=== PATIENT | female | born 2005 | race Caucasian/White ===

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

== ENCOUNTER 2025-04-20 17:15 | Emergency (ER) | payer BC, OTHER, SELFPAY ==
[2025-04-20 17:21] VITALS: BP 111/71; PULSE 74; TEMP 37.4; O2SAT 97; BMI 18.9
--- NOTE | 2025-04-20 17:28 | XR_ITS ---
[place] [id number] Patient Name: NAILA TOBIAS MRN: [id number] date: 2005 Sex: F Assigned Patient Location: ED.MAIN Current Patient Location: ED.MAIN Accession/Order Number: [id number] Exam Date: 04/20/2025 17:56 Report Date: 04/20/2025 17:57 At the request of: SARA TORRES Procedure: XR hand RT min 3V 3 views right hand plain film COMPARISON: None HISTORY: Right hand injury ACUTE FINDINGS: None DEGENERATIVE CHANGE: Unremarkable SOFT TISSUE FINDINGS: Unremarkable JOINT EFFUSION: None POSTOP CHANGES: None BONY MINERALIZATION: Adequate XR/XR hand RT min 3V IMPRESSION: No acute findings Impression dictated by: Fly Somers M.D. 04/20/2025 5:57 PM Dictation Location: [place] [address] Electronically authenticated by: [id number] Y Date: 04/20/2025 17:57
--- NOTE | 2025-04-20 17:28 | ED.UPPEXIN1 ---
HPI HPI - Extremity Injury (Upper) General Chief Complaint: Extremity Injury, Upper Stated Complaint: upper extremity problem Time Seen by Provider: 04/20/25 17:21 Source: patient Mode of arrival: walk-in Limitations: no limitations History of Present Illness HPI narrative: 19 year old female presents to the ED for pain to her right distal hand s/p injury 2 days ago. Reports punching a wall 04/18/25. Denies weakness, N/T. Denies pain to the wrist. Related Data Home Medications ?Medication ?Instructions ?Recorded ?Confirmed norgestimate 0.25 mg-ethinyl 1 tab PO QDAY 08/06/23 04/20/25 estradiol 0.035 mg tablet (Sprintec (28)) Allergies Allergy/AdvReac Type Severity Reaction Status Date / Time No Known Drug Allergies Allergy Verified 04/20/25 17:21 Opioid HPI Opioid Management Most Recent Pain and Opioid Data: Last Pain Scale 4 Today, 17:38 Review of Systems ROS Constitutional Denies: fever or chills Cardiovascular Denies: chest pain Respiratory Denies: shortness of breath Musculoskeletal Reports: extremity pain Integumentary/Breast Reports: sores Neurological Denies: numbness in extremities or weakness in extremities PFSH PFSH Social History Little interest or pleasure in doing things: not at all Feeling down, depressed, or hopeless: not at all Exam Constitutional Vital Signs, click to edit/add: Last Vital Signs Temp 99.3 F 04/20/25 17:21 Pulse 74 04/20/25 17:21 Resp 16 04/20/25 17:21 BP 111/71 04/20/25 17:21 Pulse Ox 97 04/20/25 17:21 O2 Del Method Room Air 04/20/25 17:21 Common normals: no apparent distress and oriented x3 General appearance: cooperative Eye Common normals: conjunctivae normal and no scleral icterus Neck & C-Spine Common normals: supple Respiratory Common normals: normal respiratory effort Effort & inspection: able to speak in complete sentences and symmetric chest movement Cardio Common normals: regular rate Peripheral pulses: radial pulses present and ulnar pulses present Extremity Other: Tenderness to 3rd MCP of right hand. Abrasions to distal hand at 2nd and 3rd MCP areas. Denies tenderness to the right wrist. Full ROM to right hand and wrist. Distal sensation intact. Neuro Common normals: oriented x3 and moves all extremities Sensorium/orientation: awake and alert Speech: speech normal Gait (neuro): normal gait Course Vital Signs Vital signs: Vital Signs Temperature 99.3 F 04/20/25 17:21 Pulse Rate 74 04/20/25 17:21 Respiratory Rate 16 04/20/25 17:21 Blood Pressure 111/71 04/20/25 17:21 Pulse Oximetry 97 04/20/25 17:21 Oxygen Delivery Method Room Air 04/20/25 17:21 Temperature 99.3 F 04/20/25 17:21 Pulse Rate 74 04/20/25 17:21 Respiratory Rate 16 04/20/25 17:21 Blood Pressure 111/71 04/20/25 17:21 Pulse Oximetry 97 04/20/25 17:21 Oxygen Delivery Method Room Air 04/20/25 17:21 MDM - Extremity Injury (Upper) MDM Narrative Medical decision making narrative: Pt declined Motrin, Tylenol, and an ice pack here. X-ray showed no acute findings. Findings were discussed. Follow up with pcp for a recheck as needed. Medical Records Attestation: I reviewed the patient's medical records. Imaging Data XR hand: Attestation: I have reviewed the pertinent imaging results. Radiologist's impression: ITS Impressions Hand X-Ray 04/20/25 17:28 IMPRESSION: No acute findings Impression dictated by: Fly Somers M.D. 04/20/2025 5:57 PM Dictation Location: [place] [address] Electronically authenticated by: [id number] Y Date: 04/20/2025 17:57 Discharge Plan Discharge Chief Complaint: Extremity Injury, Upper Clinical Impression: Contusion of hand, Abrasion hand Patient Disposition: Home, Self-Care Time of Disposition Decision: 18:05 Condition: Good Mode of Transportation: Private Vehicle Prescriptions / Home Meds: No Action norgestimate-ethinyl estradiol [Sprintec (28)] 0.25-35 mg-mcg tablet 1 tab PO QDAY Print Language: Prydeinig Instructions: Contusion in Adults (ED), Abrasion (ED) Additional Instructions: Return to the ER for worsening symptoms. Referrals: Physician,Non-Staff, MD [Primary Care Provider] - 1 week
--- OUTSIDE RECORDS SUMMARY | 2025-04-20 17:40 | XMS_ITS | CCD ---
Author Organization [facility] Care Team Providers Care Doctor Chiropractic Name Role Phone Dwayne Cisneros Primary Care Physician PROVIDER, UNKNOWN Attending Unavailable PROVIDER, UNKNOWN Admitting Unavailable Unavailable Primary Care Provider Unavailquang e Pcp, No Primary Care Provider [phone] PCP, NO Primary Care Unavailable DWAYNE CISNEROS Referring Unavailable RACQUEL FERRERA Attending Unavailable Emily Chan MD Primary Care Provider Fransico Brown DO Unavailable DR EMILY CHAN Primary Care Unavailable NNEAK RAI Attending Unavailable NNEKA RAI Admitting Unavailable BLAYNE, DR DUBOIS Primary Care Unavailable PAY ., DR MORALES Attending Unavailable PAY ., DR MORALES Admitting Unavailable HOUSE, DR DUBOIS Primary Care Unavailable PAY ., DR MORALES Admitting Unavailable PAY ., DR MORALES Attending Unavailable ZIEBER, DR RENE Mauricio Consulting Unavailable PAY ., DR MORALES Consulting Unavailable BLAYNE, DR DUBOIS Primary Care Unavailable MARKER ., DR ROJAS Consulting Unavailable MARKER ., DR ROJAS Attending Unavailable MARKER ., DR ROJAS Admitting Unavailable GRECHNY ., ALDO SEGOVIA Consulting Unavailquang MAYS ., DR FAYE Attending Unavailable HAY ., DR FAYE Admitting Unavailable HOUSE, DR DUBOIS Primary Care Unavailable KATIANA MA Consulting Unavailable DIAB ., YUN Consulting Unavailable DIAB ., YUN Attending Unavailable DUSTIN, DR DIAZ Primary Care Unavailable DIAB ., YUN Admitting Unavailable DIAB ., YUN Admitting Unavailable DIAB ., YUN Attending Unavailable KEVIN ., JAQUELINE Consulting Unavailable BLAYNE, DR DUBOIS Primary Care Unavailable DUSTIN, DR DIAZ Primary Care Unavailable MISC, DR HUSSEIN Consulting Unavailable MISC, DR HUSSEIN Attending Unavailable MISC, DR HUSSEIN Admitting Unavailable DUSTIN, DR DIAZ Primary Care Unavailable NNEKA RAI Consulting Unavailable NNEKA RAI Attending Unavailable NNEKA RAI Admitting Unavailable HOUSE, DR DUBOIS Consulting Unavailable HOUSE, DR DUBOIS Attending Unavailable HOUSE, DR DUBOIS Admitting Unavailable HOUSE, DR DUBOIS Primary Care Unavailable CHAN, DR DIAZ Primary Care Unavailable NNEKA RAI Attending Unavailable NNEKA RAI Admitting Unavailable HOUSE, DWAYNE Referring Unavailable HOUSE, DWAYNE Primary Care Unavailable KEVIN, FRANSICO Attending Unavailable HOUSE, DWAYNE Primary Care Unavailable NANCY ZURITA Attending Unavailable REFERRED, SELF Referring Unavailable TYLER MATHEW Attending Unavailabl e HOUSE, DWAYNE Referring Unavailable HOUSE, DWAYNE Primary Care Unavailable HOUSE, DWAYNE Primary Care Unavailable BROWN, FRANSICO Attending Unavailable YANA DAVIS Referring Unavailable HOUSE, DWAYNE Referring Unavailable HOUSE, DWAYNE Primary Care Unavailable BROWN, FRANSICO Attending Unavailable KEVIN, FRANSICO Attending Unavailable REFERRED, SELF Referring Unavailable HOUSE, DWAYNE Primary Care Unavailable TYLER MATHEW Attending Unavailabl e KEANE, NAIF E Referring Unavailable HOUSE, DWAYNE Primary Care Unavailable HOUSE, DWAYNE Referring Unavailable HOUSE, DWAYNE Primary Care Unavailable KEVIN, FRANSICO Attending Unavailable Dustin SALCEDO, Emily Mauricio Primary Care Provider [phone] Kevin DOFransico Unavailable Guanako, Amira J Admitting Unavailable Guanako, Amira J Attending Unavailable Guanako, Amira J Admitting Unavailable Guanako, Amira J Attending Unavailable Guanako, Amira J Admitting Unavailable Guanako, Amira J Attending Unavailable GamalielMickey D Admitting Unavailable GamalielMickey Attending Unavailable GamalielMickey edwards Referring Unavailable KASSINGERDENITA Attending Unavailable CHAN, EMILY Primary Care Unavailable KASSINGERDENITA Attending Unavailable CHAN, EMILY Primary Care Unavailable CHAN, EMILY Primary Care Unavailable KASSINGER, DENITA Attending Unavailable CHAN, EMILY Primary Care Unavailable KASSINGER, DENITA Attending Unavailable CHAN, EMILY Primary Care Unavailable KASSINGER, DENITA Attending Unavailable MARIESINGER, DENITA Attending Unavailable CHAN, EMILY Primary Care Unavailable CHAN, EMILY Primary Care Unavailable CARMINEGER, DENITA Attending Unavailable SPENSER CISNEROS Attending Unavailable HOUSE, DWAYNE Primary Care Unavailable CHAN, EMILY Primary Care Unavailable KASSINGER, DENITA Attending Unavailable DUSTIN, EMILY Primary Care Unavailable DENITA SOSA Attending Unavailable DUSTIN, EMILY Primary Care Unavailable KASSINGER, DENITA Attending Unavailable CHAN, EMILY Primary Care Unavailable SHEILA, DENITA Attending Unavailable EMILY CHAN Primary Care Unavailable KAS, DENITA Attending Unavailable EMILY CHAN Primary Care Unavailable KAS, DENITA Attending Unavailable EMILY CHAN Primary Care Unavailable KASSINKASSIDY, DENITA Attending Unavailable EMILY CHAN Primary Care Unavailable KASSINGER, DENITA Attending Unavailable EMILY CHAN Primary Care Unavailable KASSINGER, DENITA Attending Unavailable EMILY CHAN Primary Care Unavailable KASSINGER, DENITA Attending Unavailable EMILY CHAN Primary Care Unavailable KASSINGER, DENITA Attending Unavailable KASSINGER, DENITA Attending Unavailable EMILY CHAN Primary Care Unavailable KASSINGER, DENITA Attending Unavailable DWAYNE CISNEROS Primary Care Unavailable KASSINKASSIDY, DENITA Attending Unavailable DWAYNE CISNEROS Primary Care Unavailable CHANEMILY MARTINO Primary Care Unavailable KASSINGER, DENITA Attending Unavailable EMILY CHAN Primary Care Unavailable KASSINGER, DENITA Attending Unavailable SHEILA, DENITA Attending Unavailable EMILY CHAN Primary Care Unavailable EMILY CHAN Primary Care Unavailable KASSINGER, DENITA Attending Unavailable KASSINKASSIDY, DENITA Attending Unavailable EMILY CHAN Primary Care Unavailable Tom SALCEDO, Sasha Wesley Primary Care Provider BENITO SUN Attending Unavailable AAKASH LOZANO Attending Unavailable Dwayne Cisneros Primary Care Provider [phone] Medications Current Medications Medication Drug Class(es) Dates Sig (Normalized) Sig (Original) calcium carbonate 1250 mg / cholecalciferol 200 unt oral tablet (15 sources) Vitamin D take 1 tablet by mouth once in the morning calcium carbonate-vitamin D (Oscal-500) 500-200 MG-UNIT tablet Take 1 tablet by mouth in the morning. 0 Active dextromethorphan hydrobromide 15 mg / guaiFENesin 400 mg / pseudoephedrine hydrochloride 60 mg oral tablet (1 source) alpha-Adrenergic Agonist, Uncompetitive O-sbikwo-B-aspartat e Receptor Antagonist, Sigma-1 Agonist Start: 09-05-2024 take 4 tablets by mouth every twenty-four hours Pseudoephedrine-D m-Guaifenesin (Capmist Dm) 60-15-400 mg tablet Active 1 TAB PO EVERY 4-6 HOURS September 05, 2024 12:00am do not exceed 4 doses per 24 hrs ethinyl estradiol 0.035 mg / norgestimate 0.25 mg oral tablet (4 sources) Progestin, Estrogen Start: 08-21-2023 End: 09-09-2024 take 1 tablet by mouth in the morning Jyo 0.25-35 MG-MCG tablet Take 1 tablet by mouth in the morning. 08/21/2023 09/09/2024 Discontinued (Therapy completed) Ethinyl Estradiol / Norgestrel (13 sources) Estrogen Start: 12-22-2022 norgestrel-ethiny l estradiol (Low-Ogestrel) 0.3-30 MG-MCG tablet Start: 12-22-2022 Low-Ogestrel ( 28) 0.3 mg-30 mcg tablet etonogestrel 68 mg drug implant (2 sources) Progestin etonogestrel-elu ting (Nexplanon) 68 mg contraceptive implant 1 each by Implant route 1 (one) time Active Etonogestrel (Nexplanon) 68 mg implant (1 source) Start: Etonogestrel (Nexplanon) 68 mg implant Active SUBDERMAL September 05, 2024 12:00am implanted 08/2024 Dr. Alston prazosin 1 mg oral capsule (15 sources) alpha-Adrenergic Edgard take 1 capsule by mouth once daily prazosin (Minipress) 1 MG capsule Take 1 mg by mouth Nightly. 0 Active sertraline 100 mg oral tablet (20 sources) Serotonin Reuptake Inhibitor Start: take 150 mg by mouth once daily Sertraline Active 150 MG PO Daily September 05, 2024 12:00am Start: 07-10-2024 sertraline (Zo loft) 100 MG tablet Indications: PTSD (post-traumatic stress disorder) (CMS/HCC) , Depression with anxiety TAKE 1 AND 1/2 TABLETS BY MOUTH ONCE A DAY AT THE SAME TIME 135 tablet 2 07/10/2024 Active Start: 06-17-2024 End: 07-10-2024 sertraline (Zoloft) 100 MG t ablet Indications: PTSD (post-traumatic stress disorder) (CMS/HCC) , Depression with anxiety TAKE 1 AND 1/2 TABLETS BY MOUTH ONCE A DAY AT THE SAME TIME 135 tablet 2 07/10/2024 Active Start: 12-09-2022 take 2 tablets by mo uth once daily at bedtime sertraline 100 mg tablet (Zoloft) TAKE 2 TABLETS BY MOUTH NIGHTLY AT BEDTIME 0 12/09/2022 Active sertraline (Zolo ft) 100 MG tablet Take 150 mg by mouth Nightly. 0 Active Completed/Discontinued Medications Medication Drug Class(es) Dates Sig (Normalized) Sig (Original) amoxicillin 500 mg oral tablet (1 source) Penicillin-class Antibacterial Start: 06-27-2018 End: 09-05-2024 take 500 mg by mouth three times daily Amoxicillin Discontinued 500 MG PO Three times daily 30 June 27, 2018 12:00am September 05, 2024 2:21pm ondansetron 4 mg disintegrating oral tablet (1 source) Serotonin-3 Receptor Antagonist Start: 06-27-2018 End: 09-05-2024 Ondansetron Discontinued June 27, 2018 12:00am September 05, 2024 2:21pm Problems Active Problems Problem Classification Problem Date Documented Da te Episodic/Chronic Abdominal pain (1 source) Unspecified abdominal pain; Translations: [UNSPECIFIED ABDOMINAL PAIN] Onset: 12-27-2022 Episodic Adjustment disorders (1 source) Reaction to severe stress, unspecified; Translations: [REACTION TO SEVERE STRESS UNS] Onset: 02-15-2023 Chronic Anxiety disorders (20 sources) Posttraumatic stress disorder; Translations: [Post-traumatic stress disorder, unspecified] Onset: 08-28-2022 Chronic Epilepsy; convulsions (1 source) Seizure disorder; Translations: [Epilepsy, unspecified, not intractable, without status epilepticus] 09-05-2024 Chronic Genitourinary symptoms and ill-defined conditions (11 sources) Microscopic hematuria; Translations: [Other microscopic hematuria] Onset: 11-27-2022 Episodic Immunizations and screening for infectious disease (2 sources) Vaccination needed; Translations: [Encounter for immunization] 09-09-2024 Episodic Miscellaneous mental health disorders (20 sources) Psychologic conversion disorder; Translations: [Conversion disorder with seizures or convulsions] Onset: 12-06-2021 Chronic Nutritional deficiencies (1 source) Vitamin D deficiency, unspecified; Translations: [VITAMIN D DEFICIENCY UNSPECIFIED] Onset: 12-27-2022 Chronic Other bone disease and musculoskeletal deformities (4 sources) Emmie Schlatter disease; 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] Onset: 12-02-2019 12-10-2023 Chronic Residual codes; unclassified (3 sources) Sleep apnea 01-29-2014 Chronic Spondylosis; intervertebral disc disorders; other back problems (1 source) Muscle spasm of back; Translations: [MUSCLE SPASM OF BACK] Onset: 01-28-2023 Episodic Unclassified (3 sources) LOW BACK PAIN, UNSPECIFIED; Translations: [LOW BACK PAIN, UNSPECIFIED] Onset: 01-28-2023 Unclassified (1 source) CONTACT W/AND (SUSP) EXPOS COVID-19; Translations: [CONTACT W/AND (SUSP) EXPOS COVID-19] Onset: 08-17-2022 Past or Other Problems Problem Classification Problem Date Documented Date Episodic/Chronic E Codes: Natural/environment (1 source) Exposure to other specified factors, initial encounter; Translations: [EXPOSURE OTHER SPEC FACTORS INITIAL] Onset: 05-03-2022 Episodic Epilepsy; convulsions (9 sources) Unspecified convulsions; Translations: [Neurological finding] Onset: 11-15-2021 Resolved: 09-09-2024 Episodic Fracture of upper limb (4 sources) Open fracture of shaft of radius and ulna; Translations: [Unspecified fracture of shaft of unspecified radius, initial encounter for open fracture type I or II] Onset: 07-17-2017 12-10-2023 Episodic Mood disorders (4 sources) Depressive disorder; Translations: [Depression] Onset: 08-28-2022 Resolved: 09-09-2024 12-10-2023 Chronic Other aftercare (1 source) Other mcc (current) drug therapy; Translations: [OTH FUNERAL DRIVER CURRENT DRUG THERAPY] Onset: 11-27-2022 Episodic Other injuries and conditions due to external causes (4 sources) Food in respiratory tract, part unspecified causing other injury, initial encounter; Translations: [FOOD RESP TRACT PRT UNS OTH INJ INT] Onset: 05-02-2022 Episodic Residual codes; unclassified (4 sources) Procedure and treatment not carried out due to patient leaving prior to being seen by health care provider; Translations: [PROC AND TX NOT CARRIED OUT PT LEAVE] Onset: 12-09-2022 Episodic Suicide and intentional self-inflicted injury (4 sources) Poisoning by other antipsychotics and neuroleptics, intentional self-harm, initial encounter; Translations: [PSN OTH ANTIPSYCH NLS SLF-HARM INIT] Onset: 08-15-2022 Episodic Unclassified (1 source) LOW BACK PAIN, UNSPECIFIED; Translations: [LOW BACK PAIN, UNSPECIFIED] Onset: 01-25-2023 Viral infection (4 sources) Disease caused by 2019-nCoV; Translations: [COVID-19] Onset: 11-15-2021 Resolved: 09-09-2024 12-10-2023 Episodic Results Test Name Value Interpretation Reference Range Facility US Pelvis Non-OB Completeon 08-07-2023 US Pelvis Non-OB Complete Exam Date/Time: 08/05/2023 18:40 EDT Reason for Exam: N92.0 Report IMPRESSION: NEGATIVE ULTRASOUND OF THE PELVIS. CLINICAL HISTORY: N92.0. Cramping. COMPARISON: Pelvis ultrasound 10/16/2021 COMMENT: Transabdominal images were obtained. The uterus measurements and an estimated volume are: Uterus Length: 7.6 cm Uterus Width: 3.5 cm Uterus Height: 2.6 cm Uterus Volume: 35.8 cm3 Endometrium Thickness: 0.3 cm Normal sonographic appearance of the uterus. The right ovary measurements and an estimated volume are: Right Ovary Length: 1.7 cm Right Ovary Width: 1.7 cm Right Ovary Height: 1.3 cm Right Ovary Volume: 1.9 cm3 The left ovary measurements and an estimated volume are: Left Ovary Length: 2.1 cm Left Ovary Width: 2.5 cm Left Ovary Height: 1.5 cm Left Ovary Volume: 3.8 cm3 Normal sonographic appearance of the ovaries. Blood flow is identified to both ovaries. Ordering Provider: Mickey Alston FINAL REPORT Dictated: 08/07/2023 2:24 pm Brandan Stevenson DO Signed (Electronic Signature): 08/07/2023 2:24 pm Signed by: Brandan Stevenson DO Transcribed by: MOISES Technologist: ANTONELLA Technical Comments Transabdominal Ultrasound Performed Normal [facility] Consent for Treatmenton 07-19 Consent for Treatment [id number]#[id number]:127 Normal [facility] Physician Orderon 07-31-2023 Physician Order [id number]#1.00CD:127 Normal [facility] 36on 07-12-2023 36 Called to confirm appointment. Patient did not answer. LVM telling them to call back if they need to reschedule. [facility] Chlamydia/Gonococcus, NAAon 04-26-2023 C. trachomatis rRNA UNA+probe Ql (Unsp spec) Negative Invalid Interpretation Code Negative [facility] Comment on above: Performed By: #### 1 [id number] #### [facility] [address] [place] [address] N. gonorrhoeae rRNA UNA+probe Ql (Unsp spec) Negative Invalid Interpretation Code Negative [facility] Comment on above: Result Comment: Perf ormed at: =G [facility] [address] [id number] MD Finn Sheth Performed By: #### 1 [id number] #### [facility] [address] [place] [address] Physician Orderon 04-24-2023 Physician Order [id number]#[id number]:127 [facility] Physician Orderon 04-22-2023 Physician Order [id number]#1.00CD:127 [facility] 36on 03-11-2023 36 I've entered a response to the patient's message below. Response to the message: I think you can now message me through my chart Denita Sosa [facility] Progress Noteon 03-06-2023 Progress Note Clients mom cancelled client having PNES seizure Normal [facility] Progress Noteon 02-21-2023 Progress Note Client cancelled [facility] PATINSon 02-15-2023 PATINS Please follow the seizure precautions below: Please do not engage in any high risk activities such as, but not limited to, bathing in tubs, swimming alone, climbing ladders, working at heights, near open flames or machinery with moving parts etc. Avoid scenarios in which sudden loss of awareness may result in serious injuries. Alcohol and sleep deprivation may provoke seizures. It is best to avoid alcohol and to get sufficient sleep each night. You should not be driving according to state law for at least 6 months from the time of last seizure, episode of altered consciousness, or any other unexplained symptom that could affect your ability to safely drive. You are encouraged to contact the gas or water meter installer/[place] [employer] Motor [employer] to apprise them of your medical condition. If you have any questions or further seizures, please call the Epilepsy clinic to schedule an appointment. Normal [facility] Progress Noteon 02-15-2023 Progress Note Department of Neurological Sciences Section of Epilepsy [facility] [address] [facility] [address] Dept: [phone] Dept Loc: [phone] . Visit type: follow-up Reason for Visit: Follow-up Objective Patient was seen today via Telehealth by agreement and consent in light of the current COVID-19 pandemic. I used the following Telehealth technology: Audio and video capabilities Patient location: Home. This patient encounter is appropriate and reasonable under the circumstances given the patient's particular presentation at this time. The patient has been advised of the potential risks and limitations of this mode of treatment (including but not limited to the absence of in-person examination) and has agreed to be treated in a remote fashion in spite of them. Any and all of the patient's/patient's family's questions on this issue have been answered and I have made no promises or guarantees to the patient. The patient has also been advised to contact this office for worsening conditions or problems, and seek emergency medical treatment and/or call 911 if the patient deems either necessary. The patient stated that they are currently in the state [facility]. If the patient is a minor, permission has been obtained by the parent or guardian for the patient to receive medical care at this visit. AL Bell is a 17 y.o. 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 She was last seen on 08/28/2022. Prior History: The patient was initially seen in epilepsy clinic on 08/28/2022, please refer to this note for a detailed seizure history (only available via [facility]). 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 She has been participating in focused CBT therapy through our clinic. The patient has been working with our epilepsy clinic psychiatric social worker (eDnita Sosa, last seen on 01/29/23) on focused CBT for PNES. Per this note: Client has continued periods anxiety and depression. Client however is doing so much better using her coping skills. She is using the control part of her impulsive thinking. She is doing self-care and taking things 1 day at a time. Client has continued to not have seizures, has auras and breaths through them. She had reached 100 days without a major seizure. Interval History: Today the patient and her mother provide the history. Her mother notes ongoing breakthrough seizures since 02/13/23. Her mother believes this was because she tried to make her go into work that day. On that morning the patient notably expressed a desire to not go into work. She then had breakthrough seizures off and on for ~40 minutes. She ultimately was taken to a local ED after she struck her head. Her mother is concerned that any activity (work, school or otherwise) that causes her stress/anxiety will result in seizures. She is worried that she will be unable to return to work or school. The patient has been experiencing notable anhedonia, reporting that she mostly lays around in bed during the day. She expresses no desire to go out and participate in daily activities. She has also reported a lot of self doubt - stating that she was failing at school, work, and life. Her sleep has also notably been poor due to recurrent nightmares. She stopped prazosin and is taking Zoloft 100mg at bedtime. She has been following with Dr. Fransico Brown ([facility]), last seen on 10/04/2022. Review of Systems No Known Allergies Current Outpatient Medications Medication Sig Dispense Refill norgestrel-ethinyl estradiol (Low-Ogestrel) 0.3-30 MG-MCG tablet sertraline (Zoloft) 100 MG tablet Take 150 mg by mouth Nightly. No current facility-administer ed medications for this visit. Past Medical History: Diagnosis Date Seizures (CMS/HCC) (HCC) Social History Tobacco Use Smoking status: Never Smokeless tobacco: Not on file Substance Use Topics Alcohol use: Never History reviewed. No pertinent surgical history. No family history on file. Ht 5' 4 (1.626 m) Wt 103 lb (46.7 kg) BMI 17.68 kg/m? Physical Exam NEUROLOGIC: (limited via video) Mental status: The patient was in no distress, alert, interactive and cooperative. Affect is appropriate. Cranial nerve II: Visual solares intact to the examiner. Cranial nerves III, IV, and : Pupils round and equal; no ptosis. EOMs intact. No nystagmus. Cranial Nerve V: Unable to assess. Cranial nerve VII: Normal and symmetric facial strength. Cranial nerve VIII: Hearing is intact bilaterally to voice. Cranial nerves IX and X: Palate elevates symmetrically. Cranial nerve XI: S (more content not included)... Normal [facility] CBC AUTO DIFFon 02-13-2023 BASO # 0.1 103/ul Normal 0.0-0.1 [facility] Comment on above: Performed By: #### D RUGRPD #### [facility] [address] [address] [address] Heather Salas Basophils/100 WBC (Bld) 0.6 % Normal 0.2-2.0 [facility] Comment on above: Performed By: #### D RUGRPD #### [facility] [address] [address] [address] Heather Salas EO # 0.2 103/ul Normal 0.0-0.7 [facility] Comment on above: Performed By: #### D RUGRPD #### [facility] [address] [address] [address] Heather Salas Eosinophils/100 WBC (Bld) 1.8 % Normal 0.9-7.0 [facility] Comment on above: Performed By: #### D RUGRPD #### [facility] [address] [address] [address] Heather Salas Erythrocyte distribution width (RBC) [Ratio] 12.9 % Normal 11.0-15.0 [facility] Comment on above: Performed By: #### D RUGRPD #### [facility] [address] [place] [address] Dr. Heather Salas Hematocrit (Bld) [Volume fraction] 38.1 % Normal 36.0-48.0 [facility] Comment on above: Performed By: #### D RUGRPD #### [facility] [address] [place] [address] Dr. Heather Salas Hemoglobin (Bld) [Mass/Vol] 12.6 g/dL Normal 12.0-16.0 [facility] Comment on above: Performed By: #### D RUGRPD #### [facility] [address] [place] [address] Dr. Heather Salas IG # 0.03 10e3/ul Normal 0.00-0.03 [facility] Comment on above: Performed By: #### D RUGRPD #### [facility] [address] [place] [address] Dr. Heather Salas IG % 0.4 % Normal 0.0-0.5 [facility] Comment on above: Performed By: #### D RUGRPD #### [facility] [address] [place] [address] Dr. Heather Salas LYMPH # 2.8 103/ul Normal 1.2-3.8 [facility] Comment on above: Performed By: #### D RUGRPD #### [facility] [address] [place] [address] Dr. Heather Salas Lymphocytes/100 WBC (Bld) 34.6 % Normal 20.5-60.0 [facility] Comment on above: Performed By: #### D RUGRPD #### [facility] [address] [place] [address] Dr. Heather Salas MANUAL DIFF REQ NO Normal [facility] Comment on above: Performed By: #### D RUGRPD #### [facility] [address] [place] [address] Dr. Heather Salas MCH (RBC) [Entitic mass] 30.1 pg Normal 26.7-34.0 [facility] Comment on above: Performed By: #### D RUGRPD #### [facility] [address] [place] [address] Dr. Heather Salas MCHC (RBC) [Mass/Vol] 33.1 g/dL Normal 29.9-35.2 [facility] Comment on above: Performed By: #### D RUGRPD #### [facility] [address] [place] [address] Dr. Heather Salas MCV (RBC) [Entitic vol] 90.9 fL Normal 79.1-95.6 [facility] Comment on above: Performed By: #### D RUGRPD #### [facility] [address] [place] [address] Dr. Heather Salas MONO # 0.4 103/ul Normal 0.3-0.8 [facility] Comment on above: Performed By: #### D RUGRPD #### [facility] [address] [place] [address] Dr. Heather Salas Monocytes/100 WBC (Bld) 4.9 % Normal 1.7-12.0 [facility] Comment on above: Performed By: #### D RUGRPD #### [facility] [address] [place] [address] Dr. Heather Salas NEUT # 4.7 103/ul Normal 1.4-6.5 [facility] Comment on above: Performed By: #### D RUGRPD #### [facility] [address] [place] [address] Dr. Heather Salas Neutrophils/100 WBC (Bld) 57.7 % Normal 43.0-75.0 [facility] Comment on above: Performed By: #### D RUGRPD #### [facility] [address] [place] [address] Dr. Heather Salas Platelet mean volume (Bld) [Entitic vol] 10.4 fL Normal 9.5-13.5 [facility] Comment on above: Performed By: #### D RUGRPD #### [facility] [address] [place] [address] Dr. Heather Salas PLT 244 103/ul Normal 150-450 [facility] Comment on above: Performed By: #### D RUGRPD #### [facility] [address] [place] [address] Dr. Heather Salas RBC 4.19 106/ul Normal 3.40-5.30 [facility] Comment on above: Performed By: #### D RUGRPD #### [facility] [address] [place] [address] Dr. Heather Salas WBC 8.1 103/ul Normal 4.0-11.0 [facility] Comment on above: Performed By: #### D RUGRPD #### [facility] [address] [place] [address] Dr. Heather Salas DRUG SCREEN RAPID (URINE)on 02-13-2023 AMP Negative Normal NEGATIVE [facility] Comment on above: Performed By: #### B MP #### [facility] [address] [place] [address] Dr. Heather Salas BAR Negative Normal NEGATIVE [facility] Comment on above: Performed By: #### B MP #### [facility] [address] [place] [address] Dr. Heather Salas BUP Negative Normal NEGATIVE [facility] Comment on above: Performed By: #### B MP #### [facility] [address] [place] [address] Dr. Heather Salas BZO Negative Normal NEGATIVE [facility] Comment on above: Performed By: #### B MP #### [facility] [address] [place] [address] Dr. Heather Salas LANG Negative Normal NEGATIVE [facility] Comment on above: Performed By: #### B MP #### [facility] [address] [place] [address] Dr. Heather Salas CUT-OFFS SEE BELOW Normal [facility] Comment on above: Result Comment: AMP (Amphetamine): 500ng/mL, BAR (Barbituates): 200 ng/mL, BZO (Benzodiazepines): 150 ng/mL, BUP (Buprenorphine): 10 ng/mL, LANG (Cocaine): 150 ng/mL, mAMP (Methamphetamine): 500 ng/mL, MTD (Methadone): 200 ng/mL, OPI (Opiates): 100 ng/mL, OXY (Oxycodone): 100 ng/mL, PCP (Phencyclidine): 25 ng/mL, PPX (Propoxyphene): 300 ng/mL, THC (Cannabinoids): 50 ng/mL, TCA (Trycyclic Antidepressants): 300 ng/mL Performed By: #### B MP #### [facility] [address] [place] [address] Dr. Heather Salas DRUG CUT HEADER DRUG CLASS TEST SYSTEM CUT-OFF CONCENTRATIONS ARE FOLLOWS: Normal [facility] Comment on above: Performed By: #### B MP #### [facility] [address] [place] [address] Dr. Heather Salas mAMP Negative Normal NEGATIVE [facility] Comment on above: Performed By: #### B MP #### [facility] [address] [place] [address] Dr. Heather Salas MTD Negative Normal NEGATIVE [facility] Comment on above: Performed By: #### B MP #### [facility] [address] [place] [address] Dr. Heather Salas OPI Negative Normal NEGATIVE [facility] Comment on above: Performed By: #### B MP #### [facility] [address] [place] [address] Dr. Heather Salas OXY Negative Normal NEGATIVE [facility] Comment on above: Performed By: #### B MP #### [facility] [address] [place] [address] Dr. Heather Salas PCP Negative Normal NEGATIVE [facility] Comment on above: Performed By: #### B MP #### [facility] [address] [place] [address] Dr. Heather Salas PPX Negative Normal NEGATIVE [facility] Comment on above: Performed By: #### B MP #### [facility] [address] [place] [address] Dr. Heather Salas TCA Negative Normal NEGATIVE [facility] Comment on above: Performed By: #### B MP #### [facility] [address] [address] [address] Heather Salas THC Negative Normal NEGATIVE [facility] Comment on above: Performed By: #### B MP #### [facility] [address] [place] [address] Dr. Heather KISER URINE PROFILEon 3 Bilirubin Ql (U) Negative Normal NEGATIVE [facility] Comment on above: Performed By: #### B MP #### [facility] [address] [place] [address] Dr. Heather Salas Clarity (U) CLEAR Normal CLEAR [facility] Comment on above: Performed By: #### B MP #### [facility] [address] [place] [address] Dr. Heather Salas Color (U) LT. YELLOW Normal YELLOW [facility] Comment on above: Performed By: #### B MP #### [facility] [address] [place] [address] Dr. Heather RADFORD A micrscopic examination will be performed if indicated. Normal [facility] Comment on above: Performed By: #### B MP #### [facility] [address] [place] [address] Dr. Heather Salas Glucose Ql (U) Negative Normal NEGATIVE [facility] Comment on above: Performed By: #### B MP #### [facility] [address] [place] [address] Dr. Heather Salas Hemoglobin Ql (U) TRACE-INTACT Abnormal NEGATIVE [facility] Comment on above: Performed By: #### B MP #### [facility] [address] [place] [address] Dr. Heather Salas Ketones Ql (U) Negative Normal NEGATIVE [facility] Comment on above: Performed By: #### B MP #### [facility] [address] [place] [address] Dr. Heather Salas LEUKOCYTES Negative Normal NEGATIVE [facility] Comment on above: Performed By: #### B MP #### [facility] [address] [place] [address] Dr. Heather Salas Nitrite Ql (U) Negative Normal NEGATIVE [facility] Comment on above: Performed By: #### B MP #### [facility] [address] [address] [address] Heather Salas pH (U) 7.5 [pH] Normal 5-9 [facility] Comment on above: Performed By: #### B MP #### [facility] [address] [place] [address] Dr. Heather Salas SPEC GRAVITY 1.015 Normal 1.005-<=1.025 [facility] Comment on above: Performed By: #### B MP #### [facility] [address] [place] [address] Dr. Heather Salas UA PROTEIN Negative Normal NEGATIVE/ TRACE [facility] Comment on above: Performed By: #### B MP #### [facility] [address] [place] [address] Dr. Heather Salas UR MICRO IND INDICATED Normal [facility] Comment on above: Performed By: #### B MP #### [facility] [address] [place] [address] Dr. Heather Salas Urobilinogen Qn (U) 0.2 {Varun'U}/dL Normal 0.2 - 1. 0 [facility] Comment on above: Performed By: #### B MP #### [facility] [address] [place] [address] Dr. Heather Salas PREG HCG QUALon 02-13-2023 , QUAL Negative Normal NEGATIVE [facility] Comment on above: Performed By: #### P REG #### [facility] [address] [place] [address] Dr. Heather Salas PROF 14(COMP METB)on 023 Albumin [Mass/Vol] 3.8 g/dL Normal 3.4-5.0 [facility] Comment on above: Performed By: #### B MP #### [facility] [address] [place] [address] Dr. Heather Salas Albumin/Globulin [Mass ratio] 1.1 {ratio} Normal [facility] Comment on above: Performed By: #### B MP #### [facility] [address] [address] [address] Heather Salas ALP [Catalytic activity/Vol] 93 U/L Normal 65-260 [facility] Comment on above: Performed By: #### B MP #### [facility] [address] [place] [address] Dr. Heather Salas ALT [Catalytic activity/Vol] 17 U/L Normal 14-59 [facility] Comment on above: Performed By: #### B MP #### [facility] [address] [address] [address] Heather Salas Anion gap [Moles/Vol] 13.6 mmol/L Normal [facility] Comment on above: Performed By: #### B MP #### [facility] [address] [place] [address] Dr. Heather Salas AST [Catalytic activity/Vol] 14 U/L Critically low 15-37 [facility] Comment on above: Performed By: #### B MP #### [facility] [address] [place] [address] Dr. Heather Salas Bilirubin [Mass/Vol] 0.2 mg/dL Normal 0.2-1.0 [facility] Comment on above: Performed By: #### B MP #### [facility] [address] [place] [address] Dr. Heather Salas Calcium [Mass/Vol] 9.0 mg/dL Normal 8.5-10.1 [facility] Comment on above: Performed By: #### B MP #### [facility] [address] [place] [address] Dr. Heather Salas Chloride [Moles/Vol] 107 mmol/L Normal 98-107 [facility] Comment on above: Performed By: #### B MP #### [facility] [address] [place] [address] Dr. Heather aSlas CO2 [Moles/Vol] 27.5 mmol/L Normal 21.0-32.0 [facility] Comment on above: Performed By: #### B MP #### [facility] [address] [place] [address] Dr. Heather Salas Creatinine [Mass/Vol] 0.73 mg/dL Normal 0.55-1.02 [facility] Comment on above: Performed By: #### B MP #### [facility] [address] [address] [address] Heather Salas Globulin (S) [Mass/Vol] 3.4 g/dL Normal [facility] Comment on above: Performed By: #### B MP #### [facility] [address] [address] [address] Heather Salas Glucose [Mass/Vol] 86 mg/dL Normal 74-106 [facility] Comment on above: Performed By: #### B MP #### [facility] [address] [place] [address] Dr. Heather Salas Potassium [Moles/Vol] 4.1 mmol/L Normal 3.5-5.1 [facility] Comment on above: Performed By: #### B MP #### [facility] [address] [place] [address] Dr. Heather Salas Protein [Mass/Vol] 7.2 g/dL Normal 6.4-8.2 [facility] Comment on above: Performed By: #### B MP #### [facility] [address] [place] [address] Dr. Heather Salas Sodium [Moles/Vol] 144 mmol/L Normal 136-145 [facility] Comment on above: Performed By: #### B MP #### [facility] [address] [address] [address] Heather Salas Urea nitrogen [Mass/Vol] 7.0 mg/dL Normal 6.4-19.3 [facility] Comment on above: Performed By: #### B MP #### [facility] [address] [place] [address] Dr. Heather Salas Urea nitrogen/Creatinine [Mass ratio] 9.6 mg/mg Normal [facility] Comment on above: Performed By: #### B MP #### [facility] [address] [place] [address] Dr. Heather Salas URINE MICROSCOPIC ONLYon BACTERIA NONE SEEN Normal NONE SEEN [facility] Comment on above: Performed By: #### B MP #### [facility] [address] [place] [address] Dr. Heather Salas Bacteria identified Cx Nom (U) NOT INDICATED Normal [facility] Comment on above: Performed By: #### B MP #### [facility] [address] [place] [address] Dr. Heather Salas CAST NONE SEEN Normal NONE SEEN [facility] Comment on above: Performed By: #### B MP #### [facility] [address] [place] [address] Dr. Heather Salas Crystals LM Nom (Urine sed) NONE SEEN Normal NONE SEEN [facility] Comment on above: Performed By: #### B MP #### [facility] [address] [place] [address] Dr. Heather Salas Epithelial cells LM Ql (Urine sed) FEW Abnormal NONE SEEN /RARE [facility] Comment on above: Performed By: #### B MP #### [facility] [address] [place] [address] Dr. Heather Salas MUCOUS NONE SEEN Normal NONE SEEN [facility] Comment on above: Performed By: #### B MP #### [facility] [address] [place] [address] Dr. Heather Salas RBC 0-2 Normal 0-2 [facility] Comment on above: Performed By: #### B MP #### [facility] [address] [place] [address] Dr. Heather Salas WBC 0-2 Abnormal NONE SEEN [facility] Comment on above: Performed By: #### B MP #### [facility] [address] [place] [address] Dr. Heather Salas Coding Summary.on 01-31-2023 Coding Summary. CD:[id number] NMTElOSywgQVBQTElOS bAedlGbTX0nkZEyHXEz IC8+EK9kCCCqLbeahOG im0X3dWA8H70ctm4yFX uybIB2BHGsPkKzylbvq 0zmzKe5XJpjGcjnNcEi HGBfgM56IMB2tB71Ex2 6jPRwlNQrv4crbVg9Eb AnEGQbBUN1xJlrRNjwi 9WtLHUnW68zvLXug8B7 IGNvbGxhcHNlOyBlbXB 0bW0tAUvscvkey1gnuk clQzc3eq93nSFwt8C4x NO1K6NtjzR8NWBioLYh OekytLQIxE8zkmobb5n lltemYfFuNZXdXSz6HB w3URYpiVqkCaAdPF23U PK9SUFlxnQxP6ObXVXs uUxqRoA7b7D7Vz5MB6N KOzddY2HXPQPNMDdfbT Q+YD89oj63A0MiTdykT ls9RIJkYST7dKC4aH2m FNGwSIcrs6R3eXX2L3F pmfCbyh3oh7oeBUPrZW wqD13yhEWbv8A5XWFlh JT9PXCsbNkmWaFavF38 Oyc+VIAggHfgr3SbRep ef3jaa0thdUv3YndmZL QuuvKggLzsIFO7p4ZaG y0wTRRgoCX1kYJ3pB4w NnBkCkO8BWyaS720WkC anBTkRrbnL70sD1OddO A+PETfEat9XCCojNlbP W2gP9QdFLVylcetxGVk cBaaHL8jEOXtpavdIJB hpK5zFMZcC5t6LcFwRx L4LVndZ7SkQDPqooweB d06tR2wMzSrFoS7FDvv A4BrjtF0CIJoaXFpOZy jUSI7V02uq4Y3OFCoCE RqJRH0dVA2uI2epJjyf jogbGVmdDsgdmVydGlj BWouXPjyD547OMRncXa nPkNvZGluZyBEYXRlOi AgMDMvMTYvMjAyMzwvd GQ+EFFhOSZ5rOghZTPh lQXpPPefHz0ofJofiWp lIO6oGTXcfifkDZVbhA 9eEEGlmOBkqJalSQ2lG LRgaviab772OkLeMBZ0 IOFskCEyQ7CrzQ4cFqP pJEXtDJHcU4WbtOYmYC ebT073JBwwYzI3AIPqu kYsR0RsLQVonZyuWfE2 t4T2Dn6Uy4EpgblyU1T lpTFnNzUnRndbXQi4E4 RkPjwvdHI+HW56PXYlE F02SJk5MHT0jEijHMxs GCDmC4PgoQ4sHmGvWLD kZGRkOyc+PHRhYmxlIH dpZHRoPScxMDAlJyBzd DxqNX2sWk6yHIYbOVYm eGkhrDRkMhNlo9afBZN rGHhoTZ2rnCrsK5WzjJ Z8OENyo0m3Pi05U02eJ 3JvdXA+GPPmaNL5pWH9 bK2yCuWzNwF6CRpgZ78 9OzGawOTmTfouy8kjl4 skuHy4NkV3FSFgvgSge LztLMO3n0ZxMr52L95s IHdpZHRoPSIxNSUiIHZ ujDcasv4kfC2uXv8+PG StvDR3kVW3lJ7cEmDoN iQ1ZSljT649SwZlvAYx Yzmei0myg5hqhTb7TlJ xJGCodgHxiKobGJY3g4 UxPd38P9BloRuwd2BtU ml4uh77dUWjw2F7nPA8 Y4BsXGLvfsfonSOxbIb wWS3xGCCfgsykWLGlxH 8tXGXtH2v0RaHkXsH1U DwwL0CsllV2UYFerLLb DESsnUUJuF4rjtmnx9w iemznQzGnNBDkFEh2MY m9NBJanPlrIpScRDR5H tC5DEK2qROqoU3ifHfm krdlmB9zPna+KVJ8rIB caJIQFT0iNytduKY+PH NwILN6vMnvJIwvZHJul Q4jHCRuE5o8UdZfUzT3 JBzzY9WjhgX2CRVwnEK nRIJwgNJEzO3gudlng3 ocigawAiMaMZOrPPt8M Cc8GOScdUduVaLjZKH9 JpD6KVB2qKCrwH5irTs mdbbjjP7sOha+QmlydG fnXWJ6PDb3V1AuXny6G GBnsVpjFY9jkLZzCGpl Hm8gpJozdNflBP2gKRF liiqch402OcWnb6huWH AyuLUpKVrvJKE9Y24ln 5S3PUTeFCRkWSZ3wFR2 oK8pxEklggqahHQrnBi gdmVydGljYWwtYWxpZ2 14YIHxzMprKjQmQWd2B 0BaInk3NVSofZplDP3z qARiOJlwIe8scUpcuGr cJD6iQHFddaujj087Jd Sbu2okOMPmeACkCUaoL PG5D80wv1T1CAWyGYOp TGZ0aME8vT4uwJmhted gbGVmdDsgdmVydGljYW eyYWggL994JCGqvTayK dOuoNw3D1KuQrc0IDDx kEcfHS7otWQgDKtfYd3 kqZcckGplUT5rJBNfep tdw260EsVul2hlKFLgo KPhADmyYVR6X96bn9Q1 CVTnJZRnTRZ8yNS8gD6 hbGlnbjogbGVmdDsgdm VaaMfaPHqtDOfkY730S HRvcDsnPlBhdGllbnQg WXzdLDz7F0TuNiovvNQ +MB99VUDsEI74vAPqjD Azr8kmmPn0OrYoRJXdS ON0jQegVBbam4DfLSZs I57daKVck2O1ZVGbsIu ueQJuUzEvsZR3oT7cWD duvodzq9upeoufCimrg 9dsqh66kM78J41iKOxn ZHRoPSIzMCUiIHZhbGl nqx3dgR6nPk3+PGNvbC T5gYQ4bM7yKZElMwZ9G DjkG904HxZdtPGgHokm t1ubn4yunEi4YqK4SZP yjbRreVajYOY5r3CwJz 39I99eEPbmMJOzWLZfL WNcLDGrwYjmqk7vgN0n Ii8+IDIxwSH8bXM4pR9 yCrZnEdI4QEmwF167Ap SybNQuGeyrR24cS3Kjd XA+CNObXya4HMSqnHvm ER9lrNIfECgmBn7zOPH 8ByFxZiDfMBrrV6DvKG RshzfhdrpgiJH6NXXrG DNldS43Ey8qvZqvJCCf lWMHyH2viprpu0ralvq fHoQgBOSvTXe2CUf3AR GlcUftKcXnXOS3BaN9Y GX1uXOlhN9isXneozth lU4xF2QySJJgjfljMz7 5mT1vRhFhMwU7GUkzGb c+D2xXIdMlAEFWRRQRQ GrZVQ0RNKq7S9RbMwt4 WXLhhQuwPY7bnCCpGUs nLu7duTqacCvzQH9pMA MskwywKCEdfS6rYLPsc MThmNfvCC3nWZUdhrpl z077QqTvKKC4GEEstWK tS5TyqD2wNiYeWVVmNI ErQ5RgaRQeMIuvH978C JzhQaM4UNEfpsCpG5Bi ZHVmzHrtPtC1h5H7Jy2 nAO4iYU9xCGE7OD43XH 64nYJrf2B7eJX3P3XmD AJbfdufzrsdnBH8CAOs YNYojJ71eXJrCDcgKx5 mk6T0z520OYHbJZQhkG 69Dr4vvGmpLPJchVMUp O7arwonj3pfqtpcWtJb KSKjERm9TVn2IVBdxGy xOgQjRZQ2HmO5EXX3eD KqyY3ceGboauymdM3nL yc+HHpgDYZpbsI0C6Oc Fxz7XQJofAveXB8rbSK zGJvbUy7amRxyfVdyVG 6kAQEnnqiyQCVvqI8xJ ZRjcYVbnNfzIC6oBWEq lanra473ZrDfQSL1WCP wjIDtB7EteN4xXdOiEH NoLPFvZ9JeoGJrXThrR 171GFwuIiZ5HULwdsQt I4FgSXHfmCnhDpB1t7K 7Ee3CMP4qrHA8Q9VdLq c1EHJdbCadLE9ufIGlU IgvJe7ehTwenYihLT0w BHSkkgqwQDCnyA4tUFE soNQqtVrpMS0bNHQmoe bnd249ZhIcWRC2DBPrb RQhL1UyqG1pHiJgAPGn AYMvM2YvfJFwHDgrD60 6LOnqCoT0BRHegyYmH5 PmFBBbxIrqOqS9r0E9N k6CSITpCCBakZEdOfF7 F8PvOwavtJQ+DI80KHN pWZ01aOXfaGEvf1gefY c7CaHmALLyDNL5pChjL Yjic9EwNEWaC77boXGn q8O3ASGonTwycFVtVcR erZU6nC3lUObwilokw5 zrwmouGhids2sldm33b K96R60vYQitQTCiYVNg GICqMDNjsFhudt0uuH2 wIi8+PWJlgQW7wPX5lM 4aCiFwEsV4ARqkU701X dRqjIDrSdytz7gbr1vn vIt3HrCsTYNchcBltXe bQVM9h5PeYw96R82gTY dpZHRoPSIyMCUiIHZhb Rkici3oiS1bNr1+PC9j v8phhe68xD71mEU+PHR rFLR3oSayRYrnMULctU 4bJVetBsG7YVMnZbKyu N99hXYjEJikQr7ivNme cDkvIT1pTXHgmqsnr52 1DrBqf7fuXMWvrZCjXR hsASO6O61xd6F7XPMsV SRePAB8bGD0vU4wkRbw bjogbGVmdDsgdmVydGl aSTsyJAcwY434BVPggZ mbWnXxuAZaE3wtgeUZP Z4tJbdctVH+PHRkIHN0 tBalLBrmKAVcdX4dSNC eI6x1YsGrOeP5WUmoO8 TwrfW6YRKvaEGjIDXfb XBZzP0ubnkmm4nrgfuy UiLhKFOqJDk6PKx1MEP rlTijJyMxQMJ7QnA5QP V6kQCspC9ahCltrwhel G9wOyc+RklOOjwvdGQ+ QCNnLDX8zOrlFLmdQCZ ksA1qTLTwW0o8GnRkPr T7YYxlI2XdcmH6FMXoe XFkKGIkuYPPgT2xdbao z9ukuumiZcWzZOPtMWm 5ZGw5WPEhiVgkAtBtJE H1EgK9GLZ6cMYzwF0zd VihzorgnW4kPny+TVJO OjwvdGQ+BTMwUOF0sKp nCOmbVMEzgJ0rFVVbM2 l9ZoByKcX6RHzdX4Jth iP4IJOxiWYpDXVwsYEN nO5mqiael2nawljgAvD cZBNpXRu6VMp8OFBijF mzKlJfIFR1CcD1XPQ0h SAwcR5mpAtylapvbU4t Oyc+JFQ9LCX5LV75TZ3 7F7KbXibzpHHofHI+PH RhYmxlIHdpZHRoPScxM DEhXkVuyBedUO5qLz4j ZGVy (more content not included)... Normal [facility] Vaginitis/Vaginosis, DNA Pro beon 01-27-2023 Tram sp rRNA Probe Ql (Vag fld) Negative Invalid Interpretation Code Negative [facility] Comment on above: Performed By: #### [id number] #### [facility] [address] [place] [address] G. vaginalis rRNA Probe Ql (Genital specimen) Negative Invalid Interpretation Code Negative [facility] Comment on above: Performed By: #### [id number] #### [facility] [address] [place] [address] T. vaginalis rRNA Probe Ql (Genital specimen) Negative Invalid Interpretation Code Negative [facility] Comment on above: Result Comment: Perf ormed at: [facility] [address] [id number] PhD Toshia Mandujano Performed By: #### [id number] #### [facility] [address] [place] [address] Physician Orderon 01-25-2023 Physician Order [id number] [id number]:[id number] Normal [facility] Progress Noteon 01-23-2023 Progress Note error Normal [facility] UA RANDOMon 01-02-2023 Bilirubin Ql (U) Negative Normal NEGATIVE [facility] Comment on above: Performed By: #### D RUGRPD #### [facility] [address] [place] [address] Dr. Heather Salas Clarity (U) CLEAR Normal CLEAR [facility] Comment on above: Performed By: #### D RUGRPD #### [facility] [address] [place] [address] Dr. Heather Salas Color (U) LT. YELLOW Normal YELLOW [facility] Comment on above: Performed By: #### D RUGRPD #### [facility] [address] [place] [address] Dr. Heather Salas Glucose Ql (U) Negative Normal NEGATIVE [facility] Comment on above: Performed By: #### D RUGRPD #### [facility] [address] [address] [address] Heather Salas Hemoglobin Ql (U) Negative Normal NEGATIVE [facility] Comment on above: Performed By: #### D RUGRPD #### [facility] [address] [address] [address] Heather Salas Ketones Ql (U) Negative Normal NEGATIVE [facility] Comment on above: Performed By: #### D RUGRPD #### [facility] [address] [address] [address] Heather Salas LEUKOCYTES Negative Normal NEGATIVE [facility] Comment on above: Performed By: #### D RUGRPD #### [facility] [address] [place] [address] Dr. Heather Salas Nitrite Ql (U) Negative Normal NEGATIVE [facility] Comment on above: Performed By: #### D RUGRPD #### [facility] [address] [place] [address] Dr. Heather Salas pH (U) 6.5 [pH] Normal 5-9 [facility] Comment on above: Performed By: #### D RUGRPD #### [facility] [address] [place] [address] Dr. Heather Salas SPEC GRAVITY 1.015 Normal 1.005-<=1.025 [facility] Comment on above: Performed By: #### D RUGRPD #### [facility] [address] [place] [address] Dr. Heather Salas UA PROTEIN Negative Normal NEGATIVE/ TRACE [facility] Comment on above: Performed By: #### D RUGRPD #### [facility] [address] [place] [address] Dr. Heather Salas Urobilinogen Qn (U) 0.2 {Varun'U}/dL Normal 0.2 - 1. 0 [facility] Comment on above: Performed By: #### D RUGRPD #### [facility] [address] [place] [address] Dr. Heather Salas POCT Urinalysis, Strip Onlyo n 12-31-2022 Appearance (U) Clear Normal [facility] Bilirubin, Urine Strip Negative Normal NEG [facility] Glucose, Urine Strip Negative Normal NEG [facility] Ketone, Urine Strip Negative Normal NEG [facility] Leukocyte esterase, Ur Strip Negative Normal NEG [facility] Nitrite, Urine Strip Negative Normal NEG [facility] Occult blood, Urine Strip Trace, Intact Abnormal NEG [facility] pH, Urine Strip 6.5 Normal 4.5-8.0 [facility] Protein (U) [Mass/Vol] 30 mg/dL Abnormal NEG [facility] Specific [place], Urine Strip 1.025 Normal 1.007-1.030 [facility] Specimen Color Yellow Normal [facility] Urobilinogen (U) [Mass/Vol] 0.2 mg/dL Normal <1.1 [facility] Urinalysis dipstick panel Au to test strip (U)on 12-31-2022 Appearance (U) Clear [facility] Bilirubin Ql (U) Negative Negative [facility] Color (U) Yellow [facility] Glucose Ql (U) Negative Negative mg/dL [facility] Interpretation and review of laboratory results Abnormal [facility] Ketones (U) [Mass/Vol] Negative Negative mg/dL [facility] Leukocyte esterase Auto test strip Ql (U) Negative Negative [facility] Nitrite Auto test strip Ql (U) Negative Negative [facility] pH (U) 6.5 [pH] 4.5 - 8.0 [facility] Protein (U) [Mass/Vol] 30 mg/dL Abnormal Negative [facility] RBC (U) [#/Vol] Trace, Intact Abnormal Negative [facility] Specific gravity (U) [Rel density] 1.025 1.007 - 1.030 [facility] Urobilinogen Qn (U) 0.2 mg/dL NINF - 1 .1 mg/dL [facility] CBC W MANUAL DIFFon 12-26-19 ATYPICAL LYMPH # Normal [facility] Comment on above: Performed By: #### C CODY #### [facility] [address] [place] [address] Dr. Heather Salas ATYPICAL LYMPH % Normal [facility] Comment on above: Performed By: #### C CODY #### [facility] [address] [place] [address] Dr. Heather Salas BAND # Normal 0.0-0.3 [facility] Comment on above: Performed By: #### C CODY #### [facility] [address] [place] [address] Dr. Heather Salas BAND % Normal 0-5 [facility] Comment on above: Performed By: #### C CODY #### [facility] [address] [place] [address] Dr. Heather Salas BASOM # 0.00 103/ul Normal 0.00-0.10 [facility] Comment on above: Performed By: #### C CODY #### [facility] [address] [place] [address] Dr. Heather Salas BASOM % 0.0 % Critically low 0.2-2.0 [facility] Comment on above: Performed By: #### C CODY #### [facility] [address] [place] [address] Dr. Heather Salas BLAST # Normal [facility] Comment on above: Performed By: #### C CODY #### [facility] [address] [place] [address] Dr. Heather Salas BLAST % Normal [facility] Comment on above: Performed By: #### C CODY #### [facility] [address] [place] [address] Dr. Heather Salas CORRECTED WBC Normal 4.0-11.0 [facility] Comment on above: Performed By: #### C CODY #### [facility] [address] [place] [address] Dr. Heather Salas EOS # 0.00 103/ul Normal 0.00-0.70 [facility] Comment on above: Performed By: #### C CODY #### [facility] [address] [place] [address] Dr. Heather Salas EOS% 0.0 % Critically low 0.9-7.0 [facility] Comment on above: Performed By: #### C CODY #### [facility] [address] [place] [address] Dr. Heather Salas HCT 40.4 % Normal 36.0-48.0 [facility] Comment on above: Performed By: #### C CODY #### [facility] [address] [place] [address] Dr. Heather Salas HGB 12.7 g/dl Normal 12.0-16.0 [facility] Comment on above: Performed By: #### C CODY #### [facility] [address] [place] [address] Dr. Heather Salas LYMPHM # 5.25 103/ul Critically high 1.20-3.80 [facility] Comment on above: Performed By: #### C CODY #### [facility] [address] [place] [address] Dr. Heather Salas LYMPHM% 42.0 % Normal 20.5-60.0 [facility] Comment on above: Performed By: #### C CODY #### [facility] [address] [place] [address] Dr. Heather Salas MCH 29.6 pg Normal 26.7-34.0 [facility] Comment on above: Performed By: #### C CODY #### [facility] [address] [place] [address] Dr. Heather Salas MCHC 31.4 g/dl Normal 29.9-35.2 [facility] Comment on above: Performed By: #### C CODY #### [facility] [address] [place] [address] Dr. Heather Salas MCV 94.2 fL Normal 79.1-95.6 [facility] Comment on above: Performed By: #### C CODY #### [facility] [address] [place] [address] Dr. Heather Salas METAMYELOCYTE # Normal [facility] Comment on above: Performed By: #### C CODY #### [facility] [address] [address] [address] Heather Salas METAMYELOCYTE % Normal [facility] Comment on above: Performed By: #### C CODY #### [facility] [address] [address] [address] Heather Salas MONOM# 0.63 103/ul Normal 0.30-0.80 [facility] Comment on above: Performed By: #### C SPMAN #### [facility] [address] [address] [address] Heather Salas MONOM% 5.0 % Normal 1.7-12.0 [facility] Comment on above: Performed By: #### C CODY #### [facility] [address] [place] [address] Dr. Heather Salas MPV 10.5 fL Normal 9.5-13.5 [facility] Comment on above: Performed By: #### C CODY #### [facility] [address] [place] [address] Dr. Heather Salas MYELOCYTE # Normal [facility] Comment on above: Performed By: #### C CODY #### [facility] [address] [place] [address] Dr. Heather Salas MYELOCYTE % Normal [facility] Comment on above: Performed By: #### C CODY #### [facility] [address] [place] [address] Dr. Heather Salas NRBC Normal [facility] Comment on above: Performed By: #### C CODY #### [facility] [address] [place] [address] Dr. Heather Salas PLT 354 103/ul Normal 150-450 [facility] Comment on above: Performed By: #### C CODY #### [facility] [address] [place] [address] Dr. Heather Salas RBC 4.29 106/ul Normal 3.40-5.30 [facility] Comment on above: Performed By: #### C BCMAN #### [facility] [address] [address] [address] Heather Salas RDW 13.6 % Normal 11.0-15.0 [facility] Comment on above: Performed By: #### C BCMAN #### [facility] [address] [address] [address] Heather Salas SEG # 6.63 103/ul Critically high 1.40-6.50 [facility] Comment on above: Performed By: #### C BCMAN #### [facility] [address] [place] [address] Dr. Heather Salas SEG % 53.0 % Normal 43.0-75.0 [facility] Comment on above: Performed By: #### C BCMAN #### [facility] [address] [place] [address] Dr. Heather Salas WBC 12.5 103/ul Critically high 4.0-11.0 [facility] Comment on above: Performed By: #### C SPMAN #### [facility] [address] [place] [address] Dr. Heather Salas CULTURE URINEon 12-26-2022 CULTURE URINE Culture Observations: LIGHT GROWTH OF MIXED GENITAL VALORIE. NO POTENTIAL PATHOGENS SEEN. Normal [facility] Comment on above: Performed By: #### C BC #### [facility] [address] [place] [address] Dr. Heather Salas FERRITINon 12-26-2022 Ferritin [Mass/Vol] 24.0 ng/mL Normal 6.2-137.0 [facility] Comment on above: Performed By: #### C BC #### [facility] [address] [place] [address] Dr. Heather Salas FREE T4on 12-26-2022 Free T4 [Mass/Vol] 0.96 ng/dL Normal 0.78-1.34 [facility] Comment on above: Performed By: #### C BC #### [facility] [address] [place] [address] Dr. Heather Salas GLYCOHEMOGLOBIN A1Con 2022 ADA RECOMMENDATION SEE BELOW Normal [facility] Comment on above: Result Comment: ADA RECOMMENDED LIMIT 4.0 - 6.0 ADA THERAPEUTIC TARGET < 7.0 ACTION SUGGESTED > 7.0 Performed By: #### A 1C #### [facility] [address] [place] [address] Dr. Heather Salas Glucose [Mass/Vol] 100 mg/dL Normal [facility] Comment on above: Performed By: #### A 1C #### [facility] [address] [place] [address] Dr. Heather Salas HbA1c (Bld) [Mass fraction] 5.1 % Normal 4.5-6.2 [facility] Comment on above: Performed By: #### A 1C #### [facility] [address] [place] [address] Dr. Heather Salas IRON AND TIBCon 12-26-2022 % SATURATION 8.0 % Normal [facility] Comment on above: Performed By: #### C BC #### [facility] [address] [place] [address] Dr. Heather Salas Iron [Mass/Vol] 39.0 ug/dL Critically low 50.0-170.0 [facility] Comment on above: Performed By: #### C BC #### [facility] [address] [place] [address] Dr. Heather Salas TIBC DIRECT 485.0 ug/dL Critically high 250.0-450.0 [facility] Comment on above: Performed By: #### C BC #### [facility] [address] [place] [address] Dr. Heather Salas LIPID PROFILEon 12-26-2022 CHOL-HDL RATIO NORM SEE BELOW Normal [facility] Comment on above: Result Comment: 3.3 - 4.4 LOW RISK 4.4 - 7.1 AVERAGE RISK 7.1 - 11.0 MODERATE RISK >11.0 HIGH RISK Performed By: #### C BC #### [facility] [address] [place] [address] Dr. Heather Salas Cholesterol [Mass/Vol] 144 mg/dL Normal 104-227 [facility] Comment on above: Performed By: #### C BC #### [facility] [address] [address] [address] Heather Salas Cholesterol in HDL [Mass/Vol] 35 mg/dL Normal 29-69 [facility] Comment on above: Performed By: #### C BC #### [facility] [id number] [address] Heather Salas Cholesterol in LDL [Mass/Vol] 77.8 mg/dL Normal 46.0-140.0 [facility] Comment on above: Performed By: #### C BC #### [facility] [address] [place] [address] Dr. Heather Salas Cholesterol.total/Ch olesterol in HDL [Mass ratio] 4.1 {ratio} Normal [facility] Comment on above: Performed By: #### C BC #### [facility] [address] [place] [address] Dr. Heather Salas HDL NORMAL > or = 60 mg/dl - LOW CARDIOVASCULAR RISK <40 mg/dl - HIGH CARDIOVASCULAR RISK Normal [facility] Comment on above: Performed By: #### C BC #### [facility] [address] [place] [address] Dr. Heather Salas LDL CALC NORMAL SEE BELOW Normal [facility] Comment on above: Result Comment: <100 mg/dl OPTIMAL 100 - 129 mg/dl NEAR OR ABOVE OPTIMAL 130 - 159 mg/dl BORDERLINE HIGH 160 - 189 mg/dl HIGH >190 mg/dl VERY HIGH Performed By: #### C BC #### [facility] [address] [place] [address] Dr. Heather Salas Triglyceride [Mass/Vol] 156 mg/dL Normal 53-208 [facility] Comment on above: Performed By: #### C BC #### [facility] [address] [address] [address] Heather Salas VLDL CALC 31.2 mg/dL Normal [facility] Comment on above: Performed By: #### C BC #### [facility] [address] [place] [address] Dr. Heather Salas PROF 14(COMP METB)on 023 Albumin [Mass/Vol] 3.9 g/dL Normal 3.4-5.0 [facility] Comment on above: Performed By: #### C BC #### [facility] [address] [place] [address] Dr. Heather Salas Albumin/Globulin [Mass ratio] 1.0 {ratio} Normal [facility] Comment on above: Performed By: #### C BC #### [facility] [address] [address] [address] Heather Salas ALP [Catalytic activity/Vol] 74 U/L Normal 65-260 [facility] Comment on above: Performed By: #### C BC #### [facility] [address] [place] [address] Dr. Heather Salas ALT [Catalytic activity/Vol] 27 U/L Normal 14-59 [facility] Comment on above: Performed By: #### C BC #### [facility] [address] [place] [address] Dr. Heather Salas Anion gap [Moles/Vol] 12.6 mmol/L Normal [facility] Comment on above: Performed By: #### C BC #### [facility] [address] [place] [address] Dr. Heather Salas AST [Catalytic activity/Vol] 9 U/L Critically low 15-37 [facility] Comment on above: Performed By: #### C BC #### [facility] [address] [place] [address] Dr. Heather Salas Bilirubin [Mass/Vol] 0.3 mg/dL Normal 0.2-1.0 [facility] Comment on above: Performed By: #### C BC #### [facility] [address] [place] [address] Dr. Heather Salas Calcium [Mass/Vol] 9.3 mg/dL Normal 8.5-10.1 [facility] Comment on above: Performed By: #### C BC #### [facility] [address] [place] [address] Dr. Heather Salas Chloride [Moles/Vol] 103 mmol/L Normal 98-107 [facility] Comment on above: Performed By: #### C BC #### [facility] [address] [address] [address] Heather Salas CO2 [Moles/Vol] 26.8 mmol/L Normal 21.0-32.0 [facility] Comment on above: Performed By: #### C BC #### [facility] [address] [address] [address] Heather Salas Creatinine [Mass/Vol] 0.78 mg/dL Normal 0.55-1.02 [facility] Comment on above: Performed By: #### C BC #### [facility] [address] [address] [address] Heather Salas Globulin (S) [Mass/Vol] 3.8 g/dL Normal [facility] Comment on above: Performed By: #### C BC #### [facility] [address] [place] [address] Dr. Heather Salas Glucose [Mass/Vol] 91 mg/dL Normal 74-106 [facility] Comment on above: Performed By: #### C BC #### [facility] [address] [address] [address] Heather Salas Potassium [Moles/Vol] 3.4 mmol/L Critically low 3.5-5.1 [facility] Comment on above: Performed By: #### C BC #### [facility] [address] [address] [address] Heather Salas Protein [Mass/Vol] 7.7 g/dL Normal 6.4-8.2 [facility] Comment on above: Performed By: #### C BC #### [facility] [address] [address] [address] Heather Salas Sodium [Moles/Vol] 139 mmol/L Normal 136-145 [facility] Comment on above: Performed By: #### C BC #### [facility] [address] [address] [address] Heather Salas Urea nitrogen [Mass/Vol] 7.0 mg/dL Normal 6.4-19.3 [facility] Comment on above: Performed By: #### C BC #### [facility] [address] [place] [address] Dr. Heather Salas Urea nitrogen/Creatinine [Mass ratio] 9.0 mg/mg Normal [facility] Comment on above: Performed By: #### C BC #### [facility] [address] [place] [address] Dr. Heather Salas TSHon 12-26-2022 TSH 1.232 uIU/mL Normal 0.516-4.130 [facility] Comment on above: Performed By: #### C BC #### [facility] [address] [place] [address] Dr. Heather Salas UA RANDOMon 12-26-2022 Bilirubin Ql (U) Negative Normal NEGATIVE [facility] Comment on above: Performed By: #### B MP #### [facility] [address] [place] [address] Dr. Heather Salas Clarity (U) CLEAR Normal CLEAR [facility] Comment on above: Performed By: #### B MP #### [facility] [address] [place] [address] Dr. Heather Salas Color (U) YELLOW Normal YELLOW [facility] Comment on above: Performed By: #### B MP #### [facility] [address] [place] [address] Dr. Heather Salas Glucose Ql (U) Negative Normal NEGATIVE [facility] Comment on above: Performed By: #### B MP #### [facility] [address] [place] [address] Dr. Heather Salas Hemoglobin Ql (U) Negative Normal NEGATIVE [facility] Comment on above: Performed By: #### B MP #### [facility] [address] [place] [address] Dr. Heather Salas Ketones Ql (U) Negative Normal NEGATIVE [facility] Comment on above: Performed By: #### B MP #### [facility] [address] [place] [address] Dr. Heather Salas LEUKOCYTES Negative Normal NEGATIVE [facility] Comment on above: Performed By: #### B MP #### [facility] [address] [place] [address] Dr. Heather Salas Nitrite Ql (U) Negative Normal NEGATIVE [facility] Comment on above: Performed By: #### B MP #### [facility] [address] [place] [address] Dr. Heather Salas pH (U) 7.0 [pH] Normal 5-9 [facility] Comment on above: Performed By: #### B MP #### [facility] [address] [place] [address] Dr. Heather Salas SPEC GRAVITY 1.020 Normal 1.005-<=1.025 [facility] Comment on above: Performed By: #### B MP #### [facility] [address] [place] [address] Dr. Heather Salas UA PROTEIN TRACE Normal NEGATIVE/ TRACE [facility] Comment on above: Performed By: #### B MP #### [facility] [address] [place] [address] Dr. Heather Salas Urobilinogen Qn (U) 0.2 {Varun'U}/dL Normal 0.2 - 1. 0 [facility] Comment on above: Performed By: #### B MP #### [facility] [address] [place] [address] Dr. Heather Salas VITAMIN D 25 OHon 12-26-2022 VIT D 25-OH 45.0 ng/mL Normal [facility] Comment on above: Performed By: #### B MP #### [facility] [address] [place] [address] Dr. Heather Salas VIT D RANGES SEE BELOW Normal [facility] Comment on above: Result Comment: <20 ng/mL Vit D deficient 20 - <30 ng/mL Vit D insufficient 30 - 100 ng/mL Vit D sufficient >100 ng/mL Potential Toxicity Performed By: #### B MP #### [facility] [address] [place] [address] Dr. Heather Salas CULTURE URINEon 12-06-2022 CULTURE URINE Culture Observations: NO GROWTH. Normal [facility] Comment on above: Performed By: #### C BC #### [facility] [address] [place] [address] Dr. Heather Salas UA (CLEAN/CATCH) MICROSCOPIC IF INDICATEon 12-06-2022 Bilirubin Ql (U) Negative Normal NEGATIVE [facility] Comment on above: Performed By: #### D RUGRPD #### [facility] [address] [place] [address] Dr. Heather Salas Clarity (U) CLEAR Normal CLEAR [facility] Comment on above: Performed By: #### D RUGRPD #### [facility] [address] [place] [address] Dr. Heather Salas Color (U) YELLOW Normal YELLOW [facility] Comment on above: Performed By: #### D RUGRPD #### [facility] [address] [place] [address] Dr. Heather Salas Glucose Ql (U) Negative Normal NEGATIVE [facility] Comment on above: Performed By: #### D RUGRPD #### [facility] [address] [place] [address] Dr. Heather Salas Hemoglobin Ql (U) Negative Normal NEGATIVE [facility] Comment on above: Performed By: #### D RUGRPD #### [facility] [address] [place] [address] Dr. Heather Salas Ketones Ql (U) Negative Normal NEGATIVE [facility] Comment on above: Performed By: #### D RUGRPD #### [facility] [address] [place] [address] Dr. Heather Salas LEUKOCYTES TRACE Abnormal NEGATIVE [facility] Comment on above: Performed By: #### D RUGRPD #### [facility] [address] [place] [address] Dr. Heather Salas Nitrite Ql (U) Negative Normal NEGATIVE [facility] Comment on above: Performed By: #### D RUGRPD #### [facility] [address] [place] [address] Dr. Heather Salas pH (U) 7.0 [pH] Normal 5-9 [facility] Comment on above: Performed By: #### D RUGRPD #### [facility] [address] [address] [address] Heather Salas SPEC GRAVITY >=1.030 Abnormal 1.005-<=1.025 [facility] Comment on above: Performed By: #### D RUGRPD #### [facility] [address] [place] [address] Dr. Heather Salas UA PROTEIN 30 mg/dl Abnormal NEGATIVE/ TRACE [facility] Comment on above: Performed By: #### D RUGRPD #### [facility] [address] [address] [address] Heather Salas UR MICRO IND INDICATED Normal [facility] Comment on above: Performed By: #### D RUGRPD #### [facility] [address] [place] [address] Dr. Heather Salas Urobilinogen Qn (U) 2.0 {Varun'U}/dL Abnormal 0.2 - 1. 0 [facility] Comment on above: Performed By: #### D RUGRPD #### [facility] [address] [place] [address] Dr. Heather Salas URINE MICROSCOPIC ONLYon BACTERIA TRACE Abnormal NONE SEEN [facility] Comment on above: Performed By: #### D RUGRPD #### [facility] [address] [place] [address] Dr. Heather Salas Bacteria identified Cx Nom (U) CX ALREADY ORDERED Normal [facility] Comment on above: Performed By: #### D RUGRPD #### [facility] [address] [address] [address] Heather Salas CAST NONE SEEN Normal NONE SEEN [facility] Comment on above: Performed By: #### D RUGRPD #### [facility] [address] [place] [address] Dr. Heather Salas Crystals LM Nom (Urine sed) NONE SEEN Normal NONE SEEN [facility] Comment on above: Performed By: #### D RUGRPD #### [facility] [address] [place] [address] Dr. Heather Salas Epithelial cells LM Ql (Urine sed) MODERATE Abnormal NONE SEEN /RARE [facility] Comment on above: Performed By: #### D RUGRPD #### [facility] [address] [place] [address] Dr. Heather Salas MUCOUS NONE SEEN Normal NONE SEEN [facility] Comment on above: Performed By: #### D RUGRPD #### [facility] [address] [place] [address] Dr. Heather Salas RBC NONE SEEN Abnormal 0-2 [facility] Comment on above: Performed By: #### D RUGRPD #### [facility] [address] [place] [address] Dr. Heather Salas WBC 2-5 Abnormal NONE SEEN [facility] Comment on above: Performed By: #### D RUGRPD #### [facility] [address] [place] [address] Dr. Heather Salas CBC AUTO DIFFon 11-23-2022 BASO # 0.1 103/ul Normal 0.0-0.1 [facility] Comment on above: Performed By: #### C BC #### [facility] [address] [place] [address] Dr. Heather Salas Basophils/100 WBC (Bld) 0.5 % Normal 0.2-2.0 [facility] Comment on above: Performed By: #### C BC #### [facility] [address] [place] [address] Dr. Heather Salas EO # 0.1 103/ul Normal 0.0-0.7 [facility] Comment on above: Performed By: #### C BC #### [facility] [address] [place] [address] Dr. Heather Salas Eosinophils/100 WBC (Bld) 0.5 % Critically low 0.9-7.0 [facility] Comment on above: Performed By: #### C BC #### [facility] [address] [place] [address] Dr. Heather Salas Erythrocyte distribution width (RBC) [Ratio] 13.2 % Normal 11.0-15.0 [facility] Comment on above: Performed By: #### C BC #### [facility] [address] [place] [address] Dr. Heather Salas Hematocrit (Bld) [Volume fraction] 35.5 % Critically low 36.0-48.0 [facility] Comment on above: Performed By: #### C BC #### [facility] [address] [place] [address] Dr. Heather Salas Hemoglobin (Bld) [Mass/Vol] 11.9 g/dL Critically low 12.0-16.0 [facility] Comment on above: Performed By: #### C BC #### [facility] [address] [place] [address] Dr. Heather Salas IG # 0.01 10e3/ul Normal 0.00-0.03 [facility] Comment on above: Performed By: #### C BC #### [facility] [address] [place] [address] Dr. Heather Salas IG % 0.1 % Normal 0.0-0.5 [facility] Comment on above: Performed By: #### C BC #### [facility] [address] [place] [address] Dr. Heather Salas LYMPH # 5.1 103/ul Critically high 1.2-3.8 [facility] Comment on above: Performed By: #### C BC #### [facility] [address] [place] [address] Dr. Heather Salas Lymphocytes/100 WBC (Bld) 46.4 % Normal 20.5-60.0 [facility] Comment on above: Performed By: #### C BC #### [facility] [address] [place] [address] Dr. Heather Salas MANUAL DIFF REQ NO Normal [facility] Comment on above: Performed By: #### C BC #### [facility] [address] [place] [address] Dr. Heather Salas MCH (RBC) [Entitic mass] 29.2 pg Normal 26.7-34.0 [facility] Comment on above: Performed By: #### C BC #### [facility] [address] [place] [address] Dr. Heather Salas MCHC (RBC) [Mass/Vol] 33.5 g/dL Normal 29.9-35.2 [facility] Comment on above: Performed By: #### C BC #### [facility] [address] [place] [address] Dr. Heather Salas MCV (RBC) [Entitic vol] 87.2 fL Normal 79.1-95.6 [facility] Comment on above: Performed By: #### C BC #### [facility] [address] [place] [address] Dr. Heather Salas MONO # 0.5 103/ul Normal 0.3-0.8 [facility] Comment on above: Performed By: #### C BC #### [facility] [address] [place] [address] Dr. Heather Salas Monocytes/100 WBC (Bld) 4.7 % Normal 1.7-12.0 [facility] Comment on above: Performed By: #### C BC #### [facility] [address] [place] [address] Dr. Heather Salas NEUT # 5.3 103/ul Normal 1.4-6.5 [facility] Comment on above: Performed By: #### C BC #### [facility] [address] [place] [address] Dr. Heather Salas Neutrophils/100 WBC (Bld) 47.8 % Normal 43.0-75.0 [facility] Comment on above: Performed By: #### C BC #### [facility] [address] [place] [address] Dr. Heather Salas Platelet mean volume (Bld) [Entitic vol] 10.5 fL Normal 9.5-13.5 [facility] Comment on above: Performed By: #### C BC #### [facility] [address] [place] [address] Dr. Heather Salas PLT 294 103/ul Normal 150-450 [facility] Comment on above: Performed By: #### C BC #### [facility] [address] [place] [address] Dr. Heather Salas RBC 4.07 106/ul Normal 3.40-5.30 [facility] Comment on above: Performed By: #### C BC #### [facility] [address], [place] [address] Dr. Heather Salas WBC 11.0 103/ul Normal 4.0-11.0 [facility] Comment on above: Performed By: #### C BC #### [facility] [address], [place] [address] ABD/PELV W CONon 11-23-[address] ABD/PELV W CON EXAMINATION: CT ABD/PELV W CON HISTORY: UNSPECIFIED ABDOMINAL PAIN ; microscopic hematuria, low back pain COMPARISON: No relevant comparison available. TECHNIQUE: Axial, Coronal, and Sagittal images were obtained without and/or with IV contrast as indicated by examination type. Dose reduction techniques were achieved by using automated exposure control and/or adjustment of mA and/or kV according to patient size and/or use of iterative reconstruction technique. FINDINGS: LUNG BASES: No visible pulmonary or pleural disease. LIVER: No enlargement, atrophy, suspicious density, or significant focal lesion. BILIARY: No dilatation or calcification. PANCREAS: No lesion, fluid collection, or abnormal duct dilatation. SPLEEN: No enlargement or focal lesion. ADRENALS: No mass or enlargement. KIDNEYS: No mass, obstruction, or calcification. BOWEL/MESENTERY: No visible mass, obstruction, or bowel wall thickening. AORTA/VASCULAR: No aneurysm or dissection. RETROPERITONEUM: No mass or adenopathy. LYMPH NODES: No adenopathy. URINARY BLADDER: No visible focal wall thickening, lesion, or calculus. PELVIC ORGANS: No visible mass. Pelvic organs appropriate for patient age. ABDOMINAL WALL: No mass or hernia. BONES: No bony lesion or fracture. OTHER: Negative. IMPRESSION: 1. No urinary tract calculi or obstructive uropathy. 2. No appreciable bowel abnormality. 3. Unremarkable uterus and ovaries. No specific findings to account for patient's symptoms. Electronically authenticated by: RENE ZAMORANO Date: 2022-11-23 13:31 Normal [facility] ER URINE PROFILEon 3 Bilirubin Ql (U) Negative Normal NEGATIVE [facility] Comment on above: Performed By: #### B MP #### [facility] [address] [address] [address] Heather Salas Clarity (U) CLEAR Normal CLEAR [facility] Comment on above: Performed By: #### B MP #### [facility] [address] [place] [address] Dr. Heather Salas Color (U) YELLOW Normal YELLOW [facility] Comment on above: Performed By: #### B MP #### [facility] [address] [place] [address] Dr. Heather Salas ERUAHTed A micrscopic examination will be performed if indicated. Normal [facility] Comment on above: Performed By: #### B MP #### [facility] [address] [place] [address] Dr. Heather Salas Glucose Ql (U) Negative Normal NEGATIVE [facility] Comment on above: Performed By: #### B MP #### [facility] [address] [place] [address] Dr. Heather Salas Hemoglobin Ql (U) LARGE Abnormal NEGATIVE [facility] Comment on above: Performed By: #### B MP #### [facility] [address] [place] [address] Dr. Heather Salas Ketones Ql (U) Negative Normal NEGATIVE [facility] Comment on above: Performed By: #### B MP #### [facility] [address] [place] [address] Dr. Heather Salas LEUKOCYTES Negative Normal NEGATIVE [facility] Comment on above: Performed By: #### B MP #### [facility] [address] [place] [address] Dr. Heather Salas Nitrite Ql (U) Negative Normal NEGATIVE [facility] Comment on above: Performed By: #### B MP #### [facility] [address] [place] [address] Dr. Heather Salas pH (U) 7.0 [pH] Normal 5-9 [facility] Comment on above: Performed By: #### B MP #### [facility] [address] [place] [address] Dr. Heather Salas Protein (U) [Mass/Vol] 100 mg/dL Abnormal NEGATIVE/ TRACE [facility] Comment on above: Performed By: #### B MP #### [facility] [address] [address] [address] Heather Salas SPEC GRAVITY 1.020 Normal 1.005-<=1.025 [facility] Comment on above: Performed By: #### B MP #### [facility] [address] [address] [address] Heather Salas UR MICRO IND INDICATED Normal [facility] Comment on above: Performed By: #### B MP #### [facility] [address] [address] [address] Heather Salas Urobilinogen Qn (U) 1.0 {Varun'U}/dL Normal 0.2 - 1. 0 [facility] Comment on above: Performed By: #### B MP #### [facility] [address] [place] [address] Dr. Heather Salas URon 11-23-2022 , QUAL Negative Normal NEGATIVE [facility] Comment on above: Performed By: #### P REGU #### [facility] [address] [address] [address] Heather Salas PROF CHEM 8 (BAS METB)on Anion gap [Moles/Vol] 12.0 mmol/L Normal [facility] Comment on above: Performed By: #### B MP #### [facility] [address] [address] [address] Heather Salas Calcium [Mass/Vol] 8.7 mg/dL Normal 8.5-10.1 [facility] Comment on above: Performed By: #### B MP #### [facility] [address] [address] [address] Heather Salas Chloride [Moles/Vol] 103 mmol/L Normal 98-107 [facility] Comment on above: Performed By: #### B MP #### [facility] [address] [place] [address] Dr. Heather Salas CO2 [Moles/Vol] 26.6 mmol/L Normal 21.0-32.0 [facility] Comment on above: Performed By: #### B MP #### [facility] [address] [address] [address] Heather Salas Creatinine [Mass/Vol] 0.71 mg/dL Normal 0.55-1.02 [facility] Comment on above: Performed By: #### B MP #### [facility] [address] [address] [address] Heather Salas Glucose [Mass/Vol] 86 mg/dL Normal 74-106 [facility] Comment on above: Performed By: #### B MP #### [facility] [address] [address] [address] Heather Salas Potassium [Moles/Vol] 3.5 mmol/L Normal 3.5-5.1 [facility] Comment on above: Performed By: #### B MP #### [facility] [address] [address] [address] Heather Salas Sodium [Moles/Vol] 139 mmol/L Normal 136-145 [facility] Comment on above: Performed By: #### B MP #### [facility] [address] [address] [address] Heather Salas Urea nitrogen [Mass/Vol] 6.0 mg/dL Critically low 6.4-19.3 [facility] Comment on above: Performed By: #### B MP #### [facility] [address] [address] [address] Heather Salas Urea nitrogen/Creatinine [Mass ratio] 8.5 mg/mg Normal [facility] Comment on above: Performed By: #### B MP #### [facility] [address] [address] [address] Heather Salas URINE MICROSCOPIC ONLYon BACTERIA TRACE Abnormal NONE SEEN [facility] Comment on above: Performed By: #### D RUGRPD #### [facility] [address] [address] [address] Heather Salas Bacteria identified Cx Nom (U) NOT INDICATED Normal [facility] Comment on above: Performed By: #### D RUGRPD #### [facility] [address] [place] [address] Dr. Heather Salas CAST NONE SEEN Normal NONE SEEN [facility] Comment on above: Performed By: #### D RUGRPD #### [facility] [address] [place] [address] Dr. Heather Salas Crystals LM Nom (Urine sed) NONE SEEN Normal NONE SEEN [facility] Comment on above: Performed By: #### D RUGRPD #### [facility] [address] [place] [address] Dr. Heather Salas Epithelial cells LM Ql (Urine sed) MODERATE Abnormal NONE SEEN /RARE [facility] Comment on above: Performed By: #### D RUGRPD #### [facility] [address] [place] [address] Dr. Heather Salas MUCOUS NONE SEEN Normal NONE SEEN [facility] Comment on above: Performed By: #### D RUGRPD #### [facility] [address] [place] [address] Dr. Heather Salas RBC 20-50 Abnormal 0-2 [facility] Comment on above: Performed By: #### D RUGRPD #### [facility] [address] [place] [address] Dr. Heather Salas WBC 2-5 Abnormal NONE SEEN [facility] Comment on above: Performed By: #### D RUGRPD #### [facility] [address] [place] [address] Dr. Heather Salas ACETAMINOPHENon 08-15-2022 Acetaminophen [Mass/Vol] ug/mL Normal 10.0-30.0 [facility] Comment on above: Performed By: #### D RUGRPD #### [facility] [address] [place] [address] Dr. Heather Salas CBC AUTO DIFFon 08-15-2022 BASO # 0.0 103/ul Normal 0.0-0.1 [facility] Comment on above: Performed By: #### C BC #### [facility] [address] [place] [address] Dr. Heather Salas Basophils/100 WBC (Bld) 0.4 % Normal 0.2-2.0 [facility] Comment on above: Performed By: #### C BC #### [facility] [address] [place] [address] Dr. Heather Salas EO # 0.1 103/ul Normal 0.0-0.7 [facility] Comment on above: Performed By: #### C BC #### [facility] [address] [place] [address] Dr. Heather Salas Eosinophils/100 WBC (Bld) 0.6 % Critically low 0.9-7.0 [facility] Comment on above: Performed By: #### C BC #### [facility] [address] [place] [address] Dr. Heather Salas Erythrocyte distribution width (RBC) [Ratio] 12.7 % Normal 11.0-15.0 [facility] Comment on above: Performed By: #### C BC #### [facility] [address] [place] [address] Dr. Heather Salas Hematocrit (Bld) [Volume fraction] 38.4 % Normal 36.0-48.0 [facility] Comment on above: Performed By: #### C BC #### [facility] [address] [place] [address] Dr. Heather Salas Hemoglobin (Bld) [Mass/Vol] 12.5 g/dL Normal 12.0-16.0 [facility] Comment on above: Performed By: #### C BC #### [facility] [address] [place] [address] Dr. Heather Salas IG # 0.03 10e3/ul Normal 0.00-0.03 [facility] Comment on above: Performed By: #### C BC #### [facility] [address] [place] [address] Dr. Heather Salas IG % 0.3 % Normal 0.0-0.5 [facility] Comment on above: Performed By: #### C BC #### [facility] [address] [place] [address] Dr. Heather Salas LYMPH # 2.3 103/ul Normal 1.2-3.8 [facility] Comment on above: Performed By: #### C BC #### [facility] [address] [place] [address] Dr. Heather Salas Lymphocytes/100 WBC (Bld) 22.8 % Normal 20.5-60.0 [facility] Comment on above: Performed By: #### C BC #### [facility] [address] [place] [address] Dr. Heather Salas MANUAL DIFF REQ NO Normal [facility] Comment on above: Performed By: #### C BC #### [facility] [address] [place] [address] Dr. Heather Salas MCH (RBC) [Entitic mass] 30.2 pg Normal 26.7-34.0 [facility] Comment on above: Performed By: #### C BC #### [facility] [address] [place] [address] Dr. Heather Salas MCHC (RBC) [Mass/Vol] 32.6 g/dL Normal 29.9-35.2 [facility] Comment on above: Performed By: #### C BC #### [facility] [address] [place] [address] Dr. Heather Salas MCV (RBC) [Entitic vol] 92.8 fL Normal 79.1-95.6 [facility] Comment on above: Performed By: #### C BC #### [facility] [address] [place] [address] Dr. Heather Salas MONO # 0.5 103/ul Normal 0.3-0.8 [facility] Comment on above: Performed By: #### C BC #### [facility] [address] [place] [address] Dr. Heather Salas Monocytes/100 WBC (Bld) 4.7 % Normal 1.7-12.0 [facility] Comment on above: Performed By: #### C BC #### [facility] [address] [place] [address] Dr. Heather Salas NEUT # 7.3 103/ul Critically high 1.4-6.5 [facility] Comment on above: Performed By: #### C BC #### [facility] [address] [place] [address] Dr. Heather Salas Neutrophils/100 WBC (Bld) 71.2 % Normal 43.0-75.0 [facility] Comment on above: Performed By: #### C BC #### [facility] [address] [place] [address] Dr. Heather Salas Platelet mean volume (Bld) [Entitic vol] 10.4 fL Normal 9.5-13.5 [facility] Comment on above: Performed By: #### C BC #### [facility] [address] [place] [address] Dr. Heather Salas PLT 272 103/ul Normal 150-450 [facility] Comment on above: Performed By: #### C BC #### [facility] [address] [place] [address] Dr. Heather Salas RBC 4.14 106/ul Normal 3.40-5.30 [facility] Comment on above: Performed By: #### C BC #### [facility] [address] [place] [address] Dr. Heather Salas WBC 10.2 103/ul Normal 4.0-11.0 [facility] Comment on above: Performed By: #### C BC #### [facility] [address] [place] [address] Dr. Heather Salas CULTURE URINEon 08-15-2022 CULTURE URINE Culture Observations: MODERATE GROWTH OF MIXED GENITAL VALORIE. NO POTENTIAL PATHOGENS SEEN. Normal [facility] Comment on above: Performed By: #### U RCX #### [facility] [address] [place] [address] Dr. Heather Salas Covid-19 PCR (CVDTB)on 07-20 SARS-CoV-2 (COVID-19) RNA UNA+probe Ql (Unsp spec) Not detected Normal NOT DETECTED [facility] Comment on above: Result Comment: When diagnostic testing is negative, the possibility of a false negative should be considered in the context of a patient's recent exposures and the presence of clinical signs and symptoms consistent with SARS-CoV-2. This test is not yet approved or cleared by the [place] FDA. When there are no FDA-approved or cleared tests available, and other criteria are met, FDA can make tests available under an emergency access mechanism called an Emergency Use Authorization (EUA). The EUA for this test is supported by the [employer] of Health and Human Service's declaration that circumstances exist to justify the emergency use of in vitro diagnostics for the detection and/or diagnosis of the virus that causes COVID-19. This EUA will remain in effect for the duration of the COVID-19 declaration justifying emergency of IVDs, unless it is terminated or revoked by the FDA (after which the test may no longer be used). Performed By: #### C VDTBH #### [facility] [address] [place] [address] Dr. Heather Salas DRUG SCREEN RAPID (URINE)on 08-15-2022 AMP Negative Normal NEGATIVE [facility] Comment on above: Performed By: #### D RUGRPD #### [facility] [address] [place] [address] Dr. Heather Salas BAR Negative Normal NEGATIVE [facility] Comment on above: Performed By: #### D RUGRPD #### [facility] [address] [place] [address] Dr. Heather Salas BUP Negative Normal NEGATIVE [facility] Comment on above: Performed By: #### D RUGRPD #### [facility] [address] [place] [address] Dr. Heather Salas BZO Negative Normal NEGATIVE [facility] Comment on above: Performed By: #### D RUGRPD #### [facility] [address] [place] [address] Dr. Heather Salas LANG Negative Normal NEGATIVE [facility] Comment on above: Performed By: #### D RUGRPD #### [facility] [address] [place] [address] Dr. Heather Salas CUT-OFFS SEE BELOW Normal [facility] Comment on above: Result Comment: AMP (Amphetamine): 500ng/mL, BAR (Barbituates): 200 ng/mL, BZO (Benzodiazepines): 150 ng/mL, BUP (Buprenorphine): 10 ng/mL, LANG (Cocaine): 150 ng/mL, mAMP (Methamphetamine): 500 ng/mL, MTD (Methadone): 200 ng/mL, OPI (Opiates): 100 ng/mL, OXY (Oxycodone): 100 ng/mL, PCP (Phencyclidine): 25 ng/mL, PPX (Propoxyphene): 300 ng/mL, THC (Cannabinoids): 50 ng/mL, TCA (Trycyclic Antidepressants): 300 ng/mL Performed By: #### D RUGRPD #### [facility] [address] [place] [address] Dr. Heather Salas DRUG CUT HEADER DRUG CLASS TEST SYSTEM CUT-OFF CONCENTRATIONS ARE FOLLOWS: Normal [facility] Comment on above: Performed By: #### D RUGRPD #### [facility] [address] [place] [address] Dr. Heather Salas mAMP Negative Normal NEGATIVE [facility] Comment on above: Performed By: #### D RUGRPD #### [facility] [address] [place] [address] Dr. Heather Salas MTD Negative Normal NEGATIVE [facility] Comment on above: Performed By: #### D RUGRPD #### [facility] [address] [place] [address] Dr. Heather Salas OPI Negative Normal NEGATIVE [facility] Comment on above: Performed By: #### D RUGRPD #### [facility] [address] [place] [address] Dr. Heather Salas OXY Negative Normal NEGATIVE [facility] Comment on above: Performed By: #### D RUGRPD #### [facility] [address] [place] [address] Dr. Heather Salas PCP Negative Normal NEGATIVE [facility] Comment on above: Performed By: #### D RUGRPD #### [facility] [address] [place] [address] Dr. Heather Salas PPX Negative Normal NEGATIVE [facility] Comment on above: Performed By: #### D RUGRPD #### [facility] [address] [place] [address] Dr. Heather Salas TCA Negative Normal NEGATIVE [facility] Comment on above: Performed By: #### D RUGRPD #### [facility] [address] [place] [address] Dr. Heather Salas THC Negative Normal NEGATIVE [facility] Comment on above: Performed By: #### D RUGRPD #### [facility] [address] [place] [address] Dr. Heather Salas ER URINE PROFILEon 2 Bilirubin Ql (U) Negative Normal NEGATIVE [facility] Comment on above: Performed By: #### B MP #### [facility] [address] [place] [address] Dr. Heather Salas Clarity (U) CLEAR Normal CLEAR [facility] Comment on above: Performed By: #### B MP #### [facility] [address] [place] [address] Dr. Heather Salas Color (U) LT. YELLOW Normal YELLOW [facility] Comment on above: Performed By: #### B MP #### [facility] [address] [place] [address] Dr. Heather BARRERATed A micrscopic examination will be performed if indicated. Normal [facility] Comment on above: Performed By: #### B MP #### [facility] [address] [place] [address] Dr. Heather Salas Glucose Ql (U) Negative Normal NEGATIVE [facility] Comment on above: Performed By: #### B MP #### [facility] [address] [place] [address] Dr. Heather Salas Hemoglobin Ql (U) TRACE-INTACT Abnormal NEGATIVE [facility] Comment on above: Performed By: #### B MP #### [facility] [address] [place] [address] Dr. Heather Salas Ketones Ql (U) Negative Normal NEGATIVE [facility] Comment on above: Performed By: #### B MP #### [facility] [address] [place] [address] Dr. Heather Salas LEUKOCYTES MODERATE Abnormal NEGATIVE [facility] Comment on above: Performed By: #### B MP #### [facility] [address] [address] [address] Heather Salas Nitrite Ql (U) Negative Normal NEGATIVE [facility] Comment on above: Performed By: #### B MP #### [facility] [address] [place] [address] Dr. Heather Salas pH (U) 7.0 [pH] Normal 5-9 [facility] Comment on above: Performed By: #### B MP #### [facility] [address] [place] [address] Dr. Heather Salas SPEC GRAVITY 1.015 Normal 1.005-<=1.025 [facility] Comment on above: Performed By: #### B MP #### [facility] [address] [place] [address] Dr. Haether Salas UA PROTEIN TRACE Normal NEGATIVE/ TRACE [facility] Comment on above: Performed By: #### B MP #### [facility] [address] [place] [address] Dr. Heather Salas UR MICRO IND INDICATED Normal [facility] Comment on above: Performed By: #### B MP #### [facility] [address] [place] [address] Dr. Heather Salas Urobilinogen Qn (U) 2.0 {Varun'U}/dL Abnormal 0.2 - 1. 0 [facility] Comment on above: Performed By: #### B MP #### [facility] [address] [place] [address] Dr. Heather Salas ETHANOL (BLD ALC)on 08-15-20 ALC NOTE NOTE: 80 mg/dl is the legal limit for a blood alcohol level Normal [facility] Comment on above: Performed By: #### D RUGRPD #### [facility] [address] [place] [address] Dr. Heather Salas Ethanol [Mass/Vol] mg/dL Normal [facility] Comment on above: Performed By: #### D RUGRPD #### [facility] [address] [place] [address] Dr. Heather Salas URon 08-15-2022 , QUAL Negative Normal NEGATIVE [facility] Comment on above: Performed By: #### B MP #### [facility] [address] [place] [address] Dr. Heather Salas PROF 14(COMP METB)on 022 Albumin [Mass/Vol] 4.0 g/dL Normal 3.4-5.0 [facility] Comment on above: Performed By: #### D RUGRPD #### [facility] [address] [place] [address] Dr. Heather Salas Albumin/Globulin [Mass ratio] 1.1 {ratio} Normal [facility] Comment on above: Performed By: #### D RUGRPD #### [facility] [address] [place] [address] Dr. Heather Salas ALP [Catalytic activity/Vol] 92 U/L Normal 65-260 [facility] Comment on above: Performed By: #### D RUGRPD #### [facility] [address] [place] [address] Dr. Heather Salas ALT [Catalytic activity/Vol] 13 U/L Critically low 14-59 [facility] Comment on above: Performed By: #### D RUGRPD #### [facility] [address] [place] [address] Dr. Heather Salas Anion gap [Moles/Vol] 13.0 mmol/L Normal [facility] Comment on above: Performed By: #### D RUGRPD #### [facility] [address] [place] [address] Dr. Heather Salas AST [Catalytic activity/Vol] 9 U/L Critically low 15-37 [facility] Comment on above: Performed By: #### D RUGRPD #### [facility] [address] [place] [address] Dr. Heather Salas Bilirubin [Mass/Vol] 0.2 mg/dL Normal 0.2-1.0 [facility] Comment on above: Performed By: #### D RUGRPD #### [facility] [address] [place] [address] Dr. Heather Salas Calcium [Mass/Vol] 8.8 mg/dL Normal 8.5-10.1 [facility] Comment on above: Performed By: #### D RUGRPD #### [facility] [address] [address] [address] Heather Salas Chloride [Moles/Vol] 104 mmol/L Normal 98-107 [facility] Comment on above: Performed By: #### D RUGRPD #### [facility] [address] [address] [address] Heather Salas CO2 [Moles/Vol] 24.7 mmol/L Normal 21.0-32.0 [facility] Comment on above: Performed By: #### D RUGRPD #### [facility] [address] [place] [address] Dr. Heather Salas Creatinine [Mass/Vol] 0.79 mg/dL Normal 0.55-1.02 [facility] Comment on above: Performed By: #### D RUGRPD #### [facility] [address] [place] [address] Dr. Heather Salas Globulin (S) [Mass/Vol] 3.6 g/dL Normal [facility] Comment on above: Performed By: #### D RUGRPD #### [facility] [address] [place] [address] Dr. Heahter Salas Glucose [Mass/Vol] 124 mg/dL Critically high 74-106 [facility] Comment on above: Performed By: #### D RUGRPD #### [facility] [address] [address] [address] Heather Salas Potassium [Moles/Vol] 3.7 mmol/L Normal 3.5-5.1 [facility] Comment on above: Performed By: #### D RUGRPD #### [facility] [address] [address] [address] Heather Salas Protein [Mass/Vol] 7.6 g/dL Normal 6.4-8.2 [facility] Comment on above: Performed By: #### D RUGRPD #### [facility] [address] [address] [address] Heather Salas Sodium [Moles/Vol] 138 mmol/L Normal 136-145 [facility] Comment on above: Performed By: #### D RUGRPD #### [facility] [address] [place] [address] Dr. Heather Salas Urea nitrogen [Mass/Vol] 7.0 mg/dL Normal 6.4-19.3 [facility] Comment on above: Performed By: #### D RUGRPD #### [facility] [address] [place] [address] Dr. Heather Salas Urea nitrogen/Creatinine [Mass ratio] 8.9 mg/mg Normal [facility] Comment on above: Performed By: #### D RUGRPD #### [facility] [address] [place] [address] Dr. Heather Salas SALICYLATEon 08-15-2022 SALICYLATE 1.3 mg/dL Normal <=19.9 [facility] Comment on above: Performed By: #### D RUGRPD #### [facility] [address] [place] [address] Dr. Heather Salas URINE MICROSCOPIC ONLYon BACTERIA MODERATE Abnormal NONE SEEN [facility] Comment on above: Performed By: #### B MP #### [facility] [address] [place] [address] Dr. Heather Salas Bacteria identified Cx Nom (U) INDICATED Normal [facility] Comment on above: Performed By: #### B MP #### [facility] [address] [place] [address] Dr. Heather Salas CAST NONE SEEN Normal NONE SEEN [facility] Comment on above: Performed By: #### B MP #### [facility] [address] [place] [address] Dr. Heather Salas Crystals LM Nom (Urine sed) NONE SEEN Normal NONE SEEN [facility] Comment on above: Performed By: #### B MP #### [facility] [address] [place] [address] Dr. Heather Salas Epithelial cells LM Ql (Urine sed) MANY Abnormal NONE SEEN /RARE [facility] Comment on above: Performed By: #### B MP #### [facility] [address] [address] [address] Heather Salas MUCOUS NONE SEEN Normal NONE SEEN [facility] Comment on above: Performed By: #### B MP #### [facility] [id number] [address] Heather Salas RBC 0-2 Normal 0-2 [facility] Comment on above: Performed By: #### B MP #### [facility] [id number] Heather Salas WBC 5-10 Abnormal NONE SEEN [facility] Comment on above: Performed By: #### B MP #### [facility] [address] [address] [address] Heather Salas Progress Noteon 06-08-2022 [employer] Superintendent Authentication Interface Message Text Grandparents had technical difficulties with video chat and patient was unable to be seen. Office staff alerted to reschedule appointment. This encounter was created in error - please disregard. Normal [facility] XR CHEST 2 Von 05-02-2022 XR CHEST 2 V EXAM: XR CHEST 2 V HISTORY: Choking and seizure COMPARISON: 03/05/2022 TECHNIQUE: Upright PA and lateral chest x-ray FINDINGS: The heart is not enlarged and the vasculature is not distended. No acute infiltrate, effusion or pneumothorax is identified. The osseous structures are intact. No radiopaque foreign body is identified IMPRESSION: No acute infiltrate or evidence of cardiac decompensation. No radiopaque foreign body is identified. The overall appearance of the chest is unchanged. Electronically authenticated by: KATIANA MA Date: 2022-05-02 16:43 Normal [facility] COMP METABOLIC PANELon 01-31 Albumin [Mass/Vol] 4.6 g/dL Normal 3.5-5.7 [facility] Comment on above: Order Comment: No: D o not add to previous draw Performed By: #### 3 1522, 25271, 75860, 71400, 86854, 60367 #### [facility] [address] [facility] [place] [address], [facility] ALKALINE PHOSPH 89 IU/L Normal 40-460 [facility] Comment on above: Order Comment: No: D o not add to previous draw Performed By: #### 3 1522, 01922, 30905, 73798, 35477, 22319 #### [facility] [address] [place] [address], [place] ALT [Catalytic activity/Vol] 7 U/L Normal 7-52 [facility] Comment on above: Order Comment: No: D o not add to previous draw Performed By: #### 3 1522, 74284, 00724, 13076, 12947, 47496 #### [facility] [address] [place] [address], [facility] AST [Catalytic activity/Vol] 10 U/L Low 13-39 [facility] Comment on above: Order Comment: No: D o not add to previous draw Performed By: #### 3 1522, 50873, 97837, 11634, 56925, 25852 #### [facility] [address] [place] [address], [place] Bilirubin [Mass/Vol] 0.7 mg/dL Normal 0.3-1.0 [facility] Comment on above: Order Comment: No: D o not add to previous draw Performed By: #### 3 1522, 79564, 48612, 72227, 17584, 65302 #### [facility] [address] [place] [address], [place] Calcium [Mass/Vol] 10.0 mg/dL Normal 8.6-10.3 [facility] Comment on above: Order Comment: No: D o not add to previous draw Performed By: #### 3 1522, 25143, 28969, 27686, 65829, 53702 #### [facility] [address] [place] [address], [place] Chloride [Moles/Vol] 104 mmol/L Normal 98-107 [facility] Comment on above: Order Comment: No: D o not add to previous draw Performed By: #### 3 1522, 90479, 44389, 86830, 02045, 09273 #### [facility] [address] [place] [address], [place] CO2 [Moles/Vol] 27 mmol/L Normal 21-31 [facility] Comment on above: Order Comment: No: D o not add to previous draw Performed By: #### 3 1522, 18535, 77831, 78238, 99917, 53043 #### [facility] [address] [place] [address], [facility] Creatinine [Mass/Vol] 0.85 mg/dL Normal 0.60-1.20 [facility] Comment on above: Order Comment: No: D o not add to previous draw Performed By: #### 3 1522, 27017, 23845, 10153, 92793, 82243 #### [facility] [address] [place] [address], [facility] eGFR- Calculation not validated for patients under 18 years Abnormal >60 [facility] Comment on above: Order Comment: No: D o not add to previous draw Performed By: #### 3 1522, 33084, 80284, 03407, 40066, 02292 #### [facility] [address] [place] [address], [place] eGFR- non- Calculation not validated for patients under 18 years Abnormal >60 [facility] Comment on above: Order Comment: No: D o not add to previous draw Performed By: #### 3 1522, 97946, 12569, 16458, 36740, 87691 #### [facility] [address] [place] [address], [place] Glucose [Mass/Vol] 106 mg/dL High 70-100 [facility] Comment on above: Order Comment: No: D o not add to previous draw Performed By: #### 3 1522, 00806, 80300, 62108, 53007, 34230 #### [facility] [address] [place] [address], [place] Potassium [Moles/Vol] 3.7 mmol/L Normal 3.5-5.1 [facility] Comment on above: Order Comment: No: D o not add to previous draw Performed By: #### 3 1522, 26679, 73060, 83712, 01301, 96819 #### [facility] [address] [place] [address], [place] Protein [Mass/Vol] 7.3 g/dL Normal 6.0-8.3 [facility] Comment on above: Order Comment: No: D o not add to previous draw Performed By: #### 3 1522, 80572, 98875, 49666, 93167, 68305 #### [facility] [address] [place] [address], [place] Sodium [Moles/Vol] 140 mmol/L Normal 136-145 [facility] Comment on above: Order Comment: No: D o not add to previous draw Performed By: #### 3 1522, 47543, 37665, 33351, 77688, 43297 #### [facility] [address] [place] [address], [place] Urea nitrogen [Mass/Vol] 10 mg/dL Normal 7-25 [facility] Comment on above: Order Comment: No: D o not add to previous draw Performed By: #### 3 1522, 04676, 33910, 63308, 73328, 34060 #### [facility] [address] [place] [address], [place] FREE T3on 01-31-2021 Free T3 [Mass/Vol] 3.3 pg/mL Normal 2.5-3.9 [facility] Comment on above: Order Comment: No: D o not add to previous draw Performed By: #### 3 1522, 01169, 19829, 27179, 14555, 99008 #### [facility] [address] [place] [address], [facility] FREE T4on 01-31-2021 Free T4 [Mass/Vol] 0.88 ng/dL Normal 0.71-1.85 [facility] Comment on above: Order Comment: No: D o not add to previous draw Performed By: #### 3 1522, 75845, 76766, 48057, 64055, 44405 #### [facility] [address] [place] [address], [facility] LIPID PROFILEon 01-31-2021 Cholesterol [Mass/Vol] 137 mg/dL Normal 120-170 [facility] Comment on above: Order Comment: No: D o not add to previous draw Result Comment: CHOL ESTEROL REFERENCE RANGE: 20 YEARS AND OLDER CARDIOVASCULAR RISK Less than 200 mg/dl Low Risk 200 to 239 mg/dl Borderline Risk 240 mg/dl and greater High Risk Performed By: #### 3 1522, 79346, 08247, 39452, 30104, 31262 #### [facility] [address] [place] [address], [facility] Cholesterol in HDL [Mass/Vol] 48 mg/dL Normal 23-92 [facility] Comment on above: Order Comment: No: D o not add to previous draw Result Comment: Slig ht variation in normal range could be due to gender and/or age. HDL CHOLESTEROL REFERENCE RANGE: 20 years and older Cardiovascular Risk > or =60 mg/dL Desirable 40 TO 59 mg/dL Low Risk <40 mg/dL High Risk Performed By: #### 3 1522, 58577, 05928, 75324, 24317, 25128 #### [facility] [address] [place] [address], [facility] Cholesterol in LDL [Mass/Vol] 62 mg/dL Normal 0-130 [facility] Comment on above: Order Comment: No: D o not add to previous draw Result Comment: LDL IS A CALCULATION LDL IS ONLY VALID IF THE TRIG IS LESS THAN 400. Performed By: #### 3 1522, 32550, 79692, 07144, 80130, 64691 #### [facility] [address] [place] [address], [facility] Cholesterol.total/Ch olesterol in HDL [Mass ratio] 2.9 {ratio} Normal 0.0-4.5 [facility] Comment on above: Order Comment: No: D o not add to previous draw Performed By: #### 3 1522, 21786, 42837, 63574, 95176, 64532 #### [facility] [address] NON-HDL CHOLESTEROL 89 mg/dL Normal [facility] Comment on above: Order Comment: No: D o not add to previous draw Performed By: #### 3 1522, 69739, 01813, 43930, 80818, 21667 #### [facility] [address] Triglyceride [Mass/Vol] 133 mg/dL Normal 37-148 [facility] Comment on above: Order Comment: No: D o not add to previous draw Result Comment: TRIG LYCERIDE REFERENCE RANGE: 20 YEARS AND OLDER CARDIOVASCULAR RISK LESS THAN 150 mg/dl LOW RISK 150 TO 199 mg/dl BORDERLINE RISK 200 mg/dl AND GREATER HIGH RISK Performed By: #### 3 1522, 36683, 68586, 26199, 70093, 30445 #### [facility] [address] [place] [address], [facility] VLDL CHOL 27 mg/dL Normal 0-40 [facility] Comment on above: Order Comment: No: D o not add to previous draw Performed By: #### 3 1522, 98108, 52550, 63523, 63518, 43339 #### [facility] [address] [place] [address], [facility] TSH3on 01-31-2021 TSH 3RD GENERATION 1.14 uIU/mL Normal 0.34-5.60 [facility] Comment on above: Order Comment: No: D o not add to previous draw Performed By: #### 3 1522, 25945, 90168, 12287, 89629, 43452 #### [facility] [address] [place] [address], [facility] VITAMIN D 25-HYDROXYon 01-31 VITAMIN D 25-OH 15.6 ng/mL Low 30.0-80.0 [facility] Comment on above: Result Comment: >80. 0 Toxicity possible Performed By: #### 3 1522, 23836, 53412, 47629, 71635, 77212 #### [facility] [address] [facility] [facility] [place] [address] [place] [address] Vital Signs Date Time Vital Sign Value Performing Clinician Facility 09-09-2024 11:04-0400 Body height 162.6 cm Aakash Loznao MD, IBCLC Work Phone: [facility] 09-09-2024 11:04-0400 Body mass index (BMI) [Ratio] 17.06 kg/m2 Aakash Lozano MD, IBCLC Work Phone: [facility] 09-09-2024 11:04-0400 Body temperature 96.21 [degF] Aakash Lozano MD, IBCLC Work Phone: [facility] 09-09-2024 11:04-0400 Body weight 45.09 kg Aakash Lozano MD, IBCLC Work Phone: [facility] 09-09-2024 11:04-0400 Diastolic blood pressure 66 mm[Hg] Aakash Lozano MD, IBCLC Work Phone: [facility] 09-09-2024 11:04-0400 Heart rate 120 /min Aakash Lozano MD, IBCLC Work Phone: [facility] 09-09-2024 11:04-0400 SaO2% (BldA) [Mass fraction] 99 % Aakash Lozano MD, IBCLC Work Phone: [facility] 09-09-2024 11:04-0400 Systolic blood pressure 102 mm[Hg] Aakash Lozano MD, IBCLC Work Phone: [facility] 12-31-2022 14:23-0500 Diastolic blood pressure 72 mm[Hg] Racquel Shlomo [employer] Work Phone: [facility] 12-31-2022 14:23-0500 Systolic blood pressure 114 mm[Hg] Racquel Shlomo [employer] Work Phone: [facility] 12-31-2022 13:48-0500 Body height 164 cm Racquel Shlomo [employer] Work Phone: [facility] 12-31-2022 13:48-0500 Body mass index (BMI) [Percentile] Per age and sex 9.93 % Racquel Shlomo [employer] Work Phone: [facility] 12-31-2022 13:48-0500 Body mass index (BMI) [Ratio] 17.96 kg/m2 Racquel Shlomo [employer] Work Phone: [facility] 12-31-2022 13:48-0500 Body weight 48.3 kg Racquel Shlomo [employer] Work Phone: [facility] Encounters Encounter Date Encounter Type Care Provider Facility Start: 09-09-2024 End: 09-09-2024 Bamboo flowsjackeline Lozano MD, IBCLC Work Phone: [facility] Start: 09-09-2024 End: 09-09-2024 Bamboo flowsjackeline Lozano MD, IBCLC Work Phone: [facility] Start: 09-09-2024 End: 09-09-2024 ambulatory AAKASH LOZANO Not Available Start: 09-09-2024 End: 09-09-2024 Office outpatient visit 15 minutes Aakash Lozano MD, IBCLC Work Phone: [facility] Comment on above: Psychogenic nonepile ptic seizure (CMS/HCC) (Primary Dx); Anxiety and depression (CMS/HCC); PTSD (post-traumatic stress disorder) (CMS/HCC); Need for vaccination Start: 09-05-2024 End: 09-05-2024 ambulatory [facility] Work Phone: Start: 09-05-2024 End: 09-05-2024 Patient encounter procedure [facility] [facility] Work Phone: Start: 07-10-2024 End: 07-10-2024 Refill Benito Sun HUMAN SERVICES CARE SPECIALIST Work Phone: [facility] Comment on above: PTSD (post-traumatic stress disorder) (CMS/HCC); Depression with anxiety Start: 01-14-2024 End: 01-14-2024 ambulatory [facility] Start: 12-19-2023 End: 12-19-2023 ambulatory [facility] Start: 12-11-2023 End: 12-11-2023 ambulatory BENITO SUN Not Available Start: 11-28-2023 End: 11-28-2023 ambulatory [facility] Start: 11-14-2023 End: 11-14-2023 ambulatory [facility] Start: 10-29-2023 End: 10-29-2023 ambulatory [facility] Start: 10-22-2023 End: 10-22-2023 ambulatory EMILY [facility] Start: 10-11-2023 End: 10-11-2023 ambulatory EMILY [facility] Start: 09-17-2023 End: 09-17-2023 ambulatory EMILY [facility] Start: 09-10-2023 End: 09-10-2023 ambulatory EMILY [facility] Start: 08-20-2023 End: 08-20-2023 ambulatory [facility] Start: 08-14-2023 End: 08-14-2023 ambulatory [facility] Start: 08-05-2023 End: 08-06-2023 ambulatory Mickey Alston Facility:[facility] Start: 07-29-2023 End: 07-29-2023 ambulatory EMILY [facility] Start: 07-15-2023 End: 07-15-2023 ambulatory EMILY CHAN [facility] Start: 06-25-2023 End: 06-25-2023 ambulatory EMILY CHAN [facility] Start: 06-18-2023 End: 06-18-2023 ambulatory EMILY CHAN [facility] Start: 06-03-2023 End: 06-03-2023 ambulatory EMILY [facility] Start: 05-20-2023 End: 05-20-2023 [facility] Start: 05-14-2023 End: 05-14-2023 [facility] Start: 05-07-2023 End: 05-07-2023 ambulatory DENITA [facility] Start: 04-30-2023 End: 04-30-2023 [facility] Start: 04-22-2023 End: 04-23-2023 ambulatory Amira Mujica Facility:[facility] Start: 04-22-2023 End: 04-22-2023 Lab Drop off Amira Mujica [facility] Start: 04-18-2023 End: 04-18-2023 ambulatory [facility] Start: 04-02-2023 End: 04-02-2023 ambulatory [facility] Start: 03-26-2023 End: 03-26-2023 ambulatory EMILY [facility] Start: 03-21-2023 End: 03-21-2023 ambulatory EMILY [facility] Start: 03-13-2023 End: 03-13-2023 [facility]ulatory [facility] Start: 02-15-2023 End: 02-15-2023 ambulatory SPENSER CISNEROS [facility] Start: 02-13-2023 End: 02-13-2023 ambulatory [facility] . Facility: Start: 01-29-2023 End: 01-29-2023 ambulatory [facility] Start: 01-25-2023 End: 01-26-[address] EMILY CHAN Facility:[facility] Start: 01-25-2023 End: 01-25-2023 Lab Drop off Amira Mujica [facility] Start: 01-23-2023 End: 01-23-2023 ambulatory [facility] Start: 01-04-[address] EMILY CHAN Facil ity:[facility] Start: 01-04-2023 Telephone encounter Yarelis Fletcher [facility] Comment on above: Records Request; Res ults Start: 01-02-2023 End: 01-02-[address] EMILY CHAN Facility:[facility] Start: 12-31-2022 End: 01-01-2023 ambulatory NO PCP [facility] Start: 12-31-2022 End: 12-31-2022 Office consultation new/estab patient 40 min Racquel Ferrera [employer] Work Phone: [facility] Comment on above: Microscopic hematuri a (Primary Dx); Proteinuria, unspecified type Start: 12-27-2022 Encounter for genera l adult medical examination without abnormal findings NNEKA RAI [facility] Start: 12-26-2022 End: 12-27-[address] EMILY CHAN Facility:[facility] Start: 12-26-2022 End: 12-27-2022 Encounter for general adult medical examination without abnormal findings DR EMILY CHAN Facility:[facility] Start: 12-24-2022 Documentation procedure Wendy Gee Work Phone: [facility] [place] Comment on above: CS called to [place] since referral was sent to clinic staff to review. Start: 12-09-2022 End: 12-09-2022 ambulatory [facility] . 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)] Start: 10-04-2022 End: 10-04-2022 ambulatory [facility] Start: 08-24-2022 End: 08-24-2022 ambulatory [facility] Start: 08-15-2022 End: 08-15-[address] DWAYNE CISNEROS Facility:[facility] Start: 07-31-2022 End: 07-31-2022 ambulatory [facility] Start: 07-19-2022 End: 07-19-2022 ambulatory [facility] Start: 07-07-2022 End: 07-09-2022 ambulatory UNKNOWN PROVIDER Facility:[facility] Start: 07-02-2022 End: 07-02-2022 Lab Drop off Amira Mujica [facility] Start: 06-08-2022 End: 06-08-2022 ambulatory [facility] Start: 05-29-2022 End: 05-29-2022 ambulatory [facility] Start: 05-10-2022 End: 05-10-2022 ambulatory [facility] Start: 05-02-2022 End: 05-02-2022 ambulatory ALDO CISSE . 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)] Start: 11-14-2023 End: 11-14-2023 Psychotherapy w/patient 45 minutes PTSD (post-traumatic stress disorder) [F43.10 (ICD-10-CM)] Denita HUFFMAN Comment on above: PTSD (post-traumatic stress disorder) [F43.10 (ICD-10-CM)]; 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)] Start: 08-14-2023 End: 08-14-2023 Psychotherapy w/patient 45 minutes PTSD (post-traumatic stress disorder) [F43.10 (ICD-10-CM)] Denita HUFFMAN Comment on above: PTSD (post-traumatic stress disorder) [F43.10 (ICD-10-CM)]; 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)] Start: 07-29-2023 End: 07-29-2023 Psychotherapy w/patient 45 minutes PTSD (post-traumatic stress disorder) [F43.10 (ICD-10-CM)] Denita HUFFMAN Comment on above: PTSD (post-traumatic stress disorder) [F43.10 (ICD-10-CM)]; 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)] Start: 07-15-2023 End: 07-15-2023 Psychotherapy w/patient 30 minutes PTSD (post-traumatic stress disorder) [F43.10 (ICD-10-CM)] Denita HUFFMAN Comment on above: PTSD (post-traumatic stress disorder) [F43.10 (ICD-10-CM)]; 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)] Start: 05-20-2023 End: 05-20-2023 Psychotherapy w/patient 30 minutes PTSD (post-traumatic stress disorder) [F43.10 (ICD-10-CM)] Denita HUFFMAN Comment on above: PTSD (post-traumatic stress disorder) [F43.10 (ICD-10-CM)]; 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)] Start: 03-21-2023 End: 03-21-2023 Psytx, off, 45-50 min PTSD (post-traumatic stress disorder) [F43.10 (ICD-10-CM)] Denita HUFFMAN Comment on above: PTSD (post-traumatic stress disorder) [F43.10 (ICD-10-CM)]; 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)] Start: 03-13-2023 End: 03-13-2023 Psytx, office, 20-30 min PTSD (post-traumatic stress disorder) [F43.10 (ICD-10-CM)] Denita HUFFMAN Comment on above: PTSD (post-traumatic stress disorder) [F43.10 (ICD-10-CM)]; 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)] Start: 02-15-2023 Follow-up visit Follow-up SPENSER PALM Start: 01-29-2023 End: 01-29-2023 Psytx, off, 45-50 min PTSD (post-traumatic stress disorder) [F43.10 (ICD-10-CM)] Denita HUFFMAN Comment on above: PTSD (post-traumatic stress disorder) [F43.10 (ICD-10-CM)]; 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)] Start: 01-23-2023 End: 01-23-2023 Psytx, off, 45-50 min PTSD (post-traumatic stress disorder) [F43.10 (ICD-10-CM)] Denita HUFFMAN Comment on above: PTSD (post-traumatic stress disorder) [F43.10 (ICD-10-CM)]; 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)] Start: 01-16-2023 End: 01-16-2023 Psytx, off, 45-50 min PTSD (post-traumatic stress disorder) [F43.10 (ICD-10-CM)] Denita HUFFMAN Comment on above: PTSD (post-traumatic stress disorder) [F43.10 (ICD-10-CM)]; 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)] Start: 01-03-2023 End: 01-03-2023 Psytx, off, 45-50 min PTSD (post-traumatic stress disorder) [F43.10 (ICD-10-CM)] Denita HUFFMAN Comment on above: PTSD (post-traumatic stress disorder) [F43.10 (ICD-10-CM)]; 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)] Start: 12-31-2022 Urinalysis dipstick panel - Urine by Automated test strip Racquel Ferrera [facility] Work Phone: Start: 12-24-2022 End: 12-24-2022 Psytx, off, 45-50 min PTSD (post-traumatic stress disorder) [F43.10 (ICD-10-CM)] Denita HUFFMAN Comment on above: PTSD (post-traumatic stress disorder) [F43.10 (ICD-10-CM)]; 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)] Start: 12-17-2022 End: 12-17-2022 Psytx, off, 45-50 min PTSD (post-traumatic stress disorder) [F43.10 (ICD-10-CM)] Denita HUFFMAN Comment on above: PTSD (post-traumatic stress disorder) [F43.10 (ICD-10-CM)]; 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)] Start: 12-03-2022 End: 12-03-2022 Psytx, off, 45-50 min PTSD (post-traumatic stress disorder) [F43.10 (ICD-10-CM)] Denita HUFFMAN Comment on above: PTSD (post-traumatic stress disorder) [F43.10 (ICD-10-CM)]; 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)] Start: 11-26-2022 End: 11-26-2022 Psytx, off, 45-50 min PTSD (post-traumatic stress disorder) [F43.10 (ICD-10-CM)] Denita HUFFMAN Comment on above: PTSD (post-traumatic stress disorder) [F43.10 (ICD-10-CM)]; 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)] Start: 11-20-2022 End: 11-20-2022 Psytx, off, 45-50 min PTSD (post-traumatic stress disorder) [F43.10 (ICD-10-CM)] Denita HUFFMAN Comment on above: PTSD (post-traumatic stress disorder) [F43.10 (ICD-10-CM)]; 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)] oral Amira Mujica Plan of Treatment Date Care Activity Detail Author Start: 2065 RSV Immunization age d 60 or older (1 - 1-dose 60+ series) RSV Immunization aged 60 or older (1 - 1-dose 60+ series) [facility] Start: 2055 Zoster Vaccines (1 o f 2) Zoster Vaccines (1 of 2) [facility] Start: 07-22-2028 DTaP/Tdap/Td Vaccine s (6 - Td or Tdap) DTaP/Tdap/Td Vaccines (6 - Td or Tdap) [facility] Start: 07-19-2024 Influenza vaccination Influenza Vacc ine (#1) [facility] Start: 04-30-2024 Adolescent Depressio n Screening Adolescent Depression Screening [facility] Start: 01-02-2024 End: 01-02-2024 Telemedicine consultation with patient 01/02/2024 3:00 PM EST Telemedicine [facility] [address] [place] [address] [address] [place] [address] Denita Sosa LISW-S [facility] Start: 12-12-2023 End: 12-12-2023 Telemedicine consultation with patient 12/12/2023 3:00 PM EST Telemedicine [facility] [address] [facility] [place] [address] Denita Sosa LISW-S [facility] Start: 11-28-2023 End: 11-28-2023 Telemedicine consultation with patient 11/28/2023 3:00 PM EST Telemedicine [facility] [address] [facility] [place] [address] Denita Sosa LISW-S [facility] Start: 11-09-2023 End: 11-09-2023 Telemedicine consultation with patient 11/09/2023 Telemedicine Denita Sosa LISW-S [facility] Start: 10-30-2023 [facility] Start: 2023 Hepatitis C screening Hepatitis C [facility] Start: 08-05-2023 End: 08-05-2023 Telemedicine consultation with patient 08/05/2023 3:00 PM EDT Telemedicine [facility] [address] [place] [address] Denita Sosa LISW-S [facility] Start: 07-29-2023 End: 07-29-2023 Telemedicine consultation with patient 07/29/2023 3:00 PM EDT Telemedicine [facility] [address] [place] [address] Denita Sosa LISW-S [facility] Start: 07-19-2023 Influenza vaccination [facility] Start: 06-03-2023 End: 06-03-2023 Telemedicine consultation with patient 06/03/2023 4:00 PM EDT Telemedicine [facility] [address] [place] [id number] Denita Sosa LISW-S [facility] Start: 03-21-2023 End: 03-21-2023 Telemedicine consultation with patient 03/21/2023 Telemedicine Denita Sosa LISW-S [facility] Start: 02-13-2023 End: 02-13-2023 Telemedicine consultation with patient [facility] Start: 02-06-2023 End: 02-06-2023 Telemedicine consultation with patient 02/06/2023 Telemedicine Denita Sosa LISW-[facility] Start: 01-30-2023 End: 01-30-2023 Telemedicine consultation with patient 01/30/2023 Telemedicine Denita Sosa LISW-S [facility] Start: 01-23-2023 End: 01-23-2023 Telemedicine consultation with patient 01/23/2023 Telemedicine Denita Sosa LISW[facility] Start: 01-14-2023 End: 01-14-2023 Telemedicine consultation with patient 01/14/2023 Telemedicine Denita Sosa LISW-S [facility] Start: 01-09-2023 End: 01-09-2023 Telemedicine consultation with patient 01/09/2023 Telemedicine Denita Sosa LISW-S [facility] Start: 12-31-2022 End: 12-31-2022 Patient encounter procedure 12/31/2022 Appointment Urology Racquel Ferrera, [employer] [address] [place] [address] [facility] Start: 12-31-2022 End: 12-31-2023 Urinalysis URINALYSIS Lab Routine Microscopic hematuria Expected: 12/31/2022 (Approximate), Expires: 12/31/2023 [facility] Work Phone: Comment on above: Expected: 12/31/2022 (Approximate), Expires: 12/31/2023 Start: 12-31-2022 End: 12-31-2022 Telemedicine consultation with patient 12/31/2022 Telemedicine Denita Sosa LISWMo [facility] Start: 12-03-2022 End: 12-03-2022 Telemedicine consultation with patient 12/03/2022 [facility] Start: 11-26-2022 End: 11-26-2022 Telemedicine consultation with patient 11/26/2022 Telemedicine Denita Sosa L[facility] Start: 07-19-2022 Influenza vaccination INFLUENZA VACC INE (#1) [facility] Start: 2021 MENINGOCOCCAL VACCIN E (1 - 2-dose series) MENINGOCOCCAL VACCINE (1 - 2-dose series) [facility] Start: 2017 Adolescent Depressio n Screening Adolescent Depression Screening [facility] Start: 2017 Depresssion Monitoring Depresssion M onitoring [facility] Start: 2016 HPV Vaccines (1 - 2-dose series) HPV Vaccines (1 - 2-dose series) [facility] Start: 2015 MENB (1 of 2 - Risk Bexsero 2-dose series) MENB (1 of 2 - Risk Bexsero 2-dose series) [facility] Start: 2014 HPV VACCINES (1 - 2-dose series) HPV VACCINES (1 - 2-dose series) [facility] Start: 2012 DTaP/Tdap/Td VACCINE S (1 - Tdap) DTaP/Tdap/Td VACCINES (1 - Tdap) [facility] Start: 2006 HEPATITIS A VACCINES (1 of 2 - 2-dose series) HEPATITIS A VACCINES (1 of 2 - 2-dose series) [facility] Start: 2006 MMR VACCINES (1 of 2 - Standard series) MMR VACCINES (1 of 2 - Standard series) [facility] Start: 2006 VARICELLA VACCINES ( 1 of 2 - 2-dose childhood series) VARICELLA VACCINES (1 of 2 - 2-dose childhood series) [facility] Start: 04-22-2006 Application of denta l fluoride varnish Fluoride Varnish [facility] Start: 02-20-2006 COVID-19 Vaccine (#1) COVID-19 Vacci ne (#1) [facility] Start: 2005 IPV VACCINES (1 of 3 - 4-dose series) IPV VACCINES (1 of 3 - 4-dose series) [facility] Start: 2005 HEPATITIS B VACCINES (1 of 3 - 3-dose series) HEPATITIS B VACCINES (1 of 3 - 3-dose series) [facility] Start: 2005 HIV screening HIV Screening [facility] Immunizations Immunization Date Immunization Notes Care Provider Fa [facility] 09-09-2024 influenza, seasonal, injectable, preservative free Aakash Loazno MD, IBCLC Work Phone: [facility] 10-07-2023 Influenza, injectabl e, Madin Courtney Canine Kidney, preservative free, quadrivalent Benito Sun HUMAN SERVICES CARE SPECIALIST Work Phone: [facility] 10-07-2023 influenza virus vacc ine, unspecified formulation Benito Sun HUMAN SERVICES CARE SPECIALIST Work Phone: [facility] 07-30-2023 meningococcal oligosaccharide (groups A, C, Y and W-135) diphtheria toxoid conjugate vaccine (MCV4O) Benito Sun HUMAN SERVICES CARE SPECIALIST Work Phone: [facility] 07-22-2018 meningococcal polysaccharide (groups A, C, Y and W-135) diphtheria toxoid conjugate vaccine (MCV4P) Benito Sun HUMAN SERVICES CARE SPECIALIST Work Phone: [facility] 07-22-2018 tetanus toxoid, redu kami diphtheria toxoid, and acellular pertussis vaccine, adsorbed Benito Sun HUMAN SERVICES CARE SPECIALIST Work Phone: [facility] 09-05-2011 diphtheria, tetanus toxoids and acellular pertussis vaccine, unspecified formulation Benito Sun HUMAN SERVICES CARE SPECIALIST Work Phone: [facility] 09-05-2011 influenza, seasonal, injectable Benito Sun HUMAN SERVICES CARE SPECIALIST Work Phone: [facility] 09-05-2011 influenza virus vacc ine, unspecified formulation Denita ORANTESMo [facility] 09-08-2010 diphtheria, tetanus toxoids and acellular pertussis vaccine, unspecified formulation Benito Sun HUMAN SERVICES CARE SPECIALIST Work Phone: [facility] 09-08-2010 hepatitis A vaccine, pediatric/adolescent dosage, 2 dose schedule Benito Sun HUMAN SERVICES CARE SPECIALIST Work Phone: [facility] 09-08-2010 influenza, seasonal, injectable Benito Sun HUMAN SERVICES CARE SPECIALIST Work Phone: [facility] 09-08-2010 measles, mumps, rube lla, and varicella virus vaccine Benito Sun HUMAN SERVICES CARE SPECIALIST Work Phone: [facility] 09-08-2010 poliovirus vaccine, unspecified formulation Benito Sun HUMAN SERVICES CARE SPECIALIST Work Phone: [facility] 08-18-2009 diphtheria, tetanus toxoids and acellular pertussis vaccine, Haemophilus influenzae type b conjugate, and poliovirus vaccine, inactivated ([id number]) Benito Sun HUMAN SERVICES CARE SPECIALIST Work Phone: [facility] 08-18-2009 hepatitis A vaccine, pediatric/adolescent dosage, 2 dose schedule Benito Sun HUMAN SERVICES CARE SPECIALIST Work Phone: [facility] 08-18-2009 hepatitis B vaccine, pediatric or pediatric/adolescent dosage Benito Sun HUMAN SERVICES CARE SPECIALIST Work Phone: [facility] 08-18-2009 influenza, seasonal, injectable Benito Sun HUMAN SERVICES CARE SPECIALIST Work Phone: [facility] 08-18-2009 measles, mumps and r ubella virus vaccine Benito Sun HUMAN SERVICES CARE SPECIALIST Work Phone: [facility] 08-18-2009 pneumococcal conjuga te vaccine, 7 valent Benito Sun HUMAN SERVICES CARE SPECIALIST Work Phone: [facility] 08-18-2009 varicella virus vaccine Nat Sun HUMAN SERVICES CARE SPECIALIST Work Phone: [facility] 08-07-2006 diphtheria, tetanus toxoids and acellular pertussis vaccine, unspecified formulation Benito Sun HUMAN SERVICES CARE SPECIALIST Work Phone: [facility] 08-07-2006 haemophilus influenz ae type b conjugate and Hepatitis B vaccine Benito Sun HUMAN SERVICES CARE SPECIALIST Work Phone: [facility] 08-07-2006 pneumococcal conjuga te vaccine, 7 valent Benito Sun HUMAN SERVICES CARE SPECIALIST Work Phone: [facility] 08-07-2006 poliovirus vaccine, inactivated Benito Sun HUMAN SERVICES CARE SPECIALIST Work Phone: [facility] 2005 hepatitis B vaccine, pediatric or pediatric/adolescent dosage Benito Sun HUMAN SERVICES CARE SPECIALIST Work Phone: [facility] Healthcare Payers Date Payer Category Payer Private Health Insurance [facility] [id number] 2022 Medicaid [id number] 2021 [facility] [id number] [id number] 2021 Unknown [id number]. 1.13.161. 2.7.3.725576.315 2005 Unknown [id number] 2.16.840.1.155081.3.579. 2.1259 2005 Unknown [id number] 2.16.840.1.339506.3.579. 2.1259 1981 Unknown [id number] 2.16.840.1.257116.3.579. 2.430 1981 Unknown [id number] 2.16.840.1.536432.3.579. 2.593 1981 Unknown [id number] 2.16.840.1.442162.3.579. 2.593 1981 Unknown [id number] 2.16.840.1.460496.3.579. 2.593 1981 Unknown [id number] 2.16.840.1.578411.3.579. 2.593 1981 Unknown [id number] 2.16.840.1.259703.3.579. 2.593 1981 Unknown [id number] 2.16.840.1.121573.3.579. 2.593 1981 Unknown [id number] 2.16.840.1.712105.3.579. 2.593 1981 Unknown [id number] 2.16.840.1.585309.3.579. 2.593 1981 Unknown [id number] 2.16.840.1.822294.3.579. 2.593 1981 Unknown [id number] 2.16.840.1.402575.3.579. 2.593 1981 Unknown [id number] 2.16.840.1.342976.3.579. 2.593 1981 Unknown [id number] 2.16.840.1.806864.3.579. 2.479 1981 Unknown [id number] 2.16.840.1.735754.3.579. 2.479 1981 Unknown [id number] 2.16.840.1.126122.3.579. 2.479 1981 Unknown [id number] 2.16.840.1.650677.3.579. 2.479 1981 Unknown [id number] 2.16.840.1.855256.3.579. 2.479 1981 Unknown [id number] 2.16.840.1.411549.3.579. 2.479 1981 Unknown [id number] 2.16.840.1.900156.3.579. 2.479 1981 Unknown [id number] 2.16.840.1.854678.3.579. 2.479 1981 Unknown [id number] 2.16.840.1.732123.3.579. 2.727 1981 Unknown [id number] 2.16.840.1.369679.3.579. 2.727 1981 Unknown [id number] 2.16.840.1.501899.3.579. 2.727 1981 Unknown [id number] 2.16.840.1.620074.3.579. 2.727 1959 Medicaid [id number] 1959 Unknown [id number] 1959 Unknown [id number] 1959 Unknown [id number] Unknown [id number] 2.16.840.1.954062.3.579. 2.732 Self-pay Self Pay [id number] Social History Date Type Detail Facility Tobacco Household tobacc o concerns: Yes. [facility] Start: 02-15-2023 End: 12-11-2023 Sex Assigned At Female [facility] Tobacco smoking status MSIS Tobacco smoking consumption unknown [facility] Work Phone: Start: 2005 Sex Assigned At Not on file [facility] Start: 12-31-2022 End: 09-05-2024 Tobacco smoking status MSIS Never smoked tobacco [facility] Start: 12-31-2022 End: 2023 Tobacco use and exposure Smokeless tobacco non-user [facility] Start: 12-31-2022 Alcohol intake [facility] Start: 12-31-2022 History SDOH Financial 3 [facility] Start: 12-31-2022 History SDOH Food Worry 1 [facility] Start: 12-31-2022 History SDOH Transport Med 2 [facility] Tobacco smoking status No Smoking Status Entered [facility] Start: 02-15-2023 Alcohol intake Lifetime non-d tamar (finding) [facility] Start: 02-15-2023 End: 12-11-2023 History of Social function [facility] Start: 2005 Sex Assigned At Female [facility] Start: 2023 Tobacco smoking status MSIS Ex-smoker [facility] History of tobacco use Current smoker [facility] History of tobacco use Cigarette Smoker [facility] Start: 12-11-2023 End: 09-09-2024 Alcoholic beverage intake Ex-drinker (finding) [facility] Start: 11-23-2022 End: 12-03-2022 Exposure to SARS-CoV-2 (event) Not sure [facility] NEGATED: Highlighted rowStart: NINF History of tobacco use Passive smoker [facility] Clinical Notes 02-09-2021 to 09-09-2024 Aakash Lozano MD, IBCLC - 09/09/2024 11:00 AM NATHANAEL Benítez - 12/19/2023 3:00 PM NATHANAEL Mathur - 12/19/2023 3:00 PM Racquel Motta FNP - 12/31/2022 2:00 PM EST Note Date & Type Note Facility 09-09-2024 History of Presen t illness Narrative Images from the original note were not included. Pt is here to get a letter for an emotional support animal SUBJECTIVE: History Provided by: patient History of Present Illness The patient presents for evaluation of multiple medical concerns. She is currently on sertraline 100 mg for the management of her PTSD, anxiety, and depression, which she reports as effective. She has not attempted to discontinue this medication. She also mentions that her pets, a dog and a cat, provide her with emotional support, particularly during panic attacks. She does not require a refill of her sertraline at this time. She has expressed interest in receiving an influenza vaccine today. She has a Nexplanon implant for control, which was inserted approximately [address] Alston. She has successfully quit vaping, with her last use being on 01/18/2024. She experienced nonepileptic seizures for about 1.5 years, which began in 10/2022, but has been seizure-free for over a year now. She believes that seizure therapy was beneficial, but attributes the cessation of seizures primarily to the stress and trauma caused by COVID-19. Past medical history, allergies, surgical history, family history, and social history were reviewed. Current Outpatient Medications Medication Instructions etonogestrel-eluting (Nexplanon) 68 mg contraceptive implant 1 each, Implant, Once sertraline (Zoloft) 100 MG tablet TAKE 1 AND 1/2 TABLETS BY MOUTH ONCE A DAY AT THE SAME TIME I have reviewed and reconciled the history and medication list with the patient today. OBJECTIVE: BP 102/66 Pulse (!) 120 Temp 96.2 F Ht 5' 4 Wt 99 lb 6.4 oz SpO2 99% BMI 17.06 kg/m Physical Exam Constitutional: General: She is not in acute distress. Appearance: Normal appearance. She is not ill-appearing. Eyes: General: No scleral icterus. Conjunctiva/sclera: Conjunctivae normal. Pulmonary: Effort: Pulmonary effort is normal. No respiratory distress. Musculoskeletal: General: No deformity. Normal range of motion. Skin: General: Skin is warm and dry. Neurological: General: No focal deficit present. Mental Status: She is alert. Motor: Motor function is intact. Gait: Gait is intact. Psychiatric: Attention and Perception: Attention and perception normal. Mood and Affect: Mood normal. Affect is blunt. Speech: Speech normal. Behavior: Behavior normal. Thought Content: Thought content normal. Cognition and Memory: Cognition normal. Physical Exam Results ASSESSMENT AND PLAN: Problem List Items Addressed This Visit Anxiety and depression (CMS/HCC) PTSD (post-traumatic stress disorder) (CMS/HCC) Psychogenic nonepileptic seizure (CMS/HCC) - Primary Other Visit Diagnoses Need for vaccination Relevant Orders Flu vaccine greater than or equal to 3 years old, PF IM (IMM19) (Completed) Assessment & Plan 1. Posttraumatic Stress Disorder (PTSD). A prescription for emotional support animals was provided to help manage symptoms of PTSD, anxiety, and depression. The patient reports that the animals help alleviate anxiety and panic attacks. The possibility of discontinuing sertraline was discussed, but it was deemed not the appropriate time for such a change due to recent life changes. If life settles down and the patient wishes to try discontinuing the medication, this option will be revisited. 2. Anxiety. The patient reports that emotional support animals help manage anxiety and panic attacks. She is currently on sertraline 100 mg and feels it is working well. The possibility of discontinuing sertraline was discussed but deferred due to recent life changes. 3. Depression. The patient is currently on sertraline 100 mg for depression and feels it is effective. The possibility of discontinuing the medication was discussed but deferred due to recent life changes. 4. Contraceptive Management. The patient recently had a Nexplanon implant placed approximately 3 weeks ago. This was documented in her chart. She was informed that the implant can be managed here when it needs to be replaced in 3 years, if desired 5. Tobacco Cessation. The patient has successfully stopped vaping since January 17 and has not had any seizures for over a year. This progress was acknowledged and commended. 6. Health Maintenance. An influenza vaccine will be administered today. An activation code for MyChart will be sent to facilitate communication and medication refills. 7. Psychogenic Seizures Seizure free for 1 year. No antiepileptics. Continue sertraline for anxiety/depression/ptsd. Aakash Lozano MD, IBCLC [facility] documented in this encounter [facility] 01-14-2024 Note Individual Therapy v ia Audio and Video Progress Note Patient was seen today via Telehealth by agreement and consent. I used the following Telehealth technology: Audio and Video. Patient location: [place] Patient Location: home. This patient encounter is appropriate and reasonable under the circumstances: transportation issues and behavioral health . The patient has been advised of the potential risks and limitations of this mode of treatment (including but not limited to the absence of in-person examination) and has agreed to be treated in a remote fashion in spite of them. Any and all of the patient's/patient's family's questions on this issue have been answered and I have made no promises or guarantees to the patient. The patient has also been advised to contact this office for worsening conditions or problems, and seek emergency medical treatment and/or call 911 if the patient deems either necessary. The patient stated that they are currently in the [facility]. If the patient is a minor, permission has been obtained by the parent or guardian for the patient to receive medical care at this visit. Date of service: 01/14/2024 Patient Name: Lona Bell Present at Session: Lona Session #: 32 Session start/stop times: 3:00pm to 3:40pm Treatment Intervention/Progress (A): Individual therapy session via telehealth with Lona Ray. Client was very excited to see therapist. Client just talked about feeling Blah. She talked about being back on Wellbutrin to try and quit vaping. Client thinks this is adding to her mood but wants to continue to stay on it in order to try and stop vaping. Client talked about being finished with school but she does not graduate until March of this year she talked about having a graduation republican but really does not want to do it. Client did discuss that looking forward to money that she is doing it for her graduation. Client wants to get a car. She talked about applying for another place for a job but is not sure if she is going to get it. Client talked about compliant to most of the places in [place]. Client continues to report that she has seizures on her application. Discussed with her how it has been 8 months since she has had a seizure and that she should not put this on a job application. Client talked about wanting to drive and will talk with Dr. Aldridge more about this. Client is very excited that she has not had any seizures in 8 months. Client talked about going over the occasions after she was done with therapy. Therapist asked her if they were back together and she is that she did not overall client is continuing to utilize her coping skills. Is doing meditation and trying to think positive. She talked about listening to music and her art work she wants to get back to. Will see client again in 3 weeks. Treatment Goals: Coping with Auras and mindfulness exercises and breathing. 2. Grief letter and processing her fathers and trauma. 3. Abandonment issues and coping. 4 .Support and communication styles. 5. Taking control of her seizures through breathing thought changing. 6. Using Yoga and meditation 7 Dealing with anxiety from brief therapy handouts. 8. Working on ability to cope with Trauma 9. Safety plan and continue to reassess 10) Channeling negative emotions into productive outlets. 11) Reframing what is better now 12) Coping with the trauma and Change Treatment Intervention/Progress (A): Client has not had any nonepileptic seizures since school has been out. Client has now gone 6 months with no nonepileptic seizures. She is looking forward to driving in the future. Client has really done very well with therapy. Client continues to not have any nonepileptic events. Client's mood seems much more stable. She has been very active and doing a lot of things which client admits helps her mood. She is not participating in any other counseling. Client talked about not having any nonepileptic events since school has been out. She is thinking about moving in with her boyfriend after she turns 18. Since her therapist the left she states she does not want another counselor at an outside agency. Client's mood has improved significantly. Client has had some difficulty with psychiatric meds she went on Wellbutrin to try and stop vaping and then she got really agitated on Wellbutrin. Client is working with her psychiatrist and is still currently on Zoloft but client is talking about trying it without any medication. Client is taking Wellbutrin again to try and get off vaping but it has made her mood more blah. Client is doing meditation and looking at positive things. Client mood is much more stable. 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 [facility] 12-19-2023 Note Individual Therapy v ia Audio and Video Progress Note Patient was seen today via Telehealth by agreement and consent. I used the following Telehealth technology: Audio and Video. Therapist had to sign off and sign back on due to no volume Patient location: Patient Location: home. This patient encounter is appropriate and reasonable under the circumstances: transportation issues and behavioral health . The patient has been advised of the potential risks and limitations of this mode of treatment (including but not limited to the absence of in-person examination) and has agreed to be treated in a remote fashion in spite of them. Any and all of the patient's/patient's family's questions on this issue have been answered and I have made no promises or guarantees to the patient. The patient has also been advised to contact this office for worsening conditions or problems, and seek emergency medical treatment and/or call 911 if the patient deems either necessary. The patient stated that they are currently in the [facility]. If the patient is a minor, permission has been obtained by the parent or guardian for the patient to receive medical care at this visit. Date of service: 12/19/2023 Patient Name: Lona Bell Present at Session: Lona Session #: 32 Session start/stop times: 3:00pm to 3:38pm Treatment Intervention/Progress (A): Individual therapy session via telehealth with Lona Bell. Client signed on and therapist was able to hear and see her. Client then got a call and was no longer able to hear therapist so therapist had to sign off and signed back on. Client talked about her medication being switched she is now on Wellbutrin and only 75 mg of Zoloft. Client was having some difficulty with the Wellbutrin. She talked about storming out of the house and leaving in the cold for 4 hours. Client states she will contact psychiatrist regarding the Wellbutrin but she is no longer taking it. Client wonders what it would be like to be off medication. Therapist talked and affirmed with her that she definitely needs to talk with psychiatry before doing anything. Discussed with her the need to taper off medications and worries about her bottoming out. Client talked about staying at home a lot she still has not had any nonepileptic seizures. Client talked about finishing high school and being done. She talked about a graduation republican where her stepsiblings will be there and she really does not want them there. Client talked about wanting hugs drinks and sloppy Arie's for her graduation republican so she can be a child. Client talked about her aunt dying of cancer and she is not sure she is going to go to the unless her brother goes. Client is excited about finishing high school. She talked about applying at the [employer] but her friend is no longer working there. Client talked about wanting to save for car. She talked about the difficulty of getting a job in her town and how she really needs a car. Client has been able to save up about thousand dollars. She is hoping with her graduation money she can get a car. Client has been trying to do more positive things with her anxiety she talked about working on her breathing and doing 10 seconds 5 seconds 10 seconds. Talked about getting reinvolved in yoga. She talked about rubbing her neck and just trying to focus more on positive things. Therapist gave her a lot of positive feedback will see client again in 2 weeks. Treatment Goals: Coping with Auras and mindfulness exercises and breathing. 2. Grief letter and processing her fathers and trauma. 3. Abandonment issues and coping. 4 .Support and communication styles. 5. Taking control of her seizures through breathing thought changing. 6. Using Yoga and meditation 7 Dealing with anxiety from brief therapy handouts. 8. Working on ability to cope with Trauma 9. Safety plan and continue to reassess 10) Channeling negative emotions into productive outlets. 11) Reframing what is better now 12) Coping with the trauma and Change Treatment Intervention/Progress (A): Client has not had any nonepileptic seizures since school has been out. Client has now gone 6 months with no nonepileptic seizures. She is looking forward to driving in the future. Client has really done very well with therapy. Client continues to not have any nonepileptic events. Client's mood seems much more stable. She has been very active and doing a lot of things which client admits helps her mood. She is not participating in any other counseling. Client talked about not having any nonepileptic events since school has been out. She is thinking about moving in with her boyfriend after she turns 18. Since her therapist the left she states she does not want another counselor at an outside agency. Client's mood has improved significantly. Client has had some difficulty with psychiatr (more content not included)... [facility] 12-19-2023 History of Presen t illness Narrative Individual Therapy via Audio and Video Progress Note Patient was seen today via Telehealth by agreement and consent. I used the following Telehealth technology: Audio and Video. Therapist had to sign off and sign back on due to no volume Patient location: Patient Location: home. This patient encounter is appropriate and reasonable under the circumstances: transportation issues and behavioral health . The patient has been advised of the potential risks and limitations of this mode of treatment (including but not limited to the absence of in-person examination) and has agreed to be treated in a remote fashion in spite of them. Any and all of the patient's/patient's family's questions on this issue have been answered and I have made no promises or guarantees to the patient. The patient has also been advised to contact this office for worsening conditions or problems, and seek emergency medical treatment and/or call 911 if the patient deems either necessary. The patient stated that they are currently in the [facility]. If the patient is a minor, permission has been obtained by the parent or guardian for the patient to receive medical care at this visit. Date of service: 12/20/2023 Patient Name: Lona Bell Present at Session: Lona Session #: 32 Session start/stop times: 3:00pm to 3:38pm Treatment Intervention/Progress (A): Individual therapy session via telehealth with Lona Bell. Client signed on and therapist was able to hear and see her. Client then got a call and was no longer able to hear therapist so therapist had to sign off and signed back on. Client talked about her medication being switched she is now on Wellbutrin and only 75 mg of Zoloft. Client was having some difficulty with the Wellbutrin. She talked about storming out of the house and leaving in the cold for 4 hours. Client states she will contact psychiatrist regarding the Wellbutrin but she is no longer taking it. Client wonders what it would be like to be off medication. Therapist talked and affirmed with her that she definitely needs to talk with psychiatry before doing anything. Discussed with her the need to taper off medications and worries about her bottoming out. Client talked about staying at home a lot she still has not had any nonepileptic seizures. Client talked about finishing high school and being done. She talked about a graduation republican where her stepsiblings will be there and she really does not want them there. Client talked about wanting hugs drinks and sloppy Arie's for her graduation republican so she can be a child. Client talked about her aunt dying of cancer and she is not sure she is going to go to the unless her brother goes. Client is excited about finishing high school. She talked about applying at the [employer] but her friend is no longer working there. Client talked about wanting to save for car. She talked about the difficulty of getting a job in her town and how she really needs a car. Client has been able to save up about thousand dollars. She is hoping with her graduation money she can get a car. Client has been trying to do more positive things with her anxiety she talked about working on her breathing and doing 10 seconds 5 seconds 10 seconds. Talked about getting reinvolved in yoga. She talked about rubbing her neck and just trying to focus more on positive things. Therapist gave her a lot of positive feedback will see client again in 2 weeks. Treatment Goals: Coping with Auras and mindfulness exercises and breathing. 2. Grief letter and processing her fathers and trauma. 3. Abandonment issues and coping. 4 .Support and communication styles. 5. Taking control of her seizures through breathing thought changing. 6. Using Yoga and meditation 7 Dealing with anxiety from brief therapy handouts. 8. Working on ability to cope with Trauma 9. Safety plan and continue to reassess 10) Channeling negative emotions into productive outlets. 11) Reframing what is better now 12) Coping with the trauma and Change Treatment Intervention/Progress (A): Client has not had any nonepileptic seizures since school has been out. Client has now gone 6 months with no nonepileptic seizures. She is looking forward to driving in the future. Client has really done very well with therapy. Client continues to not have any nonepileptic events. Client's mood seems much more stable. She has been very active and doing a lot of things which client admits helps her mood. She is not participating in any other counseling. Client talked about not having any nonepileptic events since school has been out. She is thinking about moving in with her boyfriend after she turns 18. Since her therapist the left she states she does not want another counselor at an outside agency. Client's mood has improved significantly. Client has had some difficulty with psychiatric meds she went on Wellbutrin to try and stop vaping and then she got really agitated on Wellbutrin. Client is working with her psychiatrist and is still currently on Zoloft but client is talking about trying it without any medication. Client realizes the importance of contacting her psychiatrist regarding. Client is doing meditation and looking at positive things. Client mood is much more stable. 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 Appearance / Personal Hygiene : Client is appropriately groomed and dressed. Has makeup on colored her hair. Eye Contact: good Psychosis: no Psychosis Homicidal Ideation/Intentions: no Duty to Protect process completed N A Insight: Good Judgement: Good Intelligence: Average Memory/Cognition: intact Mood/Affect: Client's mood is more stable. She still has some mild anxiety and depression. Client had some agitation on Wellbutrin. Thought Process: Goal-Directed Nightmares Suicidal Ideation/Intentions: Client denies any current ideation Agrees to safety plan. Treatment and Follow-up Plan (P): Continue with current treatment plan and Client to participate in PNES specific Cognitive behavioral treatment and work on processing PTSD .The primary aim of Taking Control of Your Seizures: Workbook is to improve the lives of patients with seizures. Both epileptic seizures and nonepileptic seizures (CEDRICK) are prevalent and potentially disabling. The Workbook is designed to be used by a patient with seizures in conjunction with his or her counselor. The Workbook contains [id number] guidelines that enable patients to take control of their seizures and their lives. The licensed sales assistant Treating Nonepileptic Seizures: Therapist Guide enhances effectiveness by providing [id number] instructions for counselors who use the Workbook with patients with CEDRICK. The authors developed this treatment approach based on extensive clinical experience and research with epilepsy and CEDRICK. Many patients who have completed the Taking Control process experience fewer seizures, reduced symptoms, and a greater sense of well-being. Work on thought changing and CBT, building supports, feelings about her seizures and taking control. Using journaling and mindfulness, mediation and yoga and grounding techniques as well as thought changing to deal with stressors. NATHANAEL Stallworth documented in this encounter [facility] 12-19-2023 History of Presen t illness Narrative Individual Therapy via Audio and Video Progress Note Patient was seen today via Telehealth by agreement and consent. I used the following Telehealth technology: Audio and Video. Therapist had to sign off and sign back on due to no volume Patient location: Patient Location: home. This patient encounter is appropriate and reasonable under the circumstances: transportation issues and behavioral health . The patient has been advised of the potential risks and limitations of this mode of treatment (including but not limited to the absence of in-person examination) and has agreed to be treated in a remote fashion in spite of them. Any and all of the patient's/patient's family's questions on this issue have been answered and I have made no promises or guarantees to the patient. The patient has also been advised to contact this office for worsening conditions or problems, and seek emergency medical treatment and/or call 911 if the patient deems either necessary. The patient stated that they are currently in the [facility]. If the patient is a minor, permission has been obtained by the parent or guardian for the patient to receive medical care at this visit. Date of service: 12/19/2023 Patient Name: Lona Bell Present at Session: Lona Session #: 32 Session start/stop times: 3:00pm to 3:38pm Treatment Intervention/Progress (A): Individual therapy session via telehealth with Lona Ray. Client signed on and therapist was able to hear and see her. Client then got a call and was no longer able to hear therapist so therapist had to sign off and signed back on. Client talked about her medication being switched she is now on Wellbutrin and only 75 mg of Zoloft. Client was having some difficulty with the Wellbutrin. She talked about storming out of the house and leaving in the cold for 4 hours. Client states she will contact psychiatrist regarding the Wellbutrin but she is no longer taking it. Client wonders what it would be like to be off medication. Therapist talked and affirmed with her that she definitely needs to talk with psychiatry before doing anything. Discussed with her the need to taper off medications and worries about her bottoming out. Client talked about staying at home a lot she still has not had any nonepileptic seizures. Client talked about finishing high school and being done. She talked about a graduation republican where her stepsiblings will be there and she really does not want them there. Client talked about wanting hugs drinks and sloppy Arie's for her graduation republican so she can be a child. Client talked about her aunt dying of cancer and she is not sure she is going to go to the unless her brother goes. Client is excited about finishing high school. She talked about applying at the [employer] but her friend is no longer working there. Client talked about wanting to save for car. She talked about the difficulty of getting a job in her town and how she really needs a car. Client has been able to save up about thousand dollars. She is hoping with her graduation money she can get a car. Client has been trying to do more positive things with her anxiety she talked about working on her breathing and doing 10 seconds 5 seconds 10 seconds. Talked about getting reinvolved in yoga. She talked about rubbing her neck and just trying to focus more on positive things. Therapist gave her a lot of positive feedback will see client again in 2 weeks. Treatment Goals: Coping with Auras and mindfulness exercises and breathing. 2. Grief letter and processing her fathers and trauma. 3. Abandonment issues and coping. 4 .Support and communication styles. 5. Taking control of her seizures through breathing thought changing. 6. Using Yoga and meditation 7 Dealing with anxiety from brief therapy handouts. 8. Working on ability to cope with Trauma 9. Safety plan and continue to reassess 10) Channeling negative emotions into productive outlets. 11) Reframing what is better now 12) Coping with the trauma and Change Treatment Intervention/Progress (A): Client has not had any nonepileptic seizures since school has been out. Client has now gone 6 months with no nonepileptic seizures. She is looking forward to driving in the future. Client has really done very well with therapy. Client continues to not have any nonepileptic events. Client's mood seems much more stable. She has been very active and doing a lot of things which client admits helps her mood. She is not participating in any other counseling. Client talked about not having any nonepileptic events since school has been out. She is thinking about moving in with her boyfriend after she turns 18. Since her therapist the left she states she does not want another counselor at an outside agency. Client's mood has improved significantly. Client has had some difficulty with psychiatric meds she went on Wellbutrin to try and stop vaping and then she got really agitated on Wellbutrin. Client is working with her psychiatrist and is still currently on Zoloft but client is talking about trying it without any medication. Client realizes the importance of contacting her psychiatrist regarding. Client is doing meditation and looking at positive things. Client mood is much more stable. 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 Appearance / Personal Hygiene : Client is appropriately groomed and dressed. Has makeup on colored her hair. Eye Contact: good Psychosis: no Psychosis Homicidal Ideation/Intentions: no Duty to Protect process completed N A Insight: Good Judgement: Good Intelligence: Average Memory/Cognition: intact Mood/Affect: Client's mood is more stable. She still has some mild anxiety and depression. Client had some agitation on Wellbutrin. Thought Process: Goal-Directed Nightmares Suicidal Ideation/Intentions: Client denies any current ideation Agrees to safety plan. Treatment and Follow-up Plan (P): Continue with current treatment plan and Client to participate in PNES specific Cognitive behavioral treatment and work on processing PTSD .The primary aim of Taking Control of Your Seizures: Workbook is to improve the lives of patients with seizures. Both epileptic seizures and nonepileptic seizures (CEDRICK) are prevalent and potentially disabling. The Workbook is designed to be used by a patient with seizures in conjunction with his or her counselor. The Workbook contains [id number] guidelines that enable patients to take control of their seizures and their lives. The licensed sales assistant Treating Nonepileptic Seizures: Therapist Guide enhances effectiveness by providing casbuzw-ed-sgsvnek instructions for counselors who use the Workbook with patients with CEDRICK. The authors developed this treatment approach based on extensive clinical experience and research with epilepsy and CEDRICK. Many patients who have completed the Taking Control process experience fewer seizures, reduced symptoms, and a greater sense of well-being. Work on thought changing and CBT, building supports, feelings about her seizures and taking control. Using journaling and mindfulness, mediation and yoga and grounding techniques as well as thought changing to deal with stressors. NATHANAEL Stallworth documented in this encounter [facility] 11-28-2023 Note Individual Therapy v ia Audio and Video Progress Note Patient was seen today via Telehealth by agreement and consent. I used the following Telehealth technology: Audio and Video. 41 minutes Patient location: Patient Location: home. This patient encounter is appropriate and reasonable under the circumstances: transportation issues and behavioral health . The patient has been advised of the potential risks and limitations of this mode of treatment (including but not limited to the absence of in-person examination) and has agreed to be treated in a remote fashion in spite of them. Any and all of the patient's/patient's family's questions on this issue have been answered and I have made no promises or guarantees to the patient. The patient has also been advised to contact this office for worsening conditions or problems, and seek emergency medical treatment and/or call 911 if the patient deems either necessary. The patient stated that they are currently in the [facility]. If the patient is a minor, permission has been obtained by the parent or guardian for the patient to receive medical care at this visit. Date of service: Patient Name: Lona Bell Present at Session: Lona Session #: 31 Session start/stop times: 3:00pm to 3:41pm Treatment Intervention/Progress (A): Individual therapy session via telehealth with Lona Bell. Client was able to get on audio and video. Client talked about going to get her nose pierced today. Client talked about some.'s of anxiety but realizing that she had not taken her Zoloft client will try and do better at taking it. Client talked about doing a lot of running around with her mom today. She talked about having only 1 class left before she graduates. Client talked a lot about looking forward to seeing her dad's sister. She is going to spend the night there this weekend. Client had just good memories of her eating and because she lives next door and how her kids are like her brothers and sisters her cousins. She talked about how they were there for her when her father . Client wants to save up for car. She talked about how they give her 300 bucks for [employer]. Client talked about going to the human relations professor and getting new wires put on her braces. Client continues to not have any nonepileptic seizures. It is actually been 7 months since client had a nonepileptic event. Client talked about wanting to find his job at the [employer] and how she applied there. She discussed some of her friends already working there. Overall client is doing much better she is not focusing on her relationship with her ex-boyfriend. Client is really just focusing on herself and spending time with her friends. Will see client again in 2 weeks. Treatment Goals: Coping with Auras and mindfulness exercises and breathing. 2. Grief letter and processing her fathers and trauma. 3. Abandonment issues and coping. 4 .Support and communication styles. 5. Taking control of her seizures through breathing thought changing. 6. Using Yoga and meditation 7 Dealing with anxiety from brief therapy handouts. 8. Working on ability to cope with Trauma 9. Safety plan and continue to reassess 10) Channeling negative emotions into productive outlets. 11) Reframing what is better now 12) Coping with the trauma and Change Treatment Intervention/Progress (A): Client has not had any nonepileptic seizures since school has been out. Client has now gone 6 months with no nonepileptic seizures. She is looking forward to driving in the future. Client has really done very well with therapy. Client continues to not have any nonepileptic events. Client's mood seems much more stable. She has been very active and doing a lot of things which client admits helps her mood. She is not participating in any other counseling. Client talked about not having any nonepileptic events since school has been out. She is thinking about moving in with her boyfriend after she turns 18. Since her therapist the left she states she does not want another counselor at an outside agency. Client's mood has improved significantly. She is now taking 150 mg of Zoloft which seems to be helping although client is tired. Client has been very upset the past week because she thinks boyfriend may be cheating on her. Client hanging out more with friends and the best friend and really enjoys this. Client is still going to school. Client is got acceptances to colleges. Client is doing meditation and looking at positive things. Client mood is much more stable. 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 Appearance / Personal Hygien (more content not included)... [facility] 11-28-2023 History of Presen t illness Narrative Individual Therapy via Audio and Video Progress Note Patient was seen today via Telehealth by agreement and consent. I used the following Telehealth technology: Audio and Video. 41 minutes Patient location: Patient Location: home. This patient encounter is appropriate and reasonable under the circumstances: transportation issues and behavioral health . The patient has been advised of the potential risks and limitations of this mode of treatment (including but not limited to the absence of in-person examination) and has agreed to be treated in a remote fashion in spite of them. Any and all of the patient's/patient's family's questions on this issue have been answered and I have made no promises or guarantees to the patient. The patient has also been advised to contact this office for worsening conditions or problems, and seek emergency medical treatment and/or call 911 if the patient deems either necessary. The patient stated that they are currently in the [facility]. If the patient is a minor, permission has been obtained by the parent or guardian for the patient to receive medical care at this visit. Date of service: Patient Name: Lona Bell Present at Session: Lona Session #: 31 Session start/stop times: 3:00pm to 3:41pm Treatment Intervention/Progress (A): Individual therapy session via telehealth with Lona Bell. Client was able to get on audio and video. Client talked about going to get her nose pierced today. Client talked about some.'s of anxiety but realizing that she had not taken her Zoloft client will try and do better at taking it. Client talked about doing a lot of running around with her mom today. She talked about having only 1 class left before she graduates. Client talked a lot about looking forward to seeing her dad's sister. She is going to spend the night there this weekend. Client had just good memories of her eating and because she lives next door and how her kids are like her brothers and sisters her cousins. She talked about how they were there for her when her father . Client wants to save up for car. She talked about how they give her 300 bucks for [employer]. Client talked about going to the human relations professor and getting new wires put on her braces. Client continues to not have any nonepileptic seizures. It is actually been 7 months since client had a nonepileptic event. Client talked about wanting to find his job at the [employer] and how she applied there. She discussed some of her friends already working there. Overall client is doing much better she is not focusing on her relationship with her ex-boyfriend. Client is really just focusing on herself and spending time with her friends. Will see client again in 2 weeks. Treatment Goals: Coping with Auras and mindfulness exercises and breathing. 2. Grief letter and processing her fathers and trauma. 3. Abandonment issues and coping. 4 .Support and communication styles. 5. Taking control of her seizures through breathing thought changing. 6. Using Yoga and meditation 7 Dealing with anxiety from brief therapy handouts. 8. Working on ability to cope with Trauma 9. Safety plan and continue to reassess 10) Channeling negative emotions into productive outlets. 11) Reframing what is better now 12) Coping with the trauma and Change Treatment Intervention/Progress (A): Client has not had any nonepileptic seizures since school has been out. Client has now gone 6 months with no nonepileptic seizures. She is looking forward to driving in the future. Client has really done very well with therapy. Client continues to not have any nonepileptic events. Client's mood seems much more stable. She has been very active and doing a lot of things which client admits helps her mood. She is not participating in any other counseling. Client talked about not having any nonepileptic events since school has been out. She is thinking about moving in with her boyfriend after she turns 18. Since her therapist the left she states she does not want another counselor at an outside agency. Client's mood has improved significantly. She is now taking 150 mg of Zoloft which seems to be helping although client is tired. Client has been very upset the past week because she thinks boyfriend may be cheating on her. Client hanging out more with friends and the best friend and really enjoys this. Client is still going to school. Client is got acceptances to colleges. Client is doing meditation and looking at positive things. Client mood is much more stable. 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 Appearance / Personal Hygiene : Client is appropriately groomed and dressed. Has makeup on colored her hair. Eye Contact: good Psychosis: no Psychosis Homicidal Ideation/Intentions: no Duty to Protect process completed N A Insight: Good Judgement: Good Intelligence: Average Memory/Cognition: intact Mood/Affect: Client's mood is more stable. She still has some mild anxiety and depression. Thought Process: Goal-Directed Nightmares Suicidal Ideation/Intentions: Client denies any current ideation Agrees to safety plan. Treatment and Follow-up Plan (P): Continue with current treatment plan and Client to participate in PNES specific Cognitive behavioral treatment and work on processing PTSD .The primary aim of Taking Control of Your Seizures: Workbook is to improve the lives of patients with seizures. Both epileptic seizures and nonepileptic seizures (CEDRICK) are prevalent and potentially disabling. The Workbook is designed to be used by a patient with seizures in conjunction with his or her counselor. The Workbook contains [id number]-[id number] guidelines that enable patients to take control of their seizures and their lives. The licensed sales assistant Treating Nonepileptic Seizures: Therapist Guide enhances effectiveness by providing eudgryi-od-[id number] instructions for counselors who use the Workbook with patients with CEDRICK. The authors developed this treatment approach based on extensive clinical experience and research with epilepsy and CEDRICK. Many patients who have completed the Taking Control process experience fewer seizures, reduced symptoms, and a greater sense of well-being. Work on thought changing and CBT, building supports, feelings about her seizures and taking control. Using journaling and mindfulness, mediation and yoga and grounding techniques as well as thought changing to deal with stressors. NATHANAEL Stallworth documented in this encounter [facility] 11-14-2023 Note Individual Therapy v ia Audio and Video Progress Note Patient was seen today via Telehealth by agreement and consent. I used the following Telehealth technology: Audio and Video. 43 minutes Patient location: Patient Location: home. This patient encounter is appropriate and reasonable under the circumstances: transportation issues and behavioral health . The patient has been advised of the potential risks and limitations of this mode of treatment (including but not limited to the absence of in-person examination) and has agreed to be treated in a remote fashion in spite of them. Any and all of the patient's/patient's family's questions on this issue have been answered and I have made no promises or guarantees to the patient. The patient has also been advised to contact this office for worsening conditions or problems, and seek emergency medical treatment and/or call 911 if the patient deems either necessary. The patient stated that they are currently in the [facility]. If the patient is a minor, permission has been obtained by the parent or guardian for the patient to receive medical care at this visit. Date of service: Patient Name: Lona Bell Present at Session: Lona Session #: 31 Session start/stop times: 2:55pm to 3:38pm Treatment Intervention/Progress (A): Individual therapy session via telehealth with Lona Bell. Client was able to get on audio and video. Client talked about her Campus. She is said parts of it were good and parts of that were not so good. She talked about being at her stepfather's families and how she feels like there to snooze before her. She did talk about getting to see her boyfriend on [employer] melquiades and how that went well. Client talked about her family still not letting him over at the house and this frustrates her. She talked about his mom does not want her at her house either but they were able to see each other because his mom was not home. Client talked about her mom thinking the relationship is toxic for her and that they are toxic for each other. She talked about her mom going along well with her and her . Client talked about having some trouble sleeping. Feels like she has been more anxious. Client has not had any nonepileptic seizures. Talk to client about ways she could monitor and help her anxiety and sleep recommended relaxation techniques again and other ways to cope. Client denies having any nonepileptic seizures. Client also talked about having an anxiety med that she forgets to take. Will see client again in one week . Treatment Goals: Coping with Auras and mindfulness exercises and breathing. 2. Grief letter and processing her fathers and trauma. 3. Abandonment issues and coping. 4 .Support and communication styles. 5. Taking control of her seizures through breathing thought changing. 6. Using Yoga and meditation 7 Dealing with anxiety from brief therapy handouts. 8. Working on ability to cope with Trauma 9. Safety plan and continue to reassess 10) Channeling negative emotions into productive outlets. 11) Reframing what is better now 12) Coping with the trauma and Change Treatment Intervention/Progress (A): Client has not had any nonepileptic seizures since school has been out. Client has now gone 6 months with no nonepileptic seizures. She is looking forward to driving in the future. Client has really done very well with therapy. Client continues to not have any nonepileptic events. Client's mood seems much more stable. She has been very active and doing a lot of things which client admits helps her mood. She is not participating in any other counseling. Client talked about not having any nonepileptic events since school has been out. She is thinking about moving in with her boyfriend after she turns 18. Since her therapist the left she states she does not want another counselor at an outside agency. Client's mood has improved significantly. She is now taking 150 mg of Zoloft which seems to be helping although client is tired. Client has been very upset the past week because she thinks boyfriend may be cheating on her. Client hanging out more with friends and the best friend and really enjoys this. Client is still going to school. Client is got acceptances to colleges. Client is doing meditation and looking at positive things. Client mood is much more stable. 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 Appearance / Personal Hygiene : Client is appropriately groomed and dressed. Has makeup on colored her hair. Eye Contact: good Psychosis: no Psychosis Homicidal Ideation/Intentions: no Duty to Protect pro (more content not included)... [facility] 11-14-2023 History of Presen t illness Narrative Individual Therapy via Audio and Video Progress Note Patient was seen today via Telehealth by agreement and consent. I used the following Telehealth technology: Audio and Video. 43 minutes Patient location: Patient Location: home. This patient encounter is appropriate and reasonable under the circumstances: transportation issues and behavioral health . The patient has been advised of the potential risks and limitations of this mode of treatment (including but not limited to the absence of in-person examination) and has agreed to be treated in a remote fashion in spite of them. Any and all of the patient's/patient's family's questions on this issue have been answered and I have made no promises or guarantees to the patient. The patient has also been advised to contact this office for worsening conditions or problems, and seek emergency medical treatment and/or call 911 if the patient deems either necessary. The patient stated that they are currently in the [facility]. If the patient is a minor, permission has been obtained by the parent or guardian for the patient to receive medical care at this visit. Date of service: Patient Name: Lona Bell Present at Session: Lona Session #: 31 Session start/stop times: 2:55pm to 3:38pm Treatment Intervention/Progress (A): Individual therapy session via telehealth with Lona Bell. Client was able to get on audio and video. Client talked about her Campus. She is said parts of it were good and parts of that were not so good. She talked about being at her stepfather's families and how she feels like there to snooze before her. She did talk about getting to see her boyfriend on [employer] and how that went well. Client talked about her family still not letting him over at the house and this frustrates her. She talked about his mom does not want her at her house either but they were able to see each other because his mom was not home. Client talked about her mom thinking the relationship is toxic for her and that they are toxic for each other. She talked about her mom going along well with her and her . Client talked about having some trouble sleeping. Feels like she has been more anxious. Client has not had any nonepileptic seizures. Talk to client about ways she could monitor and help her anxiety and sleep recommended relaxation techniques again and other ways to cope. Client denies having any nonepileptic seizures. Client also talked about having an anxiety med that she forgets to take. Will see client again in one week . Treatment Goals: Coping with Auras and mindfulness exercises and breathing. 2. Grief letter and processing her fathers and trauma. 3. Abandonment issues and coping. 4 .Support and communication styles. 5. Taking control of her seizures through breathing thought changing. 6. Using Yoga and meditation 7 Dealing with anxiety from brief therapy handouts. 8. Working on ability to cope with Trauma 9. Safety plan and continue to reassess 10) Channeling negative emotions into productive outlets. 11) Reframing what is better now 12) Coping with the trauma and Change Treatment Intervention/Progress (A): Client has not had any nonepileptic seizures since school has been out. Client has now gone 6 months with no nonepileptic seizures. She is looking forward to driving in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 to Protect process completed N A Insight: Good Judgement: Good Intelligence: Average Memory/Cognition: intact Mood/Affect: Client's mood is more liable some irritability mild depression. Affect blunted. Thought Process: Goal-Directed Nightmares Suicidal Ideation/Intentions: No current ideation Agrees to safety plan. Treatment and Follow-up Plan (P): Continue with current treatment plan and Client to participate in PNES specific Cognitive behavioral treatment and work on processing PTSD .The primary aim of Taking Control of Your Seizures: Workbook is to improve the lives of patients with seizures. Both epileptic seizures and nonepileptic seizures (CEDRICK) are prevalent and potentially disabling. The Workbook is designed to be used by a patient with seizures in conjunction with his or her counselor. The Workbook contains [id number] guidelines that enable patients to take control of their seizures and their lives. The licensed sales assistant Treating Nonepileptic Seizures: Therapist Guide enhances effectiveness by providing [id number] instructions for counselors who use the Workbook with patients with CEDRICK. The authors developed this treatment approach based on extensive clinical experience and research with epilepsy and CEDRICK. Many patients who have completed the Taking Control process experience fewer seizures, reduced symptoms, and a greater sense of well-being. Work on thought changing and CBT, building supports, feelings about her seizures and taking control. Using journaling and mindfulness, mediation and yoga and grounding techniques as well as thought changing to deal with stressors. NATHANAEL Stallworth 07/15/2023 documented in this encounter [facility] 06-25-2023 Note Individual Therapy v ia Phone only Progress Note Patient was seen today via Telehealth by agreement and consent. I used the following Telehealth technology: Phone only. Patient location: [place] Patient Location: Boyfriends home. This patient encounter is appropriate and reasonable under the circumstances: transportation issues and behavioral health . The patient has been advised of the potential risks and limitations of this mode of treatment (including but not limited to the absence of in-person examination) and has agreed to be treated in a remote fashion in spite of them. Any and all of the patient's/patient's family's questions on this issue have been answered and I have made no promises or guarantees to the patient. The patient has also been advised to contact this office for worsening conditions or problems, and seek emergency medical treatment and/or call 911 if the patient deems either necessary. The patient stated that they are currently in the [facility]. If the patient is a minor, permission has been obtained by the parent or guardian for the patient to receive medical care at this visit. Date of service: 06/25/23 Patient Name: Lona Bell Present at Session: Lona Session #: 21 Session start/stop times: 2:00pm to 2:22pm Treatment Intervention/Progress (A): Individual therapy session via telehealth with Lona Bell. Client and mother both agreed to telehealth. Client talked a lot about her teeth and her new braces. Client is having a lot of pain. States she still cannot eat anything. Talked with her about different things that she can eat in order to get some nutrients. Client talked about making smoothies. Client denies any nonepileptic events. We talked about school starting and client has some fears that they will start again. Client talked about starting school on the . Client talked about having to walk to school and its 15 minutes. Client talked about interviewing for a job at [employer] that is close to her house. Client is excited about this. Client is doing okay managing her stresses. She is talking about going to see Jb this weekend and some of the continued issues with him having an apartment that was his sisters. Client talked about sister having a lot of control issues. Client is coping with her anxiety right now. Talked about her new shayla that she is very happy with. Overall client's mood is much more stable client wanted to leave her early for her interview. Will see client again in 1 week. Treatment Goals: Continued work on Chapter six session five. 2. Grief letter and processing her fathers and trauma. 3. Abandonment issues and coping. 4 .Support and communication styles. 5. Taking control of her seizures through breathing thought changing. 6. Using Yoga and meditation 7 Dealing with anxiety from brief therapy handouts. 8. Working on ability to cope with Trauma 9. Safety plan and continue to reassess 10) Channeling negative emotions into productive outlets. 11) Reframing what is better now Treatment Intervention/Progress (A): Client has not had any nonepileptic seizures since school has been out. Client's mood seems much more stable. She has been very active and doing a lot of things which client admits helps her mood. She is not participating in any other counseling. Client talked about not having any nonepileptic events since school has been out. She is thinking about moving in with her boyfriend after she turns 18. Since her therapist the left she states she does not want another counselor at an outside agency. Client's mood has improved significantly. She is now taking 150 mg of Zoloft which seems to be helping although client is tired. Client talked a lot about positive things that are going on in her life. She talked about being able to graduate in August from school. Client's boyfriend just got an apartment so she is looking forward to being able to spend time alone with him. Client talked about utilizing coping skills. Client is doing meditation and looking atpositive things. Client mood is much more stable. There are some concerns that her nonepileptic events will return once school starts in the stress. Client is applying for a job at [employer]. 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 Appearance / Personal Hygiene : Client is appropriately groomed and dressed. Eye Contact: good Psychosis: no Psychosis Homicidal Ideation/Intentions: no Duty to Protect process completed N A Insight: Good Judgement: Good Intelligence: Average Memory/Cognition: intact Mood/Affect: Client's mood is more liable some irritability mild depression (more content not included)... [facility] 06-18-2023 Note Individual Therapy v ia Phone only Progress Note Patient was seen today via Telehealth by agreement and consent. I used the following Telehealth technology: Phone only. Patient location: Patient Location: Boyfriends home. This patient encounter is appropriate and reasonable under the circumstances: transportation issues and behavioral health . The patient has been advised of the potential risks and limitations of this mode of treatment (including but not limited to the absence of in-person examination) and has agreed to be treated in a remote fashion in spite of them. Any and all of the patient's/patient's family's questions on this issue have been answered and I have made no promises or guarantees to the patient. The patient has also been advised to contact this office for worsening conditions or problems, and seek emergency medical treatment and/or call 911 if the patient deems either necessary. The patient stated that they are currently in the [facility]. If the patient is a minor, permission has been obtained by the parent or guardian for the patient to receive medical care at this visit. Date of service: 06/18/23 Patient Name: Lona Bell Present at Session: Lona Session #: 20 Session start/stop times: 2:00pm to 2:42pm Treatment Intervention/Progress (A): Individual therapy session via telehealth with Lona Bell. Client and mother both agreed to telehealth. Client talked about having a lot of anxiety right now. She talked about some of her fears about boyfriend loosing his apartment. She talked about one of his roommates leaving. She also talking about how he got the apartment. Talked about cosigners. Corine is turning 18 in August and talked abut wanting to move in with her boyfriend. She states her mom will be okay with this. Client denies having any non-epileptic seizures. Client discussed her uncle Hernan getting out of his coma. She talked about how his aunt quit her job to take care of him. They started a go fund me. Client talked about his history of drug abuse and how her aunt will not be able to take care of him. Client is going to get braces on tomorrow. Client is happy she got a new kitten. She is cuddling with her and this helps her a lot. Client was able to talk more about her PTSD feels like she is doing better coping. Will see client again in one week. Treatment Goals: Continued work on Chapter six session five. 2. Grief letter and processing her fathers and trauma. 3. Abandonment issues and coping. 4 .Support and communication styles. 5. Taking control of her seizures through breathing thought changing. 6. Using Yoga and meditation 7 Dealing with anxiety from brief therapy handouts. 8. Working on ability to cope with Trauma 9. Safety plan and continue to reassess 10) Channeling negative emotions into productive outlets. 11) Reframing what is better now Treatment Intervention/Progress (A): Client has not had any nonepileptic seizures since school has been out. Client's mood seems much more stable. She has been very active and doing a lot of things which client admits helps her mood. She is not participating in any other counseling. Client talked about not having any nonepileptic events since school has been out. She is thinking about moving in with her boyfriend after she turns 18. Since her therapist the left she states she does not want another counselor at an outside agency. Client's mood has improved significantly. She is now taking 150 mg of Zoloft which seems to be helping although client is tired. Client talked a lot about positive things that are going on in her life. She talked about being able to graduate in August from school. Client's boyfriend just got an apartment so she is looking forward to being able to spend time alone with him. Client talked about utilizing coping skills. Client is doing meditation and looking atpositive things. Client has had some irritability but her anxiety and depression has stabilized. 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 Appearance / Personal Hygiene : Client is appropriately groomed and dressed. Eye Contact: good Psychosis: no Psychosis Homicidal Ideation/Intentions: no Duty to Protect process completed N A Insight: Good Judgement: Good Intelligence: Average Memory/Cognition: intact Mood/Affect: Client's mood is more liable some irritability mild depression. Affect blunted. Thought Process: Goal-Directed Nightmares Suicidal Ideation/Intentions: No current ideation Agrees to safety plan. Treatment and Follow-up Plan (P): Continue with current treatment plan and Client to participate i (more content not included)... [facility] 06-03-2023 Note Individual Therapy v ia Phone only Progress Note Patient was seen today via Telehealth by agreement and consent. I used the following Telehealth technology: Phone only. Patient location: Patient Location: Boyfriends home. This patient encounter is appropriate and reasonable under the circumstances: transportation issues and behavioral health . The patient has been advised of the potential risks and limitations of this mode of treatment (including but not limited to the absence of in-person examination) and has agreed to be treated in a remote fashion in spite of them. Any and all of the patient's/patient's family's questions on this issue have been answered and I have made no promises or guarantees to the patient. The patient has also been advised to contact this office for worsening conditions or problems, and seek emergency medical treatment and/or call 911 if the patient deems either necessary. The patient stated that they are currently in the [facility]. If the patient is a minor, permission has been obtained by the parent or guardian for the patient to receive medical care at this visit. Date of service: 06/03/23 Patient Name: Lona Bell Present at Session: Lona Session #: 19 Session start/stop times: 1:00pm to 1:37pm Treatment Intervention/Progress (A): Individual therapy session via telehealth with Lona Bell. Client and mother both agreed to telehealth. Client was calling therapist from vito's new apartment. She talked about him getting an apartment with his brothers. Client is excited and feels like it will be a good thing because she can now spend some time alone with her boyfriend. Because he is splitting the rent he will only have to pay to 250 a month. Client talked about having some anger and irritability over getting grounded. Client states she was grounded for a week because she had forgotten to take her medication when she was at her boyfriend [place]ites[place]. Therapist discussed with her getting something for her keys extra medication on in case she forgets that and this might help with the problem. Client talked about being happy that she is ungrounded. Client talked about her boyfriend getting a new job at [employer]. She feels like this will be so much better than [employer] where he was working. Client talked about looking for a job herself at [employer]. She has some cousins and family member that works there. Client talked about going to see human relations professor and is getting braces on June 19. She is worried about this. Client talked about her brother Didier moving back from [place]. She talked about it not working out for him like he had thought with his girlfriend brother. Client's mother will have to go pick him up. Client talked about her other brother being very negative with her when she ended up blocking him. Discussed with her normal sibling relationship and that it will get better when she is older. Client talked about finding out that she can graduate in August. She is happy about this really does not like school. Client states her mood hasbeen much better although she has been tired on 150 mg of Zoloft. Client talked about it being increased and therapist talked to her about giving it some more time. Client has not had any nonepileptic seizures since school has been out. Therapist talked about how positive this was in her mood. Continue to address coping skills client talked about watching meditations that therapist recommended. Will meet with client again in 2 weeks continue to discuss positive progress on client's part. Treatment Goals: Continued work on Chapter six session five. 2. Grief letter and processing her fathers and trauma. 3. Abandonment issues and coping. 4 .Support and communication styles. 5. Taking control of her seizures through breathing thought changing. 6. Using Yoga and meditation 7 Dealing with anxiety from brief therapy handouts. 8. Working on ability to cope with Trauma 9. Safety plan and continue to reassess 10) Channeling negative emotions into productive outlets. 11) Reframing what is better now Treatment Intervention/Progress (A): Client has not had any nonepileptic seizures since school has been out. Client's mood seems much more stable. She has been very active and doing a lot of things which client admits helps her mood. Client has been spending a lot of time with her boyfriend and watching his sisters children. She is not participating in any other counseling. Since her therapist the left she states she does not want another counselor at an outside agency. Client's mood has improved significantly. She is now taking 150 mg of Zoloft which seems to be helping although client is tired. Client talked a lot about positive things that are going on in her life. She talked about being able to graduate in August from school. Client's boyfriend just got an apartme (more content not included)... [facility] 05-20-2023 Note Individual Therapy v ia Phone only Progress Note Patient was seen today via Telehealth by agreement and consent. I used the following Telehealth technology: Phone only. Patient location: Patient Location: Boyfriends sisters home Home. This patient encounter is appropriate and reasonable under the circumstances: transportation issues and behavioral health . The patient has been advised of the potential risks and limitations of this mode of treatment (including but not limited to the absence of in-person examination) and has agreed to be treated in a remote fashion in spite of them. Any and all of the patient's/patient's family's questions on this issue have been answered and I have made no promises or guarantees to the patient. The patient has also been advised to contact this office for worsening conditions or problems, and seek emergency medical treatment and/or call 911 if the patient deems either necessary. The patient stated that they are currently in the [facility]. If the patient is a minor, permission has been obtained by the parent or guardian for the patient to receive medical care at this visit. Date of service: 05/20/23 Patient Name: Lona Bell Present at Session: Lona Session #: 18 Session start/stop times: 10:05am to 10:35am Treatment Intervention/Progress (A): Individual therapy session via telehealth with Lona Tidwell. Client and mother both agreed to telehealth. Client had forgotten about session and thought it was good to be on the fourth due to therapist error in scheduling. Therapist talked to her about at least checking in with her today because she was not given have any time later this week and therapist will be on vacation. Client's mood seems to be. Client has had some.'s of depression but not severe. Client talked about doing a lot of things this week on May 21 they are going to [employer] and is also her anniversary with her boyfriend Jb. On the that she goes to the human relations professor. On the she is going to be staying overnight engages mom sister's house. Client talked about coping and feels like she is doing a lot better. Client also talked about getting a kitten and she is excited about this to. Client has not had any nonepileptic events. She talked about continuing to try and find them and has been doing well with this. Talked with client about some meditation that she can do. Discussed with her some new meditations on [employer]. Client will try these. Continue to process feelings and coping will see client again in 2 weeks due to therapist vacation. Treatment Goals: Continued work on Chapter six session five. 2. Grief letter and processing her fathers and trauma. 3. Abandonment issues and coping. 4 .Support and communication styles. 5. Taking control of her seizures through breathing thought changing. 6. Using Yoga and meditation 7 Dealing with anxiety from brief therapy handouts. 8. Working on ability to cope with Trauma 9. Safety plan and continue to reassess 10) Channeling negative emotions into productive outlets. 11) Reframing what is better now Treatment Intervention/Progress (A): Client has not had any nonepileptic seizures since school has been out. Client's mood seems much more stable. She has been very active and doing a lot of things which client admits helps her mood. Client has been spending a lot of time with her boyfriend and watching his sisters children. She is not participating in any other counseling. Since her therapist the left she states she does not want another counselor at an outside agency. Client's depression and anxiety is pretty bad right now. She completed some assessments after the visit and her PHQ-9 was 17 and the ALEXANDER showed a lot of anxiety symptoms. Therapist contacted her and her mother and we will step her up to weekly counseling at least through the summer. Client is going to see psychiatrist 18 May discussed possible genetic testing if that something that they offer for antidepressants. 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 Appearance / Personal Hygiene : Client is appropriately groomed and dressed. Eye Contact: good Psychosis: no Psychosis Homicidal Ideation/Intentions: no Duty to Protect process completed N A Insight: Good Judgement: Good Intelligence: Average Memory/Cognition: intact Mood/Affect: Client's mood is anxious and depressed. Affect blunted. Thought Process: Goal-Directed Nightmares Suicidal Ideation/Intentions: No current ideation Agrees to safety plan. Treatment and Follow-up Plan (P): Continue with current treatment plan and Client to participate in PNES specific Cognitive (more content not included)... [facility] 05-20-2023 History of Presen t illness Narrative Individual Therapy via Phone only Progress Note Patient was seen today via Telehealth by agreement and consent. I used the following Telehealth technology: Phone only. Patient location: Patient Location: Boyfriends sisters home Home. This patient encounter is appropriate and reasonable under the circumstances: transportation issues and behavioral health . The patient has been advised of the potential risks and limitations of this mode of treatment (including but not limited to the absence of in-person examination) and has agreed to be treated in a remote fashion in spite of them. Any and all of the patient's/patient's family's questions on this issue have been answered and I have made no promises or guarantees to the patient. The patient has also been advised to contact this office for worsening conditions or problems, and seek emergency medical treatment and/or call 911 if the patient deems either necessary. The patient stated that they are currently in the [facility]. If the patient is a minor, permission has been obtained by the parent or guardian for the patient to receive medical care at this visit. Date of service: 05/20/23 Patient Name: Lona Bell Present at Session: Lona Session #: 18 Session start/stop times: 10:05am to 10:35am Treatment Intervention/Progress (A): Individual therapy session via telehealth with Lona Tidwell. Client and mother both agreed to telehealth. Client had forgotten about session and thought it was good to be on the fourth due to therapist error in scheduling. Therapist talked to her about at least checking in with her today because she was not given have any time later this week and therapist will be on vacation. Client's mood seems to be. Client has had some.'s of depression but not severe. Client talked about doing a lot of things this week on May 21 they are going to [employer] and is also her anniversary with her boyfriend Jb. On the that she goes to the human relations professor. On the she is going to be staying overnight engages mom sister's house. Client talked about coping and feels like she is doing a lot better. Client also talked about getting a kitten and she is excited about this to. Client has not had any nonepileptic events. She talked about continuing to try and find them and has been doing well with this. Talked with client about some meditation that she can do. Discussed with her some new meditations on [email or web address]. Client will try these. Continue to process feelings and coping will see client again in 2 weeks due to therapist vacation. Treatment Goals: Continued work on Chapter six session five. 2. Grief letter and processing her fathers and trauma. 3. Abandonment issues and coping. 4 .Support and communication styles. 5. Taking control of her seizures through breathing thought changing. 6. Using Yoga and meditation 7 Dealing with anxiety from brief therapy handouts. 8. Working on ability to cope with Trauma 9. Safety plan and continue to reassess 10) Channeling negative emotions into productive outlets. 11) Reframing what is better now Treatment Intervention/Progress (A): Client has not had any nonepileptic seizures since school has been out. Client's mood seems much more stable. She has been very active and doing a lot of things which client admits helps her mood. Client has been spending a lot of time with her boyfriend and watching his sisters children. She is not participating in any other counseling. Since her therapist the left she states she does not want another counselor at an outside agency. Client's depression and anxiety is pretty bad right now. She completed some assessments after the visit and her PHQ-9 was 17 and the ALEXANDER showed a lot of anxiety symptoms. Therapist contacted her and her mother and we will step her up to weekly counseling at least through the summer. Client is going to see psychiatrist 18 May discussed possible genetic testing if that something that they offer for antidepressants. 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 Appearance / Personal Hygiene : Client is appropriately groomed and dressed. Eye Contact: good Psychosis: no Psychosis Homicidal Ideation/Intentions: no Duty to Protect process completed N A Insight: Good Judgement: Good Intelligence: Average Memory/Cognition: intact Mood/Affect: Client's mood is anxious and depressed. Affect blunted. Thought Process: Goal-Directed Nightmares Suicidal Ideation/Intentions: No current ideation Agrees to safety plan. Treatment and Follow-up Plan (P): Continue with current treatment plan and Client to participate in PNES specific Cognitive behavioral treatment and work on processing PTSD .The primary aim of Taking Control of Your Seizures: Workbook is to improve the lives of patients with seizures. Both epileptic seizures and nonepileptic seizures (CEDRICK) are prevalent and potentially disabling. The Workbook is designed to be used by a patient with seizures in conjunction with his or her counselor. The Workbook contains [id number] guidelines that enable patients to take control of their seizures and their lives. The licensed sales assistant Treating Nonepileptic Seizures: Therapist Guide enhances effectiveness by providing [id number] instructions for counselors who use the Workbook with patients with CEDRICK. The authors developed this treatment approach based on extensive clinical experience and research with epilepsy and CEDRICK. Many patients who have completed the Taking Control process experience fewer seizures, reduced symptoms, and a greater sense of well-being. Work on thought changing and CBT, building supports, feelings about her seizures and taking control. Using journaling and mindfulness, mediation and yoga and grounding techniques as well as thought changing to deal with stressors. NATHANAEL Stallworth 05/20/23 documented in this encounter [facility] 05-14-2023 Note Individual Therapy v ia Computer Progress Note Patient was seen today via Telehealth by agreement and consent. I used the following Telehealth technology: Audio and video capabilities. Client tried to get online but then therapist had to send her a direct link to phone. Patient location: Patient Location: Home. This patient encounter is appropriate and reasonable under the circumstances: transportation issues and behavioral health . The patient has been advised of the potential risks and limitations of this mode of treatment (including but not limited to the absence of in-person examination) and has agreed to be treated in a remote fashion in spite of them. Any and all of the patient's/patient's family's questions on this issue have been answered and I have made no promises or guarantees to the patient. The patient has also been advised to contact this office for worsening conditions or problems, and seek emergency medical treatment and/or call 911 if the patient deems either necessary. The patient stated that they are currently in the [facility]. If the patient is a minor, permission has been obtained by the parent or guardian for the patient to receive medical care at this visit. Date of service: 05/14/23 Patient Name: Lona Bell Present at Session: Lona Session #: 17 Session start/stop times: 1:00pm to 1:34pm Treatment Intervention/Progress (A): Individual therapy session via telehealth with Lona Bell. Client and mother both agreed to telehealth. Client talked about getting through the last weekend with it being the anniversary of her father's . Client talked about the fact that she did go get to see her boyfriend Jb. He also had an anniversary of his parents at the same time. Client talked about her engaged being able to watch his niece who was 5 or 6 and her friend. Client looked at it is a very good distraction and really likes kids. Client also talked about playing with the kidney had. Client talked about her uncle who is an ICU that he woke up and he was talking and stable. Client talked about thinking that this was a very good thing. Client talked about doing the best that she can do to cope and has not had any nonepileptic seizures since school has been out. Talked with client about maybe wanting to do something with children when she gets older. Client talked about not really wanting to go to college but talked about some trade schools. Client talked about being sick this past week with the flu. Client talked about continuing to try and cope with her anxiety and depression. She talked about wanting to clean the house today and then going to see her boyfriend again. Client's mood and spirits seem much better today. Will see client again in 1 week due to concerns about her depression. Client talked about cleaning the house for her mom because her mom will take her to see her boyfriend who is an hour away. T Treatment Goals: Continued work on Chapter six session five. 2. Grief letter and processing her fathers and trauma. 3. Abandonment issues and coping. 4 .Support and communication styles. 5. Taking control of her seizures through breathing thought changing. 6. Using Yoga and meditation 7 Dealing with anxiety from brief therapy handouts. 8. Working on ability to cope with Trauma 9. Safety plan and continue to reassess 10) Channeling negative emotions into productive outlets. 11) Reframing what is better now Treatment Intervention/Progress (A): Client has not had any nonepileptic seizures since school has been out. Therapist has not seen her since 04/02. She is not participating in any other counseling. Since her therapist the left she states she does not want another counselor at an outside agency. Client's depression and anxiety is pretty bad right now. She completed some assessments after the visit and her PHQ-9 was 17 and the ALEXANDER showed a lot of anxiety symptoms. Therapist contacted her and her mother and we will step her up to weekly counseling at least through the summer. Client is going to see psychiatrist 18 May discussed possible genetic testing if that something that they offer for antidepressants. 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 Appearance / Personal Hygiene : Client is appropriately groomed and dressed. Eye Contact: good Psychosis: no Psychosis Homicidal Ideation/Intentions: no Duty to Protect process completed N A Insight: Good Judgement: Good Intelligence: Average Memory/Cognition: intact Mood/Affect: Client's mood is anxious and depressed. Affect blunted. Thought Process: Goal-Directed Nightmares Suicidal Ideation/Inten (more content not included)... [facility] 05-07-2023 Note Individual Therapy v ia Computer Progress Note Patient was seen today via Telehealth by agreement and consent. I used the following Telehealth technology: Audio and video capabilities. Client tried to get online but then therapist had to send her a direct link to phone. Patient location: Patient Location: Home. This patient encounter is appropriate and reasonable under the circumstances: transportation issues and behavioral health . The patient has been advised of the potential risks and limitations of this mode of treatment (including but not limited to the absence of in-person examination) and has agreed to be treated in a remote fashion in spite of them. Any and all of the patient's/patient's family's questions on this issue have been answered and I have made no promises or guarantees to the patient. The patient has also been advised to contact this office for worsening conditions or problems, and seek emergency medical treatment and/or call 911 if the patient deems either necessary. The patient stated that they are currently in the [facility]. If the patient is a minor, permission has been obtained by the parent or guardian for the patient to receive medical care at this visit. Date of service: 05/07/23 Patient Name: Lona Bell Present at Session: Lona Session #: 16 Session start/stop times: 1:00pm to 1:45pm Treatment Intervention/Progress (A): Individual therapy session via telehealth with Lona Yaw. Client and mother both agreed to telehealth. Therapist tried to begin with her through [employer] but then had to send a direct link to her phone. Therapist talked with her about concerns about her depression. Client states that she feels like medication is not working. Client is very tired during the day and last time she saw psychiatrist her Zoloft was raised from 100 to 150 mg[address] Client [address] psychiatrist [address] Fransico BROWN. Client follows up with him 18 May. Spoke with client about what medication she has been on before. Client could not remember a lot of them. Client talked about being improved on Prozac in the past and attempting to kill herself. She talked about BuSpar giving her lightheadedness and passing out. Client could not remember what other pills she was on. Client talked about the Zoloft being the only medication that she is taking currently. Client talked about talking with the psychiatrist about being on too many medications she was taking 5 pills at night. Client talked more about her depression and why it is so bad this time of year. Client processed her PTSD in April was the month that her dad . Client talked about this and how she can believe its been 7 years. Client talked about an old picture of herself when she was singing and her dad said something in the background and a video. Discussed with client for recognizing how little she was. Client is coming to terms with this and talking about feelings regarding her father's . Client is worried about her uncle Hernan her dad's brother who is on a ventilator. She talked about her worrying about him dying. Client talked about him missing his son terribly who it of an accidental overdose. Client talked about realizing that if he does he will be at peace with her dad and his son. Discussed and reframed for client what is different now since her father's came up with a list of coping skills. Made a list of what is better client was able to come up with 20 things. Some of the things client talked about was her boyfriend, learning more coping skills, no seizures since April, talking to me, talking to her mom, feeling like her dad's not feeling any more pain, talked about the video of her making weird faces, good team around her, not being another , that it was 7 years ago, client is no longer any back pain, client is not living in a disgusting house, client was able to change her room around, becomes high, being able to stay with her boyfriend, playing fortnight, many sleepovers, she can paint, doing her nails, her mom and stepdad. Client talked about all this and just trying to cope right now knowing that Jb's father has around the same time. Discussed the fact that client has been on a lot of different antidepressant and she may want to ask psychiatrist about genetic testing. Spoke with client's mother about this to during session. Mom popped in for second before she went to work. Will see client again in 1 week. Treatment Goals: Continued work on Chapter six session five. 2. Grief letter and processing her fathers and trauma. 3. Abandonment issues and coping. 4 .Support and communication styles. 5. Taking control of her seizures through breathing thought changing. 6. Using Yoga and meditation 7 Dealing with anxiety from brief therapy handouts. 8. Working on ability to cope with Trauma 9. Safety plan and continue to reassess (more content not included)... [facility] 04-30-2023 Note Individual Therapy v ia Computer Progress Note Patient was seen today via Telehealth by agreement and consent. I used the following Telehealth technology: Audio and video capabilities. Patient location: Patient Location: Home. This patient encounter is appropriate and reasonable under the circumstances: transportation issues and behavioral health . The patient has been advised of the potential risks and limitations of this mode of treatment (including but not limited to the absence of in-person examination) and has agreed to be treated in a remote fashion in spite of them. Any and all of the patient's/patient's family's questions on this issue have been answered and I have made no promises or guarantees to the patient. The patient has also been advised to contact this office for worsening conditions or problems, and seek emergency medical treatment and/or call 911 if the patient deems either necessary. The patient stated that they are currently in the [facility]. If the patient is a minor, permission has been obtained by the parent or guardian for the patient to receive medical care at this visit. Date of service: 04/30/23 Patient Name: Lona Bell Present at Session: Lona Session #: 15 Session start/stop times: 1:00pm to 1:40pm Treatment Intervention/Progress (A): Client was on time to see therapist. Client discussed not seeing therapist since 04/02. Client states she has been done with school and since this time has not had any non-epileptic events. Client talked about how stressful school was. She will be graduating early and client is happy but is not sure when. Client talked about just being tired a lot. Still depressed. She talked about an increase in her Zoloft and is not sure if this is causing her tiredness. Discussed giving it some time but if it continues to contact her doctor. Client processed doing things to try to cope. Client talked about her mom still being upset since her brother Didier left. She discussed her mom and stepfather doing things without her. Client talked about having anxiety before going to a graduation republican. She talked about breathing through symptoms of nonepileptic seizures. Client discussed Niesha the kid who was living with them going into the army and he wants to be stationed in [facility]. Client discussed some issues with sleep. Client reminded therapist that all her meds are locked up and she takes them at night. Not sure if one of them is causing sleep issues. Client wakes up after two hours. Is startled by noise. Has been listening to [employer]vidIQ song instrumental. Client denies any Suicidal ideation . She is trying to use coping skills helping mom at home during the day. Client talked about spending the night with boyfriend jb at his sisters. They are going to play video games. They just celebrated their two year anniversary. Treatment Modality/Intervention(s): Corine Ingram present for session. Client is making the cognitive connection between behaviors thoughts and feelings. Client has had more depression recently. Client is also experiencing problems with tiredness and with motivation. Thinks the Zoloft may be causing this. Client is looking forward to seeing her boyfriend Jb. They just celebrated their two year anniversary. Discussed meeting more frequently every one to two weeks due to her continued depression. Client has not had any non-epileptic events since school has been out. Treatment Goals: Continued work on Chapter six session five. 2. Grief letter and processing her fathers and trauma. 3. Abandonment issues and coping. 4 .Support and communication styles. 5. Taking control of her seizures through breathing thought changing. 6. Using Yoga and meditation 7 Dealing with anxiety from brief therapy handouts. 8. Working on ability to cope with Trauma 9. Safety plan and continue to reassess 10) Channeling negative emotions into productive outlets. Treatment Intervention/Progress (A): Client has not had any nonepileptic seizures since school has been out. Therapist has not seen her since 04/02. She is not participating in any other counseling. Since her therapist the left she states she does not want another counselor at an outside agency. Client's depression and anxiety is pretty bad right now. She completed some assessments after the visit and her PHQ-9 was 17 and the ALEXANDER showed a lot of anxiety symptoms. Therapist contacted her and her mother and we will step her up to weekly counseling at least through the summer. 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 Appearance / Personal Hygiene : Client is appropriately groomed and dressed. Ey (more content not included)... [facility] 04-18-2023 Note CHILD PSYCHIATRY OUT PATIENT PROGRESS NOTE This is a telemedicine video visit requested by the patient/guardian that was performed with the patient's location at home and the provider's location at office. DATE OF SERVICE: 04/18/2023 AGE: 17 y.o. GRADE: 11th grade Here with mother REASON FOR VISIT: med check SUBJECTIVE: Spoke to patient and mother to discuss patient's symptoms since our last appointment. 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 She reports that mainly the job and jumping into it too fast was the primary precipitant for the recurrence of non-epileptic seizures. Specifically, she reports that not really knowing everything was particularly stressful for her. She reports that she stopped working at the job roughly a week after she started but continues to have seizures, although they have decreased in frequency from every day when they initially started in January to being free of them for around the past 6 days. Mother and patient report that a biggest contributor to this is getting more sleep since school ended. She reports that she does continue to get nightmares frequently throughout the night. She does report that her mood has been relatively dysphoric for the past 1-2 weeks because April is the month that her father but denies feelings of hopelessness, anhedonia or safety concerns. Mother and patient also acknowledge decreasing Zoloft in December to 100 mg daily and discontinuing Prazosin due to believing it could have an impact on her kidneys (which were being worked up for potential dysfunction around that time). Both mother and patient would like to increase Zoloft to help address anxiety symptoms which are currently significant (ALEXANDER-7 = 20). No current significant reported side effects or other concerns noted at this time. Sleep: Stable Appetite: Stable RISK ASSESSMENT: CSSRS (since last visit with therapist on 03/21/23) SUICIDAL IDEATION - SINCE LAST VISIT 1. Wish to be ? No If yes, describe: 2. Non-Specific Active Suicidal Thoughts: No If yes, describe: 3. Active Suicidal Ideation with Any Methods (Not Plan) without Intent to Act: If yes, describe: 4. Active Suicidal Ideation with Some Intent to Act, without Specific Plan: If yes, describe: 5. Active Suicidal Ideation with Specific Plan and Intent: If yes, describe: INTENSITY OF IDEATION - SINCE LAST VISIT Most Severe Ideation: Description of Ideation: Frequency: Duration: Controllability: Deterrents: Reasons for Ideation: SUICIDAL BEHAVIOR - SINCE LAST VISIT (Check all that apply, so long as these are separate events; must ask about all types) Actual Attempt: No Total # of Attempts: If yes, describe: Has subject engaged in Non-Suicidal Self-Injurious Behavior? No Interrupted Attempt: No Total # of interrupted: If yes, describe: Aborted or Self-Interrupted Attempt: No Total # of aborted or self-interrupted: If yes, describe: Preparatory Acts or Behavior: No Total # of preparatory acts: If yes, describe: ACTUAL/POTENTIAL LETHALITY - SINCE LAST VISIT Most Lethal Attempt Date: Actual Lethality/Medical Damage: Potential Lethality: [email or web address] Risk Stratification Level Low Acute Risk: History of past [id number] or suicidal thoughts;Protective factors outweigh risk factors Access to Weapons: education on access to lethal means provided Patient able to plan for safety: yes Safety education provided to guardian: yes OBJECTIVE: There were no vitals filed for this visit. MENTAL STATUS EXAMINATION: Appearance: Patient is a 17 y.o. female. Well groomed , Dressed in casual attire, and Appears stated age. Behavior: Cooperative. Normal psychomotor activity. The patient does appear anxious. Eye Contact: Appropriate Speech : Normal rate, rhythm, and prosody Language:Appropriate to age Thought Form / Associations: Organized, linear, goal directed Mood: good Affect: euthymic Thought Content: Patient did not endorse any active self harm/ suicidal or homicidal ideations Fund of Knowledge: Appropriate for age and development Perceptions: Patient did not endorse experiencing any hallucinatory phenomena (auditory, visual, olfactory, tactile) or appear internally stimulated Estimated intelligence: appears average Concentration: age appropriate, intact Memory (Recent and Remote): grossly intact Orientation: fully alert and grossly oriented to person, place, and situation Insight/Judgment: fair Medications: Current Outpatient Medications on File Prior to Visit Medication Sig Dispense Refill sertraline (ZOLOFT) 100 MG tablet TAKE 2 TABLETS BY MOUTH NIGHTLY AT BEDTIME prazosin (MINIPRESS) 1 MG capsule Take 1 Capsule (1 mg) by mouth nightly at bedtime for 90 days For nightmares. 90 Capsule 0 LO (more content not included)... [facility] 04-02-2023 Note Individual Therapy v ia Computer Progress Note Patient was seen today via I-Phone by agreement and consent in light of the current COVID-19 pandemic. We used Audio and Video capabilities. Patient location: Home. This patient encounter is appropriate and reasonable under the circumstances given the patient's particular presentation at this time. The patient has been advised of the potential risks and limitations of this mode of treatment (including but not limited to the absence of in-person examination) and has agreed to be treated in a remote fashion in spite of them. Any and all of the patient's/patient's family's questions on this issue have been answered and I have made no promises or guarantees to the patient. The patient has also been advised to contact this office for worsening conditions or problems, and seek emergency medical treatment and/or call 911 if the patient deems either necessary. The patient stated that they are currently in the [facility]. If the patient is a minor, permission has been obtained by the parent or guardian for the patient to receive medical care at this visit. Patient identification was verified at the start of the visit: Yes Date of service: 04/02/23 Patient Name: Lona Bell Present at Session: Lona Session #: 14 Session start/stop times: 1:00pm to 1:50pm Treatment Modality/Intervention(s): Corine Ingram present for session. Client is making the cognitive connection between behaviors thoughts and feelings. Client is thinking much more positively and using productive outlets for channeling negative emotions. Client to do ten active ways of coping with negative emotions. Treatment Goals: Continued work on Chapter six session five. 2. Grief letter and processing her fathers and trauma. 3. Abandonment issues and coping. 4 .Support and communication styles. 5. Taking control of her seizures through breathing thought changing. 6. Using Yoga and meditation 7 Dealing with anxiety from brief therapy handouts. 8. Working on ability to cope with Trauma 9. Safety plan and continue to reassess 10) Channeling negative emotions into productive outlets. Treatment Intervention/Progress (A): Client was on time to see therapist. She talked about having some events nonepileptic seizures when she fell down the stairs. Client states she did not need to go to the hospital. Client talked about the stairs being dark and this may be a trigger. Suggested using a flashlight. Client states she can not turn the light on because mother's bedroom is at the bottom of the stairs. Client talked about having nightmares. Talked about the nightmares being of her Dad killing himself. Discussed ways that client could cope with her nightmares. Client continued to state she has tried everything. Therapist suggested meditation, journaling, releasing feelings, mindfulness, reading. Client continues to deny anything will work. Discussed thevisualizations she was doing last time. Client also talked about reading murder mysteries and she likes them because they always have a happy ending. Discussed changing the ending with her father and how it turned out for the best. Worked on chapter in PNES workbook on channeling negative emotions into productive outlets. Discussed client having homework and putting this into action. Give therapist ten ways she does this over the next week. Client in agreement with this and doing this. Client discussed some good things about Jb getting his license. He will now be able to see her more. Client only has nine days of school left. 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 Appearance / Personal Hygiene : Client is appropriately groomed and dressed. Eye Contact: good Psychosis: no Psychosis Homicidal Ideation/Intentions: no Duty to Protect process completed N A Insight: Good Judgement: Good Intelligence: Average Memory/Cognition: intact Mood/Affect: Client's mood is anxious and depressed. Affect blunted. Thought Process: Goal-Directed Nightmares Suicidal Ideation/Intentions: No current ideation Agrees to safety plan. Treatment and Follow-up Plan (P): Continue with current treatment plan and Client to participate in PNES specific Cognitive behavioral treatment and work on processing PTSD .The primary aim of Taking Control of Your Seizures: Workbook is to improve the lives of patients with seizures. Both epileptic seizures and nonepileptic seizures (CEDRICK) are prevalent and potentially disabling. The Workbook is designed to be used by a patient with seizures in conjunction with his or her counselor. The Workbook contains basl-ye-qake guidelines that enab (more content not included)... [facility] 03-26-2023 Note Individual Therapy v ia Computer Progress Note Patient was seen today via I-Phone by agreement and consent in light of the current COVID-19 pandemic. We used Audio and Video capabilities. Patient location: Home. This patient encounter is appropriate and reasonable under the circumstances given the patient's particular presentation at this time. The patient has been advised of the potential risks and limitations of this mode of treatment (including but not limited to the absence of in-person examination) and has agreed to be treated in a remote fashion in spite of them. Any and all of the patient's/patient's family's questions on this issue have been answered and I have made no promises or guarantees to the patient. The patient has also been advised to contact this office for worsening conditions or problems, and seek emergency medical treatment and/or call 911 if the patient deems either necessary. The patient stated that they are currently in the state [facility]. If the patient is a minor, permission has been obtained by the parent or guardian for the patient to receive medical care at this visit. Patient identification was verified at the start of the visit: Yes Date of service: 03/26/23 Patient Name: Lona Bell Present at Session: Lona Session #: 13 Session start/stop times: 4:50pm to 5:30pm Treatment and subjective response: Individual therapy with Lona Zamorano talked about someone she knew at school shooting himself and his girlfriend. Client states his name was Master and he ended up killing himself but the girlfriend is still alive in stable condition. Client talked about this happening after her prom. Client talked about her boyfriend being more friends with him and her. Processed this and some other deaths in friends suicide that she had to deal with. Client talked about her friend Deysi killing herself. She talked about kids being bullied and how difficult this is because she feels like the school does not do anything. Client talked about going to prom with her boyfriend Jb. She talked about the pictures turned out amazing. She talked about walking back to her sister's house and leaving a little bit early with her cousin. Client talked about her in gauge spending the night and having a lot offun laughing. Processed further suicidal ideation and client's past suicide attempt. Talked to her about learning from all these deaths and how much it affects the people that are left. Client denies any suicidal ideation and knows that she needs to think about this if she has suicidal ideation again. Client talked a lot about her dad. She talked about her dad killing himself. She talked about a lot of the memories of her father and thinking they were good and then recognizing as an adult that he was using drugs. Client did a lot of processing of this. Client talked about her nightmares. She talked about trying a different type of meditation technique where she listens to music and just goes to a place in like the beach in her mind. Therapist continued to talk to her about this. Continue to encourage her to take control of her seizures. Continue to process all the good work that she has done. Client is encouraged with her schoolwork because she is working on getting her credits done online. She was able to talk about some positive teachers that she had. Will see client again in 1 week. Treatment Modality/Intervention(s): Corine Ingram present for session. Client is making the cognitive connection between behaviors thoughts and feelings. Client is thinking much more positively and using productive outlets for channeling negative emotions. Treatment Goals: Continued work on Chapter six session five. 2. Grief letter and processing her fathers and trauma. 3. Abandonment issues and coping. 4 .Support and communication styles. 5. Taking control of her seizures through breathing thought changing. 6. Using Yoga and meditation 7 Dealing with anxiety from brief therapy handouts. 8. Working on ability to cope with Trauma 9. Safety plan and continue to reassess 10) Channeling negative emotions into productive outlets. Treatment Response/Progress (A): Client has had about a period of a month that she had not seen therapist. Client started having nonepileptic seizures again and then would have these before therapy starts because of the stress. Therapist reported a message for her when she was supposed to do last session on how important it is to look at the progress she has made and how therapist is still very proud of her for her progress. Also sent her meditations and mindfulness to do. Client talked about watching videos where this lady talks about her troubles and how she jennifer and helps other people. Client is working on chapter and PNES workbook being more proactive with negative emotion. Client did not see therapist during this ti (more content not included)... [facility] 03-21-2023 Note Individual Therapy v ia Computer Progress Note Patient was seen today via I-Phone by agreement and consent in light of the current COVID-19 pandemic. We used Audio and Video capabilities. Patient location: Home. This patient encounter is appropriate and reasonable under the circumstances given the patient's particular presentation at this time. The patient has been advised of the potential risks and limitations of this mode of treatment (including but not limited to the absence of in-person examination) and has agreed to be treated in a remote fashion in spite of them. Any and all of the patient's/patient's family's questions on this issue have been answered and I have made no promises or guarantees to the patient. The patient has also been advised to contact this office for worsening conditions or problems, and seek emergency medical treatment and/or call 911 if the patient deems either necessary. The patient stated that they are currently in the state [facility]. If the patient is a minor, permission has been obtained by the parent or guardian for the patient to receive medical care at this visit. Patient identification was verified at the start of the visit: Yes Date of service: 03/21/23 Patient Name: Lona Bell Present at Session: Lona Session #: 12 Session start/stop times: 4:50pm to 5:30pm Treatment and subjective response: Individual counseling with Lona Ingram. Lona had called therapist and she was at the grocery store first getting stuff for her cold. Therapist told her to call her when she got home because of confidentiality. Client called a bit late because she was having a nonepileptic event. Did some assessments with Ora and she scored high on the Mide and the ALEXANDER. Spoke with her about videos that therapist sent her and meditation. Client was very happy and said that this helped a lot as far as seeing therapist again. Therapist has not seen her in over a month. Talked about her nonepileptic events what is triggering them. Client said a lot with stress in school. She talked about going to [place] to drop off her brother. Client talked about being sad at first but then being more accepting about this. Talked about what a good time she had. Went to the [place]. Client states she just does not know if it hit her yet. Talked with her about her being more happy for him because she knows he is going to be happy. Client agreed with this statement. Client talked about having him hold and going to the mom tomorrow. Client showed therapist to address her she is excited because she is going to be able to spend the night with her boyfriend at her sisters her mom is aware she is going to be doing. Client talked about just trying to get through the school year. Continue to talk with her about her coping skills. Client talked about doing art listening to music. Worked on thought changing along with client and will send her a log to work on cognitive restructuring PNES will get back to work next session .Will see again in 1 week. Treatment Modality/Intervention(s): Corine Ingram present for session. Client is making the cognitive connection between behaviors thoughts and feelings. Client is thinking much more positively and using productive outlets for channeling negative emotions. Treatment Goals: Continued work on Chapter six session five. 2. Grief letter and processing her fathers and trauma. 3. Abandonment issues and coping. 4 .Support and communication styles. 5. Taking control of her seizures through breathing thought changing. 6. Using Yoga and meditation 7 Dealing with anxiety from brief therapy handouts. 8. Working on ability to cope with Trauma 9. Safety plan and continue to reassess 10) Channeling negative emotions into productive outlets. Treatment Response/Progress (A): Client has had about a period of a month that she has been seeing therapist. Client started having nonepileptic seizures again and then would have these before therapy starts because of the stress. Therapist reported a message for her when she was supposed to do last session on how important it is to look at the progress she has made and how therapist is still very proud of her for her progress. Also sent her meditations and mindfulness to do. Client talked about watching videos where this lady talks about her troubles and how she jennifer and helps other people. Client is going to prom this weekend and is hoping to go even though she has a cold. Will see again in 1 week and get back to ES workbook. Continue to talk about coping and feelings and things client does to cope. 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 [facility] 03-21-2023 History of Presen t illness Narrative Individual Therapy via Computer Progress Note Patient was seen today via I-Phone by agreement and consent in light of the current COVID-19 pandemic. We used Audio and Video capabilities. Patient location: Home. This patient encounter is appropriate and reasonable under the circumstances given the patient's particular presentation at this time. The patient has been advised of the potential risks and limitations of this mode of treatment (including but not limited to the absence of in-person examination) and has agreed to be treated in a remote fashion in spite of them. Any and all of the patient's/patient's family's questions on this issue have been answered and I have made no promises or guarantees to the patient. The patient has also been advised to contact this office for worsening conditions or problems, and seek emergency medical treatment and/or call 911 if the patient deems either necessary. The patient stated that they are currently in the state [facility]. If the patient is a minor, permission has been obtained by the parent or guardian for the patient to receive medical care at this visit. Patient identification was verified at the start of the visit: Yes Date of service: 03/21/23 Patient Name: Lona Bell Present at Session: Lona Session #: 12 Session start/stop times: 4:50pm to 5:30pm Treatment and subjective response: Individual counseling with Lona Ingram. Lona had called therapist and she was at the grocery store first getting stuff for her cold. Therapist told her to call her when she got home because of confidentiality. Client called a bit late because she was having a nonepileptic event. Did some assessments with Ora and she scored high on the Mide and the ALEXANDER. Spoke with her about videos that therapist sent her and meditation. Client was very happy and said that this helped a lot as far as seeing therapist again. Therapist has not seen her in over a month. Talked about her nonepileptic events what is triggering them. Client said a lot with stress in school. She talked about going to [place] to drop off her brother. Client talked about being sad at first but then being more accepting about this. Talked about what a good time she had. Went to the [employer]. Client states she just does not know if it hit her yet. Talked with her about her being more happy for him because she knows he is going to be happy. Client agreed with this statement. Client talked about having him hold and going to the mom tomorrow. Client showed therapist to address her she is excited because she is going to be able to spend the night with her boyfriend at her sisters her mom is aware she is going to be doing. Client talked about just trying to get through the school year. Continue to talk with her about her coping skills. Client talked about doing art listening to music. Worked on thought changing along with client and will send her a log to work on cognitive restructuring PNES will get back to work next session .Will see again in 1 week. Treatment Modality/Intervention(s): Corine Ingram present for session. Client is making the cognitive connection between behaviors thoughts and feelings. Client is thinking much more positively and using productive outlets for channeling negative emotions. Treatment Goals: Continued work on Chapter six session five. 2. Grief letter and processing her fathers and trauma. 3. Abandonment issues and coping. 4 .Support and communication styles. 5. Taking control of her seizures through breathing thought changing. 6. Using Yoga and meditation 7 Dealing with anxiety from brief therapy handouts. 8. Working on ability to cope with Trauma 9. Safety plan and continue to reassess 10) Channeling negative emotions into productive outlets. Treatment Response/Progress (A): Client has had about a period of a month that she has been seeing therapist. Client started having nonepileptic seizures again and then would have these before therapy starts because of the stress. Therapist reported a message for her when she was supposed to do last session on how important it is to look at the progress she has made and how therapist is still very proud of her for her progress. Also sent her meditations and mindfulness to do. Client talked about watching videos where this lady talks about her troubles and how she jennifer and helps other people. Client is going to prom this weekend and is hoping to go even though she has a cold. Will see again in 1 week and get back to PNES workbook. Continue to talk about coping and feelings and things client does to cope. 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 Appearance / Personal Hygiene : appears disheveled and tired. Client's nose is red sneezing and coughing a lot because she has a cold. Eye Contact: good Psychosis: no Psychosis Homicidal Ideation/Intentions: no Duty to Protect process completed N A Insight: Good Judgement: Good Intelligence: Average Memory/Cognition: intact Mood/Affect: Client's mood is anxious and depressed. Affect blunted. Thought Process: Goal-Directed Nightmares Suicidal Ideation/Intentions: No current ideation Agrees to safety plan. Treatment and Follow-up Plan (P): Continue with current treatment plan and Client to participate in PNES specific Cognitive behavioral treatment and work on processing PTSD .The primary aim of Taking Control of Your Seizures: Workbook is to improve the lives of patients with seizures. Both epileptic seizures and nonepileptic seizures (CEDRICK) are prevalent and potentially disabling. The Workbook is designed to be used by a patient with seizures in conjunction with his or her counselor. The Workbook contains lgys-ec-setl guidelines that enable patients to take control of their seizures and their lives. The licensed sales assistant Treating Nonepileptic Seizures: Therapist Guide enhances effectiveness by providing cukxqyy-oc-zvingct instructions for counselors who use the Workbook with patients with CEDRICK. The authors developed this treatment approach based on extensive clinical experience and research with epilepsy and CEDRICK. Many patients who have completed the Taking Control process experience fewer seizures, reduced symptoms, and a greater sense of well-being. Work on thought changing and CBT, building supports, feelings about her seizures and taking control. Using mindfulness, mediation and yoga and grounding techniques as well as thought changing to deal with stressors. NATHANAEL Stallworth [birth year] documented in this encounter [facility] 03-13-2023 Note Normal on Individual Therapy via Computer then telephone Progress Note Patient was seen today via I-Phone by agreement and consent in light of the current COVID-19 pandemic. We used Audio and Video capabilities and then switched to phone. Patient location: Home. This patient encounter is appropriate and reasonable under the circumstances given the patient's particular presentation at this time. The patient has been advised of the potential risks and limitations of this mode of treatment (including but not limited to the absence of in-person examination) and has agreed to be treated in a remote fashion in spite of them. Any and all of the patient's/patient's family's questions on this issue have been answered and I have made no promises or guarantees to the patient. The patient has also been advised to contact this office for worsening conditions or problems, and seek emergency medical treatment and/or call 911 if the patient deems either necessary. The patient stated that they are currently in the [facility]. If the patient is a minor, permission has been obtained by the parent or guardian for the patient to receive medical care at this visit. Patient identification was verified at the start of the visit: Yes Date of service: 03/13/23 Patient Name: Lona Bell Present at Session: Lona Session #: 12 Session start/stop times: 4:00 to 4:30 Treatment and subjective response: Individual counseling with Lona Ingram. Mother present for session today. Lona was there but having nonepileptic events. This was the third time that therapist tried to schedule with her and she continues to have nonepileptic events during appointments. Therapist spoke with mother about this. 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 Discussed with mother if she was able to let Lona know that I was not upset with her regarding these events and it does not take away from all the positive things she has done. Continue to process things with mother. Discussed therapist not giving up and other things therapist can do for her. Processed is client using any type of mindfulness or meditation. Mother states client cannot do this because she cannot slow down enough. Mother also discussed her possibly being upset about her brother moving to [place] this coming weekend with girlfriend. Brother lives with her currently and she is not getting into see him. Client and mother are supposed to go with to help them move. Discussed with mother therapist sending her some messages did a video for client letting her know that therapist was not upset with her. Also did mindfulness meditation on safe place from PTSD workbook and sent it to client. Sent her other meditations EMDR paper boats and Jennifer Reilly mindfulness meditation in nature. These are specifically targeted on coping with stress. Let mother know that therapist was not going to give up will see client Normalized setbacks. Will see again in 1 week. Treatment Modality/Intervention(s): Lona was having nonepileptic events during session. Therapist talked with mother so Lona could possibly hear and send her a recording of therapist letting her know it does not take away from all the good work that she is done as well as setting her mindfulness meditations and therapist doing a recording of the meditation for her. This has been the fourth session that Lona has been having these nonepileptic events. Therapist let mother know she was not going to give up. Treatment Goals: Continued work on Chapter six session five. 2. Grief letter and processing her fathers and trauma. 3. Abandonment issues and coping. 4 .Support and communication styles. 5. Taking control of her seizures through breathing thought changing. 6. Using Yoga and meditation 7 Dealing with anxiety from brief therapy handouts. 8. Working on ability to cope with Trauma 9. Safety plan and continue to reassess 10) Channeling negative emotions into productive outlets. Treatment Response/Progress (A): Client began having nonepileptic events a month ago. She has missed several sessions due to these nonepileptic events. Therapist met with her mother today and brainstormed some solutions. Client is also upset about brother met moving to [place]. 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 Appearance / Personal Hygiene : unknown Eye Contact: na Psychosis: no Psychosis Homicidal Ideation/Intentions: no Duty to Protect process completed N A Insight: Good Judgement: Good Intelligence: Average Memory/Cognition: intact Mood/Affect: Client's mother reports her mood has been anxious and depressed at (more content not included)... [facility] 03-13-2023 History of Presen t illness Narrative Normal on Individual Therapy via Computer then telephone Progress Note Patient was seen today via I-Phone by agreement and consent in light of the current COVID-19 pandemic. We used Audio and Video capabilities and then switched to phone. Patient location: Home. This patient encounter is appropriate and reasonable under the circumstances given the patient's particular presentation at this time. The patient has been advised of the potential risks and limitations of this mode of treatment (including but not limited to the absence of in-person examination) and has agreed to be treated in a remote fashion in spite of them. Any and all of the patient's/patient's family's questions on this issue have been answered and I have made no promises or guarantees to the patient. The patient has also been advised to contact this office for worsening conditions or problems, and seek emergency medical treatment and/or call 911 if the patient deems either necessary. The patient stated that they are currently in the state [facility]. If the patient is a minor, permission has been obtained by the parent or guardian for the patient to receive medical care at this visit. Patient identification was verified at the start of the visit: Yes Date of service: 03/13/23 Patient Name: Lona Bell Present at Session: Lona Session #: 12 Session start/stop times: 4:00 to 4:30 Treatment and subjective response: Individual counseling with Lona Ingram. Mother present for session today. Lona was there but having nonepileptic events. This was the third time that therapist tried to schedule with her and she continues to have nonepileptic events during appointments. Therapist spoke with mother about this. 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 Discussed with mother if she was able to let Lona know that I was not upset with her regarding these events and it does not take away from all the positive things she has done. Continue to process things with mother. Discussed therapist not giving up and other things therapist can do for her. Processed is client using any type of mindfulness or meditation. Mother states client cannot do this because she cannot slow down enough. Mother also discussed her possibly being upset about her brother moving to [place] this coming weekend with girlfriend. Brother lives with her currently and she is not getting into see him. Client and mother are supposed to go with to help them move. Discussed with mother therapist sending her some messages did a video for client letting her know that therapist was not upset with her. Also did mindfulness meditation on safe place from PTSD workbook and sent it to client. Sent her other meditations EMDR paper boats and Jennifer Reilly mindfulness meditation in nature. These are specifically targeted on coping with stress. Let mother know that therapist was not going to give up will see client Normalized setbacks. Will see again in 1 week. Treatment Modality/Intervention(s): Lona was having nonepileptic events during session. Therapist talked with mother so Lona could possibly hear and send her a recording of therapist letting her know it does not take away from all the good work that she is done as well as setting her mindfulness meditations and therapist doing a recording of the meditation for her. This has been the fourth session that Lona has been having these nonepileptic events. Therapist let mother know she was not going to give up. Treatment Goals: Continued work on Chapter six session five. 2. Grief letter and processing her fathers and trauma. 3. Abandonment issues and coping. 4 .Support and communication styles. 5. Taking control of her seizures through breathing thought changing. 6. Using Yoga and meditation 7 Dealing with anxiety from brief therapy handouts. 8. Working on ability to cope with Trauma 9. Safety plan and continue to reassess 10) Channeling negative emotions into productive outlets. Treatment Response/Progress (A): Client began having nonepileptic events a month ago. She has missed several sessions due to these nonepileptic events. Therapist met with her mother today and brainstormed some solutions. Client is also upset about brother met moving to [place]. 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 Appearance / Personal Hygiene : unknown Eye Contact: na Psychosis: no Psychosis Homicidal Ideation/Intentions: no Duty to Protect process completed N A Insight: Good Judgement: Good Intelligence: Average Memory/Cognition: intact Mood/Affect: Client's mother reports her mood has been anxious and depressed at times. Thought Process: n/a Nightmares Suicidal Ideation/Intentions: Mother reports no current suicidal ideation. Treatment and Follow-up Plan (P): Continue with current treatment plan and Client to participate in PNES specific Cognitive behavioral treatment and work on processing PTSD .The primary aim of Taking Control of Your Seizures: Workbook is to improve the lives of patients with seizures. Both epileptic seizures and nonepileptic seizures (CEDRICK) are prevalent and potentially disabling. The Workbook is designed to be used by a patient with seizures in conjunction with his or her counselor. The Workbook contains rqpy-ry-foyf guidelines that enable patients to take control of their seizures and their lives. The licensed sales assistant Treating Nonepileptic Seizures: Therapist Guide enhances effectiveness by providing wzqftqp-dc-glxbuha instructions for counselors who use the Workbook with patients with CEDRICK. The authors developed this treatment approach based on extensive clinical experience and research with epilepsy and CEDRICK. Many patients who have completed the Taking Control process experience fewer seizures, reduced symptoms, and a greater sense of well-being. Work on thought changing and CBT, building supports, feelings about her seizures and taking control. Using mindfulness, mediation and yoga and grounding techniques as well as thought changing to deal with stressors. NATHANAEL Stallworth 03-13-23 documented in this encounter [facility] 01-29-2023 Note Individual Therapy v ia Computer Progress Note Patient was seen today via I-Phone by agreement and consent in light of the current COVID-19 pandemic. We used Audio and Video capabilities. Patient location: Home. This patient encounter is appropriate and reasonable under the circumstances given the patient's particular presentation at this time. The patient has been advised of the potential risks and limitations of this mode of treatment (including but not limited to the absence of in-person examination) and has agreed to be treated in a remote fashion in spite of them. Any and all of the patient's/patient's family's questions on this issue have been answered and I have made no promises or guarantees to the patient. The patient has also been advised to contact this office for worsening conditions or problems, and seek emergency medical treatment and/or call 911 if the patient deems either necessary. The patient stated that they are currently in the state [facility]. If the patient is a minor, permission has been obtained by the parent or guardian for the patient to receive medical care at this visit. Patient identification was verified at the start of the visit: Yes Date of service: 01/29/23 Patient Name: Lona Bell Present at Session: Lona Session #: 12 Session start/stop times: 12:00 to 12:42 Treatment and subjective response: Individual counseling with Lona Ingram. Client continues to feel better about the way she is handling things. Client still has some mild depression and anxiety but is coping. Client talked about still not getting to see boyfriend. She talked about being upset about it. Client talked about having some auras but being able to breathe through them. Client has still not had any seizures. It has been 87 days. Therapist talked about finding her a gold chip for her hunger today of no seizures. We will send this to her in the mail and the nonepileptic seizure pamphlet. Client talked about going to physical therapy. She talked about going once a week and it is good she still has pain in her back but she has exercises to do. Client was able to process thought changing and looking at the glass half full as she calls it. Talked about this with boyfriend and went through a cognitive log with her. Client was able to come up with coping statements such as I will see him soon and I still get to talk to him he is not sick to me at they have been going out for 8 months. Client overall just feels very positive about the way she is looking at things in her life. Therapist talked about being very proud of her. Continue to work with client on chapter 6 session 5 channeling negative emotions into productive outlets. Talked about her coloring book, talked about doing art and journaling. Discussed that client is already doing a lot of these things. Therapist also spoke with client's mother. Client is wanting a letter for work that they are needing before she can go back to their. Therapist did not feel comfortable doing this so made an appointment with Dr. Aldridge which therapist will attend with client on the . Mother also talked about how proud she was of her and how well she is doing. Will see client again in 1 week. Treatment Modality/Intervention(s): Corine Ingram present for session. Client is making the cognitive connection between behaviors thoughts and feelings. Client is thinking much more positively and using productive outlets for channeling negative emotions. Treatment Goals: Continued work on Chapter six session five. 2. Grief letter and processing her fathers and trauma. 3. Abandonment issues and coping. 4 .Support and communication styles. 5. Taking control of her seizures through breathing thought changing. 6. Using Yoga and meditation 7 Dealing with anxiety from brief therapy handouts. 8. Working on ability to cope with Trauma 9. Safety plan and continue to reassess 10) Channeling negative emotions into productive outlets. Treatment Response/Progress (A): Client has continued periods anxiety and depression. Client however is doing so much better using her coping skills. She is using the control part of her impulsive thinking. She is doing self-care and taking things 1 day at a time. Client has continued to not have seizures has Auras and breaths through them. 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 Appearance / Personal Hygiene : appears disheveled and tired. Eye Contact: good Psychosis: no Psychosis Homicidal Ideation/Intentions: no Duty to Protect process completed N A Insight: Good Judgement: Good Intelligence: Average Memory/Cognition: intact Mood/Affe (more content not included)... [facility] 01-29-2023 History of Presen t illness Narrative Individual Therapy via Computer Progress Note Patient was seen today via I-Phone by agreement and consent in light of the current COVID-19 pandemic. We used Audio and Video capabilities. Patient location: Home. This patient encounter is appropriate and reasonable under the circumstances given the patient's particular presentation at this time. The patient has been advised of the potential risks and limitations of this mode of treatment (including but not limited to the absence of in-person examination) and has agreed to be treated in a remote fashion in spite of them. Any and all of the patient's/patient's family's questions on this issue have been answered and I have made no promises or guarantees to the patient. The patient has also been advised to contact this office for worsening conditions or problems, and seek emergency medical treatment and/or call 911 if the patient deems either necessary. The patient stated that they are currently in the [facility]. If the patient is a minor, permission has been obtained by the parent or guardian for the patient to receive medical care at this visit. Patient identification was verified at the start of the visit: Yes Date of service: 01/29/23 Patient Name: Lona Bell Present at Session: Lona Session #: 12 Session start/stop times: 12:00 to 12:42 Treatment and subjective response: Individual counseling with Lona Ingram. Client continues to feel better about the way she is handling things. Client still has some mild depression and anxiety but is coping. Client talked about still not getting to see boyfriend. She talked about being upset about it. Client talked about having some auras but being able to breathe through them. Client has still not had any seizures. It has been 87 days. Therapist talked about finding her a gold chip for her hunger today of no seizures. We will send this to her in the mail and the nonepileptic seizure pamphlet. Client talked about going to physical therapy. She talked about going once a week and it is good she still has pain in her back but she has exercises to do. Client was able to process thought changing and looking at the glass half full as she calls it. Talked about this with boyfriend and went through a cognitive log with her. Client was able to come up with coping statements such as I will see him soon and I still get to talk to him he is not sick to me at they have been going out for 8 months. Client overall just feels very positive about the way she is looking at things in her life. Therapist talked about being very proud of her. Continue to work with client on chapter 6 session 5 channeling negative emotions into productive outlets. Talked about her coloring book, talked about doing art and journaling. Discussed that client is already doing a lot of these things. Therapist also spoke with client's mother. Client is wanting a letter for work that they are needing before she can go back to their. Therapist did not feel comfortable doing this so made an appointment with Dr. Aldridge which therapist will attend with client on the . Mother also talked about how proud she was of her and how well she is doing. Will see client again in 1 week. Treatment Modality/Intervention(s): Corine Ingram present for session. Client is making the cognitive connection between behaviors thoughts and feelings. Client is thinking much more positively and using productive outlets for channeling negative emotions. Treatment Goals: Continued work on Chapter six session five. 2. Grief letter and processing her fathers and trauma. 3. Abandonment issues and coping. 4 .Support and communication styles. 5. Taking control of her seizures through breathing thought changing. 6. Using Yoga and meditation 7 Dealing with anxiety from brief therapy handouts. 8. Working on ability to cope with Trauma 9. Safety plan and continue to reassess 10) Channeling negative emotions into productive outlets. Treatment Response/Progress (A): Client has continued periods anxiety and depression. Client however is doing so much better using her coping skills. She is using the control part of her impulsive thinking. She is doing self-care and taking things 1 day at a time. Client has continued to not have seizures has Auras and breaths through them. 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 Appearance / Personal Hygiene : appears disheveled and tired. Eye Contact: good Psychosis: no Psychosis Homicidal Ideation/Intentions: no Duty to Protect process completed N A Insight: Good Judgement: Good Intelligence: Average Memory/Cognition: intact Mood/Affect: mood blunted Thought Process: Goal-Directed Nightmares Suicidal Ideation/Intentions: No current ideation Agrees to safety plan. Treatment and Follow-up Plan (P): Continue with current treatment plan and Client to participate in PNES specific Cognitive behavioral treatment and work on processing PTSD .The primary aim of Taking Control of Your Seizures: Workbook is to improve the lives of patients with seizures. Both epileptic seizures and nonepileptic seizures (CEDRICK) are prevalent and potentially disabling. The Workbook is designed to be used by a patient with seizures in conjunction with his or her counselor. The Workbook contains xzcc-fv-leal guidelines that enable patients to take control of their seizures and their lives. The licensed sales assistant Treating Nonepileptic Seizures: Therapist Guide enhances effectiveness by providing vqypdnr-ur-[id number] instructions for counselors who use the Workbook with patients with CEDRICK. The authors developed this treatment approach based on extensive clinical experience and research with epilepsy and CEDRICK. Many patients who have completed the Taking Control process experience fewer seizures, reduced symptoms, and a greater sense of well-being. Work on thought changing and CBT, building supports, feelings about her seizures and taking control. Using mindfulness, mediation and yoga and grounding techniques as well as thought changing to deal with stressors. NATHANAEL Stallworth 01-29-23 documented in this encounter [facility] 01-25-2023 Evaluation + Plan note Diagnostic Tests PendingVaginitis/Vaginosis, DNA Probe 01/25/23 [facility] 01-23-2023 Note Individual Therapy v ia Computer Progress Note Patient was seen today via I-Phone by agreement and consent in light of the current COVID-19 pandemic. We used Audio and Video capabilities. Patient location: Home. This patient encounter is appropriate and reasonable under the circumstances given the patient's particular presentation at this time. The patient has been advised of the potential risks and limitations of this mode of treatment (including but not limited to the absence of in-person examination) and has agreed to be treated in a remote fashion in spite of them. Any and all of the patient's/patient's family's questions on this issue have been answered and I have made no promises or guarantees to the patient. The patient has also been advised to contact this office for worsening conditions or problems, and seek emergency medical treatment and/or call 911 if the patient deems either necessary. The patient stated that they are currently in the [facility]. If the patient is a minor, permission has been obtained by the parent or guardian for the patient to receive medical care at this visit. Patient identification was verified at the start of the visit: Yes Date of service: 01/23/23 Patient Name: Lona Bell Present at Session: Lona Session #: 11 Session start/stop times: 12:00 to 12:47 Treatment and subjective response: Individual counseling with Lona Ingram. Client talked about feeling better this week. Client still has some mild depression and anxiety but is coping. She talked about still throwing up this morning but she is not feeling sick. Client about talked with client about her throwing up. Client still has some mild depression and anxiety but is coping. Discussed with her if this happens all the time. Client just states when she gets a little bit nervous or anxious she throws up. Talked with her about her weight and client says she is eating this dates her weight is good. Client talked about breaking a record with her seizures. Client talked about going 83 days with no seizures. Therapist talked to her about this and congratulated her. Talked with her about how she has been able to breathe through the warnings about them client talked about seeing her boyfriend and states it went really well but they had to sit outside. She talked about Eulogio her stepdad not liking her boyfriend. Client talked about wanting to see him inside but he lives in a house with a lot of people and needs to get permission. Client talked about getting through her algebra class and she only has 12 more classes to get through before she can start on next year. Talked a lot with client about thought changing. Client talked about changing her thoughts to more positive ones. She talked about looking at the glass half full instead of half empty. Client talked about her thought changing and the positives of this. Client talked about taking action for negative thoughts. Client talked about doing coloring in a meditation book going to yoga and doing art work. Client talked about wanting to celebrate when she has not 100 days with no seizures. Continue to focus on cognitive behavioral treatment and coping. Client was able to talk about her father and having an upside down pineapple cake for her 100-day no seizures. Client appears to be doing a lot better. Will see client again in 1 week. Client did not want to get out workbook today but therapist was able to talk with her about channeling negative events into productive outlets. Treatment Modality/Intervention(s): Corine Soiff present for session. Client is making the cognitive connection between behaviors thoughts and feelings. Client is using control card for impulsive thinking. Client is recognizing her treatment triggers for seizures. She is using her coping skills. Treatment Goals: Continued work on Chapter three in CBT workbook. 2. Grief letter and processing her fathers and trauma. 3. Abandonment issues and coping. 4 .Support and communication styles. 5. Taking control of her seizures through breathing thought changing. 6. Using Yoga and meditation 7 Dealing with anxiety from brief therapy handouts. 8. Working on ability to cope with Trauma 9. Safety plan and continue to reassess Treatment Response/Progress (A): Client has continued periods anxiety and depression. Client however is doing so much better using her coping skills. She is using the control part of her impulsive thinking. She is doing self-care and taking things 1 day at a time. Client has continued to not have seizures has Auras and breaths through them. 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 [facility] 01-23-2023 History of Presen t illness Narrative error Individual Therapy via Computer Progress Note Patient was seen today via I-Phone by agreement and consent in light of the current COVID-19 pandemic. We used Audio and Video capabilities. Patient location: Home. This patient encounter is appropriate and reasonable under the circumstances given the patient's particular presentation at this time. The patient has been advised of the potential risks and limitations of this mode of treatment (including but not limited to the absence of in-person examination) and has agreed to be treated in a remote fashion in spite of them. Any and all of the patient's/patient's family's questions on this issue have been answered and I have made no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 urine. Her blood pressure today was WNL. I do not think her back pain is urologic in origin. Plan Drop first morning urine at local lab - I will notify family of results. If hematuria and proteinuria persist would recommend referral to Nephrology. COLT Smith was present as a medical professor of floriculture during a sensitive medical examination with provider JOSHUA Donnelly. This professor of floriculture was present during exam and witness to examiner/patient interactions. documented in this encounter [facility] 12-31-2022 Instructions Racquel Ferrera FNP - 12/31/2022 2:00 PM EST Please drop a first morning urine off a the lab and notify our office when complete. Thank you, Racquel documented in this encounter [facility] 12-24-2022 History of Presen t illness Narrative CS called to schedule since referral was sent to clinic staff to review. Checked with clinic nurse, and said it was fine to schedule with dx: hematuria, so referral was switched to ready to schedule and approved CS to schedule. documented in this encounter [facility] 12-24-2022 History of Presen t illness Narrative 12/24 MyChart Video Visit Chief Complaint Complaint Comment Mental Health Problem Progress Notes NATHANAEL Stallworth (Licensed Independent Enterprise Solutions Architect) Social Work Encounter Date: 12/24/2022 Signed Individual Therapy via Computer Progress Note Patient was seen today via I-Phone by agreement and consent in light of the current COVID-19 pandemic. We used Audio and Video capabilities. Patient location: Home. This patient encounter is appropriate and reasonable under the circumstances given the patient's particular presentation at this time. The patient has been advised of the potential risks and limitations of this mode of treatment (including but not limited to the absence of in-person examination) and has agreed to be treated in a remote fashion in spite of them. Any and all of the patient's/patient's family's questions on this issue have been answered and I have made no promises or guarantees to the patient. The patient has also been advised to contact this office for worsening conditions or problems, and seek emergency medical treatment and/or call 911 if the patient deems either necessary. The patient stated that they are currently in the state [facility]. If the patient is a minor, permission has been obtained by the parent or guardian for the patient to receive medical care at this visit. Patient identification was verified at the start of the visit: Yes Date of service: 12/24/22 Patient Name: Lona Bell Present at Session: Lona Session #: 7 Session start/stop times: 12:OO to 12:47 Treatment and subjective response: Individual counseling with Lona Ingram. Lona talked about having a lot of difficulty. Client has been having a lot of anxiety and depression. Client talked about having a lot of difficulty with visits however work she has been having trouble with her kidneys. They are supposed to go to a doctor at [facility]. They are waiting to hear back. She discussed also having trouble with the girls at school. Client states that she has gotten a new medical doctor. She states that this doctor new doctor was wonderful and did more than 1 visit that her doctor did the whole time. Client states that the doctor thinks that it is her scoliosis in her back. She felt her back and found that the muscles on the side of her spine are causing her pain. Client is still going to go to the hospital and get blood work again for her kidneys. . Client was also placed on a muscle relaxer and is scheduled to go to physical therapy. Client is feeling so much better about this. She feels like she has some answers. Client talked about what happened with the girls at school. She talked about a girl named mildly having a conversation with her on [employer] that she is seeing a video. Client states that there was a video going around of her having a seizure and the girls were making fun of her. Mother is talked with the school and they are going to be having a meeting on Saturday. The resource officer will also be talking to them. Therapist let client and mother know will get involved with the school if needed. She talked about not wanting to press charges but wanting to have the resource officer talk to them. Client talked about feeling good about her classes she finished 3 of her classes. She only has 10 classes to go. Client has gone 51 days with no seizures. Client talked about going shopping with her mom and her grandmother. Client does not want to work on chapter today. ( Will do next session) Therapist discussed all she has been through and using her coping skills. Client talked about taking things 1 day at a time and not reacting to what the girls had done. She talked about feeling so much better about this because she would have normally gotten into a fight with them. She then would have been expelled from school so client is really thinking through and using her control card. Treatment Modality/Intervention(s): Corine Ingram present for session. Client is making the cognitive connection between behaviors thoughts and feelings. Client is using control card for impulsive thinking. She talked about not getting into a fight with girls like she normally would. Client has gone 51 days no seizures. Treatment Goals: Continued work on Chapter three in CBT workbook. 2. Grief letter and processing her fathers and trauma. 3. Abandonment issues and coping. 4 .Support and communication styles. 5. Taking control of her seizures through breathing thought changing. 6. Using Yoga and meditation 7 Dealing with anxiety from brief therapy handouts. 8. Working on ability to cope with Trauma 9. Safety plan and continue to reassess Treatment Response/Progress (A): Client has continued periods anxiety and depression. Client however is doing so much better using her coping skills. She is using the control part of her impulsive thinking. She is doing self-care and taking things 1 day at a time. Client has gone 51 days with no seizures. 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 Appearance / Personal Hygiene : appropriately and casually dressed, appropriately groomed, good hygiene, healthy looking Eye Contact: good Psychosis: no Psychosis Homicidal Ideation/Intentions: no Duty to Protect process completed N A Insight: Good Judgement: Good Intelligence: Average Memory/Cognition: intact Mood/Affect: anxious having panic attacks more depressed Thought Process: Goal-Directed Nightmares Suicidal Ideation/Intentions: No current ideation Agrees to safety plan. Treatment and Follow-up Plan (P): Continue with current treatment plan and Client to participate in PNES specific Cognitive behavioral treatment and work on processing PTSD .The primary aim of Taking Control of Your Seizures: Workbook is to improve the lives of patients with seizures. Both epileptic seizures and nonepileptic seizures (CEDRICK) are prevalent and potentially disabling. The Workbook is designed to be used by a patient with seizures in conjunction with his or her counselor. The Workbook contains awcy-cq-vhfl guidelines that enable patients to take control of their seizures and their lives. The licensed sales assistant Treating Nonepileptic Seizures: Therapist Guide enhances effectiveness by providing [id number] instructions for counselors who use the Workbook with patients with CEDRICK. The authors developed this treatment approach based on extensive clinical experience and research with epilepsy and CEDRICK. Many patients who have completed the Taking Control process experience fewer seizures, reduced symptoms, and a greater sense of well-being. Work on thought changing and CBT, building supports, feelings about her seizures and taking control. Using mindfulness, mediation and yoga to deal with stressors. NATHANAEL Stallworth 12-24-22 Individual Therapy via Computer Progress Note Patient was seen today via I-Phone by agreement and consent in light of the current COVID-19 pandemic. We used Audio and Video capabilities. Patient location: Home. This patient encounter is appropriate and reasonable under the circumstances given the patient's particular presentation at this time. The patient has been advised of the potential risks and limitations of this mode of treatment (including but not limited to the absence of in-person examination) and has agreed to be treated in a remote fashion in spite of them. Any and all of the patient's/patient's family's questions on this issue have been answered and I have made no promises or guarantees to the patient. The patient has also been advised to contact this office for worsening conditions or problems, and seek emergency medical treatment and/or call 911 if the patient deems either necessary. The patient stated that they are currently in the [facility]. If the patient is a minor, permission has been obtained by the parent or guardian for the patient to receive medical care at this visit. Patient identification was verified at the start of the visit: Yes Date of service: 12/24/22 Patient Name: Lona Bell Present at Session: Lona Session #: 7 Session start/stop times: 12:OO to 12:47 Treatment and subjective response: Individual counseling with Lona Soiff. Lona talked about having a lot of difficulty. Client has been having a lot of anxiety and depression. Client talked about having a lot of difficulty with visits however work she has been having trouble with her kidneys. They are supposed to go to a doctor at [facility]. They are waiting to hear back. She discussed also having trouble with the girls at school. Client states that she has gotten a new medical doctor. She states that this doctor new doctor was wonderful and did more than 1 visit that her doctor did the whole time. Client states that the doctor thinks that it is her scoliosis in her back. She felt her back and found that the muscles on the side of her spine are causing her pain. Client is still going to go to the hospital and get blood work again for her kidneys. . Client was also placed on a muscle relaxer and is scheduled to go to physical therapy. Client is feeling so much better about this. She feels like she has some answers. Client talked about what happened with the girls at school. She talked about a girl named mildly having a conversation with her on [employer] that she is seeing a video. Client states that there was a video going around of her having a seizure and the girls were making fun of her. Mother is talked with the school and they are going to be having a meeting on Saturday. The resource officer will also be talking to them. Therapist let client and mother know will get involved with the school if needed. She talked about not wanting to press charges but wanting to have the resource officer talk to them. Client talked about feeling good about her classes she finished 3 of her classes. She only has 10 classes to go. Client has gone 51 days with no seizures. Client talked about going shopping with her mom and her grandmother. Client does not want to work on chapter today. ( Will do next session) Therapist discussed all she has been through and using her coping skills. Client talked about taking things 1 day at a time and not reacting to what the girls had done. She talked about feeling so much better about this because she would have normally gotten into a fight with them. She then would have been expelled from school so client is really thinking through and using her control card. Treatment Modality/Intervention(s): Corine Ingram present for session. Client is making the cognitive connection between behaviors thoughts and feelings. Client is using control card for impulsive thinking. She talked about not getting into a fight with girls like she normally would. Client has gone 51 days no seizures. Treatment Goals: Continued work on Chapter three in CBT workbook. 2. Grief letter and processing her fathers and trauma. 3. Abandonment issues and coping. 4 .Support and communication styles. 5. Taking control of her seizures through breathing thought changing. 6. Using Yoga and meditation 7 Dealing with anxiety from brief therapy handouts. 8. Working on ability to cope with Trauma 9. Safety plan and continue to reassess Treatment Response/Progress (A): Client has continued periods anxiety and depression. Client however is doing so much better using her coping skills. She is using the control part of her impulsive thinking. She is doing self-care and taking things 1 day at a time. Client has gone 51 days with no seizures. 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 Appearance / Personal Hygiene : appropriately and casually dressed, appropriately groomed, good hygiene, healthy looking Eye Contact: good Psychosis: no Psychosis Homicidal Ideation/Intentions: no Duty to Protect process completed N A Insight: Good Judgement: Good Intelligence: Average Memory/Cognition: intact Mood/Affect: anxious having panic attacks more depressed Thought Process: Goal-Directed Nightmares Suicidal Ideation/Intentions: No current ideation Agrees to safety plan. Treatment and Follow-up Plan (P): Continue with current treatment plan and Client to participate in PNES specific Cognitive behavioral treatment and work on processing PTSD .The primary aim of Taking Control of Your Seizures: Workbook is to improve the lives of patients with seizures. Both epileptic seizures and nonepileptic seizures (CERDICK) are prevalent and potentially disabling. The Workbook is designed to be used by a patient with seizures in conjunction with his or her counselor. The Workbook contains wedc-vo-bchf guidelines that enable patients to take control of their seizures and their lives. The licensed sales assistant Treating Nonepileptic Seizures: Therapist Guide enhances effectiveness by providing fugxyaf-hf-mkptxiy instructions for counselors who use the Workbook with patients with CEDRICK. The authors developed this treatment approach based on extensive clinical experience and research with epilepsy and CEDRICK. Many patients who have completed the Taking Control process experience fewer seizures, reduced symptoms, and a greater sense of well-being. Work on thought changing and CBT, building supports, feelings about her seizures and taking control. Using mindfulness, mediation and yoga to deal with stressors. NATHANAEL Stallworth 12-24-22 documented in this encounter [facility] 12-17-2022 History of Presen t illness Narrative Individual Therapy via Computer Progress Note Patient was seen today via Phone by agreement and consent in light of the current COVID-19 pandemic. We used Audio and Video capabilities. Patient location: Home. This patient encounter is appropriate and reasonable under the circumstances given the patient's particular presentation at this time. The patient has been advised of the potential risks and limitations of this mode of treatment (including but not limited to the absence of in-person examination) and has agreed to be treated in a remote fashion in spite of them. Any and all of the patient's/patient's family's questions on this issue have been answered and I have made no promises or guarantees to the patient. The patient has also been advised to contact this office for worsening conditions or problems, and seek emergency medical treatment and/or call 911 if the patient deems either necessary. The patient stated that they are currently in the [facility]. If the patient is a minor, permission has been obtained by the parent or guardian for the patient to receive medical care at this visit. Patient identification was verified at the start of the visit: Yes Date of service: 12/17/22 Patient Name: Lona Bell Present at Session: Lona Session #: 7 Session start/stop times: 12:03 to 12:50 Treatment and subjective response: Individual counseling with Lona Juan Jose. Lona talked about having a lot of difficulty. She has been having trouble with her kidneys. They are supposed to go to a doctor at [facility]. They are waiting to hear back. Client has been having a lot of back pain. She also stated they no longer saw blood in her urine but something else. Client is just tired all the time. She is having nightmares where she is screaming at night and having panic attacks. Client feels depressed feels like one thing has gotten better and then something else happens. She had gone 53 days with no seizures. Client talked more about her nightmares. Talked about her PTSD and everyone dying. She talked about having dreams about a blue truck. She stated that when she was little they where worried about a blue truck trying to pickler helper kids. She also talked about not watching horror movies. Discussed ways to deal with Panic. Processed different ways to cope with stress. Reviewed mindfulness and meditation, progressive muscle relaxation and other cognitive behavioral techniques. Continued to process the trauma. Worked on and reviewed Chapter 4 deciding about drug therapy. Client is not on any seizure medication but did talk about being on Zoloft. Client is not sure it is helping. Client agreed to safety denies SI. Will see client in one week and work on triggers. Treatment Modality/Intervention(s): Corine Ingram present for session. Client is making the cognitive connection between behaviors thoughts and feelings. Processed coping Finished working on Chapter three in workbook on communication styles and seeking support. Client has not had a seizure. Treatment Goals: Continued work on Chapter three in CBT workbook. 2. Grief letter and processing her fathers and trauma. 3. Abandonment issues and coping. 4 .Support and communication styles. 5. Taking control of her seizures through breathing thought changing. 6. Using Yoga and meditation 7 Dealing with anxiety from brief therapy handouts. 8. Working on ability to cope with Trauma 9. Safety plan and continue to reassess Treatment Response/Progress (A): Client has not been feeling well which is increasing her depression and anxiety. She has something wrong with her kidneys and will follow up at [facility]. Client was able to put together ways to change her thinking with her anxiety and stressor levels. Discussed this in detail. Client using meditation and cognitive behavioral techniques to cope with panic. Worked on chapter 4 deciding on drug therapy. 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 Appearance / Personal Hygiene : appropriately and casually dressed, appropriately groomed, good hygiene, healthy looking Eye Contact: good Psychosis: no Psychosis Homicidal Ideation/Intentions: no Duty to Protect process completed N A Insight: Good Judgement: Good Intelligence: Average Memory/Cognition: intact Mood/Affect: anxious having panic attacks more depressed Thought Process: Goal-Directed Nightmares Suicidal Ideation/Intentions: No current ideation Agrees to safety plan. Treatment and Follow-up Plan (P): Continue with current treatment plan and Client to participate in PNES specific Cognitive behavioral treatment and work on processing PTSD .The primary aim of Taking Control of Your Seizures: Workbook is to improve the lives of patients with seizures. Both epileptic seizures and nonepileptic seizures (CEDRICK) are prevalent and potentially disabling. The Workbook is designed to be used by a patient with seizures in conjunction with his or her counselor. The Workbook contains bqcz-hl-vehp guidelines that enable patients to take control of their seizures and their lives. The licensed sales assistant Treating Nonepileptic Seizures: Therapist Guide enhances effectiveness by providing mqlbnvq-fv-[id number] instructions for counselors who use the Workbook with patients with CEDRICK. The authors developed this treatment approach based on extensive clinical experience and research with epilepsy and CEDRICK. Many patients who have completed the Taking Control process experience fewer seizures, reduced symptoms, and a greater sense of well-being. Work on thought changing and CBT, building supports, feelings about her seizures and taking control. Using mindfulness, mediation and yoga to deal with stressors. NATHANAEL Stallworth 12-17-22 documented in this encounter [facility] 12-03-2022 History of Presen t illness Narrative Individual Therapy via Phone Progress Note Patient was seen today via Phone by agreement and consent in light of the current COVID-19 pandemic. We had to use phone due to client not being able to sign on her computer. Patient location: Home. This patient encounter is appropriate and reasonable under the circumstances given the patient's particular presentation at this time. The patient has been advised of the potential risks and limitations of this mode of treatment (including but not limited to the absence of in-person examination) and has agreed to be treated in a remote fashion in spite of them. Any and all of the patient's/patient's family's questions on this issue have been answered and I have made no promises or guarantees to the patient. The patient has also been advised to contact this office for worsening conditions or problems, and seek emergency medical treatment and/or call 911 if the patient deems either necessary. The patient stated that they are currently in the state [facility]. If the patient is a minor, permission has been obtained by the parent or guardian for the patient to receive medical care at this visit. Patient identification was verified at the start of the visit: Yes Date of service: 12/03/22 Patient Name: Lona Bell Present at Session: Lona Session #: 6 Session start/stop times: 12:15 to 1:00 Treatment and subjective response: Individual counseling with Lona Ingram. Client discussed having difficulty getting on her computer. She is off school today because of . Client was excited to tell therapist she has gone 30 days without seizures. She did have another spell where she could not move though. She had listened to Sergey Cisneros letting go of your worries and liked her. Client worked a lot in her workbook. We started at page 43 and finished at 49. Client talked about improving her relationship goal. She addressed each of these. Called an aunt and told her she has not had any seizures in 30 days. Talked to her brother about being appreciative for him. She also addressed feelings with her mom and boyfriend. She talked about improving communication skills. Discussed obstacles to getting support. Client also began talking about her triggers including PTSD and her Dad. She is off grounding and really working on taking control. Client is being more assertive in relationship. Reviewed and came up with a List of Positives and ability to cope with trauma. Client talked about doing yoga this week with her mom. Treatment Modality/Intervention(s): Corine Ingram present for session. Client is making the cognitive connection between behaviors thoughts and feelings. Processed coping Finished working on Chapter three in workbook on communication styles and seeking support. Client has not had a seizure. Treatment Goals: Continued work on Chapter three in CBT workbook. 2. Grief letter and processing her fathers and trauma. 3. Abandonment issues and coping. 4 .Support and communication styles. 5. Taking control of her seizures through breathing thought changing. 6. Using Yoga and meditation 7 .Using I statements. 8. Working on ability to cope with Trauma 9. Safety plan and continue to reassess Treatment Response/Progress (A): Client was able to put together ways to change her thinking with her anxiety and stressor levels. Discussed this in detail. Processed communication styles further and ways to be assertive in communication. Continued to work on building supports. 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 Appearance / Personal Hygiene : appropriately and casually dressed, appropriately groomed, good hygiene, healthy looking Eye Contact: good Psychosis: no Psychosis Homicidal Ideation/Intentions: no Duty to Protect process completed N A Insight: Good Judgement: Good Intelligence: Average Memory/Cognition: intact Mood/Affect: anxious Thought Process: Goal-Directed Nightmares Suicidal Ideation/Intentions: No current ideation Agrees to safety plan. Treatment and Follow-up Plan (P): Continue with current treatment plan and Client to participate in PNES specific Cognitive behavioral treatment and work on processing PTSD .The primary aim of Taking Control of Your Seizures: Workbook is to improve the lives of patients with seizures. Both epileptic seizures and nonepileptic seizures (CEDRICK) are prevalent and potentially disabling. The Workbook is designed to be used by a patient with seizures in conjunction with his or her counselor. The Workbook contains guct-kl-buvb guidelines that enable patients to take control of their seizures and their lives. The licensed sales assistant Treating Nonepileptic Seizures: Therapist Guide enhances effectiveness by providing nigscqc-bg-abbutve instructions for counselors who use the Workbook with patients with CEDRICK. The authors developed this treatment approach based on extensive clinical experience and research with epilepsy and CEDRICK. Many patients who have completed the Taking Control process experience fewer seizures, reduced symptoms, and a greater sense of well-being. Work on thought changing and CBT, building supports, feelings about her seizures and taking control. Using mindfulness, mediation and yoga to deal with stressors. NATHANAEL Stallworth 12-03-22 documented in this encounter [facility] 11-26-2022 History of Presen t illness Narrative Individual Therapy via Telehealth Progress Note Patient was seen today via Telehealth by agreement and consent in light of the current COVID-19 pandemic. I used the following Telehealth technology: computer Patient location: Home. This patient encounter is appropriate and reasonable under the circumstances given the patient's particular presentation at this time. The patient has been advised of the potential risks and limitations of this mode of treatment (including but not limited to the absence of in-person examination) and has agreed to be treated in a remote fashion in spite of them. Any and all of the patient's/patient's family's questions on this issue have been answered and I have made no promises or guarantees to the patient. The patient has also been advised to contact this office for worsening conditions or problems, and seek emergency medical treatment and/or call 911 if the patient deems either necessary. The patient stated that they are currently in the [facility]. If the patient is a minor, permission has been obtained by the parent or guardian for the patient to receive medical care at this visit. Patient identification was verified at the start of the visit: Yes Date of service: 11/26/22 Patient Name: Lona Bell Present at Session: Lona Session #: 4 Session start/stop times: 12:00 to 12:50 Treatment and subjective response: Individual counseling with Lona Juan Jose. Client talked about what it was like for her on Saturday. She had come back from school and could not move. She talked about having extreme pain in her back and having to be taken by squad to the hospital. She was able to come around later. Client talked about them finding blood in her urine. She discussed them doing all sorts of blood work and referring her to a doctor. Client talked about her back being bad. Client was bale to talk about her stressors and looking at things differently. She was able to talk about her thinking and working on changing it. Client used the example of when she thinks people at school are making fun of her. She talked about instead of thinking that she could just think they are curious or think she is pretty. Client beginning to understand the cognitive connection between her thoughts and feelings. Worked on Chapter in PNES workbook on communication styles and increasing support. Client finished activity. She talked about getting off grounding on the 15 and looking forward to seeing her boyfriend. Discussed using a meditation on social anxiety. Treatment Modality/Intervention(s): Corine Ingram present for session. Client is making the cognitive connection between behaviors thoughts and feelings. Processed coping Finished working on Chapter three in workbook on communication styles and seeking support. Client has not had a seizure. Treatment Goals: 1. Establishing Rapport and trust building with client and mother 2. Grief letter and processing her fathers and trauma. 3. Abandonment issues and coping. 4.Worked on Chapter three of CBT workbook taking control of your seizures. 5.Support and communication styles. 6.Control card for impulsive behavior. 7.Using I statements. 8. Making sense of trauma what it has taught her. 9. Safety plan and continue to reassess Treatment Response/Progress (A): Client was able to put together ways to change her thinking with her anxiety and stressor levels. Discussed this in detail. Processed communication styles further and ways to be assertive in communication. Continued to work on building supports. 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 Appearance / Personal Hygiene : appropriately and casually dressed, appropriately groomed, good hygiene, healthy looking Eye Contact: good Psychosis: no Psychosis Homicidal Ideation/Intentions: no Duty to Protect process completed N A Insight: Good Judgement: Good Intelligence: Average Memory/Cognition: intact Mood/Affect: anxious Thought Process: Goal-Directed Nightmares Suicidal Ideation/Intentions: No current ideation Agrees to safety plan. Treatment and Follow-up Plan (P): Continue with current treatment plan and Client to participate in PNES specific Cognitive behavioral treatment and work on processing PTSD .The primary aim of Taking Control of Your Seizures: Workbook is to improve the lives of patients with seizures. Both epileptic seizures and nonepileptic seizures (CEDRICK) are prevalent and potentially disabling. The Workbook is designed to be used by a patient with seizures in conjunction with his or her counselor. The Workbook contains jddk-dv-hlrq guidelines that enable patients to take control of their seizures and their lives. The licensed sales assistant Treating Nonepileptic Seizures: Therapist Guide enhances effectiveness by providing opznmwh-xs-zznbqtm instructions for counselors who use the Workbook with patients with CEDRICK. The authors developed this treatment approach based on extensive clinical experience and research with epilepsy and CEDRICK. Many patients who have completed the Taking Control process experience fewer seizures, reduced symptoms, and a greater sense of well-being. Work on DBT skill of Dear marii next session. Check in with her about Tanner's survival guide book. NATHANAEL Stallworth 11-26-22 documented in this encounter [facility] 11-20-2022 History of Presen t illness Narrative Individual Therapy via Telehealth Progress Note Patient was seen today via Telehealth by agreement and consent in light of the current COVID-19 pandemic. I used the following Telehealth technology: computer Patient location: Home. This patient encounter is appropriate and reasonable under the circumstances given the patient's particular presentation at this time. The patient has been advised of the potential risks and limitations of this mode of treatment (including but not limited to the absence of in-person examination) and has agreed to be treated in a remote fashion in spite of them. Any and all of the patient's/patient's family's questions on this issue have been answered and I have made no promises or guarantees to the patient. The patient has also been advised to contact this office for worsening conditions or problems, and seek emergency medical treatment and/or call 911 if the patient deems either necessary. The patient stated that they are currently in the [facility]. If the patient is a minor, permission has been obtained by the parent or guardian for the patient to receive medical care at this visit. Patient identification was verified at the start of the visit: Yes Date of service: 11/20/22 Patient Name: Lona Bell Present at Session: Lona Session #: 4 Session start/stop times: 12:00 to 12:50 Types of treatment provided: Individual counseling with Lona Ingram. Worked with client on grief letter and expressing feelings about grief. Processing her PTSD. Specific CBT treatment for non-epileptic seizures. Worked on chapter three regarding supports and communication styles. Discussed assertive communication and using I feel statements. Also discussed using control card and thinking through behaviors and reading Empath's survival guide. Response to session Subjective: Client read her grief letter. She talked about her father who killed himself. Client talked about memories and not really understanding at the time. She was [age] years old. She talked about the things they did together. She also talked about wishing she would have seen the signs. She discussed feelings of abandonment and worries about other people leaving her. She discussed her mom their relationship is very close. Client also talked about her best friend hanging herself and Qi her cousin overdosed. Client talked about what she thinks her father would say to her if he was here. Client also discussed what it has taught her. To not take people for granted. She talked about also how radha time is. Client talked about getting angry at her friends when the bullies where crying. Client talked about her social supports. She talked about her brother her mom and stepfather and her boyfriend. She talked about having a lot of anxiety in social situations. Being afraid people will not like her. Client talked about other therapist she sees also being a major support. We talked about her going on Maternity leave. Discussed her obstacles for social supports and processed different communication styles. Client did I feel card and control card for impulses. Discussed using Dear man for assertive communication. Will give next time. Discussed client being an empath and needing to set boundaries and limits with others. Client will do worksheet on page [id number] before next session. Client was able to understand difference between passive, aggressive and assertive communication. Treatment Modality/Intervention(s): Corine Ingram present for session. Grief letter and processing her fathers and trauma. Abandonment issues and coping. Worked on Chapter three of CBT workbook taking control of your seizures. Support and communication styles. Control card for impulsive behavior. Using I statements. Making sense of trauma what it has taught her. Recommended Empath's survival guide recognizing her sensitive personality style and coping setting limits and boundaries. Treatment Goals: 1. Establishing Rapport and trust building with client and mother 2. Grief letter and processing her fathers and trauma. 3. Abandonment issues and coping. 4.Worked on Chapter three of CBT workbook taking control of your seizures. 5.Support and communication styles. 6.Control card for impulsive behavior. 7.Using I statements. 8. Making sense of trauma what it has taught her. 9.Recommended Tanner's survival guide recognizing her sensitive personality style and coping setting limits and boundaries. 10. Evaluate Safety plan and continue to reassess Treatment Response/Progress (A): Client was able to read her grief letter and process her PTSD when her father killed himself. Client has gone 18 days without a seizure. Client also processed some of her other losses. Client response was good also worked on chapter three in workbook will continue next session. Client to write another letter to her father. 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 Appearance / Personal Hygiene : appropriately and casually dressed, appropriately groomed, good hygiene, healthy looking Eye Contact: good Psychosis: no Psychosis Homicidal Ideation/Intentions: no Duty to Protect process completed N A Insight: Good Judgement: Good Intelligence: Average Memory/Cognition: intact Mood/Affect: anxious Thought Process: Goal-Directed Nightmares Suicidal Ideation/Intentions: No current ideation Agrees to safety plan. Treatment and Follow-up Plan (P): Continue with current treatment plan and Client to participate in PNES specific Cognitive behavioral treatment and work on processing PTSD .The primary aim of Taking Control of Your Seizures: Workbook is to improve the lives of patients with seizures. Both epileptic seizures and nonepileptic seizures (CEDRICK) are prevalent and potentially disabling. The Workbook is designed to be used by a patient with seizures in conjunction with his or her counselor. The Workbook contains jgrh-mb-quhz guidelines that enable patients to take control of their seizures and their lives. The licensed sales assistant Treating Nonepileptic Seizures: Therapist Guide enhances effectiveness by providing fomdlwq-oq-fouovll instructions for counselors who use the Workbook with patients with CEDRICK. The authors developed this treatment approach based on extensive clinical experience and research with epilepsy and CEDRICK. Many patients who have completed the Taking Control process experience fewer seizures, reduced symptoms, and a greater sense of well-being. Work on DBT skill of Viola colvin next session. Check in with her about Tanner's survival guide book. NATHANAEL Stallworth 11-20-22 documented in this encounter [facility] 11-15-2022 History of Presen t illness Narrative Spoke to client. She was sick not feeling well whole family has had covid. Cancelled appointment documented in this encounter [facility] 10-04-2022 Note CHILD PSYCHIATRY OUT PATIENT PROGRESS NOTE This is a telemedicine video visit requested by the patient/guardian that was performed with the patient's location at home and the provider's location at office. DATE OF SERVICE: 10/04/2022 AGE: 17 y.o. GRADE: 11th grade Here with mother REASON FOR VISIT: med check SUBJECTIVE: Spoke to patient and mother to discuss patient's symptoms since our last appointment and since temporary appointment with Nancy SANDOVAL who emergently saw patient on 08/24. Reviewed the precipitants to the suicide attempt prior to appointment with other provider. She reports that she got into an argument with her boyfriend and then saw an illusion of her father. She reports that she felt overwhelmed with stress and sadness and impulsively attempted suicide to escape from the pain. She reports feeling very regretful about the suicide attempt and realizes that I don't really want to , I want to make myself proud, I want to make my mom proud and I can't do that if I'm gone . Reviewed safety plan of what to do if she is feeling overwhelmed and discussed her plan of making a director regulatory affairs board in her room with the plan on it. She reports overall, I've been in a really good mood recently; I've been waking up on time and sleeping better at times . She does acknowledge breakthrough nightmares despite the medication but reports that it helped somewhat initially. She does report syncopal episodes when she started the medication which are no longer present after accommodating to it over time. She has continued to see her trauma therapist which she reports has been going well. No current significant reported side effects or other concerns noted at this time. Sleep: Stable Appetite: Stable RISK ASSESSMENT: No SI, HI or self-abusive behaviors reported SUICIDAL IDEATION - SINCE LAST VISIT 1. Wish to be ? No If yes, describe: 2. Non-Specific Active Suicidal Thoughts: No If yes, describe: 3. Active Suicidal Ideation with Any Methods (Not Plan) without Intent to Act: If yes, describe: 4. Active Suicidal Ideation with Some Intent to Act, without Specific Plan: If yes, describe: 5. Active Suicidal Ideation with Specific Plan and Intent: If yes, describe: INTENSITY OF IDEATION - SINCE LAST VISIT Most Severe Ideation: Description of Ideation: Frequency: Duration: Controllability: Deterrents: Reasons for Ideation: SUICIDAL BEHAVIOR - SINCE LAST VISIT (Check all that apply, so long as these are separate events; must ask about all types) Actual Attempt: No Total # of Attempts: If yes, describe: Has subject engaged in Non-Suicidal Self-Injurious Behavior? No Interrupted Attempt: No Total # of interrupted: If yes, describe: Aborted or Self-Interrupted Attempt: No Total # of aborted or self-interrupted: If yes, describe: Preparatory Acts or Behavior: Total # of preparatory acts: If yes, describe: ACTUAL/POTENTIAL LETHALITY - SINCE LAST VISIT Most Lethal Attempt Date: Actual Lethality/Medical Damage: Potential Lethality: [email or web address] Risk Stratification Level Low Acute Risk: History of past [id number]-[id number] or suicidal thoughts;Protective factors outweigh risk factors Access to Weapons: education on access to lethal means provided Patient able to plan for safety: yes Safety education provided to guardian: yes OBJECTIVE: There were no vitals filed for this visit. MENTAL STATUS EXAMINATION: Appearance: Patient is a 17 y.o. female. Well groomed , Dressed in casual attire, and Appears stated age. Behavior: Cooperative. Normal psychomotor activity. The patient does appear anxious. Eye Contact: Appropriate Speech : Normal rate, rhythm, and prosody Language:Appropriate to age Thought Form / Associations: Organized, linear, goal directed Mood: good Affect: euthymic Thought Content: Patient did not endorse any active self harm/ suicidal or homicidal ideations Fund of Knowledge: Appropriate for age and development Perceptions: Patient did not endorse experiencing any hallucinatory phenomena (auditory, visual, olfactory, tactile) or appear internally stimulated Estimated intelligence: appears average Concentration: age appropriate, intact Memory (Recent and Remote): grossly intact Orientation: fully alert and grossly oriented to person, place, and situation Insight/Judgment: fair Medications: Current Outpatient Medications on File Prior to Visit Medication Sig Dispense Refill prazosin (MINIPRESS) 1 MG capsule Take 1 Capsule (1 mg) by mouth nightly at bedtime For nightmares. 30 Capsule 1 sertraline (ZOLOFT) 100 MG tablet Take 2 Tablets (200 mg) by mouth nightly at bedtime for 90 days 180 Tablet 0 LOW-OGESTREL 0.3-30 MG-MCG tablet Cholecalciferol (VITAMIN D) 25 MCG (1000 UT) tablet Take 1,000 Units by mouth daily No current facility-administered medications on file prior to visit. Medication I (more content not included)... [facility] 07-19-2022 Note CHILD PSYCHIATRY OUT PATIENT PROGRESS NOTE This is a telemedicine video visit requested by the patient/guardian that was performed with the patient's location at home and the provider's location at office. DATE OF SERVICE: 07/19/2022 AGE: 16 y.o. GRADE: 11th grade Here with mother REASON FOR VISIT: med check SUBJECTIVE: Spoke to patient and mother to discuss patient's symptoms since our last appointment. Patient reports that she went 17 days without a non-epileptic seizure which has been a record for her. She reports that she has been working a lot harder on utilizing coping skills including deep breathing to get through her anxiety symptoms which has been very effective for her. She reports that since starting school she has only had one seizure in school and one seizure on the way to school over the last two weeks. She reports that school has been really good thus far, and has been doing very well in catching up to her school work. She reports has been tolerating social interaction with other peers at the school without significant issues. She reports that since our last appointment she gets anxious once in a while but notes that it has been manageable as opposed to how it has been in the past. She reports that exposing herself to the school environment and all of the support from her family and friends have been very helpful for this improvement. No reported side effects or issues from medication or any safety concerns reported at this time. Sleep: normal Appetite: normal RISK ASSESSMENT: No SI, HI or self-abusive behaviors reported SUICIDAL IDEATION - SINCE LAST VISIT 1. Wish to be ? No If yes, describe: 2. Non-Specific Active Suicidal Thoughts: No If yes, describe: 3. Active Suicidal Ideation with Any Methods (Not Plan) without Intent to Act: If yes, describe: 4. Active Suicidal Ideation with Some Intent to Act, without Specific Plan: If yes, describe: 5. Active Suicidal Ideation with Specific Plan and Intent: If yes, describe: INTENSITY OF IDEATION - SINCE LAST VISIT Most Severe Ideation: Description of Ideation: Frequency: Duration: Controllability: Deterrents: Reasons for Ideation: SUICIDAL BEHAVIOR - SINCE LAST VISIT (Check all that apply, so long as these are separate events; must ask about all types) Actual Attempt: No Total # of Attempts: If yes, describe: Has subject engaged in Non-Suicidal Self-Injurious Behavior? No Interrupted Attempt: No Total # of interrupted: If yes, describe: Aborted or Self-Interrupted Attempt: No Total # of aborted or self-interrupted: If yes, describe: Preparatory Acts or Behavior: No Total # of preparatory acts: If yes, describe: ACTUAL/POTENTIAL LETHALITY - SINCE LAST VISIT Most Lethal Attempt Date: Actual Lethality/Medical Damage: Potential Lethality: [email or web address] Risk Stratification Level Low Acute Risk: History of past [id number] or suicidal thoughts;Protective factors outweigh risk factors Access to Weapons: education on access to lethal means provided Patient able to plan for safety: yes Safety education provided to guardian: yes OBJECTIVE: There were no vitals filed for this visit. MENTAL STATUS EXAMINATION: Appearance: Patient is a 16 y.o. female. Well groomed , Dressed in casual attire, and Appears stated age. Behavior: Cooperative. Normal psychomotor activity. The patient does appear anxious. Eye Contact: Appropriate Speech : Normal rate, rhythm, and prosody Language:Appropriate to age Thought Form / Associations: Organized, linear, goal directed Mood: good Affect: euthymic Thought Content: Patient did not endorse any active self harm/ suicidal or homicidal ideations Fund of Knowledge: Appropriate for age and development Perceptions: Patient did not endorse experiencing any hallucinatory phenomena (auditory, visual, olfactory, tactile) or appear internally stimulated Estimated intelligence: appears average Concentration: age appropriate, intact Memory (Recent and Remote): grossly intact Orientation: fully alert and grossly oriented to person, place, and situation Insight/Judgment: fair Medications: Current Outpatient Medications on File Prior to Visit Medication Sig Dispense Refill LOW-OGESTREL 0.3-30 MG-MCG tablet Cholecalciferol (VITAMIN D) 25 MCG (1000 UT) tablet Take 1,000 Units by mouth daily No current facility-administered medications on file prior to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
== END 2025-04-20 18:17 | disposition home or self-care (01) ==
PROVIDERS: Emergency Provider Emergency Medicine
DX: S60.221A Contusion of right hand, initial encounter (principal); S60.511A Abrasion of right hand, initial encounter; W22.01XA Walked into wall, initial encounter
CPT/HCPCS: 73130; 99283

== ENCOUNTER 2025-09-30 07:12 | Emergency (ER) | payer BC, OTHER, SELFPAY ==
[2025-09-30 07:19] VITALS: BP 116/73; PULSE 74; TEMP 37.2; O2SAT 100; BMI 18.0
--- OUTSIDE RECORDS SUMMARY | 2025-09-30 07:33 | XMS_ITS | Clinical Summary ---
Author Organization Direct Access [employer] [facility] Address [id number] [address] [place] [address] Care Team Providers Care Recreational Counselor Name Role Phone Unavailable Primary Care Provider Unavailabl e Allergies No known active allergies Medications MedicationSigDispense QuantityRefillsLast FilledStart DateEnd DateStatus cloNIDine (CATAPRES) 0.1 mg tablet Take 0.2 mg by mouth.Active QUEtiapine (SEROquel) 200 mg tablet 09/06/2017Active fexofenadine (KEYA) 180 mg tablet 11/24/2019Active Active Problems ProblemNoted DateDiagnosed DateOsgood-Schlatter's disease of both knees 12/02/2019Fracture, radius and ulna, shaft, open07/17/2017 Family History Medical HistoryRelationNameCommentsCancerMaternal AuntDiabetesMaternal GrandmotherCancerMaternal UncleDepressionMotherCancerPaternal AuntCancerPaternal UncleRelationNameStatusCommentsFatherDeceasedMaternal AuntMaternal Grandmother Maternal UncleMotherPaternal AuntPaternal Uncle Social History Tobacco UseTypesPacks/DayYears UsedDateSmoking Tobacco: NeverSmokeless Tobacco: NeverAlcohol UseStandard Drinks/WeekCommentsNo0 (1 standard drink = 0.6 oz pure alcohol)ChildcareAnswerDate WnrmdotzBlytmmifyCqlmefe99/10/2019EmploymentAnswer Date SmaeuiveNikoezpwsbXqgaljn13/10/2019Purpose - LifeAnswerDate RecordedPurpose and direction in zvsmBmxqozb51/10/2021CommentsNoSex and Gender InformationValueDate RecordedSex Assigned at BirthNot on fileLegal SexFemale 06/21/2015 2:58 PM EDTGender IdentityNot on fileSexual OrientationNot on file Last Filed Vital Signs Vital SignReadingTime TakenCommentsBlood Enccalwm536/6808 8:03 AM EDT Izddi8904 9:01 AM RVMHhuttknvuos27.8 ??C (98.2 ??F)07/17/2017 8:03 AM EDTRespiratory Gsjs317307/17/2017 9:01 AM EDTOxygen Sdyssmsnkv585%07/17/2017 8:03 AM EDTInhaled Oxygen Concentration--Gmanih78.3 kg (102 lb 2 oz)12/02/2019 10:27 AM SVYUtejlk391.6 cm (5' 4 )12/02/2019 10:27 AM ESTBody Mass Index17.53 12/02/2019 10:27 AM EST Plan of Treatment Health MaintenanceDue DateLast DoneCommentsDepression Zgvvuawuc21/05/2017Tobacco Lhedyljhn48/05/2017Adult BMI Ojotapaqw19/05/2023DTaP,Tdap and Td Vaccines (1 - Tdap)2024Influenza Gsxfall5807/19/2025 Medical Devices Not on file Insurance Advance Directives * Full Code (Latest Code Status on File) Date ActivatedDate InactivatedComments07/17/2017 1:03 AM07/17/2017 1:26 PM
--- OUTSIDE RECORDS SUMMARY | 2025-09-30 07:33 | XMS_ITS | Clinical Summary ---
Author Organization [facility] Healthcare Address [address] [place] [address] Care Team Providers Care Client Business Manager Name Role Phone Margo Lozano MD, IBCLC Primary Care Provid er Allergies No known active allergies Medications MedicationSigDispense QuantityRefillsLast FilledStart DateEnd DateStatus sertraline (Zoloft) 100 MG tablet Indications:PTSD (post-traumatic stress disorder),Depression with anxietyTAKE 1 AND 1/2 TABLETS BY MOUTH ONCE A DAY AT THE SAME TIME 135 tablet ctive etonogestrel-eluting (Nexplanon) 68 mg contraceptive implant 1 each by Implant route 1 (one) timeActive amoxicillin-clavulanate (Augmentin) 875-125 MG tablet Indications:Sore throat,Group A streptococcal infectionTake 1 tablet (875 mg) by mouth in the morning and 1 tablet (875 mg) before bedtime. Do all this for 10 days. 20 tablet Expired Active Problems ProblemNoted DateDiagnosed DateAnxiety and szaisqjoyh17/11/2022TSD (post- traumatic stress disorder)08/28/2022sychogenic nonepileptic dtexuxw1612/06/2021 Emmie-Schlatter's disease of both knees12/02/2019Fracture, radius and ulna, shaft, open07/17/2017 Resolved Problems ProblemNoted DateDiagnosed DateResolved FlznJsgoeymhdx44OVID- 19 virus nbfwmrddn76Seizure-like ywstbxjt22 Encounters DateTypeDepartmentCare LblmSsuwvhyndla31/13/2025 4:20 PM EDTOffice Visit [facility] [address] [place] [address] Anel Quarles NP Group A streptococcal infection (Primary Dx); Sore guwiex7508/30/2025Telephone [facility] [address] [facility] [address] Anel Quarles NP lxqecsyody06/13/2025amboo flowsheet [facility] [address] [facility] [address] Anel Quarles NP 08/30/20250843Goajta67/09/2025Telephone [facility] [address] [facility] [address] Phyllis Barrett MA ER Follow-up07/24/2025External Result Encounter [facility] External Department Unsolicited Bernie Buchanan NP 07/24/2025External Result Encounter [facility] External Department Unsolicited Bernie Buchanan NP 07/24/2025External Result Encounter [facility] External Department Unsolicited Bernie Buchanan, AMANUEL from Last 3 Months Immunizations ImmunizationAdministration DatesNext DueDTaP / HiB / IPV08/18/2009DTaP, Ohjnzptumnf00/19/2011,09/08/2010,08/07/2006Hep A, ped/adol, 2 dose09/08/2010, 08/18/2009Hep B, Adolescent or Xssypycbv22/01/2009,2005Hib / Hep B 08/07/2006IPV08/07/2006Influenza, injectable, MDCK, preservative free, dqflcuaqymrp41/20/2023Influenza, seasonal, wcjcmyiczb90/19/2011,09/08/2010, 08/18/2009Influenza, seasonal, injectable, preservative free09/09/2024MMR 08/18/2009MMRV09/08/2010Meningococcal UET1K0707/30/2023Meningococcal MCV4P 07/22/2018Pneumococcal Conjugate PCV ,08/07/2006Polio, Unspecified 09/08/2010Tdap07/22/20180945Byqrcwfiu33/11/2008 Family History Medical HistoryRelationNameCommentsHeart attackMaternal GrandfatherDiabetes Maternal GrandmotherBipolar disorderMotherDepressionMotherRelationNameStatus CommentsMaternal GrandfatherMaternal GrandmotherMotherAlive Social History Tobacco UseTypesPacks/DayYears UsedDateSmoking Tobacco: FormerCigarettes Smokeless Tobacco: Never Tobacco Cessation:Counseling Given: Not Answered Alcohol UseStandard Drinks/WeekCommentsNot Currently0 (1 standard drink = 0.6 oz pure alcohol)PHQ-2AnswerDate RecordedPatient Health Questionnaire-2 Score0 08/30/2025CommentsUnknownSex and Gender InformationValueDate RecordedSex Assigned at BirthNot on fileLegal DpoFlsyga79/15/2023 11:20 PM EDTGender IdentityNot on fileSexual OrientationNot on file Last Filed Vital Signs Vital SignReadingTime TakenCommentsBlood Cutsodnm191/7008/30/2025 4:27 PM EDT Wyqxz246408/30/2025 4:27 PM QOPCaxfkjhlpha69.4 ??C (97.6 ??F)08/30/2025 4:27 PM EDTRespiratory Ltjy9868 2:00 PM EDTOxygen Qxpdmhajqe654%08/30/2025 4:27 PM EDTInhaled Oxygen Concentration--Kbpcvo57.9 kg (103 lb 6.4 oz)08/30/2025 4:27 PM QCKGmrvsm262.6 cm (5' 4 )08/30/2025 4:27 PM EDTBody Mass Index17.7508/30/2025 4:27 PM EDT Plan of Treatment Health MaintenanceDue DateLast DoneCommentsCOVID-19 Vaccine ( season) 2025Influenza Vaccine (#1)61, 10/07/2023, 09/05/2011, Additional history existsPostponed from 07/19/2025 (Patient Refused)Pneumococcal Vaccine: Pediatrics (0 to 5 Years) and At-Risk Patients (6 to 64 Years)Aged Out 08/18/2009, 08/07/2006No longer eligible based on patient's age to complete this topic Procedures Procedure NamePriorityDate/TimeAssociated DiagnosisCommentsPOCT RAPID STREP A Drattcq6708/30/2025 4:40 PM EDT Sore throat COVID-19 / FLU A/B / RSV PCR ([facility])STAT07/24/2025 10:37 AM EDT COVID-19 / FLU A/B / RSV PCR ([facility])STAT07/24/2025 10:37 AM EDT RAPID STREP PETQUDMDYZ64/06/2025 10:37 AM EDT from Last 3 Months Results * (ABNORMAL) POCT rapid strep A manually resulted (08/30/2025 4:40 PM EDT) ComponentValueRef RangeTest MethodAnalysis TimePerformed AtPathologist SignatureRapid Strep A ScreenPositive(A)Negative, None DetectedSpecimen (Source)Anatomical Location / LateralityCollection Method / VolumeCollection TimeReceived KpzdHmkj76/13/2025 4:40 PM EDT Narrative Authorizing ProviderResult TypeResult StatusAnel Quarles NPPOINT OF CARE TEST ENTER/EDIT ORDERABLESFinal Result * COVID-19 / FLU A/B / RSV PCR ([facility]) (07/24/2025 10:37 AM EDT) Only the most recent of2 resultswithin the time period is included. ComponentValueRef RangeTest MethodAnalysis TimePerformed AtPathologist Signature CEPHEID COVID PCR INMZGPCTTngowbamHftgrube96/06/2025 11:26 AM [facility] CtrComment: This is a duplicate Cepheid Xpert Xpress CoV-2/Flu/RSV Plus RNA by RT-PCR result to be used for statistical tracking purpose only. Specimen (Source)Anatomical Location / LateralityCollection Method / Volume Collection TimeReceived TimeNasopharyngealTopography unknown / Ncbykvi5907/24/2025 10:37 AM EDT07/24/2025 10:44 AM EDT Narrative Authorizing ProviderResult TypeResult StatusCarrie A Daleepert NPLAB BLOOD ORDERABLESFinal ResultPerforming OrganizationAddressty/State/[facility] CodePhone Number [address] [address], [facility] [address] [place] [address] * (ABNORMAL) Rapid strep screen (07/24/2025 10:37 AM EDT)ComponentValueRef Range Test MethodAnalysis TimePerformed AtPathologist SignatureSTREPTOCOCCUS PYOGENES AG PRESENCE IN THROAT BY RAPID IMMUNOASSAYSTREPTOCOCPositive for Group A Strep Antigen(A)07/24/2025 10:56 AM [facility] REFERENCE NOTE 1 07/24/2025 10:56 AM [facility] CtrREFERENCE NOTE 2Reference range = Ougtwlzo33/06/2025 10:56 AM [facility] CtrSpecimen (Source)Anatomical Location / LateralityCollection Method / VolumeCollection TimeReceived TimeThroatSTRUCTURE OF ANTERIOR REGION OF NECK / Unknown 07/24/2025 10:37 AM EDT07/24/2025 10:44 AM EDT Narrative Authorizing ProviderResult TypeResult StatusCarrie Cinthia Buchanan NPLAB MICROBIOLOGY - GENERAL ORDERABLESFinal ResultPerforming OrganizationAddressty/[facility]/ZIP CodePhone Number [address] [address], [facility] [address] [place] [address] from Last 3 Months Insurance Care Teams Team MemberRelationshipSpecialtyStart DateEnd Date Margo Lozano MD, IBCLC [address] [place] [address] [facility]12/05/24
--- OUTSIDE RECORDS SUMMARY | 2025-09-30 07:34 | XMS_ITS | Clinical Summary ---
Author Organization [facility] Address [address] [facility] [place] [address] Care Team Providers Care [employer] Appeals Law Clerk Name Role Phone Unavailable Primary Care Provider Unavailabl e Source Comments The following information is NOT included in Care Everywhere downloads:Psychiatric notes, ECG results, Cardiac Rehab notes, Pulmonary Function notes, data from [employer] (includes but not limited toPregnancy data,audiograms, eye exams, pre-surgical evaluation notes, well-child exam data).[facility] Allergies No known active allergies Medications No known medications Social History Tobacco UseTypesPacks/DayYears UsedDateSmoking Tobacco: Never Assessed CommentsUnknownSex and Gender InformationValueDate RecordedSex Assigned at Not on fileLegal TfnBllkee80/04/2012 1:13 PM ESTGender IdentityNot on fileSexual OrientationNot on file Last Filed Vital Signs Vital SignReadingTime TakenCommentsBlood Ewpnzhtg578/61003/26/2011 12:45 PM EDT Ogxhq63400/09/2011 12:45 PM KMGNdhogagusps62 ??C (96.8 ??F)03/26/2011 12:45 PM EDTRespiratory Kasa704503/26/2011 12:45 PM EDTOxygen Ehcpakdgxu80%03/26/2011 12:45 PM EDTInhaled Oxygen Concentration--Oizozl65.4 kg (34 lb)03/26/2011 9:00 AM EDT Ejwkyq416 cm (3' 6.5 )03/26/2011 9:00 AM EDTBody Mass Index13.23003/26/2011 9:00 AM EDT Plan of Treatment Health MaintenanceDue DateLast DoneCommentsHIV Test2020HPV Vaccine (1 - 3- dose series)2020Meningococcal B (Bexsero,OMV) Vaccine (Optional,16-23 years)2021Hepatitis C Uurixdfj43/05/2023STI Screening (Age 18-24) 2023Tdap Gggtvja7208/22/2023Hepatitis A (HAV) Vaccine (optional start 19+ years)2024Hepatitis B (HBV) Vaccine (1 of 3 - 19+ 3-dose series)2024 Tetanus (Td or Tdap) Afcmyft0808/22/2024OVID-19 Vaccine ( - 2024- season) 2025Influenza Vaccine (#1)2025Shingles (RZV) Vaccine (1 of 2) 2055MammographyDiscontinuedPneumococcal Vaccine(s)Aged OutNo longer eligible based on patient's age to complete this topic Insurance * Guarantor: Samson TOBIAS TypeRelation to PatientDate of BirthPhone Billing AddressPersonal/FamilyFather [address] [place] [address] * Guarantor: Samson TOBIAS TypeRelation to PatientDate of BirthPhone Billing AddressPersonal/FamilyFather [address] [place] [address] * Guarantor: Samson TOBIAS TypeRelation to PatientDate of BirthPhone Billing AddressR[facility] [address] [place] [address]
--- OUTSIDE RECORDS SUMMARY | 2025-09-30 07:34 | XMS_ITS | Clinical Summary ---
Author Organization [facility] Address [address] [place] [address] Care Team Providers Care Carbon Paper Coating Machine Setter Name Role Phone Unavailable Primary Care Provider Unavailabl e Social History Tobacco UseTypesPacks/DayYears UsedDateSmoking Tobacco: Never AssessedUT Safety & EnvironmentAnswerDate RecordedFear of Current or Ex-PartnerNot on file 01/09/2024Emotionally AbusedNot on file01/09/2024hysically AbusedNot on file 01/09/2024Sexually AbusedNot on file01/09/2024hysically or Sexually AbusedNot on file01/09/2024CommentsUnknownSex and Gender InformationValueDate RecordedSex Assigned at BirthNot on fileLegal NdtZncivb36/30/2022 12:35 AM EDT Gender IdentityNot on fileSexual OrientationNot on file Plan of Treatment Not on file
--- OUTSIDE RECORDS SUMMARY | 2025-09-30 07:34 | XMS_ITS | CCD ---
Author Organization [facility] Care Team Providers Care System Safety Engineer Name Role Phone Dwayne Cisneros Primary Care Physician PROVIDER, UNKNOWN Attending Unavailable PROVIDER, UNKNOWN Admitting Unavailable Unavailable Primary Care Provider Unavailquang meadows Pcp, No Primary Care Provider PCP, NO Primary Care Unavailable DWAYNE CISNEROS Referring Unavailable RACQUEL FERRERA Attending Unavailable Emily Chan MD Primary Care Provider Fransico Brown DO Unavailable DR EMILY CHAN Primary Care Unavailable NNEKA RAI Attending Unavailable NNEKA RAI Admitting Unavailable BLAYNE, DR DUBOIS Primary Care Unavailable PAY ., DR MORALES Attending Unavailable PAY ., DR MORALES Admitting Unavailable BLAYNE, DR DUBOIS Primary Care [...] Unavailable HAY ., DR FAYE Admitting Unavailable BLAYNE, DR DUBOIS Primary Care Unavailable NEFCYKATIANA Consulting Unavailable DIAB ., YUN Consulting Unavailable DIAB ., YUN Attending Unavailable STAR, DR DIAZ Primary Care Unavailable DIAB ., YUN Admitting Unavailable DIAB ., YUN Admitting Unavailable DIAB ., YUN Attending Unavailable KEVIN ., JAQUELINE Consulting Unavailable BLAYNE, DR DUBOIS Primary Care Unavailable STAR, DR DIAZ Primary Care Unavailable MISC, DR HUSSEIN Consulting Unavailable MISC, DR HUSSEIN Attending Unavailable MISC, DR HUSSEIN Admitting Unavailable STAR, DR DIAZ Primary Care Unavailable NNEKA RAI Consulting Unavailable NNEKA RAI Attending Unavailable NNEKA RAI Admitting Unavailable HOUSE, DR DUBOIS Consulting Unavailable HOUSE, DR DUBOIS Attending Unavailable HOUSE, DR DUBOIS Admitting Unavailable HOUSE, DR DUBOIS Primary Care Unavailable STAR, DR DIAZ Primary Care Unavailable NNEKA RAI Attending Unavailable NNEKA RAI Admitting Unavailable HOUSE, DWAYNE Referring Unavailable HOUSE, DWAYNE Primary Care Unavailable FRANSICO BROWN Attending Unavailable HOUSE, DWAYNE Primary Care Unavailable NANCY ZURITA Attending Unavailable REFERRED, SELF Referring Unavailable TYLER MATHEW Attending Unavailabl e HOUSE, DWAYNE Referring Unavailable HOUSE, DWAYNE Primary Care Unavailable HOUSE, DWAYNE Primary Care Unavailable FRANSICO BROWN Attending Unavailable YANA DAVIS Referring Unavailable HOUSE, DWAYNE Referring Unavailable HOUSE, DWAYNE Primary Care Unavailable BROWN, FRANSICO Attending Unavailable FRANSICO BROWN Attending Unavailable REFERRED, SELF Referring Unavailable HOUSE, DWAYNE Primary Care Unavailable TYLER MATHEW Attending Unavailabl e KEANE, NAIF E Referring Unavailable HOUSE, DWAYNE Primary Care Unavailable HOUSE, DWAYNE Referring Unavailable HOUSE, DWAYNE Primary Care Unavailable FRANSICO BROWN Attending Unavailable Emily Chan MD Primary Care Provider [phone] Fransico Brown DO Unavailable Guanako, Amira J Admitting Unavailable Guanako, Amira J Attending Unavailable Guanako, Amira J Admitting Unavailable Guanako, Amira J Attending Unavailable Guanako, Amira J Admitting Unavailable Guanako, Amira J Attending Unavailable GamalielMcikey edwards Admitting Unavailable GamalielMickey edwards Attending Unavailable GamalielMickey edwards Referring Unavailable KASSINDENITA YI Attending Unavailable STAR, EMILY Primary Care Unavailable KASDENITA RAY Attending Unavailable STAR, EMILY Primary Care Unavailable STAR, EMILY Primary Care Unavailable KASDENITA RAY Attending Unavailable EMILY CHAN Primary Care Unavailable KASDENITA RAY Attending Unavailable STAR, EMILY Primary Care Unavailable KASRAJNIGERDENITA Attending Unavailable DENITA SOSA Attending Unavailable STAR, EMILY Primary Care Unavailable STAR, EMILY Primary Care Unavailable KASSINGER DENITA Attending Unavailable SPENSER CISNEROS Attending Unavailable HOUSE, DWAYNE Primary Care Unavailable STAR, EMILY Primary Care Unavailable KASDENITA RAY Attending Unavailable STRA, EMILY Primary Care Unavailable DENITA SOSA Attending Unavailable STAR, EMILY Primary Care Unavailable KASSINGER, DENITA Attending [...] DENITA Attending Unavailable KASSINGER, DENITA Attending Unavailable CHAN, EMILY Primary Care Unavailable KASSINGER, DENITA Attending Unavailable DWAYNE CISNEROS Primary Care Unavailable KASSINGER, DENITA Attending Unavailable DWAYNE CISNEROS Primary Care Unavailable CHAN, EMILY Primary Care Unavailable KASSINGER, DENITA Attending Unavailable CHNA, EMILY Primary Care Unavailable KASSINGER, DENITA Attending Unavailable KASSINGER, DENITA Attending Unavailable CHAN, EMILY Primary Care Unavailable CHAN, EMILY Primary Care Unavailable KASSINGER, DENITA Attending Unavailable KASSINGER, DENITA Attending Unavailable CHAN, EMILY Primary Care Unavailable Tom SALCEDO, Sasha Wesley Primary Care Provider Dwayne Cisneros Primary Care Provider Marta SALCEDO, IBCLC, Aakash Primary [facility] Provid er Chris GAS MAIN FITTER HELPER-CLeni Primary Care Provider [phone] Bernie Buchanan APRN Emergency Provider Bernie Buchanan Attending Unavailable Bernie Buchanan Admitting Unavailable Leni Perez Primary Care Unavailable Marta SALCEDO, IBCLC, Aakash Primary [facility] Provid er ANEL QUARLES Attending Unavailable AAKASH LOZANO Attending Unavailable Medications Current Medications MedicationDrug Class(es)DatesSig (Normalized)Sig (Original)amoxicillin 875 mg oral tablet (3 sources)Penicillin-class AntibacterialStart: 01-64-8911aqxk 1 tablet by mouth twice dailyStart: 06-27-2018 End: 54-55-3809tasv 1 tablet by mouth three times dailyAmoxicillin 500 mg Tablet Discontinued 500 MG PO Three times daily June 27, 2018 12:00am September 05, 2024 2:21pmamoxicillin 875 mg / clavulanate 125 mg oral tablet (2 sources)Penicillin-class AntibacterialStart: 08-30-2025 End: 22-05-9593lhxq 1 tablet by mouth in the morningamoxicillin-clavulanate (Augmentin) 875-125 MG tablet Indications: Sore throat , Group A streptococcal infection Take 1 tablet (875 mg) by mouth in the morning and 1 tablet (875 mg) before bedtime. Do all this for 10 days. 20 tablet 08/30/2025 09/09/2025 Active calcium carbonate 1250 mg / cholecalciferol 200 unt oral tablet (15 sources)Vitamin Dtake 1 tablet by mouth once in the morningcalcium carbonate-vitamin D (Oscal-500) 500-200 MG-UNIT tablet Take 1 tablet by mouth in the morning. 0 Activedextromethorphan hydrobromide 15 mg / guaiFENesin 400 mg / pseudoephedrine hydrochloride 60 mg oraltablet (2 sources)alpha-Adrenergic Agonist, Uncompetitive P-qtvodt-T-aspartate Receptor Antagonist, Sigma-1 AgonistStart: 53-97-7216vxmu 4 tablets by mouth every twenty-four hours as neededethinyl estradiol 0.035 mg / norgestimate 0.25 mg oral tablet (4 sources)Progestin, EstrogenStart: 08-21-2023 End: 61-35-2319ciee 1 tablet by mouth in the morningMili 0.25-35 MG-MCG tablet Take 1 tablet by mouth in the morning. 08/21/2023 09/09/2024 Discontinued (Therapy completed)Ethinyl Estradiol / Norgestrel (13 sources)EstrogenStart: 56-56-5468aavqmuzuud-ethinyl estradiol (Low-Ogestrel) 0.3-30 MG-MCG tabletStart: 40-18-5201Nll-Ogestrel (28) 0.3 mg-30 mcg tablet etonogestrel 68 mg drug implant (9 sources)ProgestinStart: 42-99-8213zsognbtjiszs-eluting (Nexplanon) 68 mg contraceptive implant 1 each by Implant route 1 (one) time ActiveEtonogestrel (Nexplanon) 68 mg implant (1 source)Start: 88-24-6296Mdknnxvouqrp (Nexplanon) 68 mg implant Active SUBDERMAL September 05, 2024 12:00am implanted 08/2024 Dr. Bolanossin 1 mg oral capsule (15 sources)alpha-Adrenergic Blockertake 1 capsule by mouth once dailyprazosin (Minipress) 1 MG capsule Take 1 mg by mouth Nightly. 0 Activesertraline 100 mg oral tablet (20 sources)Serotonin Reuptake InhibitorStart: 25-52-0085Vvzqz: 91-39-5965ryje 150 mg by mouth once dailySertraline Active 150 MG PO Daily September 05, 2024 12:00amStart: 06-17-2024 End: 02-56-8331ausaehnvja (Zoloft) 100 MG tablet Indications: PTSD (post- traumatic stress disorder) , Depression with anxiety TAKE 1 AND 1/2 TABLETS BY MOUTH ONCE A DAY AT THE SAME TIME 135 tablet 2 07/10/2024 ActiveStart: 05-81-3890ceuj 2 tablets by mouth once daily at bedtimesertraline 100 mg tablet (Zoloft) TAKE 2 TABLETS BY MOUTH NIGHTLY AT BEDTIME 0 12/09/2022 Active sertraline (Zoloft) 100 MG tablet Take 150 mg by mouth Nightly. 0 Active tobramycin 3 mg/ml ophthalmic solution (1 source)Aminoglycoside AntibacterialStart: 71-58-4929qsww 0.3 drop(s) into the eye(s) every four hours Completed/Discontinued Medications MedicationDrug Class(es)DatesSig (Normalized)Sig (Original)ondansetron 4 mg disintegrating oral tablet (2 sources)Serotonin-3 Receptor AntagonistStart: 06-27-2018 End: 77-74-4250Rnuwocxlbax 4 mg tablet,disintegrating Discontinued June 27, 2018 12:00am September 05, 2024 2:21pmStart: 06-27-2018 End: 09-56-0497Pruifdntjkq Discontinued June 27, 2018 12:00am September 05, 2024 2:21pm Problems Active Problems Problem ClassificationProblemDateDocumented DateEpisodic/ChronicAbdominal pain (1 source)Unspecified abdominal pain; Translations: [UNSPECIFIED ABDOMINAL PAIN] Onset: 74-75-2702JbuqfvbyVykwvzxwow disorders (1 source)Reaction to severe stress, unspecified; Translations: [REACTION TO SEVERE STRESS UNS]Onset: 05-98-4448ZfsfyzlTyfuavl disorders (20 sources)Posttraumatic stress disorder; Translations: [Post-traumatic stress disorder, unspecified]Onset: 69-73-8152UmirzxuEldpidjle infection; unspecified site (2 sources)Streptococcal infectious disease; Translations: [Streptococcus, group A, as the cause of diseases classified elsewhere]97-98-1746YunwknhaMliuqltr; convulsions (2 sources)Seizure disorder; Translations: [Epilepsy, unspecified, not intractable, without status epilepticus]03-41-8801DtolpvkFnqettd on above: NON-EPILEPTICFever of unknown origin (1 source)Fever, unspecified; Translations: [Fever, unspecified]Onset: 15-04-8808FvdnxcxfTtkvawlzeuxqv symptoms and ill-defined conditions (11 sources)Microscopic hematuria; Translations: [Other microscopic hematuria] Onset: 01-86-8880HmazybdwFrrmqfbutqatq and screening for infectious disease (2 sources)Vaccination needed; Translations: [Encounter for immunization] 49-32-1801DmpkqeidBvincfpfcyig; infection of eye (except that caused by tuberculosis or sexually transmitteddisease) (1 source)Acute infectious conjunctivitis; Translations: [Unspecified acute conjunctivitis, bilateral]40-02-3270GeaqknghZizvfzhgqjdzx mental health disorders (20 sources)Psychologic conversion disorder; Translations: [Conversion disorder with seizures or convulsions]Onset: 59-67-1893SyhnmddQwjujplswxr deficiencies (1 source)Vitamin D deficiency, unspecified; Translations: [VITAMIN D DEFICIENCY UNSPECIFIED]Onset: 66-19-4796LggjnegUwwac bone disease and musculoskeletal deformities (10 sources)Emmie Schlatter disease; 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]Onset: 565270-98-6684WqcznyyJtxlb eye disorders (1 source)Edema of unspecified eye, unspecified eyelid; Translations: [Edema of unspecified eye, unspecified eyelid]Onset: 00-29-3277NpxuxnkzPpbyc upper respiratory infections (5 sources)Viral upper respiratory tract infection; Translations: [Acute upper respiratory infection, unspecified]Onset: 619908-93-1713KdzssepfXxcgbjcx codes; unclassified (3 sources)Sleep inttc97-37-8507TzlxshgBcrfzhbwgmc; intervertebral disc disorders; other back problems (1 source)Muscle spasm of back; Translations: [MUSCLE SPASM OF BACK]Onset: 25-44-8450JugfovzwYkfuyzbteqpi (3 sources)LOW BACK PAIN, UNSPECIFIED; Translations: [LOW BACK PAIN, UNSPECIFIED]Onset: 50-83-2322Umruharkgejg (1 source)CONTACT W/AND (SUSP) EXPOS COVID-19; Translations: [CONTACT W/AND (SUSP) EXPOS COVID-19]Onset: 08-17-2022 Past or Other Problems Problem ClassificationProblemDateDocumented DateEpisodic/ChronicE Codes: Natural/environment (1 source)Exposure to other specified factors, initial encounter; Translations: [EXPOSURE OTHER SPEC FACTORS INITIAL]Onset: 31-53-8198VdpdkfuvAqpetnml; convulsions (15 sources)Unspecified convulsions; Translations: [Neurological finding]Onset: 11-15-2021 Resolved: 89-77-1426RquvxqmbTxifzkks of upper limb (10 sources)Open fracture of shaft of radius and ulna; Translations: [Unspecified fracture of shaft of unspecified radius, initial encounter for open fracture type I or II]Onset: 304455-86-2718LomvymkoYiyh disorders (10 sources)Depressive disorder; Translations: [Depression]Onset: 08-28-2022 Resolved: 206321-18-9181DxmpfwdEwkwr aftercare (1 source)Other termite exterminator helper (current) drug therapy; Translations: [OTH RETAIL SERVICES PROFESSIONAL CURRENT DRUG THERAPY]Onset: 80-93-2977KxzvmzfbMmqsw injuries and conditions due to external causes (4 sources)Food in respiratory tract, part unspecified causing other injury, initial encounter; Translations: [FOOD RESP TRACT PRT UNS OTH INJ INT]Onset: 43-55-4067LtcsqvwsWakrqkju codes; unclassified (4 sources)Procedure and treatment not carried out due to patient leaving prior to being seen by health care provider; Translations: [PROC AND TX NOT CARRIED OUT PT LEAVE]Onset: 31-63-0919WdcjbjndIeetmmg and intentional self-inflicted injury (4 sources)Poisoning by other antipsychotics and neuroleptics, intentional self- harm, initial encounter; Translations: [PSN OTH ANTIPSYCH NLS SLF-HARM INIT] Onset: 51-83-1587TtrpqoygLllbvmrlbqiu (1 source)LOW BACK PAIN, UNSPECIFIED; Translations: [LOW BACK PAIN, UNSPECIFIED] Onset: 46-20-6097Gdbke infection (10 sources)Disease caused by 2019-nCoV; Translations: [COVID-19]Onset: 11-15-2021 Resolved: 014584-69-9404Sbqkzeyb Results Test NameValueInterpretationReference RangeFacilityLaboratory - Microbiology and Antimicrobial susceptibilityon 08-30-2025S. pyogenes Ag Ql (Throat)Positive AbnormalNegative, None DetectedNODC HealthcareNo Panel Informationon 08-30-2025 Interpretation and review of laboratory resultsAbnormalNOMercy McCune-Brooks HospitalNODC HealthcareCOVID Cepheid NegativeOrdered By: Bernie Buchanan on 07-24-2025 SARS-CoV-2 (COVID-19) Ab IA QlNegativeNegativeMagruder Hospital Comment on above:This is a duplicate Cepheid Xpert Xpress CoV-2/Flu/RSV Plus RNA by RT-PCR result to be used for statistical tracking purpose only.COVID-19 / FLU A/B / RSV PCR ([facility])on 90-29-7535HBZV-CoV-2 (COVID-19) RNA UNA+probe Ql (Unsp spec)NegativeNegativeNODC HealthcareComment on above:This is a duplicate Cepheid Xpert Xpress CoV-2/Flu/RSV Plus RNA by RT-PCR result to be used for statistical tracking purpose only. [facility] [employer] MobileCEPHEID DISCLAIMERThe Cepheid Xpert Xpress CoV-2/Flu/RSV Plus has [facility] [employer] MobileCEPHEID DISCLAIMERnot been FDA cleared or approved; this test has [facility] HealthcareCEPHEID DISCLAIMERbeen authorized by FDA under an EUA for use by [facility] [employer] MobileCEPHEID DISCLAIMERauthorized laboratories; this test has [facility] HealthcareCEPHEID DISCLAIMERauthorized only for the simultaneous qualitative [facility] HealthcareCEPHEID DISCLAIMERdetection and differentiation of nucleic acids fromWise Health System East CampusID DISCLAIMERrespiratory syncytial virus (RSV), and not for anyINTER[facility] HealthcareCEPHEID DISCLAIMERother viruses or pathogens; and this test is onlyNODC HealthcareCEPHEID DISCLAIMERauthorized for the duration of the declaration that[facility] HealthcareCEPHEID DISCLAIMERcircumstances exist justifying the authorization ofNODC HealthcareCEPHEID DISCLAIMERemergency use of in vitro diagnostic tests forWise Health System East CampusID DISCLAIMERSection 564(b)(1) of the Act, 21 U.S.C. 360bbb-[facility] HealthcareCEPHEID DISCLAIMER3(b)(1), unless the authorization is terminated orNMCALESTER REGION[facility] [place] HealthcareCEPHEID DISCLAIMERrevoked sooner. [facility] HealthcareFLU A CEPHEID RESULTNegativeNODC HealthcareFLU B CEPHEID RESULT NegativeINTER[facility]AIN [facility] HealthcareREFERENCE:NegativeINTER[facility] HealthcareRSV CEPHEID RESULT Negative[facility] ErdbarlthxEUDR-VkT-2 (COVID-19) Ab IA ZdBZVD-KsY-2, influenza A, influenza B, andNODC CwuybrjidrIGHM-DjT-6 (COVID-19) RNA UNA+probe Ql (Unsp spec)NegativeNODC AokkekramhGTQJ-DvN-6 (COVID-19) RNA UNA+probe Ql (Unsp spec) detection and/or diagnosis of COVID-19 underCrossroads [facility] HealthcareCOVID- 19 / Flu A/B / RSV PCRon 93-69-3460FQSD-CoV-2 (COVID-19) RNA UNA+probe Ql (Unsp spec)COVID-19 Cepheid Result Negative for SARS-CoV-2 RNA by RT-PCR Flu A Cepheid Result Negative for Flu A RNA by RT-PCR Flu B Cepheid Result Negative for Flu B RNA by RT-PCR RSV Cepheid Result Negative for RSV RNA by RT-PCR COVID19 Blank Space Reference: Negative COVID19 Blank Space Cepheid Disclaimer The Cepheid Xpert Xpress CoV-2/Flu/RSV Plus has Cepheid Disclaimer not been FDA cleared or approved; this test has Cepheid Disclaimer been authorized by FDA under an EUA for use by Cepheid Disclaimer authorized laboratories; this test has been Cepheid Disclaimer authorized only for the simultaneous qualitative Cepheid Disclaimer detection and differentiation of nucleic acids from Cepheid Disclaimer SARS-CoV-2, influenza A, influenza B, and Cepheid Disclaimer respiratory syncytial virus (RSV), and not for any Cepheid Disclaimer other viruses or pathogens; and this test is only Cepheid Disclaimer authorized for the duration of the declaration that Cepheid Disclaimer circumstances exist justifying the authorization of Cepheid Disclaimer emergency use of in vitro diagnostic tests for Cepheid Disclaimer detection and/or diagnosis of COVID-19 under Cepheid Disclaimer Section 564(b)(1) of the Act, 21 U.S.C. 360bbb- Cepheid Disclaimer 3(b)(1), unless the authorization is terminated or Cepheid Disclaimer revoked sooner. PERFORMED BY: [address] [place] [id number] PATHOLOGIST CERTIFIED MEDICAL BILLER CARL FERNÁNDEZ M.D.NormalThe [facility] Physician GroupComment on above: Performed By: #### COVID19 FLU RSV, CEPHEID NEG, QS #### [facility] [address] [id number] USACepheid COVID PCR Negativeon 82-77-3935PKCF-CoV-2 (COVID- 19) RNA UNA+probe Ql (Unsp spec)NegativeNormalNegativeThe [facility] Physician GroupComment on above:Result Comment: This is a duplicate Cepheid Xpert Xpress CoV-2/Flu/RSV Plus RNA by RT-PCR result to be used for statistical tracking purpose only. PERFORMED BY: [place] [address] PATHOLOGIST CERTIFIED MEDICAL BILLER CARL FERNÁNDEZ M.D.Performed By: #### COVID19 FLU RSV, CEPHEID NEG, QS #### [place] [id number] USALaboratory - Microbiology and Antimicrobial susceptibility on 89-12-4059KCGR-CoV-2 (COVID-19) RNA UNA+probe Ql (Unsp spec) [facility] HealthcareQuick Strep on 07-24-2025S. pyogenes Ag IA Ql (Unsp spec)Streptococcus pyogenes Ag [Presence] in Throat by Rapid immunoassay Positive for Group A Strep Antigen Reference range = Negative PERFORMED BY: [place] [address] PATHOLOGIST CERTIFIED MEDICAL BILLER CARL FERNÁNDEZ M.D.NormalThe [facility] Physician GroupComment on above: Performed By: #### COVID19 FLU RSV, CEPHEID NEG, QS #### [place] [address] USARapid strep screenon 07-24-2025S. pyogenes Ag IA.rapid Ql (Throat)PositiveAbnormalNOMS HealthcareRespiratory specimen influenza A virus, influenza B virus, respiratory syncytical virOrdered By: Bernie Buchanan on 03-89-9104GAVE-CoV-2 (COVID-19) RNA UNA+probe Ql (Unsp spec)[facility]. pyogenes Ag IA.rapid Ql (Throat)on 89-49-2125Idmzpnvpxliqeq and review of laboratory resultsAbnormalNOMS HealthcareREFERENCE NOTE 1 N[facility] HealthcareREFERENCE NOTE 2NegativeNOMS HealthcareNODC HealthcareStreptococcus pyogenes antigen detectionOrdered By: Bernie Buchanan on 07-24-2025S. pyogenes Ag Ql (Unsp spec) [facility]uder HospitalUS Pelvis Non-OB Completeon 39-47-0335MI Pelvis Non-OB CompleteExam Date/Time: 08/05/2023 18:40 EDT Reason for Exam: [...] MOISES Technologist: ANTONELLA Technical Comments Transabdominal Ultrasound PerformedNoSelect Medical Specialty Hospital - CantonConsent for Treatmenton 82-66-8720Crfbntc for Treatment [id number]#1.00CD:127NormKindred HealthcarePhysician Orderon 19-79-1915Xubiubowu Order [id number]#1.00CD:[address] [place], [place] [address]on 69-38-117092Hjdpez to confirm appointment. Patient did not answer. LVM telling them to call back if they need to reschedule.[facility] SHS Chlamydia/Gonococcus, NAAon 04-26-2023. trachomatis rRNA UNA+probe Ql (Unsp spec)NegativeInvalid Interpretation CodeNegGenesis Hospital Comment on above:Performed By: #### [id number] #### [place] [facility] [address], [place] [address]T. gonorrhoeae rRNA UNA+probe Ql (Unsp spec)NegativeInvalid Interpretation CodeNegGenesis HospitalComment on above:Result Comment: Performed at: =[address] [id number] MD Briseno ManaliPerformed By: #### [id number] #### [place] [facility] [address], [place] [address]Ufzxxbioq Orderon 33-24-5912Yofyvscsq Order [id number]#1.00CD:[address] [place], [place] [address]Physician Orderon 53-86-9521Pimzhupfg Order [id number]#1.00CD:[address] [place], [place] [address]on 86-23-919835M've entered a response to the patient's message below. Response to the message: I think you can now message me through my chart Denita CartagenaCohen Children's Medical Center SHSProgress Noteon 03-06-2023 Progress NoteClients mom cancelled client having PNES seizureCohen Children's Medical Center SHSProgress Noteon 51-00-2252Blyrzvwz NoteClient cancelledCohen Children's Medical Center SHSPATINSon 05-23-8927VLSCNELuvraz follow the seizure precautions below: Please do [...] drive. You are encouraged to contact the casino porter/Baker of Motor Vehicles to apprise them of your medical condition. If you have any questions or further seizures, please call the Epilepsy clinic to schedule an appointment.[facility] SHSProgress Noteon 33-89-7484Pksafozy NoteDepartment of Neurological Sciences Section of Epilepsy [facility] NEUROS[facility] [address] [facility] [address] Dept: [phone] Dept Loc: [phone] . Visit type: follow-up Reason for Visit: [...] that they are currently in the state [facility]. If the patient is a minor, permission has been obtained by the parent or guardian for the patient to receive medical care at this visit. AL Blel is a 17 y.o. 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 She was last seen on 08/28/2022. Prior History: The patient was initially seen in epilepsy clinic on 08/28/2022, please refer to this note for a detailed seizure history (only available via [facility] Chart Link). 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 She has been participating in focused CBT therapy through our clinic. The patient has been working with our epilepsy clinic social work coordinator (Denita Sosa, last seen on 01/29/23) on focused [...] has been following with Dr. Fransico Brown ([facility]), last seen on 10/04/2022. Review of Systems No Known Allergies Current Outpatient Medications Medication Sig Dispense Refill norgestrel-ethinyl estradiol (Low-Ogestrel) 0.3-30 MG-MCG tablet sertraline (Zoloft) 100 MG tablet Take 150 mg by mouth Nightly. No current facility-administered medications for this visit. Past Medical History: [...] Cranial nerve XI: S (more content not included)...[facility] CBC AUTO DIFFon [id number] #0.1 103/ulNormal0.0-0.1[facility] Comment on above:Performed By: #### DRUGRPD #### [facility] [address] [address] [address] Heather SalasBasophils/100 WBC (Bld)0.6 %Normal0.2-2.0[facility] Comment on above:Performed By: #### DRUGRPD #### [facility] [address] [address] [address] Heather Waldrop #0.2 103/ulNormal0.0-0.7The [facility] CampusComment on above: Performed By: #### DRUGRPD #### [facility] [address] [address] [address] Heather Stallingsosinophils/100 WBC (Bld)1.8 %Normal0.9-7.0[facility] Comment on above:Performed By: #### DRUGRPD #### [facility] [address] [place] [address] Dr. Heather Stallingsrythrocyte distribution width (RBC) [Ratio]12.9 %Pkasbq62.0-15.[address] [facility] CampusComment on above:Performed By: #### DRUGRPD #### [facility] [address] [place] [address] Dr. Heather SalasHematocrit (Bld) [Volume fraction]38.1 %Lbuqco57.0-48.0The [facility] Seco HospitalComment on above:Performed By: #### DRUGRPD #### [facility] [address] [place] [address] Dr. Heather SalasHemoglobin (Bld) [Mass/Vol]12.6 g/iAMakwhe00.0-16.0The [facility] CampusComment on above:Performed By: #### DRUGRPD #### [facility] [address] [place] [address] Dr. Heather Proctor #0.03 10e3/ulNormal0.00-0.03The [facility] CampusComment on above:Performed By: #### DRUGRPD #### [facility] [address] [place] [address] Dr. Heather Proctor %0.4 %Normal0.0-0.5The [facility] CampusComment on above: Performed By: #### DRUGRPD #### [facility] [address] [place] [address] Dr. Heather HoH #2.8 103/ulNormal1.2-3.8The [facility] CampusComformerly [facility] on above:Performed By: #### DRUGRPD #### [facility] [address] [place] [address] Dr. Heather Hohocytes/100 WBC (Bld)34.6 %Fbqnmc51.5-60.0The [facility] CampusComment on above:Performed By: #### DRUGRPD #### [facility] [address] [place] [address] Dr. Heather AlfaroUAL DIFF REQNONormalThe St[facility] CampusComment on above: Performed By: #### DRUGRPD #### [facility] [address] [place] [address] Dr. Heather Rosales (RBC) [Entitic mass]30.1 ffMgmdls96.7-34.0The [facility] CampusComment on above:Performed By: #### DRUGRPD #### [facility] [address] [place] [address] Dr. Heather Rosales (RBC) [Mass/Vol]33.1 g/bZRneuib55.9-35.2The [facility] CampusComment on above:Performed By: #### DRUGRPD #### [facility] [address] [place] [address] Dr. Heather Rosales (RBC) [Entitic vol]90.9 zABwmynl84.1-95.6The [facility] CampusComment on above:Performed By: #### DRUGRPD #### [facility] [address] [place] [address] Dr. Heather Justin #0.4 103/ulNormal0.3-0.8The [facility] CampusComment on above:Performed By: #### DRUGRPD #### [facility] [address] [place] [address] Dr. Heather Baocytes/100 WBC (Bld)4.9 %Normal1.7-12.0The [facility] Comment on above:Performed By: #### DRUGRPD #### [facility] [address] [place] [address] Dr. Heather Howard #4.7 103/ulNormal1.4-6.5The [facility] CampusComment on above:Performed By: #### DRUGRPD #### [facility] [address] [place] [address] Dr. Heather Romanophils/100 WBC (Bld)57.7 %Myahor80.0-75.0The [facility] CampusComment on above:Performed By: #### DRUGRPD #### [facility] [address] [place] [address] Dr. Heather Naik mean volume (Bld) [Entitic vol]10.4 fLNormal9.5-13.5The [facility] CampusComment on above:Performed By: #### DRUGRPD #### [facility] [address] [place] [address] Dr. Heather SalasPLT244 103/iaTywhjz195-035Wmp [facility] CampusComment on above: Performed By: #### DRUGRPD #### [facility] [address] [place] [address] Dr. Heather SalasRBC4.19 106/ulNormal3.40-5.30The [facility] CampusComment on above:Performed By: #### DRUGRPD #### [facility] [address] [place] [address] Dr. Heather SalasWBC8.1 103/ulNormal4.0-11.0The [facility] CampusComment on above: Performed By: #### DRUGRPD #### [facility] [address] [place] [address] Dr. Heather SalasDRUG SCREEN RAPID (URINE)on 16-09-4189ODTFzgctbcsDxnnllECTCHFMI [facility] CenterComformerly [facility] on above:Performed By: #### BMP #### [facility] [address] [place] [address] Dr. Heather AshtonNegativeNormalNEGATIVEChillicothe Va Medical CenterComformerly [facility] on above: Performed By: #### BMP #### [facility] [address] [place] [address] Dr. Heather ColonPNegativeNormalNEGATIVEChillicothe Va Medical CenterComformerly [facility] on above: Performed By: #### BMP #### [facility] [address] [place] [address] Dr. Heather SalasBZONegativeNormalNEGATIVEChillicothe Va Medical CenterComment on above: Performed By: #### BMP #### [facility] [address] [place] [address] Dr. Heather MarquezCNegativeNormalNEGATIVEChillicothe Va Medical CenterComment on above: Performed By: #### BMP #### [facility] [address] [place] [address] Dr. Heather TaylorNorwalk Memorial HospitalComment on above: Result Comment: AMP (Amphetamine): 500ng/mL, BAR (Barbituates): 200 ng/mL, BZO (Benzodiazepines): 150 ng/mL, BUP (Buprenorphine): 10 ng/mL, LANG (Cocaine): 150 ng/mL, mAMP (Methamphetamine): 500 ng/mL, MTD (Methadone): 200 ng/mL, OPI (Opiates): 100 ng/mL, OXY (Oxycodone): 100 ng/mL, PCP (Phencyclidine): 25 ng/mL, PPX (Propoxyphene): 300 ng/mL, THC (Cannabinoids): 50 ng/mL, TCA (Trycyclic Antidepressants): 300 ng/mLPerformed By: #### BMP #### [facility] [address] [place] [address] Dr. Heather SalasDRUG CUT HEADERDRUG CLASS TEST SYSTEM CUT-OFF CONCENTRATIONS ARE FOLLOWS:NormalBluffton Hospital on above:Performed By: #### BMP #### [facility] [address] [place] [address] Dr. Heather SalasmAMPNegativeNormalNEGATIVEChillicothe Va Medical CenterComformerly [facility] on above: Performed By: #### BMP #### [facility] [address] [place] [address] Dr. Heather SalasMTDNegativeNormalNEGATIVEChillicothe Va Medical CenterComformerly [facility] on above: Performed By: #### BMP #### [facility] [address] [place] [address] Dr. Heather SalasOPINegativeNormalNEGATIVEChillicothe Va Medical CenterComformerly [facility] on above: Performed By: #### BMP #### [facility] [address] [place] [address] Dr. Heather SalasOXYNegativeNormalNEGATIVEChillicothe Va Medical CenterComformerly [facility] on above: Performed By: #### BMP #### [facility] [address] [place] [address] Dr. Heather SalasPCPNegativeNormalNEGATIVEChillicothe Va Medical CenterComment on above: Performed By: #### BMP #### [facility] [address] [address] [address] Heather SalasPPXNegativeNormalNEGATIVEBluffton Hospital on above: Performed By: #### BMP #### [facility] [address] [address] [address] Heather SalasTCANegativeNormalNEGATIVEChillicothe Va Medical CenterComformerly [facility] on above: Performed By: #### BMP #### [facility] [address] [address] [address] Heather SalasTHCNegativeNormalNEGATIVEChillicothe Va Medical CenterComformerly [facility] on above: Performed By: #### BMP #### [facility] [address] [place] [address] Dr. Heather Vasques URINE PROFILEon 22-89-8472Pcpwjnjst Ql (U)NegativeNormal NEGATIVEChillicothe Va Medical CenterComformerly [facility] on above:Performed By: #### BMP #### [facility] [address] [place] [address] Dr. Heather Dolanarity (U)CLEARNormalCLEARChillicothe Va Medical CenterComformerly [facility] on above: Performed By: #### BMP #### [facility] [address] [place] [address] Dr. Heather Ivey (U)LT. YELLOWNormalYELLOWChillicothe Va Medical CenterComformerly [facility] on above:Performed By: #### BMP #### [facility] [address] [place] [address] Dr. Heather Sterling micrscopic examination will be performed if indicated. NormalThe [facility] CampusComformerly [facility] on above:Performed By: #### BMP #### [facility] [address] [place] [address] Dr. Heather SalasGlucose Ql (U)NegativeNormalNEGATIVEChillicothe Va Medical CenterComment on above:Performed By: #### BMP #### [facility] [address] [address] [address] Heather SalasHemoglobin Ql (U)TRACE-INTACTAbnormalNEGATIVEThe St. [facility] CampusComment on above:Performed By: #### BMP #### [facility] [address] [address] [address] Heather Sepulveda Ql (U)NegativeNormalNEGATIVEChillicothe Va Medical CenterComment on above:Performed By: #### BMP #### [facility] [address] [address] [address] Heather SalasLEUKOCYTESNegativeNormalNEGATIVEThe [facility]o HospitalComment on above:Performed By: #### BMP #### [facility] [address] [place] [address] Dr. Heather Bryanttrrush Ql (U)NegativeNormalNEGATIVEChillicothe Va Medical CenterComment on above:Performed By: #### BMP #### [facility] [address] [place] [address] Dr. Heather SalaspH (U)7.5 [pH]Normal5-9The [facility] CampusComment on above: Performed By: #### BMP #### [facility] [address] [place] [address] Dr. Heather SalasSPEC GRAVITY1.849Bvzjjy4.005-<=1.025The [facility] CampusComment on above:Performed By: #### BMP #### [facility] [address] [place] [address] Dr. Heather Alfaro PROTEINNegativeNormalNEGATIVE/ TRACEThe [facility] on above:Performed By: #### BMP #### [facility] [address] [place] [address] Dr. Heather Javier MICRO INDINDICATEDNormalThe St[facility] CampusComment on above: Performed By: #### BMP #### [facility] [address] [place] [address] Dr. Heather Schmidbilino Qn (U)0.2 {Varun'U}/dLNormal0.2 - 1.0The [facility] CampusComment on above:Performed By: #### BMP #### [facility] [address] [place] [address] Dr. Heather Holloway HCG QUALon 97-93-4836EDIIGMZNE, QUALNegativeNormalNEGATIVE The [facility] CampusComment on above:Performed By: #### PREG #### [facility] [address] [place] [address] Dr. Heather Jefferson 14(COMP METB)on 45-55-9782Clzbeha [Mass/Vol]3.8 g/dLNormal 3.4-5.0The [facility] CampusComment on above:Performed By: #### BMP #### [facility] [address] [place] [address] Dr. Heather SalasAlbumin/Globulin [Mass ratio]1.1 {ratio}NormalThe St. [facility] CampusComment on above:Performed By: #### BMP #### [facility] [address] [place] [address] Dr. Heather AbreuP [Catalytic activity/Vol]93 U/WYljmox68-096Zfh [facility] CampusComment on above:Performed By: #### BMP #### [facility] [address] [place] [address] Dr. Heather Cleveland [Catalytic activity/Vol]17 U/XWgwbcm67-74Wgp [facility] CampusComment on above:Performed By: #### BMP #### [facility] [address] [place] [address] Dr. Heather Robles gap [Moles/Vol]13.6 mmol/LNormalThe [facility] Comment on above:Performed By: #### BMP #### [facility] [address] [place] [address] Dr. Heather SalasAST [Catalytic activity/Vol]14 U/LCritically dxi13-07Anc [facility] on above:Performed By: #### BMP #### [facility] [address] [place] [address] Dr. Heather SalasBilirubin [Mass/Vol]0.2 mg/dLNormal0.2-1.0The [facility] Comment on above:Performed By: #### BMP #### [facility] [address] [place] [address] Dr. Heather SalasCalcium [Mass/Vol]9.0 mg/dLNormal8.5-10.1The [facility] Comment on above:Performed By: #### BMP #### [facility] [address] [address] [address] Heather SalasChloride [Moles/Vol]107 mmol/SRlvonp15-979Ect [facility] Comment on above:Performed By: #### BMP #### [facility] [address] [address] [address] Heather SalasCO2 [Moles/Vol]27.5 mmol/EErbvos62.0-32.0The [facility] Comment on above:Performed By: #### BMP #### [facility] [address] [address] [address] Heather SalasCreatinine [Mass/Vol]0.73 mg/dLNormal0.55-1.02The [facility] CampusComment on above:Performed By: #### BMP #### [facility] [address] [address] [address] Heather SalasGlobulin (S) [Mass/Vol]3.4 g/dLNormalThe St[facility] CampusComment on above:Performed By: #### BMP #### [facility] [address] [address] [address] Heather SalasGlucose [Mass/Vol]86 mg/qXEevqyc97-575Fmg [facility] Comment on above:Performed By: #### BMP #### [facility] [address] [address] [address] Heather SalasPotassium [Moles/Vol]4.1 mmol/LNormal3.5-5.1The [facility] Comment on above:Performed By: #### BMP #### [facility] [address] [address] [address] Heather SalasProtein [Mass/Vol]7.2 g/dLNormal6.4-8.2The [facility] Comment on above:Performed By: #### BMP #### [facility] [address] [address] [address] Heather Maravillaum [Moles/Vol]144 mmol/IKzahlg342-552Xut [facility] Comment on above:Performed By: #### BMP #### [facility] [address] [address] [address] Heather Núñez nitrogen [Mass/Vol]7.0 mg/dLNormal6.4-19.3The [facility]o HospitalComment on above:Performed By: #### BMP #### [facility] [address] [address] [address] Heather Núñez nitrogen/Creatinine [Mass ratio]9.6 mg/mgNoAultman HospitalComment on above:Performed By: #### BMP #### [facility] [address] [address] [address] Heather Mckay MICROSCOPIC ONLYon 93-52-1960UCQYATOKLWPI SEENNormalNONE SEENThe St[facility] CampusComment on above:Performed By: #### BMP #### [facility] [address] [address] [address] Heather Quevedo identified Cx Nom (U)NOT INDICATEDNoAultman HospitalComment on above:Performed By: #### BMP #### [facility] [address] [address] [address] Heather Alarcon SEENNormalNONE SEENThe St[facility] CampusComment on above:Performed By: #### BMP #### [facility] [address] [address] [address] Heather Raderystals LM Nom (Urine sed)NONE SEENNormalNONE SEENThe St[facility] CampusComment on above:Performed By: #### BMP #### [facility] [address] [address] [address] Heather Jainthelial cells LM Ql (Urine sed)FEWAbnormalNONE SEEN /RAREThe St[facility] CampusComment on above:Performed By: #### BMP #### [facility] [address] [address] [address] Heather Velazco SEENNormalNONE SEENThe [facility]idad HospitalComment on above:Performed By: #### BMP #### [facility] [address] [address] [address] Heather SalasMjkcePFB3-9Xvggpq3-1Ckd St[facility] CampusComformerly [facility] on above:Performed By: #### BMP #### [facility] [address] [address] [address] Heather SalasWBC0-2AbnormalNONE SEENChillicothe Va Medical CenterComment on above: Performed By: #### BMP #### [facility] [address] [address] [address] Heather Gupta Summary.on 81-22-4804Xamngh Summary. CD:[id number]+PGhlYWQ+[id number]XJnncEMGPVChAPhCcc aPwUX3fnBCqKCCj [file] ZGVy (more content not included)...NormalSelect Medical Specialty [facility] Vaginitis/Vaginosis, DNA Probeon 37-33-6878Xujcbpy sp rRNA Probe Ql (Vag fld) NegativeInvalid Interpretation CodeNegGenesis HospitalComment on above:Performed By: #### [id number] #### José Miguel [facility] [address], [place] [address]J. vaginalis rRNA Probe Ql (Genital specimen)NegativeInvalid Interpretation CodeNegativeSelect Medical Specialty Hospital - AkronComment on above:Performed By: #### [id number] #### José Miguel [facility] [address], [place] [address]Q. vaginalis rRNA Probe Ql (Genital specimen)NegativeInvalid Interpretation CodeNegGenesis HospitalComment on above:Result Comment: Performed at: [address] [id number] PhD Toshia Collinsformed By: #### [id number] #### José Miguel [facility] [address] [place], [place] [address]Wyumyvuvl Orderon 97-49-5756Lruraucks Order [id number]#1.00CD:127NormalFisher [facility] Medical CenterProgress Noteon 60-39-9201Mjnnnplo NoteWooster Community Hospital UA RANDOMon 78-28-3582Cwjhcwbvf Ql (U)NegativeNormalNEGATIVEChillicothe Va Medical CenterComment on above:Performed By: #### DRUGRPD #### [facility] [address] [address] [address] Heather SalasClarity (U)CLEARNormalCLEARChillicothe Va Medical CenterComment on above: Performed By: #### DRUGRPD #### [facility] [address] [place] [address] Dr. Heather SalasColor (U)LT. YELLOWNormalYELLOWChillicothe Va Medical CenterComment on above:Performed By: #### DRUGRPD #### [facility] [address] [address] [address] Heather SalasGlucose Ql (U)NegativeNormalNEGATIVEChillicothe Va Medical CenterComment on above:Performed By: #### DRUGRPD #### [facility] [address] [address] [address] Heather SalasHemoglobin Ql (U)NegativeNormalNEGATIVECommunity Memorial Hospital on above:Performed By: #### DRUGRPD #### [facility] [address] [address] [address] Heather SalasKetones Ql (U)NegativeNormalNEGATIVEChillicothe Va Medical CenterComment on above:Performed By: #### DRUGRPD #### [facility] [address] [address] [address] Heather SalasLEUKOCYTESNegativeNormalNEGATIVEChillicothe Va Medical CenterComment on above:Performed By: #### DRUGRPD #### [facility] [address] [address] [address] Heather SalasNitrite Ql (U)NegativeNormalNEGATIVETrihealth Mccull[facility] CampusComment on above:Performed By: #### DRUGRPD #### [facility] [address] [address] [address] Heather Bullock (U)6.5 [pH]Normal5-9The [facility] CampusComment on above: Performed By: #### DRUGRPD #### [facility] [address] [address] [address] Heather SalasSPEC GRAVITY1.986Dhqngk3.005-<=1.025The [facility] CampusComment on above:Performed By: #### DRUGRPD #### [facility] [address] [address] [address] Heather Alfaro PROTEINNegativeNormalNEGATIVE/ TRACEThe St[facility] Comment on above:Performed By: #### DRUGRPD #### [facility] [address] [address] [address] Heather SalasUrobilinogen Qn (U)0.2 {Varun'U}/dLNormal0.2 - 1.0The [facility] CampusComment on above:Performed By: #### DRUGRPD #### [facility] [address] [address] [address] Heather FernándezCT Urinalysis, Strip Onlyon 61-54-1882Nzhjodwqgo (U)ClearNormal St. Rita's HospitalBilirubin, Urine StripNegativeNormalNEGNationMemorial Health SystemGlucose, Urine StripNegativeNormalNEGNationMemorial Health SystemKetone, Urine StripNegativeNormalNEGNationMemorial Health System Leukocyte esterase, Ur StripNegativeNormalNEGNationMemorial Health System Nitrite, Urine StripNegativeNormalNEGNationMemorial Health SystemOccult blood, Urine StripTrace, IntactAbnormalNEGNationMemorial Health SystempH, Urine Strip6.1Aiczdx0.5-8.0NationMemorial Health SystemProtein (U) [Mass/Vol]30 mg/dLAbnormalNEGNationOhioHealth Mansfield Hospitalpecific [place], Urine Strip1.025 Normal1.007-1.030Memorial Hospitalpecimen ColorYellowNormal St. Rita's HospitalUrobilinogen (U) [Mass/Vol]0.2 mg/dLNormal<1.[address] [facility] [facility] HospitalUrinalysis dipstick panel Auto test strip (U)on 71-63-2374Jofpuxndcn (U)ClearNatGenesis HospitalBilirubin Ql (U) NegativeNegativeSt. Rita's HospitalColor (U)YellowNatGenesis HospitalGlucose Ql (U)NegativeNegative mg/dLSt. Rita's HospitalInterpretation and review of laboratory resultsAbnormalSt. Rita's HospitalKetones (U) [Mass/Vol]NegativeNegative mg/dLSt. Rita's HospitalLeukocyte esterase Auto test strip Ql (U)NegativeNegative St. Rita's HospitalNitrite Auto test strip Ql (U)NegativeNegative St. Rita's HospitalpH (U)6.5 [pH]4.5 - 8.0St. [facility]'s HospitalProtein (U) [Mass/Vol]30 mg/dLAbnormalNegativeSt. Rita's HospitalRBC (U) [#/Vol]Trace, IntactAbnormalNegativeMemorial Hospitalpecific gravity (U) [Rel density]1.0251.007 - 1.030St. Rita's HospitalUrobilinogen Qn (U)0.2 mg/dLNINF - 1.1 mg/dLDoctors Hospital W MANUAL DIFFon 12-26-2022 ATYPICAL LYMPH #NormalThe St[facility] CampusComment on above:Performed By: #### CBCMAN #### [facility] [address] [address] [address] Heather SalasATYPICAL LYMPH %NormalThe St. [facility] CampusComment on above: Performed By: #### CBCMAN #### [facility] [address] [address] [address] Heather Howard #Normal0.0-0.3The [facility] CampusComment on above: Performed By: #### CBCMAN #### [facility] [address] [address] [address] Heather Howard %Normal0-5The [facility] Seco HospitalComment on above:Performed By: #### NEISHA #### [facility] [address] [address] [address] Heather Alcala #0.00 103/ulNormal0.00-0.10The [facility] HospitalComment on above:Performed By: #### NEISHA #### [facility] [address] [address] [address] Heather Alcala %0.0 %Critically low0.2-2.0The [facility] HospitalComment on above:Performed By: #### NEISHA #### [facility] [address] [place] [address] Dr. Heather Block #NormalThe [facility] CampusComment on above:Performed By: #### NEISHA #### [facility] [address] [place] [address] Dr. Heather Block %NormalThe [facility] CampusComment on above:Performed By: #### NEISHA #### [facility] [address] [place] [address] Dr. Heather SalasCORRECTED WBCNormal4.0-11.0The [facility] CampusComment on above: Performed By: #### NEISHA #### [facility] [address] [place] [address] Dr. Heather Rubio #0.00 103/ulNormal0.00-0.70The [facility] HospitalComment on above:Performed By: #### NEISHA #### [facility] [address] [place] [address] Dr. Heather Rubio%0.0 %Critically low0.9-7.0The [facility] CampusComment on above:Performed By: #### NEISHA #### [facility] [address] [place] [address] Dr. Heather SalasHCT40.4 %Sukyew40.0-48.0The [facility] HospitalComment on above: Performed By: #### NEISHA #### [facility] [address] [address] [address] Heather SalasHGB12.7 g/tqIpmsrf33.0-16.0The [facility] CampusComment on above: Performed By: #### NEISHA #### [facility] [address] [address] [address] Heather Villeda #5.25 103/ulCritically high1.20-3.80The [facility] Comment on above:Performed By: #### NEISHA #### [facility] [address] [address] [address] Heather Villeda%42.0 %Evigzo29.5-60.0The [facility] CampusComment on above:Performed By: #### NEISHA #### [facility] [address] [place] [address] Dr. Heather SalasMCH29.6 jgByhbfv37.7-34.0The [facility] CampusComment on above: Performed By: #### NEISHA #### [facility] [address] [place] [address] Dr. Heather RosalesHC31.4 g/sxFebkgx51.9-35.2The [facility] CampusComment on above:Performed By: #### NEISHA #### [facility] [address] [place] [address] Dr. Heather SalasMCV94.2 zZDrxusu53.1-95.6The [facility] CampusComment on above: Performed By: #### NEISHA #### [facility] [address] [place] [address] Dr. Heather YoderOCYTE #NormalThe [facility] CampusComment on above: Performed By: #### NEISHA #### [facility] [address] [place] [address] Dr. Heather YoderOCYTE %NormalThe [facility] CampusComment on above: Performed By: #### NEISHA #### [facility] [address] [address] [address] Heather Silva#0.63 103/ulNormal0.30-0.80The [facility] CampusComment on above:Performed By: #### CBCTANNER #### [facility] [address] [place] [address] Dr. Heather Silva%5.0 %Normal1.7-12.0The [facility] CampusComment on above: Performed By: #### CBCTANNER #### [facility] [address] [place] [address] Dr. Heather SalasMPV10.5 fLNormal9.5-13.5The [facility] CampusComment on above: Performed By: #### CBCMAN #### [facility] [address] [place] [address] Dr. Heather Parrish #NormalThe [facility] CampusComment on above:Performed By: #### CBCTANNER #### [facility] [address] [place] [address] Dr. Heather RuthOCYTE %NormalThe [facility] CampusComment on above:Performed By: #### CBCTANNER #### [facility] [address] [place] [address] Dr. [address] SalasNRBCNormalThe [address] [facility] CampusComment on above:Performed By: #### CBCTANNER #### [facility] [address] [place] [address] Dr. Heather RobertoT354 103/woAdwvay633-856Pov [facility] CampusComment on above: Performed By: #### CBCTANNER #### [facility] [address] [place] [address] Dr. Heather SalasRBC4.29 106/ulNormal3.40-5.30The [facility] CampusComment on above:Performed By: #### CBCTANNER #### [facility] [address] [place] [address] Dr. Heather SalasRDW13.6 %Yywzng12.0-15.0The [facility] CampusComment on above: Performed By: #### CBCTANNER #### [facility] [address] [place] [address] Dr. Heather Hernandez #6.63 103/ulCritically high1.40-6.50The [facility] Comment on above:Performed By: #### CBCMAN #### [facility] [address] [place] [address] Dr. Heather Hernandez %53.0 %Eegmmb54.0-75.0The [facility] CampusComment on above: Performed By: #### CBCMAN #### [facility] [address] [place] [address] Dr. Heather SalasWBC12.5 103/ulCritically high4.0-11.0The [facility] CampusComment on above:Performed By: #### CBCMAN #### [facility] [address] [place] [address] Dr. Heather SalasCULTURE URINEon 10-62-2587HGLATQB URINECulture Observations: LIGHT GROWTH OF MIXED GENITAL VALORIE. NO POTENTIAL PATHOGENS SEEN.NormalThe St[facility] CampusComment on above:Performed By: #### CBC #### [facility] [address] [place] [address] Dr. Heather SalasFERRITINon 89-37-8823Zdtkmjpb [Mass/Vol]24.0 ng/mLNormal6.2-137.[address] [facility] CampusComment on above:Performed By: #### CBC #### [facility] [address] [place] [address] Dr. Heather SalasFREE T4on 58-71-2992Vylq T4 [Mass/Vol]0.96 ng/dLNormal0.78-1.[address] [facility] CampusComment on above:Performed By: #### CBC #### [facility] [address] [place] [address] Dr. Heather SalasGLYCOHEMOGLOBIN A1Con [id number] RECOMMENDATIONSEE BELOWNormal The [facility] CampusComment on above:Result Comment: ADA RECOMMENDED LIMIT 4.0 - 6.0 ADA THERAPEUTIC TARGET < 7.0 ACTION SUGGESTED > 7.0Performed By: #### A1C #### [facility] [address] [place] [address] Dr. Yilan ChangGlucose [Mass/Vol]100 mg/dLMartin Memorial HospitalComment on above:Performed By: #### A1C #### [facility] [address] [place] [address] Dr. Heather SalasHbA1c (Bld) [Mass fraction]5.1 %Normal4.5-6.2The [facility] CampusComment on above:Performed By: #### A1C #### [facility] [address] [place] [address] Dr. Heather Johnson AND TIBCon 12-26-2022% SATURATION8.0 %NormalThe [facility] CampusComment on above:Performed By: #### CBC #### [facility] [address] [place] [address] Dr. Heather Johnson [Mass/Vol]39.0 ug/dLCritically low50.0-170.0The [facility] CampusComment on above:Performed By: #### CBC #### [facility] [address] [place] [address] Dr. Heather CrabtreeC RIMWIL910.0 ug/dLCritically xwyi230.0-450.0The [facility] CampusComment on above:Performed By: #### CBC #### [facility] [address] [place] [address] Dr. Heather SalasLIPID PROFILEon [id number]-HDL RATIO NORMSEE Harrison Community HospitalComment on above:Result Comment: 3.3 - 4.4 LOW RISK 4.4 - 7.1 AVERAGE RISK 7.1 - 11.0 MODERATE RISK >11.0 HIGH RISKPerformed By: #### CBC #### [facility] [address] [place] [address] Dr. Heather SalasCholesterol [Mass/Vol]144 mg/aKChardo870-946Lrf [facility] Comment on above:Performed By: #### CBC #### [facility] [address] [place] [address] Dr. Heather SalasCholesterol in HDL [Mass/Vol]35 mg/wMOyskdu54-16Zwa [facility] CampusComment on above:Performed By: #### CBC #### [facility] [address] [place] [address] Dr. Heather SalasCholesterol in LDL [Mass/Vol]77.8 mg/nIMzrjgz39.0-140.0The [facility] CampusComment on above:Performed By: #### CBC #### [facility] [address] [place] [address] Dr. Heather Woodyesterol.total/Cholesterol in HDL [Mass ratio]4.1 {ratio} NormalThe [facility]. [facility] CampusComment on above:Performed By: #### CBC #### [facility] [address] [place] [address] Dr. Heather Ding NORMAL> or = 60 mg/dl - LOW CARDIOVASCULAR RISK <40 mg/dl - HIGH CARDIOVASCULAR RISKMartin Memorial HospitalComment on above:Performed By: #### CBC #### [facility] [address] [place] [address] Dr. Heather Gayle CALC NORMALSEE BELOWNoAultman HospitalComment on above:Result Comment: <100 mg/dl OPTIMAL 100 - 129 mg/dl NEAR OR ABOVE OPTIMAL 130 - 159 mg/dl BORDERLINE HIGH 160 - 189 mg/dl HIGH >190 mg/dl VERY HIGH Performed By: #### CBC #### [facility] [address] [place] [address] Dr. Heather SalasTriglyceride [Mass/Vol]156 mg/kDWbmtip71-700Puy [facility] Comment on above:Performed By: #### CBC #### [facility] [address] [place] [address] Dr. Heather Duval CALC31.2 mg/dLNoAultman HospitalComment on above: Performed By: #### CBC #### [facility] [address] [place] [address] Dr. Heather Jefferson 14(COMP METB)on 41-09-2027Yfipmvt [Mass/Vol]3.9 g/dLNormal 3.4-5.0The [facility] CampusComment on above:Performed By: #### CBC #### [facility] [address] [address] [address] Heather SalasAlbumin/Globulin [Mass ratio]1.0 {ratio}NormalThe [facility] CampusComment on above:Performed By: #### CBC #### [facility] [address] [place] [address] Dr. Heather AbreuP [Catalytic activity/Vol]74 U/VCzsxuo59-708Zdb [facility] CampusComment on above:Performed By: #### CBC #### [facility] [address] [place] [address] Dr. Heather AbreuT [Catalytic activity/Vol]27 U/SKcnmod25-02Fzs [facility] CampusComment on above:Performed By: #### CBC #### [facility] [address] [place] [address] Dr. Heather Caseyon gap [Moles/Vol]12.6 mmol/LNormalThe [facility] Comment on above:Performed By: #### CBC #### [facility] [address] [place] [address] Dr. Heather SalasAST [Catalytic activity/Vol]9 U/LCritically xsh74-52Hfp [facility] CampusComment on above:Performed By: #### CBC #### [facility] [address] [place] [address] Dr. Heather SalasBilirubin [Mass/Vol]0.3 mg/dLNormal0.2-1.0The [facility] Comment on above:Performed By: #### CBC #### [facility] [address] [place] [address] Dr. Heather SalasCalcium [Mass/Vol]9.3 mg/dLNormal8.5-10.1The [facility] Comment on above:Performed By: #### CBC #### [facility] [address] [place] [address] Dr. Heather SalasChloride [Moles/Vol]103 mmol/AEarcho07-863Efr [facility] Comment on above:Performed By: #### CBC #### [facility] [address] [place] [address] Dr. Heather SalasCO2 [Moles/Vol]26.8 mmol/UAwfesx18.0-32.0The [facility] Comment on above:Performed By: #### CBC #### [facility] [address] [address] [address] Heather Sladeatinine [Mass/Vol]0.78 mg/dLNormal0.55-1.02The [facility] CampusComment on above:Performed By: #### CBC #### [facility] [address] [address] [address] Heather SalasGlobulin (S) [Mass/Vol]3.8 g/dLNormalThe [facility] CampusComment on above:Performed By: #### CBC #### [facility] [address] [place] [address] Dr. Heather SalasGlucose [Mass/Vol]91 mg/wUWmafbp39-525PozChillicothe Va Medical Center Comment on above:Performed By: #### CBC #### [facility] [address] [address] [address] Heather SalasPotassium [Moles/Vol]3.4 mmol/LCritically low3.5-5.1The [facility] CampusComment on above:Performed By: #### CBC #### [facility] [address] [place] [address] Dr. Heather SalasProtein [Mass/Vol]7.7 g/dLNormal6.4-8.2The [facility] Comment on above:Performed By: #### CBC #### [facility] [address] [place] [address] Dr. Heather SalasSodium [Moles/Vol]139 mmol/AXywajb390-661Hgc [facility] Comment on above:Performed By: #### CBC #### [facility] [address] [place] [address] Dr. Heather SalasUrea nitrogen [Mass/Vol]7.0 mg/dLNormal6.4-19.3The [facility] CampusComment on above:Performed By: #### CBC #### [facility] [address] [place] [address] Dr. Heather SalasUrea nitrogen/Creatinine [Mass ratio]9.0 mg/mgNoalThMercy Health Anderson HospitalComment on above:Performed By: #### CBC #### [facility] [address] [address] [address] Heather Granado 17-03-9406GNC4.232 uIU/mLNormal0.516-4.130The [facility] CampusComment on above:Performed By: #### CBC #### [facility] [address] [place] [address] Dr. Heather Alfaro RANDOMon 08-42-0435Zwjhvhejn Ql (U)NegativeNormalNEGATIVEChillicothe Va Medical CenterComment on above:Performed By: #### BMP #### [facility] [address] [place] [address] Dr. Heather SalasClarity (U)CLEARNormalCLEARChillicothe Va Medical CenterComment on above: Performed By: #### BMP #### [facility] [address] [place] [address] Dr. Heather SalasColor (U)YELLOWNormalYELLOWChillicothe Va Medical CenterComment on above: Performed By: #### BMP #### [facility] [address] [place] [address] Dr. Heather SalasGlucose Ql (U)NegativeNormalNEGATIVEChillicothe Va Medical CenterComment on above:Performed By: #### BMP #### [facility] [address] [place] [address] Dr. Heather SalasHemoglobin Ql (U)NegativeNormalNEGATIVECommunity Memorial Hospital on above:Performed By: #### BMP #### [facility] [address] [place] [address] Dr. Heather SalasKetones Ql (U)NegativeNormalNEGATIVEChillicothe Va Medical CenterComment on above:Performed By: #### BMP #### [facility] [address] [place] [address] Dr. Heather SalasLEUKOCYTESNegativeNormalNEGATIVEChillicothe Va Medical CenterComment on above:Performed By: #### BMP #### [facility] [address] [place] [address] Dr. Heather Domingo Ql (U)NegativeNormalNEGATIVEThe St[facility] CampusComment on above:Performed By: #### BMP #### [facility] [address] [place] [address] Dr. Heather SalaspH (U)7.0 [pH]Normal5-9The [facility] CampusComment on above: Performed By: #### BMP #### [facility] [address] [place] [address] Dr. Heather SalasSPEC GRAVITY1.802Lxjbkh9.005-<=1.025The [facility] CampusComment on above:Performed By: #### BMP #### [facility] [address] [place] [address] Dr. Heather Alfaro PROTEINTRACENormalNEGATIVE/ TRACEThe St. [facility] CampusComment on above:Performed By: #### BMP #### [facility] [address] [place] [address] Dr. Heather Schmidbilinogen Qn (U)0.2 {Varun'U}/dLNormal0.2 - 1.0The [facility] CampusComment on above:Performed By: #### BMP #### [facility] [address] [place] [address] Dr. Heather SalasVITAMIN D 25 OHon 21-72-3617XSC D 25-OH45.0 ng/mLNormalThe St[facility] CampusComment on above:Performed By: #### BMP #### [facility] [address] [place] [address] Dr. Heather NegronT Ted RANGESSEE Harrison Community HospitalComment on above: Result Comment: <20 ng/mL Vit D deficient 20 - <30 ng/mL Vit D insufficient 30 - 100 ng/mL Vit D sufficient >100 ng/mL Potential ToxicityPerformed By: #### BMP #### [facility] [address] [place] [address] Dr. Heather SalasCULTOLVIN URINEon 50-17-9798VQGZKDP URINECulture Observations: NO GROWTH.NormalThe Caridad HospitalComment on above:Performed By: #### CBC #### [facility] [address] [address] [address] Heather Alfaro (CLEAN/CATCH) MICROSCOPIC IF INDICATEon 41-08-3771Rqyfwpmeb Ql (U)NegativeNormalNEGATIVEChillicothe Va Medical CenterComment on above:Performed By: #### DRUGRPD #### [facility] [address] [address] [address] Heather SalasClarity (U)CLEARNormalCLEARChillicothe Va Medical CenterComment on above: Performed By: #### DRUGRPD #### [facility] [address] [address] [address] Heather Ivey (U)YELLOWNormalYELLOWChillicothe Va Medical CenterComment on above: Performed By: #### DRUGRPD #### [facility] [address] [place] [address] Dr. Heather SalasGlucose Ql (U)NegativeNormalNEGATIVEChillicothe Va Medical CenterComment on above:Performed By: #### DRUGRPD #### [facility] [address] [address] [address] Heather SalasHemoglobin Ql (U)NegativeNormalNEGATIVECommunity Memorial Hospital on above:Performed By: #### DRUGRPD #### [facility] [address] [place] [address] Dr. Heather SalasKetones Ql (U)NegativeNormalNEGATIVEChillicothe Va Medical CenterComment on above:Performed By: #### DRUGRPD #### [facility] [address] [place] [address] Dr. Heather SalasLEUKOCYTESTRACEAbnormalNEGATIVEChillicothe Va Medical CenterComment on above:Performed By: #### DRUGRPD #### [facility] [address] [place] [address] Dr. Heather SalasNitrite Ql (U)NegativeNormalNEGATIVEChillicothe Va Medical CenterComment on above:Performed By: #### DRUGRPD #### [facility] [address] [place] [address] Dr. Heather Bullock (U)7.0 [pH]Normal5-9The [facility] CampusComment on above: Performed By: #### DRUGRPD #### [facility] [address] [place] [address] Dr. Heather Abad GRAVITY>=1.395Kgwxqalf9.005-<=1.025The [facility] Comment on above:Performed By: #### DRUGRPD #### [facility] [address] [place] [address] Dr. Heather Alfaro CCLWSFY41 mg/dlAbnormalNEGATIVE/ TRACEThe St[facility] Comment on above:Performed By: #### DRUGRPD #### [facility] [address] [place] [address] Dr. Heather Javier MICRO INDINDICATEDMartin Memorial HospitalComment on above: Performed By: #### DRUGRPD #### [facility] [address] [place] [address] Dr. Heather Guzmangen Qn (U)2.0 {Varun'U}/dLAbnormal0.2 - 1.0The [facility] CampusComment on above:Performed By: #### DRUGRPD #### [facility] [address] [place] [address] Dr. Heather Mckay MICROSCOPIC ONLYon 91-33-6465VBMKBETIEPQRLRfjpjejcPBPN SEEN [facility] Medical CenterComformerly [facility] on above:Performed By: #### DRUGRPD #### [facility] [address] [place] [address] Dr. Heather Quevedo identified Cx Nom (U)CX ALREADY ORDEREDMartin Memorial HospitalComment on above:Performed By: #### DRUGRPD #### [facility] [address] [place] [address] Dr. Heather Alarcon SEENNormalNONE SEENChillicothe Va Medical CenterComment on above:Performed By: #### DRUGRPD #### [facility] [address] [place] [address] Dr. Heather Raderystals LM Nom (Urine sed)NONE SEENNormalNONE SEENChillicothe Va Medical CenterComment on above:Performed By: #### DRUGRPD #### [facility] [address] [place] [address] Dr. Heather Jainthelial cells LM Ql (Urine sed)MODERATEAbnormalNONE SEEN /RARE The [facility] CampusComment on above:Performed By: #### DRUGRPD #### [facility] [address] [place] [address] Dr. Heather SalasMUCOUSNONE SEENNormalNONE SEENChillicothe Va Medical CenterComment on above:Performed By: #### DRUGRPD #### [facility] [address] [place] [address] Dr. Heather SalasRBCNONE SEENAbnormal0-2Ch[facility]ic[facility] Va Medical CenterComment on above: Performed By: #### DRUGRPD #### [facility]. [facility] [address] [place] [address] Dr. Heather SalasWBC2-5AbnormalNONE SEENChillicothe Va Medical CenterComformerly [facility] on above: Performed By: #### DRUGRPD #### [facility] [address] [place] [address] Dr. Heather Mendez AUTO DIFFon [id number] #0.1 103/ulNormal0.0-0.1[facility] on above:Performed By: #### CBC #### [facility] [address] [place] [address] Dr. Heather SalasBasophils/100 WBC (Bld)0.5 %Normal0.2-2.0[facility] Comment on above:Performed By: #### CBC #### [facility] [address] [place] [address] Dr. Heather Waldrop #0.1 103/ulNormal0.0-0.7The [facility] on above: Performed By: #### CBC #### [facility] [address] [place] [address] Dr. Heather Stallingsosinophils/100 WBC (Bld)0.5 %Critically low0.9-7.0The [facility] CampusComment on above:Performed By: #### CBC #### [facility] [address] [place] [address] Dr. Heather Stallingsrythrocyte distribution width (RBC) [Ratio]13.2 %Binfkq77.0-15.0 [facility] Medical CenterComment on above:Performed By: #### CBC #### [facility] [address] [place] [address] Dr. Heather SalasHematocrit (Bld) [Volume fraction]35.5 %Critically low36.0-48.[address] [facility] CampusComment on above:Performed By: #### CBC #### [facility] [address] [place] [address] Dr. Heather SalasHemoglobin (Bld) [Mass/Vol]11.9 g/dLCritically low12.0-16.0The [facility] CampusComment on above:Performed By: #### CBC #### [facility] [address] [place] [address] Dr. Heather Proctor #0.01 10e3/ulNormal0.00-0.03The [facility] CampusComment on above:Performed By: #### CBC #### [facility] [address] [place] [address] Dr. Heather SalasIG %0.1 %Normal0.0-0.5The [facility] CampusComment on above: Performed By: #### CBC #### [facility] [address] [place] [address] Dr. Heather HoH #5.1 103/ulCritically high1.2-3.8The [facility] on above:Performed By: #### CBC #### [facility] [address] [place] [address] Dr. Heather Ortezmphocytes/100 WBC (Bld)46.4 %Cawolf36.5-60.0The [facility] CampusComment on above:Performed By: #### CBC #### [facility] [address] [place] [address] Dr. Heather Brunner DIFF REQNONormalThe St. [facility] CampusComment on above: Performed By: #### CBC #### [facility] [address] [place] [address] Dr. Heather Rosales (RBC) [Entitic mass]29.2 czFtfudi88.7-34.0The [facility] CampusComment on above:Performed By: #### CBC #### [facility] [address] [place] [address] Dr. Heather Rosales (RBC) [Mass/Vol]33.5 g/kTLtqmnw85.9-35.2The [facility] CampusComment on above:Performed By: #### CBC #### [facility] [address] [place] [address] Dr. Heather Rosales (RBC) [Entitic vol]87.2 kSIoyduo15.1-95.6The [facility] CampusComment on above:Performed By: #### CBC #### [facility] [address] [place] [address] Dr. Heather Justin #0.5 103/ulNormal0.3-0.8The [facility] CampusComment on above:Performed By: #### CBC #### [facility] [address] [place] [address] Dr. Heather Baocytes/100 WBC (Bld)4.7 %Normal1.7-12.0The [facility] Comment on above:Performed By: #### CBC #### [facility] [address] [place] [address] Dr. Heather Howard #5.3 103/ulNormal1.4-6.5The [facility] CampusComment on above:Performed By: #### CBC #### [facility] [address] [place] [address] Dr. Heather Headleyutrophils/100 WBC (Bld)47.8 %Gjhcns54.0-75.0The [facility] CampusComment on above:Performed By: #### CBC #### [facility] [address] [address] [address] Heather Oneallet mean volume (Bld) [Entitic vol]10.5 fLNormal9.5-13.5The [facility] CampusComment on above:Performed By: #### CBC #### [facility] [address] [place] [address] Dr. Heather aSlasPLT294 103/exUjjzav719-774Agd St[facility] CampusComment on above: Performed By: #### CBC #### [facility] [address] [place] [address] Dr. Heather SalasRBC4.07 106/ulNormal3.40-5.30The [facility] CampusComformerly [facility] on above:Performed By: #### CBC #### [facility] [address] [place] [address] Dr. Heather SalasWBC11.0 103/ulNormal4.0-11.0The [facility] CampusComment on above:Performed By: #### CBC #### [facility] [address] [place] [address] Dr. Heather SalasCT ABD/PELV W CONon [id number] ABD/PELV W CONEXAMINATION: CT ABD/PELV W CON HISTORY: UNSPECIFIED ABDOMINAL [...] Electronically authenticated by: RENE ZAMORANO Date: 2022-11-23 13:31NoBar[facility] URINE PROFILEon [id number] Ql (U)NegativeNormal NEGATIVEChillicothe Va Medical CenterComment on above:Performed By: #### BMP #### [facility] [address] [place] [address] Dr. Heather SalasClarity (U)CLEARNormalCLEARChillicothe Va Medical CenterComment on above: Performed By: #### BMP #### [facility] [address] [place] [address] Dr. Heather Ivey (U)YELLOWNormalYELLOWChillicothe Va Medical CenterComment on above: Performed By: #### BMP #### [facility] [address] [place] [address] Dr. Heather Sterling micrscopic examination will be performed if indicated. NormalChillicothe Va Medical CenterComment on above:Performed By: #### BMP #### [facility] [address] [address] [address] Heather SalasGlucose Ql (U)NegativeNormalNEGATIVEChillicothe Va Medical CenterComment on above:Performed By: #### BMP #### [facility] [address] [address] [address] Heather SalasHemoglobin Ql (U)LARGEAbnormalNEGATIVECommunity Memorial Hospital on above:Performed By: #### BMP #### [facility] [address] [address] [address] Heather SalasKetones Ql (U)NegativeNormalNEGATIVEChillicothe Va Medical CenterComment on above:Performed By: #### BMP #### [facility] [address] [place] [address] Dr. Heather SalasLEUKOCYTESNegativeNormalNEGATIVEThe St. [facility] CampusComment on above:Performed By: #### BMP #### [facility] [address] [place] [address] Dr. Heather SalasNitrite Ql (U)NegativeNormalNEGATIVEThe Arroy[facility]o HospitalComment on above:Performed By: #### BMP #### [facility] [address] [place] [address] Dr. Heather SalaspH (U)7.0 [pH]Normal5-9The [facility] HospitalComment on above: Performed By: #### BMP #### [facility] [address] [place] [address] Dr. Heather SalasProtein (U) [Mass/Vol]100 mg/dLAbnormalNEGATIVE/ TRACEThe [facility] HospitalComment on above:Performed By: #### BMP #### [facility] [address] [place] [address] Dr. Heather SalasSPEC GRAVITY1.127Gfvgmk7.005-<=1.025The St. [facility] CampusComment on above:Performed By: #### BMP #### [facility] [address] [place] [address] Dr. Heather Javier MICRO INDINDICATEDNormalThe St. [facility] CampusComment on above: Performed By: #### BMP #### [facility] [address] [place] [address] Dr. Heather SalasUrobilinogen Qn (U)1.0 {Varun'U}/dLNormal0.2 - 1.0The [facility] HospitalComment on above:Performed By: #### BMP #### [facility] [address] [place] [address] Dr. Heather SalasPREGNANCY URon [id number], QUALNegativeNormalNEGATIVEThe [facility] HospitalComment on above:Performed By: #### PREGU #### [facility] [address] [place] [address] Dr. Heather SalasPROF CHEM 8 (BAS METB)on [id number] gap [Moles/Vol]12.0 mmol/LNormalThe St. [facility] CampusComment on above:Performed By: #### BMP #### [facility] [address] [place] [address] Dr. Heather SalasCalcium [Mass/Vol]8.7 mg/dLNormal8.5-10.1[facility] Comment on above:Performed By: #### BMP #### [facility] [address] [place] [address] Dr. Heather SalasChloride [Moles/Vol]103 mmol/EAbwvra40-193QmwChillicothe Va Medical Center Comment on above:Performed By: #### BMP #### [facility] [address] [place] [address] Dr. Heather SalasCO2 [Moles/Vol]26.6 mmol/HYprmzp60.0-32.0[facility] Comment on above:Performed By: #### BMP #### [facility] [address] [place] [address] Dr. Heather SalasCreatinine [Mass/Vol]0.71 mg/dLNormal0.55-1.02[facility] CenterComment on above:Performed By: #### BMP #### [facility] [address] [place] [address] Dr. Heather SalasGlucose [Mass/Vol]86 mg/vHLyvtsj36-401IwvChillicothe Va Medical Center Comment on above:Performed By: #### BMP #### [facility] [address] [place] [address] Dr. Heather SalasPotassium [Moles/Vol]3.5 mmol/LNormal3.5-5.1The [facility] Comment on above:Performed By: #### BMP #### [facility] [address] [place] [address] Dr. Heather SalasSodium [Moles/Vol]139 mmol/ERiicnw373-057Pyt [facility] Comment on above:Performed By: #### BMP #### [facility] [address] [place] [address] Dr. Heather SalasUrea nitrogen [Mass/Vol]6.0 mg/dLCritically low6.4-19.3The [facility] CampusComment on above:Performed By: #### BMP #### [facility] [address] [place] [address] Dr. Heather SalasUrea nitrogen/Creatinine [Mass ratio]8.5 mg/mgNoAultman HospitalComformerly [facility] on above:Performed By: #### BMP #### [facility] [address] [place] [address] Dr. Heather Mckay MICROSCOPIC ONLYon [id number]R SEEN [facility] CenterComformerly [facility] on above:Performed By: #### DRUGRPD #### [facility] [address] [place] [address] Dr. Heather Quevedo identified Cx Nom (U)NOT INDICATEDMartin Memorial HospitalComformerly [facility] on above:Performed By: #### DRUGRPD #### [facility] [address] [place] [address] Dr. Heather Alarcon SEENNormalNONE SEENBluffton Hospital on above:Performed By: #### DRUGRPD #### [facility] [address] [place] [address] Dr. Heather Grove LM Nom (Urine sed)NONE SEENNormalNONE SEENBluffton Hospital on above:Performed By: #### DRUGRPD #### [facility] [address] [place] [address] Dr. Romero ChangEpithelial cells LM Ql (Urine sed)MODERATEAbnormalNONE SEEN /RARE The [facility] CampusComformerly [facility] on above:Performed By: #### DRUGRPD #### [facility] [address] [place] [address] Dr. Heather ZavaletaUSJONO SEENrmncNONE SEENBluffton Hospital on above:Performed By: #### DRUGRPD #### [facility] [address] [place] [address] Dr. Heather SalasGrzalEQP42-00Yfsdgerw9-5Nwq [facility] on above: Performed By: #### DRUGRPD #### [facility] [address] [place] [address] Dr. Heather SalasWBC2-5AbnormalNONE SEENThe [address] [facility] CampusComment on above: Performed By: #### DRUGRPD #### [facility] [address] [place] [address] Dr. Heather SalasACETAMINOPHENon 10-62-1745Ttfwakgaaktkq [Mass/Vol]ug/mLNormal 10.0-30.0The [facility] CampusComment on above:Performed By: #### DRUGRPD #### [facility] [address] [place] [address] Dr. Heather OsegueraC AUTO DIFFon [id number] #0.0 103/ulNormal0.0-0.1The [facility] on above:Performed By: #### CBC #### [facility] [address] [place] [address] Dr. Heather SalasBasophils/100 WBC (Bld)0.4 %Normal0.2-2.0[facility] on above:Performed By: #### CBC #### [facility] [address] [place] [address] Dr. Heather Waldrop #0.1 103/ulNormal0.0-0.7The [facility] on above: Performed By: #### CBC #### [facility] [address] [place] [address] Dr. Heather Stallingsosinophils/100 WBC (Bld)0.6 %Critically low0.9-7.0The [facility] on above:Performed By: #### CBC #### [facility] [address] [place] [address] Dr. Heather Stallingsrythrocyte distribution width (RBC) [Ratio]12.7 %Prufqv92.0-15.0 The [facility] on above:Performed By: #### CBC #### [facility] [address] [place] [address] Dr. Heather SalasHematocrit (Bld) [Volume fraction]38.4 %Abwlyz99.0-48.0The [facility] CampusComment on above:Performed By: #### CBC #### [facility] [address] [place] [address] Dr. Heather SalasHemoglobin (Bld) [Mass/Vol]12.5 g/dVNjzkie38.0-16.0The [facility] CampusComment on above:Performed By: #### CBC #### [facility] [address] [place] [address] Dr. Heather Proctor #0.03 10e3/ulNormal0.00-0.03The [facility] CampusComment on above:Performed By: #### CBC #### [facility] [address] [place] [address] Dr. Heather Proctor %0.3 %Normal0.0-0.5The [facility] CampusComment on above: Performed By: #### CBC #### [facility] [address] [place] [address] Dr. Heather Sheffield #2.3 103/ulNormal1.2-3.8The [facility] CampusComment on above:Performed By: #### CBC #### [facility] [address] [place] [address] Dr. Heather Hohocytes/100 WBC (Bld)22.8 %Jlxwwi67.5-60.0The [facility] CampusComment on above:Performed By: #### CBC #### [facility] [address] [place] [address] Dr. Heather AlfaroUAL DIFF REQNONormalThe St. [facility]Comment on above: Performed By: #### CBC #### [facility] [address] [place] [address] Dr. Heather Colorado (RBC) [Entitic mass]30.2 wbBmqier53.7-34.0The [facility] CampusComment on above:Performed By: #### CBC #### [facility] [address] [place] [address] Dr. Heather RosalesHC (RBC) [Mass/Vol]32.6 g/eURahjpm39.9-35.2The [facility] CampusComment on above:Performed By: #### CBC #### [facility] [address] [place] [address] Dr. Heather Jean (RBC) [Entitic vol]92.8 hSVxzwpy28.1-95.6The [facility] CampusComment on above:Performed By: #### CBC #### [facility] [address] [place] [address] Dr. Heather Justin #0.5 103/ulNormal0.3-0.8The [facility] CampusComment on above:Performed By: #### CBC #### [facility] [address] [place] [address] Dr. Heather Baocytes/100 WBC (Bld)4.7 %Normal1.7-12.0The [facility] Comment on above:Performed By: #### CBC #### [facility] [address] [place] [address] Dr. Heather Howard #7.3 103/ulCritically high1.4-6.5The [facility] Comment on above:Performed By: #### CBC #### [facility] [address] [place] [address] Dr. Heather Headleyutrophils/100 WBC (Bld)71.2 %Hsdibm37.0-75.0The [facility] CampusComment on above:Performed By: #### CBC #### [facility] [address] [place] [address] Dr. Heather Oneallet mean volume (Bld) [Entitic vol]10.4 fLNormal9.5-13.5The [facility] CampusComment on above:Performed By: #### CBC #### [facility] [address] [place] [address] Dr. Heather RobertoT272 103/jfSlesaf130-752Yci [facility] CampusComment on above: Performed By: #### CBC #### [facility] [address] [place] [address] Dr. Heather SalasRBC4.14 106/ulNormal3.40-5.30The [facility] CampusComment on above:Performed By: #### CBC #### [facility] [address] [address] [address] Heather SalasWBC10.2 103/ulNormal4.0-11.0The [facility]Comment on above:Performed By: #### CBC #### [facility] [address] [address] [address] Heather SalasCULTURE URINEon [id number] URINECulture Observations: MODERATE GROWTH OF MIXED GENITAL VALORIE. NO POTENTIAL PATHOGENS SEEN.NormalThe St. [facility] CampusComment on above:Performed By: #### URCX #### [facility] [address] [place] [address] Dr. Heather SalasCovid-19 PCR (CVDTBH)on 36-71-5675RZSN-CoV-2 (COVID-19) RNA UNA+probe Ql (Unsp spec)Not detectedNormalNOT DETECTEDThe St. [facility] Comment on above:Result Comment: When diagnostic testing is negative, the [...] for this test is supported by the [place] of Health and Human Service's declaration that circumstances exist to justify the emergency use of in vitro diagnostics for the detection and/or diagnosis of the virus that causes COVID-19. This EUA will remain in effect for the duration of the COVID-19 declaration justifying emergency of IVDs, unless it is terminated or revoked by the FDA (after which the test may no longer be used).Performed By: #### CVDTBH #### [facility] [address] [place] [address] Dr. Heather SalasDRUG SCREEN RAPID (URINE)on [id number]W [facility] CenterComment on above:Performed By: #### DRUGRPD #### [facility] [address] [place] [address] Dr. Heather SalasBARNegativeNoalNEGATIVEAccess Hospital Daytonment on above: Performed By: #### DRUGRPD #### [facility] [address] [place] [address] Dr. Heather SalasBUPNegativeNormalNEGATIVEChillicothe Va Medical CenterComment on above: Performed By: #### DRUGRPD #### [facility] [address] [place] [address] Dr. Heather SalasBZONegativeNormalNEGATIVEChillicothe Va Medical CenterComment on above: Performed By: #### DRUGRPD #### [facility] [address] [place] [address] Dr. Heather SalasCOCNegativermalNEGCleveland Clinic Medina HospitalComment on above: Performed By: #### DRUGRPD #### [facility] [address] [place] [address] Dr. Heather TaylorNorwalk Memorial HospitalComment on above: Result Comment: AMP (Amphetamine): 500ng/mL, BAR (Barbituates): 200 ng/mL, BZO (Benzodiazepines): 150 ng/mL, BUP (Buprenorphine): 10 ng/mL, LANG (Cocaine): 150 ng/mL, mAMP (Methamphetamine): 500 ng/mL, MTD (Methadone): 200 ng/mL, OPI (Opiates): 100 ng/mL, OXY (Oxycodone): 100 ng/mL, PCP (Phencyclidine): 25 ng/mL, PPX (Propoxyphene): 300 ng/mL, THC (Cannabinoids): 50 ng/mL, TCA (Trycyclic Antidepressants): 300 ng/mLPerformed By: #### DRUGRPD #### [facility] [address] [place] [address] Dr. Heather SalasDRUG CUT HEADERDRUG CLASS TEST SYSTEM CUT-OFF CONCENTRATIONS ARE FOLLOWS:NormalThe [facility] HospitalComment on above:Performed By: #### DRUGRPD #### [facility] [address] [address] [address] Heather SalasmAMPNegativeNormalNEGATIVEChillicothe Va Medical CenterComment on above: Performed By: #### DRUGRPD #### [facility] [address] [address] [address] Heather SalasMTDNegativeNormalNEGATIVEThe [facility] HospitalComment on above: Performed By: #### DRUGRPD #### [facility] [address] [address] [address] Heather SalasOPINegativeNormalNEGATIVEChillicothe Va Medical CenterComment on above: Performed By: #### DRUGRPD #### [facility] [address] [place] [address] Dr. Heather SalasOXYNegativeNormalNEGATIVEChillicothe Va Medical CenterComment on above: Performed By: #### DRUGRPD #### [facility] [address] [place] [address] Dr. Heather SalasPCPNegativeNormalNEGATIVEChillicothe Va Medical CenterComment on above: Performed By: #### DRUGRPD #### [facility] [address] [place] [address] Dr. Heather RothXNegativeNormalNEGATIVEChillicothe Va Medical CenterComformerly [facility] on above: Performed By: #### DRUGRPD #### [facility] [address] [place] [address] Dr. Heather SalasTCANegativeNormalNEGATIVEThe [facility] HospitalComment on above: Performed By: #### DRUGRPD #### [facility] [address] [place] [address] Dr. Heather SalasTHCNegativeNormalNEGATIVEChillicothe Va Medical CenterComment on above: Performed By: #### DRUGRPD #### [facility] [address] [place] [address] Dr. Romero ChangER URINE PROFILEon 50-75-2499Yhtqlzife Ql (U)NegativeNormal NEGATIVEThe [facility] HospitalComment on above:Performed By: #### BMP #### [facility] [address] [address] [address] Heather SalasClarity (U)CLEARNormalCLEARThe University [facility] Center HospitalComment on above: Performed By: #### BMP #### [facility] [address] [address] [address] Heather Marquezlor (U)LT. YELLOWNormalYELLOWChillicothe Va Medical CenterComment on above:Performed By: #### BMP #### [facility] [address] [address] [address] Heather Sterling micrscopic examination will be performed if indicated. NormalThe Arroyo Seco HospitalComment on above:Performed By: #### BMP #### [facility] [address] [address] [address] Heather SalasGlucose Ql (U)NegativeNormalNEGATIVEThe [facility] HospitalComment on above:Performed By: #### BMP #### [facility] [address] [address] [address] Heather SalasHemoglobin Ql (U)TRACE-INTACTAbnormalNEGATIVEThe [facility] HospitalComment on above:Performed By: #### BMP #### [facility] [address] [place] [address] Dr. Heather SalasKetones Ql (U)NegativeNormalNEGATIVEChillicothe Va Medical CenterComment on above:Performed By: #### BMP #### [facility] [address] [address] [address] Heather SalasLEUKOCYTESMODERATEAbnormalNEGATIVEThe [facility] HospitalComment on above:Performed By: #### BMP #### [facility] [address] [address] [address] Heather SalasNitrite Ql (U)NegativeNormalNEGATIVEChillicothe Va Medical CenterComment on above:Performed By: #### BMP #### [facility] [address] [address] [address] Heather SalaspH (U)7.0 [pH]Normal5-9The [facility] HospitalComment on above: Performed By: #### BMP #### [facility] [address] [place] [address] Dr. Heather SalasSPEC GRAVITY1.312Dwlfhy1.005-<=1.025The [facility] CampusComment on above:Performed By: #### BMP #### [facility] [address] [place] [address] Dr. Heather Alfaro PROTEINTRACENormalNEGATIVE/ TRACEThe St. [facility] CampusComment on above:Performed By: #### BMP #### [facility] [address] [place] [address] Dr. Heather Javier MICRO INDINDICATEDNoAultman HospitalComment on above: Performed By: #### BMP #### [facility] [address] [place] [address] Dr. Heather Schmidbilinogen Qn (U)2.0 {Varun'U}/dLAbnormal0.2 - 1.0The [facility] CampusComment on above:Performed By: #### BMP #### [facility] [address] [place] [address] Dr. Heather MathewsANOL (BLD ALC)on 13-01-8280DCM NOTENOTE: 80 mg/dl is the legal limit for a blood alcohol levelNoAultman HospitalComformerly [facility] on above: Performed By: #### DRUGRPD #### [facility] [address] [place] [address] Dr. Romero ChangEthanol [Mass/Vol]mg/dLNoAultman HospitalComformerly [facility] on above:Performed By: #### DRUGRPD #### [facility] [address] [place] [address] Dr. Heather SalasPREGNANCY URon 43-55-1559KOMSZFROZ, QUALNegativeNormalNEGATIVEThe St[facility] CampusComment on above:Performed By: #### BMP #### [facility] [address] [place] [address] Dr. Heather SalasPROF 14(COMP METB)on 29-67-0094Etodmoy [Mass/Vol]4.0 g/dLNormal 3.4-5.0The [facility] CampusComment on above:Performed By: #### DRUGRPD #### [facility] [address] [address] [address] Heather SalasAlbumin/Globulin [Mass ratio]1.1 {ratio}NormalThe St[facility] CampusComment on above:Performed By: #### DRUGRPD #### [facility] [address] [address] [address] Heather Lucas [Catalytic activity/Vol]92 U/IHvnosd92-892Tjk [facility] CampusComment on above:Performed By: #### DRUGRPD #### [facility] [address] [address] [address] Heather Cleveland [Catalytic activity/Vol]13 U/LCritically wah28-96Enq [facility] CampusComment on above:Performed By: #### DRUGRPD #### [facility] [address] [address] [address] Heather Caseyon gap [Moles/Vol]13.0 mmol/LNormalThe [facility] Comment on above:Performed By: #### DRUGRPD #### [facility] [address] [address] [address] Heather SalasAST [Catalytic activity/Vol]9 U/LCritically nsm54-69Fmw [facility] CampusComment on above:Performed By: #### DRUGRPD #### [facility] [address] [address] [address] Heather SalasBilirubin [Mass/Vol]0.2 mg/dLNormal0.2-1.0The [facility] Comment on above:Performed By: #### DRUGRPD #### [facility] [address] [address] [address] Heather SalasCalcium [Mass/Vol]8.8 mg/dLNormal8.5-10.1The [facility] Comment on above:Performed By: #### DRUGRPD #### [facility] [address] [address] [address] Heather SalasChloride [Moles/Vol]104 mmol/EVbtrlo59-744ZahChillicothe Va Medical Center Comment on above:Performed By: #### DRUGRPD #### [facility] [address] [address] [address] Heather SalasCO2 [Moles/Vol]24.7 mmol/OWywyif25.0-32.0The [facility] Comment on above:Performed By: #### DRUGRPD #### [facility] [address] [place] [address] Dr. Heather SalasCreatinine [Mass/Vol]0.79 mg/dLNormal0.55-1.02Chillicothe Va Medical CenterComment on above:Performed By: #### DRUGRPD #### [facility] [address] [place] [address] Dr. Heather SalasGlobulin (S) [Mass/Vol]3.6 g/dLNormalThe St[facility] CampusComment on above:Performed By: #### DRUGRPD #### [facility] [address] [place] [address] Dr. Heather SalasGlucose [Mass/Vol]124 mg/dLCritically cauk88-791FtlChillicothe Va Medical CenterComment on above:Performed By: #### DRUGRPD #### [facility] [address] [place] [address] Dr. Heather SalasPotassium [Moles/Vol]3.7 mmol/LNormal3.5-5.1The [facility] Comment on above:Performed By: #### DRUGRPD #### [facility] [address] [place] [address] Dr. Heather SalasProtein [Mass/Vol]7.6 g/dLNormal6.4-8.2The [facility] Comment on above:Performed By: #### DRUGRPD #### [facility] [address] [place] [address] Dr. Heather SalasSodium [Moles/Vol]138 mmol/OSvjani164-988Bjc [facility] Comment on above:Performed By: #### DRUGRPD #### [facility] [address] [place] [address] Dr. Heather Núñez nitrogen [Mass/Vol]7.0 mg/dLNormal6.4-19.3The [facility] CampusComment on above:Performed By: #### DRUGRPD #### [facility] [address] [address] [address] Heather Núñez nitrogen/Creatinine [Mass ratio]8.9 mg/mgNoAultman HospitalComment on above:Performed By: #### DRUGRPD #### [facility] [address] [address] [address] Heather SalasSALICYLATEon 51-76-0874WDJJYUCADB5.3 mg/dLNormal<=19.9The [facility] CampusComment on above:Performed By: #### DRUGRPD #### [facility] [address] [place] [address] Dr. Heather Mckay MICROSCOPIC ONLYon 33-52-6676SHYYCMUSPJGGXIIWKdrhkjsdPIQH SEENThe St[facility] CampusComment on above:Performed By: #### BMP #### [facility] [address] [place] [address] Dr. Heather Quevedo identified Cx Nom (U)INDICATEDMartin Memorial HospitalComment on above:Performed By: #### BMP #### [facility] [address] [place] [address] Dr. Heather Alarcon SEENNormalNONE SEENChillicothe Va Medical CenterComformerly [facility] on above:Performed By: #### BMP #### [facility] [address] [place] [address] Dr. Heather Raderystals LM Nom (Urine sed)NONE SEENNormalNONE SEENChillicothe Va Medical CenterComformerly [facility] on above:Performed By: #### BMP #### [facility] [address] [place] [address] Dr. Heather Jainthelial cells LM Ql (Urine sed)MANYAbnormalNONE SEEN /RAREThe St[facility] CampusComment on above:Performed By: #### BMP #### [facility] [address] [place] [address] Dr. Heather DennisJose M SEENNormalNONE SEENThe St[facility] CampusComment on above:Performed By: #### BMP #### [facility] [address], [place] [address] Dr. Heather SalasEfpnsMNJ9-8Sxlxpn6-8Xzc [facility] CampusComment on above:Performed By: #### BMP #### [facility] [address], [place] [address] Dr. Heather SalasWBC5-10AbnormalNONE SEENThe [address] [facility] CampusComment on above: Performed By: #### BMP #### [facility] [address], [place] [address] Dr. Heather SalasProspenser Noteon 67-80-4312Arjughlgfdaxu Authentication Interface Message TextGrandparents had technical difficulties with video chat and patient was unable to be seen. Office staff alerted to reschedule appointment. This encounter was created in error - please disregard.NormalMercy Health [facility] Hospital's [facility] Medical CenterXR CHEST 2 Von 21-35-4787YV CHEST 2 VEXAM: XR CHEST 2 V HISTORY: Choking and [...] Electronically authenticated by: KATIANA MA Date: 2022-05-02 16:43NormMercer County Community HospitalCOM METABOLIC PANELon 97-98-3801Hmqsilc [Mass/Vol]4.6 g/dL Normal3.5-5.7The [facility] HospitalComment on above:Order Comment: No: Do not add to previous drawPerformed By: #### 05196, 10553, 15687, 58317, 31608, 09473 #### [facility] [address] [place] [address], [facility]ICALKALINE AYCEEX99 IU/LJjvsic88-462Coq [facility] HospitalComment on above:Order Comment: No: Do not add to previous draw Performed By: #### 10739, 64847, 34664, 25485, 07058, 70554 #### [facility] [address] [place] [address], USAALT [Catalytic activity/Vol]7 U/LNormal7-52The [facility] HospitalComment on above:Order Comment: No: Do not add to previous drawPerformed By: #### 35109, 76823, 72879, 09670, 09692, 75934 #### [facility] [address] [place] [address], USAAST [Catalytic activity/Vol]10 U/UHjo77-82Asj [facility] HospitalComment on above:Order Comment: No: Do not add to previous drawPerformed By: #### 06578, 74276, 74466, 14582, 82392, 50406 #### [facility] [address] [place] [address], USABilirubin [Mass/Vol]0.7 mg/dLNormal0.3-1.0The [facility] HospitalComment on above:Order Comment: No: Do not add to previous drawPerformed By: #### 41087, 43055, 38071, 91383, 73843, 56166 #### [facility] [address] [place] [address], USACalcium [Mass/Vol]10.0 mg/dLNormal8.6-10.3The [facility] HospitalComment on above:Order Comment: No: Do not add to previous drawPerformed By: #### 29077, 47945, 77047, 17709, 86152, 35465 #### [facility] [address] [place] [address], USAChloride [Moles/Vol]104 mmol/LAjevrf58-566Gsm [facility] HospitalComment on above:Order Comment: No: Do not add to previous drawPerformed By: #### 95158, 64605, 13655, 20031, 85132, 07766 #### [facility] [address] [place] [address], USACO2 [Moles/Vol]27 mmol/GCywqfb16-13Ltl [facility] HospitalComment on above:Order Comment: No: Do not add to previous draw Performed By: #### 39768, 31672, 53494, 85956, 00420, 29416 #### [facility] [address] [place] [address], USACreatinine [Mass/Vol]0.85 mg/dLNormal0.60-1.20The [facility] HospitalComment on above:Order Comment: No: Do not add to previous drawPerformed By: #### 79934, 92109, 75427, 93191, 69166, 97194 #### [facility] [address] [place] [address], USAeGFR- AmericanCalculation not validated for patients under 18 yearsAbnormal>60The [facility] HospitalComment on above:Order Comment: No: Do not add to previous drawPerformed By: #### 13218, 15578, 93540, 28008, 18508, 06493 #### [facility] [address] [place] [address], USAeGFR- non- AmericanCalculation not validated for patients under 18 yearsAbnormal>60The [facility] HospitalComment on above:Order Comment: No: Do not add to previous drawPerformed By: #### 86157, 18981, 28721, 87909, 68170, 22863 #### [facility] [address] [place] [address], USAGlucose [Mass/Vol]106 mg/jIFlji78-414Uzy [facility] HospitalComment on above:Order Comment: No: Do not add to previous drawPerformed By: #### 51031, 27690, 79187, 11967, 80669, 15689 #### [facility] [address] [place] [address], USAPotassium [Moles/Vol]3.7 mmol/LNormal3.5-5.1The [facility] HospitalComment on above:Order Comment: No: Do not add to previous drawPerformed By: #### 92297, 23234, 36934, 06474, 47207, 26707 #### [facility] [address] [place] [address], USAProtein [Mass/Vol]7.3 g/dLNormal6.0-8.3The [facility] HospitalComment on above:Order Comment: No: Do not add to previous drawPerformed By: #### 55823, 14706, 20839, 14102, 33499, 73901 #### [facility] [address] [place] [address], USASodium [Moles/Vol]140 mmol/QSkcfdm581-963Vxm [facility] HospitalComment on above:Order Comment: No: Do not add to previous drawPerformed By: #### 13429, 07816, 21119, 29820, 50467, 12067 #### [facility] [address] [place] [address], USAUrea nitrogen [Mass/Vol]10 mg/dLNormal7-25The [facility] HospitalComment on above:Order Comment: No: Do not add to previous drawPerformed By: #### 84432, 56912, 74671, 18317, 58318, 75420 #### [facility] [address] [place] [address], USAFREE T3on 44-51-7908Snqp T3 [Mass/Vol]3.3 pg/mLNormal 2.5-3.9The [facility] HospitalComment on above:Order Comment: No: Do not add to previous drawPerformed By: #### 85449, 09367, 59005, 69225, 29399, 03041 #### [facility] [address] [place] [address], USAFREE T4on 63-49-7287Pbdy T4 [Mass/Vol]0.88 ng/dLNormal 0.71-1.85The [facility] HospitalComment on above:Order Comment: No: Do not add to previous drawPerformed By: #### 92626, 94087, 46337, 00135, 08220, 83215 #### [facility] [address] [place] [address], USALIPID PROFILEon 51-61-5553Wmzcjwqkibs [Mass/Vol]137 mg/dL Lhihwd272-141Fan [facility] HospitalComment on above:Order Comment: No: Do not add to previous drawResult Comment: CHOLESTEROL REFERENCE RANGE: 20 YEARS AND OLDER CARDIOVASCULAR RISK Less than 200 mg/dl Low Risk 200 to 239 mg/dl Borderline Risk 240 mg/dl and greater High RiskPerformed By: #### 05024, 22894, 79048, 23280, 85330, 05122 #### [facility] [address] [place] [address], USACholesterol in HDL [Mass/Vol]48 mg/hJXrmygh27-91Rxj [facility] HospitalComment on above:Order Comment: No: Do not add to previous drawResult Comment: Slight variation in normal range could be due to gender and/or age. HDL CHOLESTEROL REFERENCE RANGE: 20 years and older Cardiovascular Risk > or =60 mg/dL Desirable 40 TO 59 mg/dL Low Risk <40 mg/dL High RiskPerformed By: #### 05176, 35888, 65807, 87497, 94560, 60601 #### [facility] [address] [place] [address], USACholesterol in LDL [Mass/Vol]62 mg/dLNormal0-130The [facility] HospitalComment on above:Order Comment: No: Do not add to previous drawResult Comment: LDL IS A CALCULATION LDL IS ONLY VALID IF THE TRIG IS LESS THAN 400.Performed By: #### 88202, 90297, 66777, 99362, 65356, 78045 #### [facility] [address] [place] [address], USACholesterol.total/Cholesterol in HDL [Mass ratio]2.9 {ratio}Normal0.0-4.5The [facility] HospitalComment on above: Order Comment: No: Do not add to previous drawPerformed By: #### 60425, 80197, 28366, 23388, 70848, 01292 #### [facility] [address] [place] [address], USANON-HDL VIDHMXREBML32 mg/dLNormalThe [facility] HospitalComment on above:Order Comment: No: Do not add to previous draw Performed By: #### 22937, 56204, 81965, 75681, 17861, 49324 #### [facility] [address] [place] [place] [address], USATriglyceride [Mass/Vol]133 mg/bPPmvzug25-999Vzf [facility] HospitalComment on above:Order Comment: No: Do not add to previous drawResult Comment: TRIGLYCERIDE REFERENCE RANGE: 20 YEARS AND OLDER CARDIOVASCULAR RISK LESS THAN 150 mg/dl LOW RISK 150 TO 199 mg/dl BORDERLINE RISK 200 mg/dl AND GREATER HIGH RISKPerformed By: #### 52698, 13029, 47777, 83643, 42256, 80136 #### [facility] [address] [place] [place] [address], USAVLDL CHOL27 mg/dLNormal0-40The [facility] HospitalComment on above:Order Comment: No: Do not add to previous drawPerformed By: #### 48497, 43570, 07934, 85750, 11393, 18913 #### [facility] [address] [place] [place] [address], BDQWAY6bd 16-39-2291QGR 3RD GENERATION1.14 uIU/mLNormal 0.34-5.60The [facility] HospitalComment on above:Order Comment: No: Do not add to previous drawPerformed By: #### 50678, 08411, 20790, 56004, 98015, 98011 #### [facility] [address] StreetVITAMIN D 25-HYDROXYon 66-56-3833SBPIJPC D 25-OH15.6 ng/mL Low30.0-80.0The [facility] HospitalComment on above:Result Comment: >80.0 Toxicity possiblePerformed By: #### 22656, 71878, 49277, 82653, 05868, 26242 #### [facility] [address] Vital Signs Date TimeVital SignValuePerforming IzumupbeiPahxaemn58-93-9430 16:27-0400Body btermq473.6 cmAnel Quarles GAS MAIN FITTER HELPER Work Phone: [phone] [place], [place] 4808010-13-2025 16:27-0400Body mass index (BMI) [Ratio]17.75 kg/s9WwfhoregAnel Quarles GAS MAIN FITTER HELPER Work Phone: [phone] [place], [place] 4808010-13-2025 16:27-0400Body temperature 97.59 [degF]Anel Quarles GAS MAIN FITTER HELPER Work Phone: [phone] [place], [place] 4808010-13-2025 16:27-0400Body .9 kg Anel Quarles GAS MAIN FITTER HELPER Work Phone: [phone] [place] [address]-13-2025 16:27-0400Diastolic blood zvipprhr59 mm[Hg]Anel Quarles GAS MAIN FITTER HELPER Work Phone: [phone] [place] [address]-13-2025 16:27-0400Heart rate89 /min Anel Quarles G[employer] MAIN [employer]TER HELPER Work Phone: [phone] [place] [address]-13-2025 16:27-4996UbB9% (BldA) [Mass fraction]100 %Anel Quarles G[employer] MAIN FITTER HELPER Work Phone: [phone] [place] [address]-13-2025 16:27-0400Systolic blood qlgynscs816 mm[Hg]Anel Quarles G[employer] MAIN FITTER HELPER Work Phone: [phone] [place], [place] 4808009-06-2025 10:00-0400Body rkhqat854.56 cmLmichael Perez GAS MAIN FITTER HELPER-C Work Phone: [phone] [place], [place] 3313109-06-2025 10:00-0400 Body mdljsmtszpo35.6 [degF]Leni Perez GAS MAIN FITTER HELPER-C Work Phone: [phone] [place], [place] 3313109-06-2025 10:00-0400 Body .1 kgeLni Perez GAS MAIN FITTER HELPER-C Work Phone: [phone] [place], [place] 3313109-06-2025 10:00-0400 Diastolic blood mm[Hg]Leni Perez GAS MAIN FITTER HELPER-C Work Phone: [phone] [place], [place] 3313109-06-2025 10:00-0400 Heart rate98 /minLeni Perez GAS MAIN FITTER HELPER-C Work Phone: [phone] [place], [place] 3313109-06-2025 10:00-0400 Respiratory rate22 /minLeni Perez GAS MAIN FITTER HELPER-C Work Phone: [phone] [place], [place] 3313109-06-2025 10:00-0400 SaO2% (BldA) [Mass fraction]98 %Leni Perez G[employer] MAIN FITTER HELPER-C Work Phone: [phone] [place], [place] 3313109-06-2025 10:00-0400 Systolic blood weqqrggf215 mm[Hg]Leni Perez GAS MAIN FITTER HELPER-C Work Phone: [phone] [place], [place] 3313110-23-2024 11:04-0400 Body dwqhro899.6 Kathryn Lozano MD, IBCLC Work Phone: [phone] [place], [place] 4808010-23-2024 11:04-0400Body mass index (BMI) [Ratio]17.06 kg/t9IpfgsmzvrAakash Lozano MD, IBCLC Work Phone: [phone] [place], [place] 4808010-23-2024 11:04-0400Body temperature 96.21 [degF]Aakash Lozano MD, IBCLC Work Phone: [facility] HospitalIwkhnzbdti72-53-0380 11:04-0400Body .09 kgAakash Lozano MD, IBCLC Work Phone: [facility] HospitalJprbmasayr23-97-5274 11:04-0400Diastolic blood aiqvbtrr90 mm[Hg]Aakash Lozano MD, IBCLC Work Phone: [facility] HospitalBcmuovjkxs65-72-3734 11:04-0400Heart pxju002 /min Aakash Lozano MD, IBCLC Work Phone: [facility] HospitalRwsvhkgbzi90-48-2320 11:04-3934FfU2% (BldA) [Mass fraction]99 %Aakash Lozano MD, IBCLC Work Phone: [facility] HospitalHxcpdjkjdz95-02-3473 11:04-0400Systolic blood uhqsbemz543 mm[Hg]Aakash Lozano MD, IBCLC Work Phone: [facility] HospitalQdmxultsvf46-71-6017 14:23-0500Diastolic blood pvcnuogd70 mm[Hg]Racquel Shlomo TECHNICIAN AUTOMATED EQUIPMENT Work Phone: [facility]02-13-2023 14:23-0500 Systolic blood wltywnym207 mm[Hg]Racquel Shlomo TECHNICIAN AUTOMATED EQUIPMENT Work Phone: [facility]02-13-2023 13:48-0500 Body gbkaqq864 cmHeather Shlomo TECHNICIAN AUTOMATED EQUIPMENT Work Phone: [facility]02-13-2023 13:48-0500 Body mass index (BMI) [Percentile] Per age and sex9.93 %Racquel Shlomo TECHNICIAN AUTOMATED EQUIPMENT Work Phone: [facility]02-13-2023 13:48-0500 Body mass index (BMI) [Ratio]17.96 kg/y3Dgxtoxy Shlomo TECHNICIAN AUTOMATED EQUIPMENT Work Phone: [facility]02-13-2023 13:48-0500 Body uihnbo70.3 kgHeather Shlomo TECHNICIAN AUTOMATED EQUIPMENT Work Phone: [facility] Encounters Encounter DateEncounter TypeCare ProviderFacilityStart: 08-30-2025 End: 18-35-9363kreudiaikcGKTZFQZF RICHARDSONNot AvailableStart: 08-30-2025 End: 36-08-1758Sfxdin outpatient visit 15 minutesAnel Quarles GAS MAIN FITTER HELPER Work Phone: noH[facility]on [facility] MedicineComment on above:Group A streptococcal infection (Primary Dx); Sore throatStart: 08-30-2025 End: 65-59-8724Jrnwqy flowsNilo Quarles GAS MAIN FITTER HELPER Work Phone: [facility] MedicineStart: 08-30-2025 End: 73-27-6679Ujdkgj flowsNilo Quarles GAS MAIN FITTER HELPER Work Phone: [facility] MedicineStart: 07-24-2025 End: 55-14-6656Ghwnfhzy Result EncounterCarrie A Kiepert GAS MAIN FITTER HELPER Work Phone: noms External Department UnsolicitedStart: 07-24-2025 End: 10-77-5621Tiwamrrt Result EncounterCarrie A Kiepert GAS MAIN FITTER HELPER Work Phone: noms External Department UnsolicitedStart: 07-24-2025 End: 04-88-3136Gtjjukbcb department patient visitLeni Perez GAS MAIN FITTER HELPER-C Work Phone: [phone]-Iicnxycai Room Work Phone: Start: 09-09-2024 End: 33-09-4906Lchxas flowsRupali Lozano MD, IBCLC Work Phone: [facility] FMStart: 09-09-2024 End: 31-11-8696Rcdobt Karen Lozano MD, IBCLC Work Phone: [facility] FMStart: 09-09-2024 End: 19-31-7326yabaemdmkeFVQHKHXRL PROSSERNot AvailableStart: 09-09-2024 End: 39-97-8525Uhvmxa outpatient visit 15 minutesAakash Lozano MD, IBCLC Work Phone: [facility] FMComment on above:Psychogenic nonepileptic seizure (CMS/HCC) (Primary Dx); Anxiety and depression (CMS/HCC); PTSD (post-traumatic stress disorder) (CMS/HCC); Need for vaccinationStart: 09-05-2024 End: 59-81-8334dtmsrmlsdpQuxeyqwaoUniversity Hospitals [facility] Work Phone: Start: 09-05-2024 End: 87-65-4489Kulfgep encounter procedureTransylvania Regional [facility] Work Phone: Start: 07-10-2024 End: 64-02-0870HovmtvXgkyemcAfia Perez NP Work Phone: NOXV [facility] FMComment on above:PTSD (post-traumatic stress disorder) (CMS/HCC); Depression with anxietyStart: 01-14-2024 End: 93-30-9674khleyozzoqLUOUKCIThe Jewish Hospital SHSStart: 12-19-2023 End: 98-75-8294tcvyrngsddKJRLIOEThe Jewish Hospital SHSStart: 11-28-2023 End: 71-57-2927zthmpxvflpCUEVOTWThe Jewish Hospital SHSStart: 11-14-2023 End: 81-91-8874mkbdfiscawVVEBHJMThe [facility] Hospital SHSStart: 10-29-2023 End: 75-77-3008ktuebpubatZEVVLFRThe Jewish Hospital SHSStart: 10-22-2023 End: 48-26-3792pfxstbithwWBQHLMWThe [facility] Hospital SHSStart: 10-11-2023 End: 48-90-8480ghlwddjsvnKNWJZHZThe [facility] Hospital SHSStart: 09-17-2023 End: 47-12-0263frqnbtavkdZBITXVWThe Jewish Hospital SHSStart: 09-10-2023 End: 07-40-5641uyalpqttgkEKRINOXThe [facility] Hospital SHSStart: 08-20-2023 End: 14-35-6336yuwdzrkjdsKRLLWOWThe [facility] Hospital SHSStart: 08-14-2023 End: 25-26-5110vmvlgpoozcLIZUJHDThe Jewish Hospital SHSStart: 08-05-2023 End: 48-21-0855rzlkqzcaoqLhdwj D OsielejrryFacility:FTMCStart: 07-29-2023 End: 49-39-7806xyzmqfkumqFIBCGYXThe [facility] Hospital SHSStart: 07-15-2023 End: 53-27-9136acpnghtunkOIQAYSIThe [facility] Hospital SHSStart: 06-25-2023 End: 06-52-5482wbbnvcixvbZYJVWLIThe [facility] Hospital SHSStart: 06-18-2023 End: 30-05-5288yebwbhxzsoQKJKMIHThe Jewish Hospital SHSStart: 06-03-2023 End: 75-30-2422clebvunlxaSCWYUBBThe Jewish Hospital SHSStart: 05-20-2023 End: 87-36-0030lvtufuifdnGBSSAOIWSentara Obici Hospital SHSStart: 05-14-2023 End: 76-21-5038xlcwogodkyRJCALEOXSentara Obici Hospital SHSStart: 05-07-2023 End: 94-94-2383xnduvyrapcHMRRKUKASentara Obici Hospital SHSStart: 04-30-2023 End: 16-92-0399gvocvypjieHJPUEDKSSentara Obici Hospital SHSStart: 04-22-2023 End: 01-39-7451faudupkjfzYqfemd J LampeFacility:FTMCStart: 04-22-2023 End: 93-09-5518Pcg Drop offAmira Mujica [facility] Start: 04-18-2023 End: 32-13-9992kdpdasoklnDRGHCYP [facility] Hospitaltart: 04-02-2023 End: 27-81-9926pydmlsglqxBKWFUEYYSentara Obici Hospital SHSStart: 03-26-2023 End: 20-41-2341jsmqgqtlcuEBIQVFBThe Jewish Hospital SHSStart: 03-21-2023 End: 75-06-2120ueyethzmgpMZCZVMRWayne Hospital SHSStart: 03-13-2023 End: 09-47-4298qflrxkunwoQDRWVGWFSentara Obici Hospital SHSStart: 02-15-2023 End: 76-65-3592galpnuptqhQGPMBTrumbull Memorial Hospital SHSStart: 02-13-2023 End: 21-89-8636babyjvgxllEPMXNV DIAB .Facility:T4Hroty: 01-29-2023 End: 82-32-4719zxogehkamtOBJTHRVABaptist Hospital SHSStart: 01-25-2023 End: 81-25-6250sjcvyorggyRA RICHARD KELLERFacility:Y2Oefys: 01-25-2023 End: 08-92-9395Nwg Laura Metzgerbarblester Hernandeze [facility] Start: 01-23-2023 End: 46-99-4058uxnucgjnmvGKCLATCRBaptist Hospital SHSStart: 42-72-1582xhclbcfyptYV RICHARD KELLERFacility:L8Cjowv: 14-91-1200Ynymvcoge encounterLori BannockUrology [facility] Main CampusComment on above:Records Request; ResultsStart: 01-02-2023 End: 04-65-1316kygvqhuutrZA RICHARD KELLERFacility:Y8Gnpzj: 12-31-2022 End: 07-14-5861ddsnubakfeIP PCPNatProMedica Bay Park Hospital's HospitalStart: 12-31-2022 End: 20-70-9131Hgrgrt consultation new/estab patient 40 Aneta Ferrera TECHNICIAN AUT[employer]ATED EQUIPMENT Work Phone: [facility] Main CampusComment on above:Microscopic hematuria (Primary Dx); Proteinuria, unspecified typeStart: 45-66-2558Zccuepzkq for general adult medical examination without abnormal findingsNNEKA [facility] Hospitaltart: 12-26-2022 End: 74-11-6653bnrpethxkiZE RICHARD KELLERFacility:T6Uuuhv: 12-26-2022 End: 14-03-2884Cluiixtjx for general adult medical examination without abnormal findingsDR EMILY CHANFacility:E8Dtfwp: 85-84-4116Lvprtxzxznsvg procedure Wendy Gee Work Phone: Urology Clinic Main CampusComment on above:CS called to schedule since referral was sent to clinic staff to review.Start: 12-09-2022 End: 88-22-4745mqlbwpxunuYKTPCW DIAB .Facility:H8Gpebq: 12-06-2022 End: 32-02-3190bnicrbmlpgTG DWAYNE HOUSEFacility:S6Txuil: 11-23-2022 End: 68-74-1726uzggvowrrwMX CHARLES HOUSEFacility:V6Rfgjk: 11-15-2022 End: 02-64-1389Pfcqcfhfjfqq consultation with Manuela Sosa [facility] HospitalComment on above:PTSD (post-traumatic stress disorder) [F43.10 (ICD-10-CM)]; 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)]Start: 10-04-2022 End: 53-85-6446zvgggkgrouZZCBDHXSelect Medical Specialty Hospital [facility]-Fairhilltart: 08-24-2022 End: 52-85-6329eoycrptbgpBWJGZKUAvita Health Systemtart: 08-15-2022 End: 65-37-7976ybobkxczfuHI CHARLES HOUSEFacility:X0Tikgh: 07-31-2022 End: 90-14-9425yhzgulhyntFNEDJDCHCSiria Hernandez [facility] Las Vegastart: 07-19-2022 End: 48-50-8489hntlhlpgteSFJKLWBGrand Lake Joint Township District Memorial Hospitaltart: 07-07-2022 End: 98-45-6609uoyaszvswdIHGZAPN PROVIDERFacility:METROHealthStart: 07-02-2022 End: 99-08-9310Myu Laura Mujica [facility] Start: 06-08-2022 End: 73-00-6855jktuwwohxcHQIEN [facility] Hospitaltart: 05-29-2022 End: 52-84-0995pxrcirtwhnBVJPOCJXASiria Hernandez [facility] HospitalStart: 05-10-2022 End: 68-91-2679inydtxvtwjZLVBYYY [facility] HospitalStart: 05-02-2022 End: 01-11-7966vlxhkgpvtyJX LUCA CISSE .Facility: Procedures DateProcedureProcedure DetailPerforming ClinicianStart: 99-56-3293Akgwarznu streptococcus group Nakita Quarles GAS MAIN FITTER HELPER Work Phone: Start: 13-54-6294Cocterawshlsp pyogenes antigen assay Leni Perez GAS MAIN FITTER HELPER-C Work Phone: Start: 15-02-7009MYXHX-19 / FLU A/B / RSV PCR ([facility]) Bernie Buchanan GAS MAIN FITTER HELPER Work Phone: Start: 07-24-2025 End: 25-82-4044Qulnvjxfk streptococcus group aCarrrodney Buchanan GAS MAIN FITTER HELPER Work Phone: Start: 12-19-2023 End: 24-23-9897Ulrugvfhkwndz w/patient 45 minutesPTSD (post-traumatic stress disorder) [F43.10 (ICD-10-CM)]Denita ORANTES-SComment on above:PTSD (post-traumatic stress disorder) [F43.10 (ICD-10-CM)]; 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)]Start: 11-28-2023 End: 62-07-9894Yitiyswlpovtd w/patient 45 minutesPTSD (post-traumatic stress disorder) [F43.10 (ICD-10-CM)]Denita ORANTES-SComment on above:PTSD (post-traumatic stress disorder) [F43.10 (ICD-10-CM)]; 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)]Start: 11-14-2023 End: 91-62-2839Uxmsohlyyjuhn w/patient 45 minutesPTSD (post-traumatic stress disorder) [F43.10 (ICD-10-CM)]Denita Sosa LITHOGRAPHER APPRENTICE-SComment on above:PTSD (post-traumatic stress disorder) [F43.10 (ICD-10-CM)]; 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)]Start: 08-14-2023 End: 36-22-0999Jtfawtrxcvrdt w/patient 45 minutesPTSD (post-traumatic stress disorder) [F43.10 (ICD-10-CM)]Denita Sosa LITHOGRAPHER APPRENTICE-SComment on above:PTSD (post-traumatic stress disorder) [F43.10 (ICD-10-CM)]; 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)]Start: 07-29-2023 End: 77-53-1310Yanvityeqpgka w/patient 45 minutesPTSD (post-traumatic stress disorder) [F43.10 (ICD-10-CM)]Denita Sosa LITHOGRAPHER APPRENTICE-SComment on above:PTSD (post-traumatic stress disorder) [F43.10 (ICD-10-CM)]; 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)]Start: 07-15-2023 End: 26-96-9121Zvylevmzbaaqe w/patient 30 minutesPTSD (post-traumatic stress disorder) [F43.10 (ICD-10-CM)]Denita Sosa LITHOGRAPHER APPRENTICE-SComment on above:PTSD (post-traumatic stress disorder) [F43.10 (ICD-10-CM)]; 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)]Start: 05-20-2023 End: 05-55-8525Yysyvjhffumhr w/patient 30 minutesPTSD (post-traumatic stress disorder) [F43.10 (ICD-10-CM)]Denita Sosa LITHOGRAPHER APPRENTICE-SComment on above:PTSD (post-traumatic stress disorder) [F43.10 (ICD-10-CM)]; 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)]Start: 03-21-2023 End: 26-49-5310Lwkzj, off, 45-50 minPTSD (post-traumatic stress disorder) [F43.10 (ICD-10-CM)]Denita Kas LITHOGRAPHER APPRENTICE-SComment on above:PTSD (post- traumatic stress disorder) [F43.10 (ICD-10-CM)]; 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)]Start: 03-13-2023 End: 23-47-7440Ncdid, office, 20-30 minPTSD (post-traumatic stress disorder) [F43.10 (ICD-10-CM)]Denita Osiel LITHOGRAPHER APPRENTICE-SComment on above:PTSD (post- traumatic stress disorder) [F43.10 (ICD-10-CM)]; 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)]Start: 56-35-3443Atcrng-up visitFollow-upCRAI HANSENStart: 01-29-2023 End: 45-27-1027Floml, off, 45-50 minPTSD (post-traumatic stress disorder) [F43.10 (ICD-10-CM)]Denita Osiel LITHOGRAPHER APPRENTICE-SComment on above:PTSD (post- traumatic stress disorder) [F43.10 (ICD-10-CM)]; 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)]Start: 01-23-2023 End: 05-11-2178Jpjiw, off, 45-50 minPTSD (post-traumatic stress disorder) [F43.10 (ICD-10-CM)]Denita Osiel LITHOGRAPHER APPRENTICE-SComment on above:PTSD (post- traumatic stress disorder) [F43.10 (ICD-10-CM)]; 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)]Start: 01-16-2023 End: 38-07-8292Myqcw, off, 45-50 minPTSD (post-traumatic stress disorder) [F43.10 (ICD-10-CM)]Denita Osiel LITHOGRAPHER APPRENTICE-SComment on above:PTSD (post- traumatic stress disorder) [F43.10 (ICD-10-CM)]; 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)]Start: 01-03-2023 End: 44-58-0095Exsvm, off, 45-50 minPTSD (post-traumatic stress disorder) [F43.10 (ICD-10-CM)]Denita LAMBERTW-SComment on above:PTSD (post- traumatic stress disorder) [F43.10 (ICD-10-CM)]; 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)]Start: 70-70-4532Kyyufpbzhz dipstick panel - Urine by Automated test stripRacquel PORTILLOP Work Phone: Start: 12-24-2022 End: 82-83-9426Hmfxx, off, 45-50 minPTSD (post-traumatic stress disorder) [F43.10 (ICD-10-CM)]Denita ORANTES-SComment on above:PTSD (post- traumatic stress disorder) [F43.10 (ICD-10-CM)]; 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)]Start: 12-17-2022 End: 61-03-6988Zkgor, off, 45-50 minPTSD (post-traumatic stress disorder) [F43.10 (ICD-10-CM)]Denita Sosa LITHOGRAPHER APPRENTICE-SComment on above:PTSD (post- traumatic stress disorder) [F43.10 (ICD-10-CM)]; 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)]Start: 12-03-2022 End: 58-27-4921Aogxs, off, 45-50 minPTSD (post-traumatic stress disorder) [F43.10 (ICD-10-CM)]Denita Sosa LITHOGRAPHER APPRENTICE-SComment on above:PTSD (post- traumatic stress disorder) [F43.10 (ICD-10-CM)]; 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)]Start: 11-26-2022 End: 19-60-2537Wkxmn, off, 45-50 minPTSD (post-traumatic stress disorder) [F43.10 (ICD-10-CM)]Denita Sosa LITHOGRAPHER APPRENTICE-SComment on above:PTSD (post- traumatic stress disorder) [F43.10 (ICD-10-CM)]; 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)]Start: 11-20-2022 End: 02-95-0253Vnfdt, off, 45-50 minPTSD (post-traumatic stress disorder) [F43.10 (ICD-10-CM)]Denita Sosa LITHOGRAPHER APPRENTICE-SComment on above:PTSD (post- traumatic stress disorder) [F43.10 (ICD-10-CM)]; 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)]Roscoe Guanako Plan of Treatment DateCare ActivityDetailAuthorStart: 69-19-7003SHR Immunization aged 60 or older (1 - 1-dose 60+ series)RSV Immunization aged 60 or older (1 - 1-dose 60+ series) [facility]Start: 68-46-2350Epeotz Vaccines (1 of 2)Zoster Vaccines (1 of 2) [facility]Start: 32-11-2673VKjU/Tdap/Td Vaccines (6 - Td or Tdap)DTaP/Tdap/Td Vaccines (6 - Td or Tdap)[facility]Start: 53-91-2763Vridorfuw vaccination Influenza Vaccine (#1)[facility] HealthcareComment on above:Postponed from 07/19/2025 (Patient Refused)Start: 09-03-0938Ghzycckiv vaccinationInfluenza Vaccine (#1) [facility] HealthcareStart: 37-83-1089Nggtylsqz vaccinationInfluenza Vaccine (#1)[facility] HealthcareStart: 15-78-7392Woskxgmzdq Depression ScreeningAdolescent Depression ScreeningTrinity Health System West Campus HealthStart: 01-02-2024 End: 94-76-5112Epvzolelrqti consultation with xqpbtzl4301/02/2024 3:00 PM EST Telemedicine [facility] Neuroscience [facility] [address] [place] [address] Denita Sosa LISWBeach[facility] NeuroscienceStart: 12-12-2023 End: 54-65-9498Qofgfuhwdzys consultation with wnczwho6012/12/2023 3:00 PM EST Telemedicine [facility] Neuroscience [address] [place] [id number] Denita Sosa LISWBeacham [facility] Hospital NeuroscienceStart: 11-28-2023 End: 87-91-4891Yxmsfnuugzbk consultation with liwfjis0511/28/2023 3:00 PM EST Telemedicine [facility] Neuroscience [address] [place] [address] Denita Sosa LISSouth [facility] NeuroscienceStart: 11-09-2023 End: 37-80-2711Uxjwnojaoyzq consultation with dwwdznd2511/09/2023 Telemedicine Denita Sosa LISWMultiCare Healthtart: 60-94-0752Bwgculgrgpz MonitoringDepresssion MonitoringSumma HealthStart: 20-35-9515Dbvdyiidb C screeningHepatitis C ScreeningTrinity Health System West Campus HealthStart: 08-05-2023 End: 61-27-4943Vweskiacssxw consultation with vneklob1108/05/2023 3:00 PM EDT Telemedicine [facility] Neuroscience [address] [place] [phone] Denita Sosa LISWBe[facility] NeuroscienceStart: 07-29-2023 End: 12-04-6121Axzmuccncjwm consultation with usqxebi0407/29/2023 3:00 PM EDT Telemedicine [facility] Neuroscience [address] [place] [address] Denita Sosa LISSouth [facility] NeuroscienceStart: 90-46-3437Ackgrniql [facility] CenterStart: 06-03-2023 End: 71-11-3176Lhjikbjbnuhk consultation with uwftzjb5406/03/2023 4:00 PM EDT Telemedicine [facility] Neuroscience [address] [place] [address] Denita Sosa LISSouth [facility] NeuroscienceStart: 03-21-2023 End: 22-53-4373Wxncmjktukxj consultation with uuqggmk8803/21/2023 Telemedicine Denita Sosa LISWBe[facility] NeuroscienceStart: 02-13-2023 End: 72-75-8649Heylezuhwadw consultation with patientSAmerican Healthcare Systems NeuroscienceStart: 02-06-2023 End: 22-38-8862Nhynqsarwomb consultation with ohuswtz7402/06/2023 Telemedicine Denita Sosa [facility]ISS[facility] NeuroscienceStart: 01-30-2023 End: 45-49-7513Aqzxuvseoojq consultation with drosohj5101/30/2023 Telemedicine Denita Sosa [facility] NeuroscienceStart: 01-23-2023 End: 35-41-4348Xgdogrcbgxle consultation with jlmeqnl2901/23/2023 Telemedicine Denita Sosa [facility] NeuroscienceStart: 01-14-2023 End: 04-92-8452Nqzgzgfsycsc consultation with qycrnzw8201/14/2023 Telemedicine Denita Sosa LISWMultiCare Healthtart: 01-09-2023 End: 16-85-3696Bfvkrybmosdc consultation with vgozkty4401/09/2023 Telemedicine Denita Sosa [facility]ISFort [facility] Hospitaltart: 12-31-2022 End: 06-66-4424Trmrwkj encounter wommrgbrd44/13/2023 Appointment Urology Racquel Ferrera, [address] [place] [address] [facility] HospitalStart: 12-31-2022 End: 94-50-2516GmsxirjdymGBLKXRCSEW Lab Routine Microscopic hematuria Expected: 12/31/2022 (Approximate), Expires: 12/31/2023[facility] Work Phone: Comment on above:Expected: 12/31/2022 (Approximate), Expires: 12/31/2023Start: 12-31-2022 End: 94-21-0356Zrinalqgaeiy consultation with xkmcpwj3912/31/2022 Telemedicine Denita SosaThe [facility]vue Hospitaltart: 12-03-2022 End: 50-75-9935Davmbaqxiocb consultation with txpwjpw6812/03/2022 [facility]medicine [facility] ComplexDenitaThe [facility] Hospitaltart: 11-26-2022 End: 43-75-3540Wawnlulcyvjo consultation with kcnocym3111/26/2022 Telemedicine Denita SosaThe Bellevue Hospitaltart: 32-05-6512Ewgjsteck vaccinationINFLUENZA VACCINE (#1)[facility] Vegastart: 14-36-4563EJPDAEDCWFRVX VACCINE (1 - 2-dose series)MENINGOCOCCAL VACCINE (1 - 2-dose series)[facility]: 2017 Adolescent Depression ScreeningAdolescent Depression ScreeningSuwexner medical center HealthStart: 97-24-6253Bttayvqernq MonitoringDepresssion MonitoringSumma HealthStart: 85-88-5251GJM Vaccines (1 - 2-dose series)HPV Vaccines (1 - 2-dose series)[facility] HealthStart: 69-80-9457XWIK (1 of 2 - Risk Bexsero 2-dose series)MENB (1 of 2 - Risk Bexsero 2-dose series)[facility] Hospitaltart: 41-68-6309OWM VACCINES (1 - 2-dose series)HPV VACCINES (1 - 2-dose series)[facility] Hospitaltart: 77-88-8680GBcR/Tdap/Td VACCINES (1 - Tdap)DTaP/Tdap/Td VACCINES (1 - Tdap)[facility] Hospitaltart: 07-51-9252ICZTWDSWQ A VACCINES (1 of 2 - 2-dose series)HEPATITIS A VACCINES (1 of 2 - 2-dose series) [facility] HospitalStart: 90-98-8343UCV VACCINES (1 of 2 - Standard series)MMR VACCINES (1 of 2 - Standard series)[facility] Start: 42-54-4550WMVCJGMEC VACCINES (1 of 2 - 2-dose childhood series)VARICELLA VACCINES (1 of 2 - 2-dose childhood series)[facility] HospitalStart: 21-70-4375Anmgrtxhsom of dental fluoride varnishFluoride VarnishSuwexner medical center Health Start: 47-03-3177NQBXG-19 Vaccine (#1)COVID-19 Vaccine (#1)[facility] HospitalStart: 87-21-3583WYL VACCINES (1 of 3 - 4-dose series)IPV VACCINES (1 of 3 - 4-dose series)[facility] HospitalStart: 14-37-1640BLRKFHJHT B VACCINES (1 of 3 - 3-dose series)HEPATITIS B VACCINES (1 of 3 - 3-dose series) [facility] HospitalStart: 94-45-7988UVH screeningHIV ScreeningTrinity Health System West Campus HealthPatient EducationStrep throat in adults Conjunctivitis (pink eye) - ED discharge instructionsScci Hospital Lima Ctr Work Phone: Patient referralScci Hospital Lima Ctr Work Phone: Immunizations Immunization DateImmunizationNotesCare UgbyfzheRxvuzepb82-98-2304qgebfkpop, seasonal, injectable, preservative freeAakash Lozano MD, IBCLC Work Phone: [facility] HospitalVdpwsdushq87-78-9599ylltvgfeq virus vaccine, unspecified formulationBernie Buchanan GAS MAIN FITTER HELPER Work Phone: NOMercy [facility]une-Brooks HospitalRljmqctdqs05-36-0262Jeqxsuhvk, injectable, Madin Courtney Canine Kidney, preservative free, quadrivalentLeni Perez GAS MAIN FITTER HELPER Work Phone: [facility]OMercy [facility]-Brooks HospitalDdigtiejli54-60-6764wqowjbbnt virus vaccine, unspecified formulationLeni Perez GAS MAIN FITTER HELPER Work Phone: [facility]OM[facility] HospitalVoqzmvlktx84-52-0505upngiakrtvmto oligosaccharide (groups A, C, Y and W-135) diphtheria toxoid conjugate vaccine (MCV4O)Leni Perez GAS MAIN FITTER HELPER Work Phone: [phone] [place], [place] [address]Zhlpsglvmd33-52-2505yaszhsoxdvsan polysaccharide (groups A, C, Y and W-135) diphtheria toxoid conjugate vaccine (MCV4P)Leni Perez GAS MAIN FITTER HELPER Work Phone: [phone] [place], [place] [address]Lngbwqbrex33-28-4770iavhomy toxoid, reduced diphtheria toxoid, and acellular pertussis vaccine, adsorbedLinmoose Perez GAS MAIN FITTER HELPER Work Phone: [phone] [place], [place] [address]Whwqjqljql55-83-8014dsueruqidc, tetanus toxoids and acellular pertussis vaccine, unspecified formulationLinmoose Perez GAS MAIN FITTER HELPER Work Phone: [phone] [place], [place] [address]Ynnykpkifb00-21-4882efjomkpbz, seasonal, injectableLinmoose Perez GAS MAIN FITTER HELPER Work Phone: [phone] [place], [place] [address]Qbesjmnmxc99-26-5762fjlczonjz virus vaccine, unspecified formulationSt. Louis VA Medical Center10-22-2010 diphtheria, tetanus toxoids and acellular pertussis vaccine, unspecified formulationNorthern Light C.A. Dean Hospitalmoose Perez GAS MAIN FITTER HELPER Work Phone: [phone] [place], [place] [address]Xcsxhpgpiz06-28-3353jwcpfyyin A vaccine, pediatric/adolescent dosage, 2 dose scheduleLindstomasz Perez GAS MAIN FITTER HELPER Work Phone: [phone] [place], [place] [address]Nqlhmpseii33-70-1674haptmhsrg, seasonal, injectableLinmoose Perez GAS MAIN FITTER HELPER Work Phone: [phone] [place], [place] [address]Ophhadtybz93-26-1247sxgzocn, mumps, rubella, and varicella virus vaccineLindstomasz Perez GAS MAIN FITTER HELPER Work Phone: [phone] [place], [place] [address]Avygdbzttw15-17-5124hxxxxhtqjp vaccine, unspecified formulationNorthern Light C.A. Dean Hospitalmoose Perez GAS MAIN FITTER HELPER Work Phone: [phone] [place], [place] [address]Mttypiikte50-67-4226nqgmqynkaw, tetanus toxoids and acellular pertussis vaccine, Haemophilus influenzae type b conjugate, and poliovirus vaccine, inactivated (GCgA-Arn-HKW)Leni Perez GAS MAIN FITTER HELPER Work Phone: [phone] [place], [place] [address]Iecvbankje03-65-4968xykewmivc A vaccine, pediatric/adolescent dosage, 2 dose scheduleLindsay Chris GAS MAIN FITTER HELPER Work Phone: [phone] [place], [place] [address]Rsiflrrgcj54-19-5371ilelrbduu B vaccine, pediatric or pediatric/adolescent dosageLindsay Chris GAS MAIN FITTER HELPER Work Phone: [facility] HospitalSjrhgqepii22-04-9199atirwbttu, seasonal, injectableLindsay Chris GAS MAIN FITTER HELPER Work Phone: [facility] HospitalKzaedyxani07-00-0920rpzzdtn, mumps and rubella virus vaccineLindsay Chris GAS MAIN FITTER HELPER Work Phone: [address] [place], [place] [address]Sshgzgnmzj65-40-1549wmwlxzbezdhl conjugate vaccine, 7 valentLindsay Chris GAS MAIN FITTER HELPER Work Phone: [address] [place], [place] [address]Kmctrioeld28-50-6591mbydnwqfz virus vaccine Leni Chris GAS MAIN FITTER HELPER Work Phone: [address] [place], [place] [address]Jwmvuehnya82-99-7920zzxzayuaxm, tetanus toxoids and acellular pertussis vaccine, unspecified formulationLindsay Chris GAS MAIN FITTER HELPER Work Phone: [address] [place], [place] [address]Wopghbqddg09-70-6077xuvoilefnrx influenzae type b conjugate and Hepatitis B vaccineLindsay Chris GAS MAIN FITTER HELPER Work Phone: [address] [place], [place] [address]Zphesaptzg64-00-2048gzhkypsmfued conjugate vaccine, 7 valentLindsay Chris GAS MAIN FITTER HELPER Work Phone: [address] [place], [place] [address]Mpkrxmuxji55-35-4706bamfwpivlg vaccine, inactivatedLindsay Chris GAS MAIN FITTER HELPER Work Phone: [facility] HospitalZnvkytawli42-33-3427hnjczajit B vaccine, pediatric or pediatric/adolescent dosageLindsay Chris GAS MAIN FITTER HELPER Work Phone: [place] [address] Payers DatePayer CategoryPayerPolicy [id number] Health InsuranceCH[facility] [id number] 2022Medicaid [id number] [facility] Member Subscriber Plan / Payer (Effective 2021-Present) Name: Lona Bell Ileana Relation to Subscriber: Child Name: EULOGIO SEVERINO Date of : 1981 Address: [address] [place] [address] Payer ID: Not on file Type: Not on file Address: [facility] [id number] [place] [id number] [id number] 2.0.1.053665.3.[id number] 2.0.1.66698[id number] 2.0.1.786840.3.57[id number] 2.0.1.21651[id number] 2.0.1.635865.3.57[id number] 2.0.1.418871.3.57[id number] 2.840.1.337102.3.57[id number] 2.840.1.570145.3.57[id number] 2.840.1.908872.3.57[id number] 2.840.1.597163.3.57[id number] 2.840.1.114976.3.57[id number] 2.840.1.284515.3.57[id number] 2.840.1.149481.3.579.[id number] 2.0.1.574240.3.57[id number] 2.840.1.541574.3.57[id number] 2..1.109678.3.57[id number] 2.0.1.288737.3.57[id number] 2.0.1.091317.3.57[id number] 2.0.1.538348.3.57[id number] 2.0.1.722403.3.579.2.212[id number] 2.840.1.129986.3.57[id number] 2.16.840.1.840335.3.57[id number] 2.16.840.1.729697.3.57[id number] 2.16.840.1.315238.3.57[id number] 2.16.840.1.762482.3.57[id number] 2.16.840.1.098168.3.579.2.727 1960 1960Unknown [id number] [id number] 2.16.840.1.1[id number] 2.16.840.1.774429.3.579.2.531 Social History DateTypeDetailFacilityTobaccoHousehold tobacco concerns: Yes.[facility]-15-2023 End: 94-47-8259Kcs Assigned At BirthFemalParkview Health Montpelier HospitalTobacco smoking status NHISTobacco smoking consumption unknownNationwide [facility] Work Phone: [phone]: 74-61-7701Yhz Assigned At BirthNot on [facility] HealthStart: 12-31-2022 End: 67-38-3770Clmuyrm smoking status NHISNever smoked tobaccoNationwide [facility] HospitalStart: 12-31-2022 End: 69-64-3324Hmomccm use and exposureSmokeless tobacco non-userNationwide [facility] Las Vegastart: 45-78-7737Utgznnh intakeDeferNationOhioHealth Mansfield Hospitaltart: 52-99-4437Xuarlcp SDOH Hbzuhlxvb9Zmhvmtdyaw [facility] Start: 61-35-9342Cimfvlj SDOH Food Xkvcs6GahslrplpdMemorial Hospitaltart: 27-18-9346Rklihlu SDOH Transport Oki0PysnzomfheGenesis HospitalTobacco smoking statusNo Smoking Status EnteredFishHarrison Community Hospital CenterStart: 47-72-9282Dysoqjn intakeLifetime non-drinker (finding)[facility] HealthStart: 02-15-2023 End: 49-24-1060Zcgtxfd of Social functionSumfl HealthStart: 10-79-3586Yde Assigned At BirthL[facility] Hospital - Westtart: 2023 End: 99-56-5351Dsqeekx smoking status NHISEx-smokerNOMS HealthcareHistory of tobacco useCurrent smokerNOMS HealthcareHistory of tobacco useCigarette Smoker [facility] HospitalStart: 12-11-2023 End: 04-82-0739Csksmiovc beverage intakeEx-drinker (finding)[facility] Healthcare Start: 11-23-2022 End: 99-73-7271Chbsxvhd to SARS-CoV-2 (event)Not sureSumma HealthSexFemale (finding)[facility] Hospitaltart: 60-48-2479QujKadkpcDSED HealthcareNEGATED: Highlighted rowStart: NINFHistory of tobacco usePassive smokerSt. Rita's Hospital Functional Status HnrdYbjjvcqfbnLhfevlShxyxsel03-38-7022Fpsvxvg Health Questionnaire 2 item (PHQ- 2) [Reported][facility] Clinical Notes 02-09-2021 to 08-30-2025 Note Date & BhrfUpowUqomepcx32-28-9538 History of Present illness Narrative* Anel Quarles NP - 08/30/2025 4:20 PM EDT Images from the original note were not included. Lona Bell is a 20 y.o. female here today for Sore Throat SUBJECTIVE: History Provided by: patient and sig other History of Present Illness The patient presents for evaluation of a sore throat. She has been experiencing a persistent sore throat for the past 3 weeks. Despite seeking medical attention at Urgent Care and being prescribed Amoxicillin, which she completed, her symptoms have onlyslightly improved. A rapid strep test done on 07/24/2025 was positive, and she was prescribed amoxicillin and eyedrops for concurrent pink eye, which has since resolved. She reports no ear pain, congestion, neck tenderness, dental issues, fever, or chills. She also reports no difficulty in swallowing pills. Her symptoms improved while on the medication but worsened after discontinuation, leading her to start taking ibuprofen. She describes the pain as particularly severe when swallowing or breathing heavily. She has been managing the discomfort with ibuprofen, which provides some relief. Current Outpatient Medications Medication Instructions amoxicillin-clavulanate (Augmentin) 875-125 MG tablet 875 mg, Oral, 2 times daily etonogestrel-eluting (Nexplanon) 68 mg contraceptive implant 1 each, Implant, Once sertraline (Zoloft) 100 MG tablet TAKE 1 AND 1/2 TABLETS BY MOUTH ONCE A DAY AT THE SAME TIME I have reviewed and reconciled the history, allergies, family history, social history, and medication list with the patient today. OBJECTIVE: BP 112/70 Pulse 89 Temp 97.6 F Ht 5' 4 Wt 103 lb 6.4 oz SpO2 100% BMI 17.75 kg/m Physical Exam Vitals and nursing note reviewed. Constitutional: General: She is not in acute distress. Appearance: Normal appearance. She is normal weight. She is not ill-appearing, toxic-appearing or diaphoretic. HENT: Head: Normocephalic and atraumatic. Right Ear: Tympanic membrane, ear canal and external ear normal. Left Ear: Tympanic membrane, ear canal and external ear normal. Mouth/Throat: Mouth: Mucous membranes are moist. Pharynx: Posterior oropharyngeal erythema present. No oropharyngeal exudate. Eyes: Conjunctiva/sclera: Conjunctivae normal. Cardiovascular: Rate and Rhythm: Normal rate and regular rhythm. Heart sounds: Normal heart sounds. Pulmonary: Effort: Pulmonary effort is normal. Breath sounds: Normal breath sounds. Musculoskeletal: General: Normal range of motion. Lymphadenopathy: Cervical: Cervical adenopathy present. Skin: General: Skin is warm and dry. Neurological: General: No focal deficit present. Mental Status: She is alert and oriented to person, place, and time. Psychiatric: Mood and Affect: Mood normal. Behavior: Behavior normal. Thought Content: Thought content normal. Judgment: Judgment normal. Physical Exam Results Labs - Rapid strep test: 07/24/2025, Positive - Influenza A and B test: Negative - COVID-19 test: Negative Depression screening Over the past 2 weeks, how often have you been bothered by any of the following problems? Little interest or pleasure in doing things: Not at all Feeling down, depressed, or hopeless: Not at all Patient Health Questionnaire-2 Score: 0 ASSESSMENT AND PLAN: Diagnoses and all orders for this visit: Group A streptococcal infection - amoxicillin-clavulanate (Augmentin) 875-125 MG tablet; Take 1 tablet (875 mg) by mouth in the morning and 1 tablet (875 mg) before bedtime. Do all this for 10 days. Sore throat - POCT rapid strep A manually resulted - amoxicillin-clavulanate (Augmentin) 875-125 MG tablet; Take 1 tablet (875 mg) by mouth in the morning and 1 tablet (875 mg) before bedtime. Do all this for 10 days. Assessment & Plan 1. Strep A Pharyngitis: - The patient has been experiencing a sore throat for approximately 3 weeks. A rapid strep test conducted on 07/24/2025 was positive. - Examination revealed enlarged erythematous oropharynx and tonsils with enlarged lymph nodes in the neck. The patient reports no fever, chills, ear pain, or congestion. - The patient was previously treated with amoxicillin and eyedrops, which provided temporary relief. However, the sore throat persisted and worsened after completing the course of amoxicillin. She has been using ibuprofen for pain relief, which has been somewhat effective. - Given the persistence of symptoms, Augmentin will be sent to the pharmacy. If symptoms do not improve or if there are repeated infections, a referral to an ENT specialist will be considered. Take with food and incorporate probiotics into diet or take supplement to replace good bacteria. Anel Quarles, COLIN N[facility] documented in this encounterSalem Memorial District HospitalVkhvftakml67-21-9295 History of Present illness Narrative* Aakash Lozano MD, IBCLC - 09/09/2024 11:00 AM EDT Images from the original note were not [...] provided to help manage symptoms of PTSD, anxiety,and depression. The patient reports that the animals [...] sertraline for anxiety/depression/ptsd. Aakash Lozano MD, IBCLC [facility] documented in this encounterSalem Memorial District [id number] NoteIndividual Therapy via Audio and Video Progress Note [...] stated that they are currently in the [facility]. If the patient is a minor, permission has been obtained by the parent or guardian for the patient to receive medical care at this visit. Date of service: 01/14/2024 Patient Name: Lona Bell Present at Session: Lona Session #: 32 Session start/stop times: 3:00pm to 3:40pm Treatment Intervention/Progress (A): Individual therapy session via telehealth with Lona Bell. Client was very excited to see therapist. [...] year she talked about having a graduation constitution party but really does not want to do it. Client did discuss that looking forward to money that she is doing it for her graduation. Client wants to get a car. She talked about applying for another place for a job but is not sure if she is going to get it. Client talked about compliant to most of the places in [place]. Client continues to report that she has [...] place, time/date, situation, (more content not included)... [facility] [id number] NoteIndividual Therapy via Audio and Video Progress Note [...] stated that they are currently in the [facility]. If the patient is a minor, permission [...] being done. She talked about a graduation constitution party where her stepsiblings will be there and she really does not want them there. Client talked about wanting hugs drinks and sloppy Arie's for her graduation constitution party so she can be a child. Client talked about her aunt dying of cancer and she is not sure she is going to go to the unless her brother goes. Client is excited about finishing high school. She talked about applying at the [employer] but her friend is no longer working [...] some difficulty with psychiatr (more content not included)...[facility]02-01-2024 History of Present illness Narrative* ROLANDA Stallworth-Mo - 12/19/2023 3:00 PM EST Individual Therapy via Audio and Video Progress [...] The patient has been advised of the potentialrisks and limitations of this mode of treatment [...] stated that they are currently in the [facility]. If the patient is a minor, permission has been obtained by the parent or guardian for the patient to receive medical care at this visit. Date of service: 12/20/2023 Patient Name: Lona Bell Present at Session: Lona Session #: 32 Session start/stop times: 3:00pm to 3:38pm Treatment Intervention/Progress (A): Individual therapy session via telehealth with Lona Ray.Client signed on and therapist was able to [...] regarding the Wellbutrin but she is no longertaking it. Client wonders what it would be like to be off medication. Therapist talked and affirmedwith her that she definitely needs to talk with psychiatry before doing anything. Discussed with her the need to taper off medications and worries about her bottoming out. Client talked about staying at home a lot she still has not had any nonepileptic seizures. Client talked about finishing high school and being done. She talked about a graduation constitution party where her stepsiblings will be there and she really does not want them there. Client talked about wanting hugs drinks and sloppy Arie's for her graduation constitution party so she can be a child. Client talked about her aunt dying of cancer and she is not sure she is going to go to the unless her brother goes. Client is excited about finishing high school. She talked about applying at the [employer] but her friend is no longer working there. Client talked about wanting to save for car. She talked about the difficu lty of getting a job in her town [...] therapy. Client continues to not have any no nepileptic events. Client's mood seems much more stable. [...] therapist the left she states she does notwant another counselor at an outside agency. Client's mood has improved significantly. Client has had some difficulty with psychiatric meds she went on Wellbutrin to try and stop vaping and then she got really agitated on Wellbutrin. Client is working with her psychiatrist and is still currently on Zoloft but client is talking about trying it without any medication. Client realizes the importanceof contacting her psychiatrist regarding. Client is doing [...] current treatment plan and Client to participate inPNES specific Cognitive behavioral treatment and work on processing PTSD .The primary aim of TakingControl of Your Seizures: Workbook is to improve the lives of patients with seizures. Both epileptic seizures and nonepileptic seizures (CEDRICK) are prevalent and potentially disabling. The Workbook is designed to be used by a patient with seizures in conjunction with his or her counselor. The Workbook contains ilsk-gd-ckcj guidelines that enable patients to take control of their seizures and their lives. The senior accountant cpa Treating Nonepileptic Seizures: Therapist Guide enhances effectiveness by provid ing reymnqy-od-elprdjn instructions for counselors who use the Workbook with patients with CEDRICK. Theauthors developed this treatment approach based on extensive clinical experience and research with epilepsy and CEDRICK. Many patients who have completed the Taking Control process experience fewer seizures, reduced symptoms, and a greater sense of well-being. Work on thought changing and CBT, buildingsupports, feelings about her seizures and taking control. Using journaling and mindfulness, mediation and yoga and grounding techniques as well as thought changing to deal with stressors. NATHANAEL Stallworth documented in this [facility]02-01-2024 History of Present illness Narrative* NATHANAEL Stallworth - 12/19/2023 3:00 PM EST Individual Therapy via Audio and Video Progress [...] The patient has been advised of the potentialrisks and limitations of this mode of treatment [...] stated that they are currently in the [facility]. If the patient is a minor, permission has been obtained by the parent or guardian for the patient to receive medical care at this visit. Date of service: 12/19/2023 Patient Name: Lona Bell Present at Session: Lona Session #: 32 Session start/stop times: 3:00pm to 3:38pm Treatment Intervention/Progress (A): Individual therapy session via telehealth with Lona Bell.Client signed on and therapist was able to [...] regarding the Wellbutrin but she is no longertaking it. Client wonders what it would be like to be off medication. Therapist talked and affirmedwith her that she definitely needs to talk with psychiatry before doing anything. Discussed with her the need to taper off medications and worries about her bottoming out. Client talked about staying at home a lot she still has not had any nonepileptic seizures. Client talked about finishing high school and being done. She talked about a graduation constitution party where her stepsiblings will be there and she really does not want them there. Client talked about wanting hugs drinks and sloppy Arie's for her graduation constitution party so she can be a child. Client talked about her aunt dying of cancer and she is not sure she is going to go to the unless her brother goes. Client is excited about finishing high school. She talked about applying at the [employer] but her friend is no longer working there. Client talked about wanting to save for car. She talked about the difficu lty of getting a job in her town [...] therapy. Client continues to not have any no nepileptic events. Client's mood seems much more stable. [...] therapist the left she states she does notwant another counselor at an outside agency. Client's mood has improved significantly. Client has had some difficulty with psychiatric meds she went on Wellbutrin to try and stop vaping and then she got really agitated on Wellbutrin. Client is working with her psychiatrist and is still currently on Zoloft but client is talking about trying it without any medication. Client realizes the importanceof contacting her psychiatrist regarding. Client is doing [...] current treatment plan and Client to participate inPNES specific Cognitive behavioral treatment and work on processing PTSD .The primary aim of TakingControl of Your Seizures: Workbook is to improve the lives of patients with seizures. Both epileptic seizures and nonepileptic seizures (CEDRICK) are prevalent and potentially disabling. The Workbook is designed to be used by a patient with seizures in conjunction with his or her counselor. The Workbook contains tkml-kf-jrmf guidelines that enable patients to take control of their seizures and their lives. The senior accountant cpa Treating Nonepileptic Seizures: Therapist Guide enhances effectiveness by provid ing spytnas-ku-tbvqjdo instructions for counselors who use the Workbook with patients with CEDRICK. Theauthors developed this treatment approach based on extensive clinical experience and research with epilepsy and CEDRICK. Many patients who have completed the Taking Control process experience fewer seizures, reduced symptoms, and a greater sense of well-being. Work on thought changing and CBT, buildingsupports, feelings about her seizures and taking control. Using journaling and mindfulness, mediation and yoga and grounding techniques as well as thought changing to deal with stressors. NATHANAEL Stallworth documented in this [facility]01-11-2024 NoteIndividual Therapy via Audio and Video Progress Note [...] that they are currently in the state [facility]. If the patient is a minor, [...] how they give her 300 bucks for [employer]. Client talked about going to the laborer livestock and getting new wires put on her braces. Client continues to not have any nonepileptic seizures. It is actually been 7 months since client had a nonepileptic event. Client talked about wanting to find his job at the [employer] and how she applied there. She discussed [...] Appearance / Personal Hygien (more content not included)...[facility]01-11-2024 History of Present illness Narrative* NATHANAEL Stallworth - 11/28/2023 3:00 PM EST Individual Therapy via Audio and Video Progress [...] all of the patient's/patient's family's questions on thisissue have been answered and I have made no promises or guarantees to the patient. The patient has also been advised to contact this office for worsening conditions or problems, and seek emergency medical treatment and/or call 911 if the patient deems either necessary. The patient stated that they are currently in the state [facility]. If the patient is a minor, permission has been obtained by the parent or guardian for the patient to receive medical care at this visit. Date of service: Patient Name: Lona Bell Present at Session: Lona Session #: 31 Session start/stop times: 3:00pm to 3:41pm Treatment Intervention/Progress (A): Individual therapy session via telehealth with Lona Bell.Client was able to get on audio and video. Client talked about going to get her nose pierced today.Client talked about some.'s of anxiety but realizing [...] how they give her 300 bucks for [employer]. Client talked about going to the lab[employer] and getting new wires put on her braces. Client continues to not have any nonepileptic seizures. It is actually been 7 months since client had a nonepileptic event. Client talked about wanting to find his job at the [employer] and how she applied there. She discussed some of her friends already working there. Overall client is doing muchbetter she is not focusing on her relationship [...] therapy. Client continues to not have any no nepileptic events. Client's mood seems much more stable. [...] therapist the left she states she does notwant another counselor at an outside agency. Client's [...] looking at positive things. Client mood is muchmore stable. Diagnosis: Prolonged Post Traumatic Stress Disorder [...] current treatment plan and Client to participate inPNES specific Cognitive behavioral treatment and work on processing PTSD .The primary aim of TakingControl of Your Seizures: Workbook is to improve the lives of patients with seizures. Both epileptic seizures and nonepileptic seizures (CEDRICK) are prevalent and potentially disabling. The Workbook is designed to be used by a patient with seizures in conjunction with his or her counselor. The Workbook contains taex-wa-jmmz guidelines that enable patients to take control of their seizures and their lives. The senior accountant cpa Treating Nonepileptic Seizures: Therapist Guide enhances effectiveness by provid ing zqawsjc-fz-yxssqvx instructions for counselors who use the Workbook with patients with CEDRICK. Theauthors developed this treatment approach based on extensive clinical experience and research with epilepsy and CEDRICK. Many patients who have completed the Taking Control process experience fewer seizures, reduced symptoms, and a greater sense of well-being. Work on thought changing and CBT, buildingsupports, feelings about her seizures and taking control. Using journaling and mindfulness, mediation and yoga and grounding techniques as well as thought changing to deal with stressors. NATHANAEL Stallworth documented in this [facility]12-28-2023 NoteIndividual Therapy via Audio and Video Progress Note [...] stated that they are currently in the [facility]. If the patient is a minor, permission [...] audio and video. Client talked about her Pascual. She is said parts of it were [...] Duty to Protect pro (more content not included)...[facility] 11-14-2023 History of Present illness Narrative* Denita SosaNATHANAEL - 11/14/2023 3:00 PM EST Individual Therapy via Audio and Video Progress [...] all of the patient's/patient's family's questions on thisissue have been answered and I have made no promises or guarantees to the patient. The patient has also been advised to contact this office for worsening conditions or problems, and seek emergency medical treatment and/or call 911 if the patient deems either necessary. The patient stated that they are currently in the state [facility]. If the patient is a minor, permission has been obtained by the parent or guardian for the patient to receive medical care at this visit. Date of service: Patient Name: Lona Bell Present at Session: Lona Session #: 31 Session start/stop times: 2:55pm to 3:38pm Treatment Intervention/Progress (A): Individual therapy session via telehealth with Lona Bell.Client was able to get on audio and video. Client talked about her Pascual. She is said parts of it were good and parts of that were not so good. She talked about being at her stepfather's familiesand how she feels like there to snooze [...] not home. Client talked about her mom thinki ng the relationship is toxic for her and that they are toxic for each other. She talked about her mom going along well with her and her . Client talked about having some trouble sleeping. Feels like she has been more anxious. Client has not had any nonepileptic seizures. Talk to client aboutways she could monitor and help her anxiety [...] therapy. Client continues to not have any no nepileptic events. Client's mood seems much more stable. [...] therapist the left she states she does notwant another counselor at an outside agency. Client's [...] looking at positive things. Client mood is muchmore stable. Diagnosis: Prolonged Post Traumatic Stress Disorder [...] current treatment plan and Client to participate inPNES specific Cognitive behavioral treatment and work on processing PTSD .The primary aim of TakingControl of Your Seizures: Workbook is to improve the lives of patients with seizures. Both epileptic seizures and nonepileptic seizures (CEDRICK) are prevalent and potentially disabling. The Workbook is designed to be used by a patient with seizures in conjunction with his or her counselor. The Workbook contains wcjl-ja-nzbh guidelines that enable patients to take control of their seizures and their lives. The senior accountant cpa Treating Nonepileptic Seizures: Therapist Guide enhances effectiveness by provid ing mmdevau-qx-ysqrilu instructions for counselors who use the Workbook with patients with CEDRICK. Theauthoceleste developed this treatment approach based on extensive clinical experience and research with epilepsy and CEDRICK. Many patients who have completed the Taking Control process experience fewer seizures, reduced symptoms, and a greater sense of well-being. Work on thought changing and CBT, buildingsupports, feelings about her seizures and taking control. Using journaling and mindfulness, mediation and yoga and grounding techniques as well as thought changing to deal with stressors. NATHANAEL Stallworth documented in this [facility]12-12-2023 NoteIndividual Therapy via Audio and Video Progress Note [...] stated that they are currently in the [facility]. If the patient is a minor,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 ProviderActiveStart: September 05, 2024 End: September 05, 2024Team MemberRelationshipSpecialtyStart DateEnd Date Sasha Santos MD [address] [place], [place] [id number] PCP - GeneralFamily Xhicatee53/5/23Team MemberRelationshipSpecialtyStart DateEnd Date Sasha Santos MD [address] [place] [address] PCP - GeneralFamily Rylynupx75/5/23Team MemberRelationshipSpecialtyStart DateEnd Date [place] [address] [place] [address] PCP - Hgbkubj17/11/22Team MemberRelationshipSpecialtyStart DateEnd Date [place] [address] [place] [address] PCP - Jjoakql14/11/22Team MemberRelationshipSpecialtyStart DateEnd Date [place] [address] [place] [address] PCP - Pgviiyb97/11/22Team MemberRelationshipSpecialtyStart DateEnd Date [place] [address] [place] [address] PCP - Xownafk99/11/22Team MemberRelationshipSpecialtyStart DateEnd Date Sasha Santos MD [address] [place] [address] PCP - Generalmily Dtsllzzt38/5/23Team MemberRelationshipSpecialtyStart DateEnd Date Aakash Lozano MD, IBCLC [address] [place] [address] PCP - GeneralFamily Medicine12/05/24 Team Status: Active Member Role Status Dates Leni Perez , [employer]IN FITTER HELPER-C Primary Care Provider Active Team Status: Inactive Member Role Status Dates SILVERIO BrarC Primary Care Provider Active Start: July 24, 2025 End: July 24Fiorella Segura ProviderActiveStart: July 24, 2025 End: July 24, 2025Team MemberRelationshipSpecialtyStart DateEnd Date Aakash Lozano MD, IBCLC [address] [place] [address] PCP - GeneralFamily Medicine12/05/24 Reason for Visit (unrecogniz ed section and content) ReasonCommentsUrinary ProblemhematuriaSpecialtyDiagnoses / ProceduresReferred By ContactReferred To ContactUrology Diagnoses Abdominal pain, unspecified abdominal location Low back pain, unspecified back pain laterality, unspecified chronicity, unspecified whether sciatica present Blayne Dwayne Osborne [address] [place] [address] Referral IDStatusReasonStart DateExpiration DateVisits RequestedVisits [id number] Request Specialty Services Required [id number] DateCommentsRecords Vhjqcjg7301/04/20239328Obsriwz82/17/2023 ReasonCommentsMental Health ProblemReasonCommentsMed Change RequestReason CommentsSore Throat Goals (unrecognized section and content) Goals may [...] BE BASED ON THE PRIMARY CLINICAL RECORDS. [facility] [employer] [facility]. provides no warranty or guarantee of the accuracy or completeness of information in this document.
--- OUTSIDE RECORDS SUMMARY | 2025-09-30 07:34 | XMS_ITS | Clinical Summary ---
Author Organization [facility] [place] [address] Care Team Providers Care Haulage Boss Name Role Phone Dwayne Ledbetter DO Primary Care Provider [phone] Allergies No known active allergies Medications * This document contains information received from the source organization and may not represent a complete record from that organization. MedicationSigDispense QuantityRefillsLast FilledStart DateEnd DateStatus LOW-OGESTREL 0.3-30 MG-MCG tablet 08/23/2021ctive Cholecalciferol (VITAMIN D) 25 MCG (1000 UT) tablet Take 1,000 Units by mouth daily10/17/2021ctive prazosin (MINIPRESS) 1 MG capsule Take 1 Capsule (1 mg) by mouth nightly at bedtime for 90 days For nightmares. 90 Capsule 10/04/2022ctive sertraline (ZOLOFT) 100 MG tablet TAKE 2 TABLETS BY MOUTH NIGHTLY AT WJDCVDX8112/09/2022ctive Active Problems ProblemNoted DateDiagnosed DatePsychogenic nonepileptic qcttwrk4212/06/2021OVID- 19 virus kigbbahmb28/29/2021eizure-like osgjxpyp42/29/2021 Family History Medical HistoryRelationCommentsSuicide CompletionFatherRelationStatusComments Father Social History Tobacco UseTypesPacks/DayYears UsedDateSmoking Tobacco: Never Assessed CommentsUnknownSex and Gender InformationValueDate RecordedSex Assigned at Not on fileLegal BleJorfyv49/09/2021 3:14 AM EDTGender IdentityNot on fileSexual OrientationNot on file Last Filed Vital Signs Vital SignReadingTime TakenCommentsBlood Xahbhblg099/65005/10/2022 12:54 PM EDT Ldpcw42305/23/2022 12:54 PM MFRZqangcgzhem94 ??C (98.6 ??F)11/16/2021 8:55 AM ESTRespiratory Rbmt1481 9:00 AM ESTOxygen Ziaihjtksc41%11/16/2021 9:00 AM ESTInhaled Oxygen Concentration--Nmnzee70.4 kg (100 lb 1.4 oz)05/10/2022 12:54 PM HFRBqjygb804.6 cm (5' 4.8 )05/10/2022 12:54 PM EDTBody Mass Index16.76 05/10/2022 12:54 PM EDT Plan of Treatment Health MaintenanceDue DateLast DoneCommentsMMR (1 of 1 - Standard series) 2006Tetanus Diphtheria and Pertussis Vaccines (1 - Tdap)2012 Varicella (1 of 2 - 13+ 2-dose series)2018HPV (1 - 3-dose series) 2020Vision Fjdxhkgyx64/05/2020MenB (1 of 2 - MenB 2-Dose Series Bexsero) 2021Hearing Psubimejj39/05/2023Hepatitis B (1 of 3 - 19+ 3-dose series) 4COVID-19 ( season)2025FLU (#1)07/19/2025HIBAged OutNo longer eligible based on patient's age to complete this topicHepatitis AAged Out No longer eligible based on patient's age to complete this topicMenACWYAged Out No longer eligible based on patient's age to complete this topicNirsevimabAged OutNo longer eligible based on patient's age to complete this topicPneumococcal Aged OutNo longer eligible based on patient's age to complete this topicPolio Aged OutNo longer eligible based on patient's age to complete this topic RotavirusAged OutNo longer eligible based on patient's age to complete this topic Insurance MemberSubscriberPlan / Payer (Effective 2022-Present)Name:Naila Bell Relation to Subscriber:SelfName:Naila Bell Payer ID:[id number] (NAIC) Group ID:Not on file Type:Not on file Address: [place] [id number] * Guarantor: Parish WOODARD TypeRelation to PatientDate of BirthPhoneMary [facility] AddressMental LmdzylAwyqql37/19/1981 [address] [place] [address] Care Teams Team MemberRelationshipSpecialtyStart Date [place] [address] PCP - Utjrxpi14/29/21
--- OUTSIDE RECORDS SUMMARY | 2025-09-30 07:34 | XMS_ITS | Clinical Summary ---
Author Organization [facility] Address [address], [address] [place] [address] Care Team Providers Care Line Assembly Utility Worker Name Role Phone House Sr., Dwayne FERNANDO Primary Care Provider + Allergies Active AllergyReactionsCriticalityNoted DateCommentsEnvironmental/Seasonal 08/28/2022 Medications MedicationSigDispense QuantityRefillsLast FilledStart DateEnd DateStatus sertraline (ZOLOFT) 100 MG tablet Take 200 mg by mouth07/19/2022ctive vitamin D (CHOLECALCIFEROL) 25 MCG (1000 UT) TABS tablet Take 1,000 Units by mouth daily10/17/2021ctive norgestrel-ethinyl estradiol (LOW-OGESTREL) 0.3-30 MG-MCG per tablet 08/23/2021ctive prazosin (MINIPRESS) 1 MG capsule Take 1 mg by mouth vrslfdl5308/24/2022ctive Active Problems ProblemNoted DateDiagnosed DatePsychogenic nonepileptic bhnfzxs3708/28/2022TSD (post-traumatic stress disorder)08/28/20228603Nlhiobaasq81/11/6558Lnmlpnv52/11/2022 Family History Medical HistoryRelationNameCommentsMigrainesMaternal GrandmotherRelationName StatusCommentsMaternal Grandmother Social History Tobacco UseTypesPacks/DayYears UsedDateSmoking Tobacco: Never Tobacco Cessation:Counseling Given: Not Answered Alcohol UseStandard Drinks/WeekCommentsNot Currently0 (1 standard drink = 0.6 oz pure alcohol)CommentsUnknownSex and Gender InformationValueDate Recorded Sex Assigned at BirthNot on fileLegal QmvDpvptx83/26/2015 3:35 PM EDTGender IdentityNot on fileSexual OrientationNot on file Last Filed Vital Signs Vital SignReadingTime TakenCommentsBlood Iwnhhnkn99/6408/28/2022 1:38 PM EDT Xpgws485408/28/2022 1:38 PM EFFRlttjfjcjkp42.1 ??C (97 ??F)08/28/2022 1:38 PM EDT Respiratory Rate--Oxygen Efidsksuam23%08/28/2022 1:38 PM EDTInhaled Oxygen Concentration--Otigzs54.4 kg (100 lb)08/28/2022 1:38 PM DOGXrfjhx741.6 cm (5' 4 )08/28/2022 1:38 PM EDTBody Mass Index17.161 1:38 PM EDT Plan of Treatment Not on file Insurance * Guarantor: Parish BELL TypeRelation to PatientDate of BirthPhoneBilling AddressPersonal/FamilyMother [address] [place] [address] Care Teams Team MemberRelationshipSpecialtyStart DateEnd Date Dwayne Ledebtter Sr., DO [address] [place] [id number] PCP - GeneralFawyly Kllylrdu83/11/22
[2025-09-30 07:40] LABS: Glucose Urine UA NEGATIVE (NEGATIVE)
[2025-09-30] MEDS: ONDANSETRON 4 MG RAPDIS TABLET SL (07:44)
[2025-09-30 07:51] LABS: Cast Seen? NONE SEEN #/LPF (NONE SEEN); Crystals Seen? None Seen #/HPF (None Seen); Urine Culture Indicated NO
[2025-09-30 08:41] LABS: HCG Qualitative Urine* POSITIVE (NEGATIVE)
--- NOTE | 2025-09-30 08:47 | ED.NAVMDI1 ---
HPI - Nausea/Vomiting/Diarrhea General Chief complaint: Nausea/Vomiting/Diarrhea Stated complaint: nausea Time Seen by Provider: 09/30/25 07:22 Source: patient Mode of arrival: walk-in Limitations: no limitations History of Present Illness HPI Narrative: The patient is 20 years old female presented to the ER after she had some nausea and vomiting over the last few days patient noticed that her menstruation is light and she is supposed to get her period in the, first week of the month, the patient last menstruation was in August 23 The patient had not been before and she also has been having some nausea and vomiting. She denies any pain at the moment but she mentioned sometimes having some abdominal cramping in the lower abdomen but she does not have any pain at the moment Related Data Home Medications ?Medication ?Instructions ?Recorded ?Confirmed norgestimate 0.25 mg-ethinyl 1 tab PO QDAY 08/06/23 04/20/25 estradiol 0.035 mg tablet (Sprintec (28)) Previous Rx's ?Medication ?Instructions ?Recorded ondansetron 4 mg disintegrating 4 mg PO Q8H PRN nausea and 09/30/25 tablet vomiting 4 days #20 tabs Allergies Allergy/AdvReac Type Severity Reaction Status Date / Time No Known Drug Allergies Allergy Verified 09/30/25 07:18 Review of Systems ROS Status of ROS 10 or more systems reviewed and unremarkable except as noted in history and below PFSH PFSH Social History Little interest or pleasure in doing things: not at all Feeling down, depressed, or hopeless: not at all Exam Narrative Exam Narrative: Nurses notes and vital signs reviewed and patient is not hypoxic. General: Well-appearing and in no apparent distress. Skin: Warm, dry, no pallor noted. No rash. Head: Normocephalic, atraumatic. Neck: Supple, non-tender. Cardiovascular: Regular Rate and Rhythm without murmur, gallop or rub. Respiratory: No accessory muscle use or respiratory distress. Lungs are clear to auscultation, no wheezing, rales or rhonchi Chest Wall: no tenderness Back: No midline thoracic or lumbar vertebral tenderness. No CVA tenderness Musculoskeletal: normal ROM, no calf or popliteal tenderness, no lower extremity edema/swelling GI: Abdomen is soft, non-distended. Normal bowel sounds. No masses appreciated. No tenderness to palpation. No rebound, guarding, or rigidity noted. Neurological: A&O x4. No cranial nerve dysfunction observed. No truncal ataxia. Moves all extremities. Sensation intact. Psychiatric: Cooperative and interactive. Normal mood and affect. Constitutional Vital Signs, click to edit/add: Last Vital Signs Temp 98.9 F 09/30/25 07:19 Pulse 74 09/30/25 07:19 Resp 16 09/30/25 07:19 BP 116/73 09/30/25 07:19 Pulse Ox 100 09/30/25 07:19 O2 Del Method Room Air 09/30/25 07:19 Course Vital Signs Vital signs: Vital Signs Temperature 98.9 F 09/30/25 07:19 Pulse Rate 74 09/30/25 07:19 Respiratory Rate 16 09/30/25 07:19 Blood Pressure 116/73 09/30/25 07:19 Pulse Oximetry 100 09/30/25 07:19 Oxygen Delivery Method Room Air 09/30/25 07:19 Temperature 98.9 F 09/30/25 07:19 Pulse Rate 74 09/30/25 07:19 Respiratory Rate 16 09/30/25 07:19 Blood Pressure 116/73 09/30/25 07:19 Pulse Oximetry 100 09/30/25 07:19 Oxygen Delivery Method Room Air 09/30/25 07:19 MDM - Nausea/Vomiting/Diarrhea MDM Narrative Medical decision making narrative: The patient abdomen examination is benign Right now the patient had a test that is positive in the ER her menstruation was almost 3 weeks ago. The patient will follow-up with Dr. Ignacio as outpatient she was started on Zofran and supportive care Instructed about the importance of coming back to the ER in case of any pain in her abdomen or any vaginal bleeding The patient to follow-up with the primary care within 2 to 3 days and to come back to the ER in case of any worsening of the current symptoms or any new symptoms or concerns Lab Data Labs: Lab Results 09/30/25 Range/Units 07:25 Urine Color Lt. yellow (YELLOW) Urine Clarity Clear (CLEAR) Urine pH 6.5 (5.0-9.0) Ur Specific [place] <=1.005 A (1.005-1.025) Urine Protein Negative (NEG/TRACE) mg/dL Urine Glucose (UA) Negative (NEGATIVE) mg/dL Urine Ketones Negative (NEGATIVE) mg/dL Urine Occult Blood Negative (NEGATIVE) Urine Nitrite Negative (NEGATIVE) Urine Bilirubin Negative (NEGATIVE) Urine Urobilinogen 0.2 (0.2-1.0) EU/dL Ur Leukocyte Esterase Trace A (NEGATIVE) Urine RBC 0-2 (0-2) #/HPF Urine WBC 0-2 A (NONE SEEN) #/HPF Ur Squamous Epith Cells Moderate A (NONE/RARE) #/LPF Urine Crystals None seen (None Seen) #/HPF Urine Bacteria Trace A (NONE SEEN) #/HPF Urine Casts None seen (NONE SEEN) #/LPF Urine Mucus None seen (NONE SEEN) Ur Culture Indicated? No Urine HCG, Qual Positive A (NEGATIVE) Discharge Plan Discharge Chief Complaint: Nausea/Vomiting/Diarrhea Clinical Impression: Patient Disposition: Home, Self-Care Time of Disposition Decision: 08:48 Condition: Good Prescriptions / Home Meds: New ondansetron 4 mg tablet,disintegrating 4 mg PO Q8H PRN (Reason: nausea and vomiting) 4 Days Qty: 20 0RF No Action norgestimate-ethinyl estradiol [Sprintec (28)] 0.25-35 mg-mcg tablet 1 tab PO QDAY Print Language: Urdu Instructions: (ED) Referrals: Shine Ignacio DO [Physician, DESIGN AGENT] - 1 week Physician,Non-Staff, MD [Primary Care Provider] - 1 week
== END 2025-09-30 08:53 | disposition home or self-care (01) ==
PROVIDERS: Emergency Provider Emergency Medicine
DX: Z34.91 Encounter for supervision of normal pregnancy, unspecified, first trimester (principal)
CPT/HCPCS: 81001; 84703; 99283; Q0162